=== PATIENT | female | born 1970 | race Caucasian/White ===

== ENCOUNTER 2020-06-02 11:41 | Outpatient (REF) | payer BC, SELFPAY ==
[2020-06-02 14:09] LABS: MANUAL DIFF FLAG NO
[2020-06-02 14:18] LABS: Basophils Percent Auto 0.4 % (0-2); Eosinophils Absolute Auto 0.1 X10*3/uL (0.0-0.4); Eosinophils Percent Auto 1.6 % (0-4); Hematocrit 40.8 % (37-47); Hemoglobin 13.7 g/dl (12.0-16.0); Imm Gran Abs Auto 0.02 X10*3/uL (0.00-0.03); Imm Gran Pct Auto 0.4 % (0.0-0.4); Lymphocytes Absolute Auto 1.6 X10*3/uL (1.2-4.9); Lymphocytes Percent Auto 33.3 % (20-40); Mean Corpuscular HGB Conc 33.6 g/dl (31.0-35.0); Mean Corpuscular Hemoglobin 32.9 pg (27.0-33.0); Mean Corpuscular Volume 97.8 fL (80-98); Mean Platelet Volume 12.2 fL (9.4-12.3); Monocytes Absolute Auto 0.5 X10*3/uL (0.1-1.2); Monocytes Percent Auto 9.7 % (2-11); Neutrophils Absolute Auto 2.7 X10*3/uL (2.0-8.3); Neutrophils Percent Auto 54.6 % (45-73); Platelet Count 149 X10*3/uL (160-400); Red Blood Count 4.17 X10*6/uL (4.20-5.50); Red Cell Distribution Width 12.8 % (11.0-16.0); White Blood Count 4.9 X10*3/uL (4.8-10.8)
[2020-06-02 14:42] LABS: Alanine Aminotransferase 29 U/L (0-31); Albumin Level 4.2 g/dL (3.5-5.0); Alkaline Phosphatase 51 U/L (39-117); Anion Gap 13 (12-20); Aspartate Amino Transferase 21 U/L (5-31); Bilirubin Total 0.4 mg/dL (0.0-1.0); Blood Urea Nitrogen 21 mg/dL (9-16); Calcium 8.2 mg/dL (8.4-10.2); Carbon Dioxide 24 mmol/L (22-29); Chloride 106 mmol/L (96-108); Cholesterol 275 mg/dL; Estimated Glomerular Filt Rate > 60; Glucose Fasting 83 mg/dL (60-99); HDL Cholesterol 60 mg/dL; LDL Cholesterol Calculated 194 mg/dl; Potassium 4.5 mmol/l (3.3-5.1); Sodium 138 mmol/L (135-145); Triglycerides 105 mg/dL
[2020-06-02 15:12] LABS: Erythrocyte Sedimentation Rate 6 MM/HR (0-20)
== END 2020-06-02 11:42 | disposition home or self-care (01) ==
LOC: HO.10HDL 11:41
PROVIDERS: Visit Provider Internal Medicine Medical Oncology
DX: E66.9 Obesity, unspecified (principal); Z00.00 Encounter for general adult medical examination without abnormal findings; E78.2 Mixed hyperlipidemia
CPT/HCPCS: 36415; 80053; 80061; 85025; 85652

== ENCOUNTER 2020-06-16 17:12 | Outpatient (REF) | payer BC, SELFPAY ==
--- NOTE | 2020-06-16 | MM_ITS ---
EXAMINATION: MM SCREENING DIGITAL BREAST TOMOSYNTHESIS, BILATERAL CLINICAL INFORMATION: Screening. Asymptomatic. Family history breast cancer, maternal grandmother. No personal history breast surgery. The lifetime risk of breast cancer based on the Tyrer-Cuzick Model is 8%. COMPARISON: Mammography: 08/07/2012, 09/16/2010 TECHNIQUE: Digital breast tomosynthesis is performed in both the craniocaudal and mediolateral oblique views along with computer-aided detection (CAD). Synthesized 2D images are generated from the tomosynthesis. FINDINGS: There are scattered areas of fibroglandular density (ACR BI-RADS breast composition Category b). There are no significant masses, abnormal calcifications, or other abnormalities. Parenchymal pattern is similar to prior studies. There is no developing density. The axilla and skin contours are unremarkable. No significant changes. MM/MM tomosynthesis screening BI IMPRESSION: No mammographic evidence of malignancy. ASSESSMENT: BI-RADS 1: Negative RECOMMENDATION: Routine annual mammography screening. This patient's information was entered into a reminder system with a target due date for their next mammogram.
== END 2020-06-16 17:13 | disposition home or self-care (01) ==
LOC: HO.MAMMO 17:12
PROVIDERS: Visit Provider Internal Medicine Medical Oncology
DX: Z12.31 Encounter for screening mammogram for malignant neoplasm of breast (principal)
CPT/HCPCS: 77063; 77067

== ENCOUNTER 2020-06-23 14:46 | Outpatient (REF) | payer BC, SELFPAY ==
--- NOTE | 2020-06-23 | US_ITS ---
EXAMINATION: US PELVIS COMPLETE US TRANSVAGINAL CLINICAL INFORMATION: Pelvic mass/lump/swelling. COMPARISON: None TECHNIQUE: Transabdominal and transvaginal imaging of pelvis is performed. FINDINGS: The uterus is anteverted, anteflexed and heterogenous. There are multiple hypoechoic to isoechoic lesions consistent with fibroids. 1. A 2.7 x 2.6 x 2.5 cm lesion right mid uterus. 2. A 1.1 x 0.9 x 1.0 cm lesion right mid uterus. 3. A 3.5 x 3.2 x 3.1 cm lesion in the right upper body of uterus. 4. A 1.4 x 1.2 x 1.3 cm lesion in the anterior upper body of uterus. 5. A 4.7 x 4.5 x 4.8 cm lesion in the left upper body of uterus. 6. A 0.9 x 0.7 x 1.07 lesion in the anterior fundus of the uterus. 7. A 1.3 x 0.9 x 1.1 cm lesion in the posterior central fundus of the uterus. 8. Largest pedunculated lesion of the right fundus measuring 7.3 x 7.7 x 7.8 cm. Endometrial thickness is 0.8 cm. There is a small cyst seen within the endometrial canal. There are small nabothian cysts in the cervix. Both ovaries are not seen. There is no free fluid in the cul-de-sac. Limited imaging through the right lower quadrant area of the lump reveals no evidence of hernia or mass. US/US pelvic complete IMPRESSION: Multiple uterine fibroids, the largest fibroid of the right fundus is pedunculated measuring 7.8 cm. Multiple nabothian cysts seen in the cervix. There is a small endometrial canal cyst, as well. The ovaries are not seen. Imaging of the right lower quadrant reveals no evidence of hernia or mass.
== END 2020-06-23 14:47 | disposition home or self-care (01) ==
LOC: HO.US 14:46
PROVIDERS: PCP Internal Medicine Medical Oncology; Visit Provider Internal Medicine Medical Oncology
DX: R19.00 Intra-abdominal and pelvic swelling, mass and lump, unspecified site (principal)
CPT/HCPCS: 76830; 76856

== ENCOUNTER 2020-09-29 07:27 | Day surgery (SDC) | payer OTHER, SELFPAY ==
[2020-08-12 10:33] VITALS: BMI 31.9
--- NOTE | 2020-08-17 09:33 | P.CONAN_ITS ---
HPI - Anesthesia Eval Consult details Narrative: 50yo F for Colonoscopy [facility] Past Medical History Medical History (Updated 08/12/20 @ 10:29 by Lacy Johnson) Vertigo Surgical History Surgical History (Updated 08/12/20 @ 10:29 by Lacy Johnson) History of bilateral carpal tunnel release Hx of section Social History Social History Smoking Status: Current every day smoker Packs Per Day: 0.25 Cigarettes Per Day: 5.0 Years Smoked: 39 Smoked in Last 30 Days: Yes Patient Given Instructions on How to Stop Smoking: Yes Date Education Initiated: 08/12/20 Advance Directives: No Advance Directives Information Provided: No Advance Directives on File: No Meds Allergies Allergy/AdvReac Type Severity Reaction Status Date / Time Sulfa (Sulfonamide Allergy Unknown RASH Unverified 04/02/20 16:06 Antibiotics) [SULFA (SULFONAMIDE ANTIBIOTICS)] sulfasalazine [Sulfazine] Allergy Unknown Verified 08/13/19 00:00 Home Medications Medication Instructions Recorded Confirmed Type meclizine 1 tab PO TID PRN 08/12/20 08/12/20 History Exam Exam Date and Time: August 17, 2020 0933 Height,Weight and Vital Signs: Height 4 ft 10 in Weight 69.4 kg Assessment and Plan Assessment Anesthesia Assessment: Chart Reviewed
--- NOTE | 2020-09-28 08:29 | P.CONAN_ITS ---
Documented by User: Anabell Merida 09/28/20 08:30 HPI - Anesthesia Eval Consult details Narrative: 50yo F for Colonoscopy [facility] Past Medical History Medical History Vertigo Surgical History Surgical History History of bilateral carpal tunnel release Hx of section Social History Social History Smoking Status: Current every day smoker Packs Per Day: 0.25 Cigarettes Per Day: 5.0 Years Smoked: 39 Smoked in Last 30 Days: Yes Patient Given Instructions on How to Stop Smoking: Yes Date Education Initiated: 08/12/20 Advance Directives: No Advance Directives Information Provided: No Advance Directives on File: No Meds Allergies Allergy/AdvReac Type Severity Reaction Status Date / Time Sulfa (Sulfonamide Allergy Mild RASH Verified 09/29/20 08:42 Antibiotics) [SULFA (SULFONAMIDE ANTIBIOTICS)] sulfasalazine [Sulfazine] Allergy Unknown Unknown Verified 09/22/20 13:30 Home Medications Medication Instructions Recorded Confirmed Last Taken Type meclizine 1 tab PO TID PRN 08/12/20 08/12/20 Unknown History Exam Exam Date and Time: September 28, 2020 0829 Height,Weight and Vital Signs: Height 4 ft 10 in Weight 69.4 kg Assessment and Plan Assessment Anesthesia Assessment: Chart Reviewed Documented by User: Lauren Wright 09/29/20 09:20 [facility] Past Medical History Medical History Vertigo Surgical History Surgical History History of bilateral carpal tunnel release Hx of section Social History Social History Smoking Status: Current every day smoker Packs Per Day: 0.25 Cigarettes Per Day: 5.0 Years Smoked: 39 Smoked in Last 30 Days: Yes Patient Given Instructions on How to Stop Smoking: Yes Date Education Initiated: 08/12/20 Advance Directives: No Advance Directives Information Provided: No Advance Directives on File: No Meds Allergies Allergy/AdvReac Type Severity Reaction Status Date / Time Sulfa (Sulfonamide Allergy Mild RASH Verified 09/29/20 08:42 Antibiotics) [SULFA (SULFONAMIDE ANTIBIOTICS)] sulfasalazine [Sulfazine] Allergy Unknown Unknown Verified 09/22/20 13:30 Home Medications Medication Instructions Recorded Confirmed Last Taken Type meclizine 1 tab PO TID PRN 08/12/20 08/12/20 Unknown History Exam Airway Mallampati Class: II TM Dist: >3cm Neck ROM: Full Loose/Missing/Broken Teeth: No Heart: RRR Lungs: CTA Assessment and Plan Assessment Anesthesia Assessment: Anesthesia Plan Discussed and Chart Reviewed Final Anesthetic Review NPO: Yes ASA Class: II Final Preanesthetic Review: Meds/Allgs Chart Reviewed, Consent Obtained/Reviewed and Anes Risks/Benef Reviewed Patient Risk: Low Procedure Risk: Low Anesthetic Plan Anesthetic Plan: MAC: Disposition: Standard PACU
[2020-09-29 08:23] VITALS: BP 121/76; PULSE 61; RESP 16; TEMP 36.7; O2SAT 99
[2020-09-29] MEDS: Lactated Ringers 1,000 ML 100 ML IVCONT (08:45)
--- NOTE | 2020-09-29 09:20 | MHC.SHP ---
Pre-Procedural Eval Section B Chief Complaint: screening Details of Present Illness: screening Relevant Family History (Specify if Yes): No Relevant Social History: None Present Medications: see Short Stay Collaborative assessment Medical History: No relevant PMH History of Previous Operations: No relevant previous surgery Allergies: Allergies Allergy/AdvReac Type Severity Reaction Status Date / Time Sulfa (Sulfonamide Allergy Mild RASH Verified 09/29/20 08:42 Antibiotics) [SULFA (SULFONAMIDE ANTIBIOTICS)] sulfasalazine [Sulfazine] Allergy Unknown Unknown Verified 09/22/20 13:30 Review of Systems Sugical H&P ROS: Negative: Constitution, Cardiovascular, Respiratory, Neurological, Psychiatric, Hem-Onc, Allergic/Immunologic, Gastrointestinal, Genitourinary, Musculoskeletal, Integumentary, Endocrine and Eyes/Ears/Nose/Throat Exam Surgical H&P Exam: Normal: HEENT, Normal: Heart, Normal: Lungs, Normal: Extremities, Normal: Abdomen, Normal: Skin and Normal: Neurological Plan Diagnosis/Plan: Unchanged I have reviewed the history and physical and performed a pertinent physical examination on my patient. No changes have occurred unless specified.
[2020-09-29 09:50] VITALS: BP 96/62; PULSE 74; RESP 18; TEMP 36.1; O2SAT 99
--- NOTE | 2020-09-29 09:50 | PM.OP ---
Brief Operative Note Date of Service: 09/29/20 Pre-op diagnosis: screening Post-op diagnosis: same (colon polyps) Procedure: colonoscopy Surgeon: Dano Ibrahim Anesthesia: MAC Estimated blood loss (mL): 2 Pathology: other (rectal polyps x2) Condition: stable Disposition: PACU
[2020-09-29 10:05] VITALS: BP 125/74; PULSE 71; RESP 18; TEMP 36.1; O2SAT 100
--- NOTE | 2020-09-29 10:10 | OP_ITS ---
SURGEON: Dano Ibrahim MD INDICATIONS: Colon cancer screening. PREOPERATIVE DIAGNOSIS: POSTOPERATIVE DIAGNOSIS: PROCEDURE PERFORMED: Colonoscopy to the terminal ileum with snare polypectomy. ESTIMATED BLOOD LOSS: COMPLICATIONS: ANESTHESIA: ASSISTANTS: SPECIMENS: MEDICATIONS: Monitored anesthesia care. DESCRIPTION OF PROCEDURE: History and physical performed. The risks and benefits of the procedure were explained to the patient. Informed consent was obtained. The patient was placed in the left lateral decubitus position. A digital rectal exam was performed and was found to be normal. The Olympus pediatric video colonoscope was introduced into the rectum and advanced to the cecum without difficulty. The cecum was identified by transillumination, palpation, and identification of ileocecal valve. Examination was performed. The scope was removed. She tolerated the procedure well and was taken to recovery area in stable condition. FINDINGS: The terminal ileum was normal. The visualized colonic mucosa was normal. The quality of prep was good. Two rectal polyps were identified and removed with a snare. The largest measured approximately 8 mm. No other polyps were seen. Retroflexed examination was normal. Small internal hemorrhoids and hypertrophic anal papillae were noted. IMPRESSION: Colon polyps. RECOMMENDATION: Follow up the biopsy results. MD SAGE Moyer/PERLITA / [phone]
== END 2020-09-29 10:32 | disposition home or self-care (01) ==
PROVIDERS: PCP Internal Medicine Medical Oncology; Visit Provider Internal Medicine Gastroenterology
PROC: 0DJD8ZZ Inspection of Lower Intestinal Tract, Via Natural or Artificial Opening Endoscopic (ICD-10-PCS; CPT 45378; principal; 2020-09-29 09:00)
DX: Z12.11 Encounter for screening for malignant neoplasm of colon (principal); D12.8 Benign neoplasm of rectum; K64.8 Other hemorrhoids; K62.89 Other specified diseases of anus and rectum; R42 Dizziness and giddiness; F17.210 Nicotine dependence, cigarettes, uncomplicated; Z79.899 Other long term (current) drug therapy
CPT/HCPCS: 45385; 88305

== ENCOUNTER → 2020-09-30 13:53 | Outpatient (BNVA) | payer OTHER, SELFPAY | PROVIDERS: PCP Internal Medicine Medical Oncology; Visit Provider Obstetrics & Gynecology ==

== ENCOUNTER 2021-09-23 10:05 | Outpatient (REF) | payer OTHER, SELFPAY ==
--- NOTE | ~2021-09-23 | MM_ITS ---
EXAMINATION: MM SCREENING DIGITAL BREAST TOMOSYNTHESIS, BILATERAL CLINICAL INFORMATION: Screening. Asymptomatic. The lifetime risk of breast cancer based on the Tyrer-Cuzick Model is 8%. COMPARISON: Mammography: 06/16/2020 TECHNIQUE: Digital breast tomosynthesis is performed in both the craniocaudal and mediolateral oblique views along with computer-aided detection (CAD). Synthesized 2D images are generated from the tomosynthesis. FINDINGS: There are scattered areas of fibroglandular density (ACR BI-RADS breast composition Category b). There are no significant masses, abnormal calcifications, or other abnormalities. Parenchymal pattern is similar to prior studies. There is no developing density or architectural abnormality. The axilla and skin contours are unremarkable. No significant changes. MM/MM tomosynthesis screening BI IMPRESSION: No mammographic evidence of malignancy. ASSESSMENT: BI-RADS 1: Negative RECOMMENDATION: Routine annual mammography screening. This patient's information was entered into a reminder system with a target due date for their next mammogram.
== END 2021-09-23 10:06 | disposition home or self-care (01) ==
LOC: HO.MAMMO 10:05
PROVIDERS: Visit Provider Internal Medicine Medical Oncology
DX: Z12.31 Encounter for screening mammogram for malignant neoplasm of breast (principal)
CPT/HCPCS: 77063; 77067

== ENCOUNTER 2021-09-30 10:43 | Outpatient (REF) | payer OTHER, SELFPAY ==
[2021-09-30 11:03] LABS: MANUAL DIFF FLAG NO
[2021-09-30 11:23] LABS: Basophils Percent Auto 0.4 % (0-2); Eosinophils Absolute Auto 0.1 X10*3/uL (0.0-0.4); Eosinophils Percent Auto 2.7 % (0-4); Hematocrit 42.1 % (37.0-47.0); Hemoglobin 13.9 g/dl (12.0-16.0); Imm Gran Abs Auto 0.01 X10*3/uL (0.00-0.03); Imm Gran Pct Auto 0.2 % (0.0-0.4); Lymphocytes Absolute Auto 1.8 X10*3/uL (1.2-4.9); Lymphocytes Percent Auto 38.4 % (20-40); Mean Corpuscular Hemoglobin 31.8 pg (27.0-33.0); Mean Corpuscular Volume 96.3 fL (80.0-98.0); Mean Platelet Volume 12.3 fL (9.4-12.3); Monocytes Absolute Auto 0.5 X10*3/uL (0.1-1.2); Monocytes Percent Auto 10.5 % (2-11); Neutrophils Absolute Auto 2.3 x10*3/uL (2.0-8.3); Neutrophils Percent Auto 47.8 % (45-73); Platelet Count 127 X10*3/uL (160-400); Red Blood Count 4.37 X10*6/uL (4.20-5.50); Red Cell Distribution Width 12.9 % (11.0-16.0); White Blood Count 4.8 X10*3/uL (4.8-10.8)
[2021-09-30 12:09] LABS: Alanine Aminotransferase 24 U/L (0-31); Albumin Level 4.2 g/dL (3.5-5.0); Alkaline Phosphatase 47 U/L (39-117); Anion Gap 13 (12-20); Aspartate Amino Transferase 19 U/L (5-31); Bilirubin Total 0.3 mg/dL (0.0-1.0); Blood Urea Nitrogen 18 mg/dL (9-16); Calcium 9.3 mg/dL (8.4-10.2); Carbon Dioxide 22 mmol/L (22-29); Chloride 107 mmol/L (96-108); Cholesterol 271 mg/dL; Estimated Glomerular Filt Rate > 60; Glucose Fasting 101 mg/dL (60-99); HDL Cholesterol 62 mg/dL; LDL Cholesterol Calculated 172 mg/dl; Potassium 4.3 mmol/L (3.3-5.1); Sodium 138 mmol/L (135-145); Total Protein 7.2 g/dL (6.5-8.0); Triglycerides 188 mg/dL
== END 2021-09-30 10:44 | disposition home or self-care (01) ==
LOC: HO.LAB 10:43
PROVIDERS: PCP Internal Medicine Medical Oncology; Visit Provider Internal Medicine Medical Oncology
DX: E66.9 Obesity, unspecified (principal); E78.2 Mixed hyperlipidemia
CPT/HCPCS: 36415; 80053; 80061; 85025

== ENCOUNTER 2021-10-20 09:03 | Emergency (ER) | payer OTHER, SELFPAY ==
[2021-10-20 09:06] VITALS: BP 144/90; PULSE 93; RESP 16; TEMP 36.8; O2SAT 99; BMI 32.3
[2021-10-20 09:46] LABS: Strep A Nucleic Acid Positive (Negative)
[2021-10-20 09:56] LABS: COVID-19 Test Negative (Negative); IDNOW Serial# 16C4AD1C
--- NOTE | 2021-10-20 10:17 | ED.GENADULT ---
HPI - General Adult General Chief complaint: General Medical Stated complaint: throat pain/cant swallow Time Seen by Provider: 10/20/21 09:18 History of Present Illness HPI narrative: Patient complains of sore throat and feeling feverish for last 3 days, no runny nose no cough no shortness of breath, it hurts to swallow but she is able to swallow Related Data Home Medications Medication Instructions Recorded Confirmed meclizine 25 mg tablet 1 tab PO TID PRN 08/12/20 08/12/20 Previous Rx's Medication Instructions Recorded acetaminophen 500 mg tablet 1,000 mg PO QID PRN #30 tab 10/20/21 ibuprofen 600 mg tablet 600 mg PO Q6H PRN #20 tab 10/20/21 penicillin V potassium 500 mg 500 mg PO TID 10 Days #30 tab 10/20/21 tablet Allergies Allergy/AdvReac Type Severity Reaction Status Date / Time Sulfa (Sulfonamide Allergy Mild RASH Verified 09/30/20 13:58 Antibiotics) [SULFA (SULFONAMIDE ANTIBIOTICS)] sulfasalazine [Sulfazine] Allergy Unknown Unknown Verified 09/30/20 13:58 Review of Systems Review of Systems: Positive for sore throat and fever and body aches Negatives are no dizziness no weakness no headache no stiff neck no chest pain no shortness of breath no abdominal pain no nausea or vomiting no skin rash no dysuria Yes all other systems are reviewed and are negative [facility], [facility] Past Medical History Source: nursing notes reviewed Medical History (Updated 10/20/21 @ 10:21 by DIANA Campbell) Vertigo Surgical History (Updated 09/30/20 @ 14:26 by Candida Ortega MD) History of bilateral carpal tunnel release History of bilateral ligation of fallopian tubes Hx of section Social History Social History (Updated 09/30/20 @ 13:59 by FOUZIA Fajardo) Alcohol intake: current Alcohol intake frequency: holidays/special occasions only Alcohol type: wine Cigarette Packs Per Day: 0.25 Cigarettes Per Day: 5.0 Years Smoked: 39 Advance Directives: No Advance Directives Information Provided: No Gender identity: Female Physical Exam ED Vital Signs: Vital Signs - 24 hr 10/20/21 09:06 Temperature 98.3 F Pulse Rate 93 Respiratory Rate 16 Blood Pressure 144/90 H Pulse Oximetry 99 BMI result Body Mass Index 32.3 General appearance is no acute distress The eyes no redness or discharge The sinuses nontender The pharynx has moist mucous membranes and a does have red swollen tonsils with exudate, uvula is midline, voice is normal no trismus no drooling The neck is supple, there is anterior tender lymphadenopathy The chest is clear to auscultation bilateral Heart no murmur Abdomen soft nontender Extremities full range of motion x4 Skin no rash Course Course Course Narrative: Strep test was positive and patient is treated with penicillin and steroids she does tolerate p.o. Flu test and COVID test are negative and well-appearing patient tolerating p.o. is discharged Medical Decision Making Lab Data Labs: Lab Results 10/20/21 10/20/21 10/20/21 Range/Units 09:31 09:31 09:31 COVID-19 (RYAN) Negative (Negative) COVID-19 Clin Com See Note Influenza Type A ([facility]ERRE) Negative (Negative) Influenza Type B ([facility]RE) Negative (Negative) Influenza A & B Note See Note S. pyogenes GrpA JE[facility]ERRE Positive A (Negative) Discharge Plan Discharge Clinical Impression: Acute streptococcal pharyngitis Patient Disposition: Home, Self-Care Additional Instructions: Flu test was negative, COVID test was negative Strep throat test was positive so we are treating with antibiotic penicillin Steroids often help the discomfort so we are doing 3 days of steroids you got the 1st dose today in the ER so you can take the prednisone tomorrow and You could use Tylenol and Motrin as needed for discomfort, breathing steam sometimes help, drink plenty of fluids Return any time any worse condition or concerns Prescriptions: New acetaminophen 500 mg tablet 1,000 mg PO QID PRN (Reason: pain) Qty: 30 0RF penicillin V potassium 500 mg tablet 500 mg PO TID 10 Days Qty: 30 0RF ibuprofen 600 mg tablet 600 mg PO Q6H PRN (Reason: pain) Qty: 20 0RF No Action meclizine 25 mg tablet 1 tab PO TID PRN (Reason: Vertigo) 0RF Stand Alone Forms: Work/School Release
[2021-10-20 10:22] LABS: IDNOW Serial# 08D9AD1C; Influenza A Negative (Negative); Influenza B2 Negative (Negative)
[2021-10-20] MEDS: Penicillin V Potassium 250 MG TABLET 500 MG PO (10:39)
[2021-10-20] MEDS: Ibuprofen 600 MG TABLET PO (10:39)
[2021-10-20] MEDS: dexAMETHasone 2 MG TABLET 10 MG PO (10:39)
== END 2021-10-20 10:49 | disposition home or self-care (01) ==
PROVIDERS: Physician Assistant Medical; Emergency Provider Emergency Medicine Emergency Medical Services; PCP Internal Medicine Medical Oncology
DX: J02.0 Streptococcal pharyngitis (principal); R07.0 Pain in throat; R50.9 Fever, unspecified; F17.210 Nicotine dependence, cigarettes, uncomplicated; Z71.6 Tobacco abuse counseling; Z79.899 Other long term (current) drug therapy; Z20.822 Contact with and (suspected) exposure to COVID-19
CPT/HCPCS: 87502; 87635; 87651; 99283; J8540

== ENCOUNTER 2022-09-29 09:24 | Outpatient (REF) | payer OTHER, SELFPAY ==
--- NOTE | ~2022-09-29 | MM_ITS ---
EXAMINATION: MM SCREENING DIGITAL BREAST TOMOSYNTHESIS, BILATERAL CLINICAL INFORMATION: Screening. Asymptomatic. The lifetime risk of breast cancer based on the Tyrer-Cuzick Model is 7.3%. COMPARISON: Mammography: 09/23/2021 and studies dating back to 09/16/2010. TECHNIQUE: Digital breast tomosynthesis is performed in both the craniocaudal and mediolateral oblique views along with computer-aided detection (CAD). Synthesized 2D images are generated from the tomosynthesis. FINDINGS: The breasts are heterogeneously dense, which may obscure small masses (ACR BI-RADS breast composition Category c). About the superior aspect of the left breast on mediolateral oblique projection only approximately 7 cm from nipple there is a stable grouping of small circumscribed densities. I do not see a corresponding region on craniocaudal view. No other abnormal dominant masses or suspicious grouping of microcalcifications identified. MM/MM tomosynthesis screening BI IMPRESSION: No significant changes from prior exam. ASSESSMENT: BI-RADS 2: Benign. RECOMMENDATION: Routine annual mammography screening. This patient's information was entered into a reminder system with a target due date for their next mammogram.
== END 2022-09-29 09:25 | disposition home or self-care (01) ==
LOC: HO.MAMMO 09:24
PROVIDERS: PCP Internal Medicine Medical Oncology; Visit Provider Internal Medicine Medical Oncology
DX: Z12.31 Encounter for screening mammogram for malignant neoplasm of breast (principal)
CPT/HCPCS: 77063; 77067

== ENCOUNTER 2022-09-29 10:18 | Outpatient (REF) | payer OTHER, SELFPAY ==
[2022-09-29 10:40] LABS: MANUAL DIFF FLAG NO
[2022-09-29 10:51] LABS: Basophils Percent Auto 0.2 % (0-2); Eosinophils Absolute Auto 0.1 X10*3/uL (0.0-0.4); Eosinophils Percent Auto 2.4 % (0-4); Hematocrit 42.4 % (37.0-47.0); Hemoglobin 14.1 g/dl (12.0-16.0); Imm Gran Abs Auto 0.02 X10*3/uL (0.00-0.03); Imm Gran Pct Auto 0.4 % (0.0-0.4); Lymphocytes Absolute Auto 1.6 X10*3/uL (1.2-4.9); Lymphocytes Percent Auto 32.4 % (20-40); Mean Corpuscular HGB Conc 33.3 g/dl (31.0-35.0); Mean Corpuscular Volume 96.4 fL (80.0-98.0); Mean Platelet Volume 12.4 fL (9.4-12.3); Monocytes Absolute Auto 0.5 X10*3/uL (0.1-1.2); Monocytes Percent Auto 9.8 % (2-11); Neutrophils Absolute Auto 2.7 x10*3/uL (2.0-8.3); Neutrophils Percent Auto 54.8 % (45-73); Platelet Count 130 X10*3/uL (160-400); White Blood Count 4.9 X10*3/uL (4.8-10.8)
[2022-09-29 11:19] LABS: Alanine Aminotransferase 22 U/L (0-31); Albumin Level 4.2 g/dL (3.5-5.0); Alkaline Phosphatase 44 U/L (39-117); Anion Gap 11 (12-20); Aspartate Amino Transferase 16 U/L (5-31); Bilirubin Total 0.4 mg/dL (0.0-1.0); Blood Urea Nitrogen 19 mg/dL (9-16); Calcium 8.8 mg/dL (8.4-10.2); Carbon Dioxide 25 mmol/L (22-29); Chloride 108 mmol/L (96-108); Cholesterol 278 mg/dL; Estimated Glomerular Filt Rate > 60; Glucose Fasting 99 mg/dL (60-99); HDL Cholesterol 69 mg/dL; LDL Cholesterol Calculated 186 mg/dl; Potassium 4.5 mmol/L (3.3-5.1); Sodium 139 mmol/L (135-145); Total Protein 6.8 g/dL (6.5-8.0); Triglycerides 116 mg/dL
== END 2022-09-29 10:19 | disposition home or self-care (01) ==
LOC: HO.LAB 10:18
PROVIDERS: PCP Internal Medicine Medical Oncology; Visit Provider Internal Medicine Medical Oncology
DX: Z00.00 Encounter for general adult medical examination without abnormal findings (principal); E66.9 Obesity, unspecified; E78.2 Mixed hyperlipidemia
CPT/HCPCS: 36415; 80053; 80061; 85025

== ENCOUNTER 2023-05-04 09:07 | Outpatient (AMB) | payer OTHER, SELFPAY ==
--- NOTE | 2023-05-04 09:08 | A.OFFVIS_ITS ---
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 Scribed for SILVIO Garrido by Sheila Mayer medical field representative, on 05/04/2023 at 9:23 am EST. Shipping Specialist: Shipping Specialist Present (Rosa Isela) Allergies Sulfa (Sulfonamide Antibiotics) [SULFA (SULFONAMIDE ANTIBIOTICS)] Allergy (Mild, Verified 05/04/23 09:10) RASH Is last menstrual period known: Yes Last menstrual period: 04/08/23 HPI HPI Comments History of Present Illness Details She is a premenopausal woman presenting for annual exam. Doing well, occasional right sided pain she feels due to her fibroids. Patient admits she doesn't always eat due to her busy work schedules. 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 Currently sexually active. LMP 04/08/23; regular and monthly lasting 7 days (her usual for years). Admits occasional hot flashes. Denies vaginal itching and irritation. STD screening offered; she accepts. Denies family hx of ovarian cancer. Last pap smear 08/13/19 Last mammogram UTD on colonoscopy. [facility] Medical History Uterine fibroid Vertigo Surgical History History of bilateral ligation of fallopian tubes History of bilateral carpal tunnel release Hx of section Family History Maternal Grandmother History of breast cancer Maternal Grandfather Colon cancer Social History Alcohol intake: current Alcohol intake frequency: holidays/special occasions only Alcohol type: wine Patient Tobacco Use Status: Current everyday Tobacco user Cigarette Packs Per Day: 0.25 Cigarettes Per Day: 3 Years Smoked: 39 Sexually active: Yes Sexual orientation: Straight/Heterosexual Gender identity: Female Female Reproductive History Menstrual Date of last menstrual period: 04/08/23 control method: permanent sterilization Permanent Sterilization: BTL Total pregnancies: 4 Full term: 3 Number of Living Children: 3 Ab spontaneous: 1 Date of last pap smear: 08/13/19 (neg pap and hpv) Date of Mammogram: 09/29/22 (Birad 2) Physical Exam Vital Signs: Last Vital Signs BP 116/80 05/04/23 09:10 BMI result Body Mass Index 31.3 Const General: cooperative, healthy appearing, no acute distress, well developed and alert Orientation/consciousness: patient oriented x3 HEENT Head: Yes normal to inspection Eyes General: appearance normal, both eyes and all related structures Neck Neck: Yes normal visual inspection Thyroid: Thyroid normal Chest Chest palpation & inspection: normal inspection of the chest Breast/axilla inspection: normal inspection of the breasts (no puckering, dimpling, peau de orange, retraction, discharge, masses) Breast/axilla palpation: normal palpation of the breasts Resp Effort & Inspection: normal respiratory effort GI Other: mass up to midline Inspection: Yes normal to inspection Palpation (GI): Soft to palpation (to palpation) Rectal Exam - Female: deferred General: Yes bladder normal to inspection External Female Exam: normal external appearance and normal appearance of the urethra Speculum Exam - Vagina: normal appearance of the vagina, normal palpation and normal vaginal discharge Speculum Exam - Cervix: normal appearance of the cervix and normal palpation Bimanual exam- vagina & uterus: normal palpation, normal palpation and enlarged (20 weeks size enlarged uterus) Bimanual Exam- Adnexa, other: normal adnexae and no masses Skin General skin exam: no rashes or lesions noted Neuro General: patient oriented x3 Cognition (Neuro): normal cognition Extrem General: Yes normal to inspection Psych Attitude: cooperative Thought process: Normal thought process present Results Reviewed Results Reviewed: Ordering Physician: Sachin Stokes MD Date of Service: 06/23/20 Procedure(s): US pelvic complete Accession Number(s): [id number] cc: Sachin Stokes MD~ EXAMINATION: US PELVIS COMPLETE US TRANSVAGINAL CLINICAL INFORMATION: Pelvic mass/lump/swelling. COMPARISON: None TECHNIQUE: Transabdominal and transvaginal imaging of pelvis is performed. FINDINGS: The uterus is anteverted, anteflexed and heterogenous. There are multiple hypoechoic to isoechoic lesions consistent with fibroids. 1. A 2.7 x 2.6 x 2.5 cm lesion right mid uterus. 2. A 1.1 x 0.9 x 1.0 cm lesion right mid uterus. 3. A 3.5 x 3.2 x 3.1 cm lesion in the right upper body of uterus. 4. A 1.4 x 1.2 x 1.3 cm lesion in the anterior upper body of uterus. 5. A 4.7 x 4.5 x 4.8 cm lesion in the left upper body of uterus. 6. A 0.9 x 0.7 x 1.07 lesion in the anterior fundus of the uterus. 7. A 1.3 x 0.9 x 1.1 cm lesion in the posterior central fundus of the uterus. 8. Largest pedunculated lesion of the right fundus measuring 7.3 x 7.7 x 7.8 cm. Endometrial thickness is 0.8 cm. There is a small cyst seen within the endometrial canal. There are small nabothian cysts in the cervix. Both ovaries are not seen. There is no free fluid in the cul-de-sac. Limited imaging through the right lower quadrant area of the lump reveals no evidence of hernia or mass. US/US pelvic complete IMPRESSION: Multiple uterine fibroids, the largest fibroid of the right fundus is pedunculated measuring 7.8 cm. Multiple nabothian cysts seen in the cervix. There is a small endometrial canal cyst, as well. The ovaries are not seen. Imaging of the right lower quadrant reveals no evidence of hernia or mass. Assessment & Plan Assessment & Plan (1) Encounter for well woman exam: Code(s): Z01.419 - Encounter for gynecological examination (general) (routine) without abnormal findings Plan: Discussed: Current recommendations for pap smears per ASCCP guidelines. Breast awareness and periodic self breast exams. Maintaining a healthy lifestyle including a well balanced diet and routine exercise. Encouraged to use condoms for STD and prevention. Encouraged patient to sign up for patient portal. Counseled re: perimenopause vs menopause. Monitor periods, report any unscheduled bleeding, bleeding episodes less than 21 days apart or heavy prolonged menstrual bleeding. All of her questions and concerns were addressed to the best of my ability. RTO in one year for AG. (2) Uterine fibroid: Comment: multiple Code(s): D25.9 - Leiomyoma of uterus, unspecified Plan: Report any AUB. Pelvic pressure, bloating, or pain. Pelvic US ordered. Patient prefers expectant management. Expectant management follow up yearly for stability. Report any abnormal bleeding patterns, pelvic pressure, bloating, or pain. Orders: Orders US pelvic and transvaginal Today D25.9 - Leiomyoma of uterus, unspecified Coding Level of Care Code Est Pt Prev Care 40-64y(89680) Diagnoses Encounter for well woman exam Z01.419 Uterine fibroid D25.9
[2023-05-04 09:10] VITALS: BP 116/80; BMI 31.3
== END 2023-05-04 09:39 | disposition home or self-care (01) ==
PROVIDERS: PCP Internal Medicine Medical Oncology; Visit Provider Advanced Practice Midwife
DX: Z01.419 Encounter for gynecological examination (general) (routine) without abnormal findings (principal); D25.9 Leiomyoma of uterus, unspecified
CPT/HCPCS: 99396

== ENCOUNTER → 2023-05-04 09:07 | Outpatient (BNVA) | payer OTHER, SELFPAY | PROVIDERS: PCP Internal Medicine Medical Oncology; Visit Provider Advanced Practice Midwife ==

== ENCOUNTER 2023-06-01 11:19 | Outpatient (REF) | payer OTHER, SELFPAY ==
--- NOTE | ~2023-06-01 | US_ITS ---
EXAMINATION: US PELVIS CLINICAL INFORMATION: Follow-up thyroid COMPARISON: 06/23/2020 TECHNIQUE: Ultrasound of the pelvis is performed using both transabdominal and transvaginal transducers along with Doppler. Transvaginal imaging was not performed due to uterine size and patient discomfort.. FINDINGS: Uterus: The uterus is anteverted and enlarged measuring 13 x 5.0 x 9.0 cm. Multiple fibroids are again identified, largest are measured below: 9.0 x 8.8 x 8.7 right fundal, previously 7.6 x 6.6 x 8.5 cm. 4.6 x 4.4 x 4.3 cm left upper, previously 4.7 x 4.5 x 4.8 cm. 3.6 x 3.7 x 3.2 cm right upper, previously 3.5 x 3.2 x 3.1 cm. 3.2 x 2.1 x 2.9 cm right mid, previously 2.7 x 2.6 x 2.5 cm. The double wall endometrial thickness is 0.4 mm. The uterus is smooth in contour and has normal myometrial echogenicity. No visible fibroid. Adnexa: Both ovaries are unremarkable. Right ovary measures 3.0 x 2.0 x 1.9 cm. Volume is 6.0 mL. Left ovary measures 1.1 x 2.1 x 2.0 cm. Volume is 2.4 mL. No free fluid. US/US pelvic and transvaginal IMPRESSION: Enlarged fibroid uterus.
== END 2023-06-01 11:20 | disposition home or self-care (01) ==
LOC: HO.US 11:19
PROVIDERS: PCP Internal Medicine Medical Oncology; Visit Provider Advanced Practice Midwife
DX: D25.9 Leiomyoma of uterus, unspecified (principal)
CPT/HCPCS: 76830; 76856

== ENCOUNTER 2023-06-15 09:08 | Outpatient (AMB) | payer OTHER, SELFPAY ==
--- NOTE | 2023-06-15 09:15 | MHC.OFFVIS ---
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 She does not report any pain unless she bumps the area of her abdomen. She reports regular monthly menstrual cycles not heavy or prolonged, and no bleeding in between. [facility] Medical History (Updated 06/15/23 @ 13:57 by Savita Álvarez CNM) Uterine fibroid Vertigo Surgical History History of bilateral ligation of fallopian tubes History of bilateral carpal tunnel release Hx of section Family History Maternal Grandmother History of breast cancer Maternal Grandfather Colon cancer Social History Alcohol intake: current Alcohol intake frequency: holidays/special occasions only Alcohol type: wine Patient Tobacco Use Status: Current everyday Tobacco user Cigarette Packs Per Day: 0.25 Cigarettes Per Day: 3 Years Smoked: 39 Sexual orientation: Straight/Heterosexual Gender identity: Female Review of Systems ENT Reports no additional complaints Neuro Reports no additional complaints Psych Reports no additional complaints Endo Reports no additional complaints Physical Exam Vital Signs: Last Vital Signs BP 124/86 06/15/23 09:16 BMI result Body Mass Index 31.3 Results Reviewed Results Reviewed: [address] [address] Ultrasound Report Signed Patient: Teetee Plata MR#: [id number] : 1970 Acct:[id number] Age/Sex: 53 / F ADM Date: 06/01/23 Loc: HO.US Attending Dr: Savita Álvarez CNM Ordering Physician: Savita Álvarez CNM Date of Service: 06/01/23 Procedure(s): US pelvic and transvaginal Accession Number(s): [id number] cc: Sachin Stokes MD; Savita Álvarez CNM~ EXAMINATION: US PELVIS CLINICAL INFORMATION: Follow-up thyroid COMPARISON: 06/23/2020 TECHNIQUE: Ultrasound of the pelvis is performed using both transabdominal and transvaginal transducers along with Doppler. Transvaginal imaging was not performed due to uterine size and patient discomfort.. FINDINGS: Uterus: The uterus is anteverted and enlarged measuring 13 x 5.0 x 9.0 cm. Multiple fibroids are again identified, largest are measured below: 9.0 x 8.8 x 8.7 right fundal, previously 7.6 x 6.6 x 8.5 cm. 4.6 x 4.4 x 4.3 cm left upper, previously 4.7 x 4.5 x 4.8 cm. 3.6 x 3.7 x 3.2 cm right upper, previously 3.5 x 3.2 x 3.1 cm. 3.2 x 2.1 x 2.9 cm right mid, previously 2.7 x 2.6 x 2.5 cm. The double wall endometrial thickness is 0.4 mm. The uterus is smooth in contour and has normal myometrial echogenicity. No visible fibroid. Adnexa: Both ovaries are unremarkable. Right ovary measures 3.0 x 2.0 x 1.9 cm. Volume is 6.0 mL. Left ovary measures 1.1 x 2.1 x 2.0 cm. Volume is 2.4 mL. No free fluid. US/US pelvic and transvaginal IMPRESSION: Enlarged fibroid uterus. Assessment & Plan Assessment & Plan (1) Encounter to discuss test results: Code(s): Z71.2 - Person consulting for explanation of examination or test findings Plan: see below (2) Fibroid: Code(s): D21.9 - Benign neoplasm of connective and other soft tissue, unspecified Plan Counseled re: Leiomyoma: common pelvic neoplasm. Differential diagnosis-may include leiomyosarcoma which is a rare uterine sarcoma 3-7/100,000, difficult to distinguish from fibroids on ultrasound from uterine sarcoma's. Unlikely any single test will have a highly positive predictive value. Hysterectomy is not recommended for sole purpose of excluding malignant neoplasm. Report any PMB/AUB. Pelvic pressure, bloating, or pain. Consult for surgical exploration verses expectant management offered. Patient prefers expectant management. Expectant management follow up in 12 months, then yearly for stability. Counseled re: perimenopause verses menopause changes. Monitor menstrual cycles, report any unscheduled bleeding, bleeding episodes <21 days apart or heavy/prolonged menstrual bleeding. Menopause occurs after a full 12 months of absent menses. If at risk for , use condoms, and if menses is late, take a home test. Call the office for further evaluation if a positive result or abnormal bleeding pattern occurs. Coding Level of Care Code Est Pt Level 3 (73196) Diagnoses Encounter to discuss test results Z71.2 Fibroid D21.9
[2023-06-15 09:16] VITALS: BP 124/86; BMI 31.3
== END 2023-06-15 09:33 | disposition home or self-care (01) ==
PROVIDERS: PCP Internal Medicine Medical Oncology; Visit Provider Advanced Practice Midwife
DX: Z71.2 Person consulting for explanation of examination or test findings (principal); D21.9 Benign neoplasm of connective and other soft tissue, unspecified
CPT/HCPCS: 99213

== ENCOUNTER → 2023-06-15 09:08 | Outpatient (BNVA) | payer OTHER, SELFPAY | PROVIDERS: PCP Internal Medicine Medical Oncology; Visit Provider Advanced Practice Midwife ==

== ENCOUNTER 2023-06-29 14:13 | Outpatient (REF) | payer OTHER, SELFPAY | END 2023-06-29 14:14 | disposition home or self-care (01) | LOC: HO.LNP 14:13 | PROVIDERS: Visit Provider Internal Medicine Medical Oncology | DX: L03.039 Cellulitis of unspecified toe (principal) | CPT/HCPCS: 87070; 87077; 87186; 87205 ==

== ENCOUNTER 2023-08-17 14:43 | Emergency (ER) | payer OTHER, SELFPAY ==
[2023-08-17 15:03] VITALS: BP 175/99; PULSE 88; RESP 16; TEMP 36.6; O2SAT 97; BMI 32.4
--- NOTE | 2023-08-17 15:04 | ED_ITS ---
HPI - General Adult General Chief complaint: Upper Respiratory Symptoms Stated complaint: Body aches, sore throat Time Seen by Provider: 08/17/23 15:04 Source: patient, RN notes reviewed and old records reviewed Mode of arrival: ambulatory Limitations: no limitations History of Present Illness HPI narrative: 53-year-old female presents for evaluation of a sore throat, body aches for the last 4 days She reports that she frequently gets strep pharyngitis around this time She is able to swallow but has painful swallowing No difficulty managing secretions Related Data Home Medications Medication Instructions Recorded Confirmed meclizine 25 mg tablet 1 tab PO TID PRN Vertigo 08/12/20 08/12/20 Previous Rx's Medication Instructions Recorded acetaminophen 500 mg tablet 1,000 mg (2 x 500 mg) PO QID PRN 10/20/21 pain #30 tabs ibuprofen 600 mg tablet 600 mg PO Q6H PRN pain #20 tabs 10/20/21 amoxicillin 875 mg-potassium 1 tab PO Q12H #14 tabs 08/17/23 clavulanate 125 mg tablet Allergies Allergy/AdvReac Type Severity Reaction Status Date / Time Sulfa (Sulfonamide Allergy Mild RASH Verified 06/15/23 09:16 Antibiotics) [SULFA (SULFONAMIDE ANTIBIOTICS)] Review of Systems Constitutional: Constitutional: Reports body ache(s), Reports chills, Reports fever(s) and Reports malaise ENT: Reports sore throat Cardiovascular: Cardiovascular: Denies dyspnea Respiratory: Respiratory: Denies cough and Denies dyspnea Gastrointestinal: Gastrointestinal: Denies abdominal pain [facility] Past Medical History Medical History (Updated 08/17/23 @ 15:05 by Stephen Stone) Uterine fibroid Vertigo Surgical History History of bilateral ligation of fallopian tubes History of bilateral carpal tunnel release Hx of section Family History Family History Maternal Grandmother History of breast cancer Maternal Grandfather Colon cancer Social History Social History Alcohol intake: current Alcohol intake frequency: holidays/special occasions only Alcohol type: wine Patient Tobacco Use Status: Current everyday Tobacco user Cigarette Packs Per Day: 0.25 Cigarettes Per Day: 3 Years Smoked: 39 Sexual orientation: Straight/Heterosexual Gender identity: Female Physical Exam ED Vital Signs: Vital Signs - 24 hr 08/17/23 15:03 Temperature 98 F Pulse Rate 88 Respiratory Rate 16 Blood Pressure 175/99 H Pulse Oximetry 97 Oxygen Delivery Method Room Air BMI result Body Mass Index 32.4 Const General: healthy appearing, comfortable, no acute distress, alert and awake Nutritional Appearance: well nourished Orientation/consciousness: patient oriented x3 HENMT Other: Erythematous oropharynx with whitish exudates. The patient has bilateral tonsillar hypertrophy. No evidence of peritonsillar abscess. Airway widely patent Head: Yes normocephalic and Yes atraumatic Neck Neck: Yes full ROM Resp Effort & Inspection: normal respiratory effort, able to speak in complete sentences and not labored Skin General skin exam: elasticity normal Neuro General: patient oriented x3 Cranial nerves: Yes Bilaterally intact EOM present Cognition (Neuro): normal cognition Extrem Other: Moving all extremities well without any obvious deformities Medical Decision Making Medical Decision Making MDM Narrative: 53-year-old female presents for evaluation of pharyngitis. She has whitish exudates. Offered testing for strep pharyngitis, however the patient has a history of frequent strep infections and this appears consistent with strep pharyngitis, we will treat with Augmentin b.i.d. x7 days. Patient declines testing at this time Differential Diagnosis Differential Diagnoses: The differential diagnosis associated with the presentation includes Strep pharyngitis Exudative pharyngitis Viral syndrome Upper respiratory infection Tests considered The following testing was considered but not selected: Rapid strep testing, but patient has declined Discharge Plan Discharge Clinical Impression: Exudative pharyngitis Patient Disposition: Home, Self-Care Instructions: Pharyngitis (ED) Additional Instructions: Take Augmentin twice daily for the next 7 days Use Motrin/Tylenol for fevers, body aches Use salt water gargles to help your pain Return for new or worsening symptoms Follow-up with your primary doctor Prescriptions: New amoxicillin-pot clavulanate 875-125 mg tablet 1 tab PO Q12H Qty: 14 0RF No Action meclizine 25 mg tablet 1 tab PO TID PRN (Reason: Vertigo) acetaminophen 500 mg tablet 1,000 mg PO QID PRN (Reason: pain) Qty: 30 0RF ibuprofen 600 mg tablet 600 mg PO Q6H PRN (Reason: pain) Qty: 20 0RF
== END 2023-08-17 16:09 | disposition home or self-care (01) ==
PROVIDERS: Emergency Provider Emergency Medicine
DX: J02.9 Acute pharyngitis, unspecified (principal)
CPT/HCPCS: 99282; 99283

== ENCOUNTER 2023-10-03 14:24 | Emergency (ER) | payer OTHER, SELFPAY ==
[2023-10-03 14:51] VITALS: BP 137/86; PULSE 90; RESP 20; TEMP 37.1; O2SAT 95; BMI 31.2
--- NOTE | 2023-10-03 14:54 | ED.GENADULT ---
HPI - General Adult General Chief complaint: Upper Respiratory Symptoms Stated complaint: Sore Throat Source: patient and RN notes reviewed Mode of arrival: ambulatory Limitations: no limitations History of Present Illness HPI narrative: This is a 53 y/o F presenting to the ER with complaints of sore throat x 2 days. She states that she gets strep throat very often and her symptom feel similar. Reporting subjective fevers. No difficulty swallowing or breathing. No shortness of breath, chest pain,cough, congestion, abdominal pain, nausea, vomiting or diarrhea. Denies taking any medications at home to treat her current symptoms. Denies any other complaints or concerns. MD complaint: Sore throat Onset (ago): day(s) Radiation: non-radiation Severity: moderate Quality: aching Pain Consistency: constant Relieving factors: none Exacerbating factors: none Associated symptoms: denies other symptoms Treatments prior to arrival: none Related Data Home Medications Medication Instructions Recorded Confirmed meclizine 25 mg tablet 1 tab PO TID PRN Vertigo 08/12/20 08/12/20 Previous Rx's Medication Instructions Recorded acetaminophen 500 mg tablet 1,000 mg (2 x 500 mg) PO QID PRN 10/20/21 pain #30 tabs ibuprofen 600 mg tablet 600 mg PO Q6H PRN pain #20 tabs 10/20/21 amoxicillin 875 mg-potassium 1 tab PO Q12H #14 tabs 08/17/23 clavulanate 125 mg tablet amoxicillin 500 mg tablet 500 mg PO BID 10 days #20 tabs 10/03/23 Allergies Allergy/AdvReac Type Severity Reaction Status Date / Time Sulfa (Sulfonamide Allergy Mild RASH Verified 10/03/23 14:54 Antibiotics) [SULFA (SULFONAMIDE ANTIBIOTICS)] Review of Systems Review of Systems: Yes all other systems are reviewed and are negative Constitutional: Constitutional: Reports as per [facility] Past Medical History Medical History (Updated 10/03/23 @ 15:01 by DIANA Ramirez) Uterine fibroid Vertigo Surgical History History of bilateral ligation of fallopian tubes History of bilateral carpal tunnel release Hx of section Family History Family History Maternal Grandmother History of breast cancer Maternal Grandfather Colon cancer Social History Social History Alcohol intake: current Alcohol intake frequency: holidays/special occasions only Alcohol type: wine Patient Tobacco Use Status: Current everyday Tobacco user Cigarette Packs Per Day: 0.25 Cigarettes Per Day: 3 Years Smoked: 39 Advance Directives: No Sexual orientation: Straight/Heterosexual Gender identity: Female Physical Exam ED Vital Signs: Vital Signs - 24 hr 10/03/23 14:51 Temperature 98.8 F Pulse Rate 90 Respiratory Rate 20 Blood Pressure 137/86 Pulse Oximetry 95 Oxygen Delivery Method Room Air BMI result Body Mass Index 31.2 Const General: cooperative, comfortable and no acute distress Orientation/consciousness: patient oriented x3 Limitations: no limitations HENMT Other: oral pharynx with tonsillar edema, erythema and exudates noted bilaterally. Uvula is midline. No trismus, drooling or dysphonia Head: Yes normal to inspection, Yes normocephalic and Yes atraumatic Ears: hearing grossly normal bilaterally and TM's normal bilaterally General nose exam: Normal external nose present Face and sinus: Yes normal facial exam Mouth: Normal oral and palatal mucosa present, oropharynx normal and moist mucous membranes Throat: Yes posterior oropharynx normal Eyes General: appearance normal, both eyes and all related structures Eyelids: Yes eyelids normal Conjunctivae: conjunctivae normal Sclerae: sclerae normal Pupils: Equal, round and reactive pupils present EOM: EOMs intact bilaterally Neck Neck: Yes normal visual inspection, Yes full ROM and Yes no lymphadenopathy Lymphatic: no lymphadenopathy noted Chest Chest palpation & inspection: normal inspection of the chest Resp Effort & Inspection: normal respiratory effort and able to speak in complete sentences Auscultation: clear to auscultation bilaterally, no crackles, no rales, no rhonchi and no wheezes Cardio Rate: regular rate Rhythm: regular rhythm Heart sounds: S1 normal heart sound present and S2 normal heart sound present GI Inspection: Yes normal to inspection Skin General skin exam: no rashes or lesions noted Trauma: no lacerations or abrasions Wounds: no wounds Neuro General: patient oriented x3 and moves all extremities Cranial nerves: Yes Equal, round and reactive pupils present Extrem General: Yes normal to inspection Right upper extremity: normal to inspection Left upper extremity: normal to inspection Right lower extremity: normal to inspection Left lower extremity: normal to inspection Medical Decision Making Medical Decision Making MDM Narrative: 53 y/o F presenting to the ER with complaints of sore throat x 2 days. On arrival, patient nontoxic appearing, vital signs stable. 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 Less likely mass/obstruction. Physical examination consistent with strep throat. No trismus, drooling or dysphonia. No difficulty opening jaw. Pt refusing strep testing at this time. Will treat with course of amoxicillin. Given strict return precautions. She understands and agrees with plan. Stable for d/c. Differential Diagnosis Differential Diagnoses: The differential diagnosis associated with the presentation includes see above Admission/Observation Consideration of admission/observation: Escalation of care including admission/observation considered Radiology Impression Discussion of test interpretation with radiology: I have reviewed the radiologist's reading. Tests considered The following testing was considered but not selected: strep testing, covid/flu/rsv > pt refusal Ct neck however given no obstruction, drooling, dysphonia or evidence of GIS ANALYST DEVELOPER, deferred at ths time. Prescription Management I considered prescription management with: Pain Medication and Antibiotic Discharge Plan Discharge Clinical Impression: Exudative tonsillitis Patient Disposition: Home, Self-Care Instructions: Tonsillitis (ED) Additional Instructions: You were seen in the emergency department due to a sore throat. Your physical exam is concerning for strep throat. This is a bacterial infection that requires antibiotics. Please take prescribed medication as directed. Alternate between ibuprofen and Tylenol as needed for pain and fevers. Saltwater gargles, warm soups, tea with honey can also help with your sore throat. If any new or worsening symptoms occur including but not limited to worsening sore throat, difficulty swallowing, difficulty breathing, chest pain, shortness breath, inability to open your jaw, please return for re-evaluation. Prescriptions: New amoxicillin 500 mg tablet 500 mg PO BID 10 Days Qty: 20 0RF No Action meclizine 25 mg tablet 1 tab PO TID PRN (Reason: Vertigo) acetaminophen 500 mg tablet 1,000 mg PO QID PRN (Reason: pain) Qty: 30 0RF ibuprofen 600 mg tablet 600 mg PO Q6H PRN (Reason: pain) Qty: 20 0RF amoxicillin-pot clavulanate 875-125 mg tablet 1 tab PO Q12H Qty: 14 0RF Interventions: ED Discharge Assessment Last Done: 10/03/23 15:09 Discharge Date/Time: 10/03/23 15:10
[2023-10-03 15:09] VITALS: BP 137/86; PULSE 90; RESP 20; TEMP 37.1; O2SAT 95
== END 2023-10-03 15:10 | disposition home or self-care (01) ==
PROVIDERS: Emergency Provider Emergency Medicine; PCP Internal Medicine Medical Oncology
DX: J03.90 Acute tonsillitis, unspecified (principal); R50.9 Fever, unspecified; F17.210 Nicotine dependence, cigarettes, uncomplicated
CPT/HCPCS: 99282; 99283

== ENCOUNTER 2023-10-17 07:47 | Emergency (ER) | payer OTHER, SELFPAY ==
--- NOTE | ~2023-10-17 | CT_ITS ---
EXAMINATION: CT SOFT TISSUE NECK WITH CONTRAST CLINICAL INFORMATION: Difficulty swallowing. COMPARISON: None available. TECHNIQUE: Following the intravenous administration of 100 mL of Omnipaque 350 intravenous contrast, helical imaging was performed in the axial plane with generation of coronal and sagittal reformatted images. This CT examination was performed using dose optimization techniques as appropriate, variously including the following: *Automated exposure control *Adjustment of mA and/or kV according to patient size (this includes techniques or standardized protocols for targeted exams where dose is matched to indication/reason for exam; i.e. extremities or head) *Use of iterative reconstruction technique FINDINGS: [place] tonsils are enlarged and exhibit heterogeneous enhancement bilaterally, findings concerning for palatine tonsillitis that can be clinically correlated. No discrete peritonsillar abscess identified with assessment partially limited by dental streak artifact. Prominent jugulodigastric lymph nodes bilaterally, likely reactive. There are no retropharyngeal fluid collections. Orbital soft tissues, parotid glands, submandibular glands, and thyroid gland are unremarkable. Imaged upper lungs are clear. Imaged mediastinum is unremarkable. Partially imaged intracranial compartment is unremarkable. CT/CT soft tissue neck w IV con IMPRESSION: [place] tonsils are enlarged and exhibit heterogeneous enhancement bilaterally, findings concerning for palatine tonsillitis that can be clinically correlated. No discrete peritonsillar abscess identified with assessment partially limited by dental streak artifact. Prominent jugulodigastric lymph nodes bilaterally, likely reactive.
[2023-10-17 07:51] VITALS: BP 141/92; PULSE 69; RESP 16; TEMP 36.7; O2SAT 97; BMI 32.9
--- NOTE | 2023-10-17 08:07 | ED.GENADULT ---
HPI - General Adult General Chief complaint: Upper Respiratory Symptoms Stated complaint: Sore throat Time Seen by Provider: 10/17/23 08:07 Source: patient Mode of arrival: ambulatory Limitations: no limitations History of Present Illness HPI narrative: Patient is a 53 year old assigned female at with a history of recent strep infection presenting to the emergency department today with a sore throat. Patient states that over the last few months she has been diagnosed with strep throat multiple times. Patient states that she just finished amoxicllin and is now having a returning sore throat over the last couple days. Patient denies any dizziness, lightheadedness, abdominal pain, nausea, vomiting, fever, chills, blurry vision, double vision, loss of vision, chest pain, difficulty breathing, shortness of breath, back pain, night sweats, pain with urination, increased urinary frequency, increased urinary urgency, blood in her urine or stool, syncope or a near syncopal episode, recent trauma or falls, bowel incontinence, bladder incontinence, bowel retention, bladder retention, or any other complaints at this time. Onset (ago): day(s) Severity: mild Severity scale (1-10): 3 Relieving factors: none Exacerbating factors: none Associated symptoms: denies other symptoms Treatments prior to arrival: none Related Data Home Medications Medication Instructions Recorded Confirmed meclizine 25 mg tablet 1 tab PO TID PRN Vertigo 08/12/20 08/12/20 Previous Rx's Medication Instructions Recorded acetaminophen 500 mg tablet 1,000 mg (2 x 500 mg) PO QID PRN 10/20/21 pain #30 tabs ibuprofen 600 mg tablet 600 mg PO Q6H PRN pain #20 tabs 10/20/21 amoxicillin 875 mg-potassium 1 tab PO Q12H #14 tabs 08/17/23 clavulanate 125 mg tablet amoxicillin 500 mg tablet 500 mg PO BID 10 days #20 tabs 10/03/23 penicillin V potassium 500 mg 500 mg PO BID 10 days #20 tabs 10/17/23 tablet Allergies Allergy/AdvReac Type Severity Reaction Status Date / Time Sulfa (Sulfonamide Allergy Mild RASH Verified 10/03/23 14:54 Antibiotics) [SULFA (SULFONAMIDE ANTIBIOTICS)] Review of Systems Constitutional: Constitutional: Reports no additional constitutional complaints, Denies chills, Denies fever(s) and Denies night sweats Eyes: Eyes: Reports no additional eye complaints, Denies blurry vision, Denies change in vision, Denies diplopia, Denies eye discharge, Denies loss of vision and Denies eye pain ENT: Denies dizziness and Reports sore throat Cardiovascular: Cardiovascular: Reports no additional cardiovascular complaints, Denies chest pain, Denies lightheadedness, Denies Loss of Consciousness and Denies dyspnea Respiratory: Respiratory: Reports no additional respiratory complaints and Denies dyspnea Gastrointestinal: Gastrointestinal: Reports no additional gastrointestinal complaints, Denies abdominal pain, Denies melena, Denies hematochezia, Denies change in bowel habits and Denies change in stool character Genitourinary: Genitourinary: Denies hematuria, Denies urinary frequency, Denies dysuria, Denies urinary incontinence, Denies urinary hesitancy and Denies urinary urgency Musculoskeletal: Musculoskeletal: Reports no additional musculoskeletal complaints, Denies numbness and Denies tingling Neurologic: Denies dizziness, Denies loss of vision, Denies numbness and Denies tingling Psychiatric: Psychiatric: Reports no additional psychiatric complaints Endocrine: Endocrine: Reports no additional endocrine complaints Hematologic/Lymphatic: Hematologic/Lymphatic: Reports no additional hematologic/lymphatic complaints Allergic/Immunologic: Allergic/Immunologic: Reports no additional allergic/immunologic complaints [facility] Past Medical History Attestation statement: The following information was validated with the patient. Source: old records reviewed and nursing notes reviewed Medical History Uterine fibroid Vertigo Surgical History History of bilateral ligation of fallopian tubes History of bilateral carpal tunnel release Hx of section Family History Family History Maternal Grandmother History of breast cancer Maternal Grandfather Colon cancer Social History Social History Alcohol intake: current Alcohol intake frequency: holidays/special occasions only Alcohol type: wine Patient Tobacco Use Status: Current everyday Tobacco user Cigarette Packs Per Day: 0.25 Cigarettes Per Day: 3 Years Smoked: 39 Advance Directives: No Advance Directives Information Provided: No Sexual orientation: Straight/Heterosexual Gender identity: Female Physical Exam ED Vital Signs: Vital Signs - 24 hr 10/17/23 11:12 Temperature 98.2 F Pulse Rate 65 Respiratory Rate 16 Blood Pressure 151/91 H Pulse Oximetry 97 Oxygen Delivery Method Room Air BMI result Body Mass Index 32.9 Const General: cooperative, no acute distress, alert and awake Nutritional Appearance: well nourished Orientation/consciousness: patient oriented x3 Limitations: no limitations HENMT Head: Yes normal to inspection and Yes atraumatic Ears: hearing grossly normal bilaterally and external ears normal General nose exam: Normal external nose present, no nasal discharge noted and no epistaxis Face and sinus: Yes normal facial exam, No abrasion and No laceration Mouth: Normal oral and palatal mucosa present, no drooling and no muffled voice Throat: Yes abnormal tonsil (bilateral erythema) Eyes General: appearance normal, both eyes and all related structures Periorbital: periorbital findings normal Eyelids: Yes eyelids normal Conjunctivae: conjunctivae normal Pupils: Equal, round and reactive pupils present EOM: EOMs intact bilaterally Neck Neck: Yes normal visual inspection, Yes full ROM and Yes no lymphadenopathy Chest Chest palpation & inspection: normal inspection of the chest Resp Effort & Inspection: normal respiratory effort and able to speak in complete sentences GI Inspection: Yes normal to inspection Neuro General: patient oriented x3 and moves all extremities Cranial nerves: Yes Equal, round and reactive pupils present Cognition (Neuro): normal cognition Motor exam (neuro): 5/5 motor strength present throughout Sensory Exam: Normal double simultaneous stimulation for sensation Coordination: [id number] test normal Extrem General: Yes normal to inspection, Yes full ROM and Yes capillary refill normal Psych Appearance: grossly normal Mental Status: mental status grossly normal Affect: normal affect Attitude: cooperative Thought process: Normal thought process present Thought content: Normal thought content present Insight: Good insight present (Psych) Medications Administered Discontinued Medications Generic Name Dose Route Start Last Admin Trade Name Freq PRN Reason Stop Dose Admin Iohexol 60 ml 10/17/23 09:29 10/17/23 09:29 Iohexol 350 Mg/Ml 100 Ml Infus..Btl IV 10/17/23 09:30 60 ml ONCE ONE Administration Medical Decision Making Medical Decision Making MDM Narrative: Patient is a 53 year old assigned female at with a history of recent strep infection presenting to the emergency department today with a sore throat. Patient's physical exam was as noted in the physical exam portion of this note. Patient's blood work was unremarkable. Patient's sfot tissue neck CT showed tonsilitis but no abscess. Patient's strep test was positive. Patient's COVID-19, RSV, and influenza tests were negative. I explained my physical exam findings as well as all test results to the patient. I answered all questions asked by the patient. I stressed the importance of the patient taking her medication as prescribed. I stressed the importance of the patient following up with her primary care provider and given her recent increase in strep pharyngitis frequency, an ENT specialist. I stressed the importance of the patient returning to the emergency department immediately if her symptoms were to worsen or if she were to develop any dizziness, shortness of breath, difficulty breathing, chest pain, blurry vision, loss of vision, nausea, vomiting, abdominal pain, fever, chills, back pain, or any other complaints. Patient verbalized agreement and understanding with this treatment plan and discharge. Differential Diagnosis Differential Diagnoses: The differential diagnosis associated with the presentation includes Strep pharyngitis Tonsilar abscess Tonsilitis Pharyngitis COVID-19 Influenza RSV Admission/Observation Consideration of admission/observation: Escalation of care including admission/observation considered Patient would have been admitted to the hospital had her work up had any findings where hospital admission was appropriate and her clinical presentation warranted hospital admission. Lab Data [facility] Lab Attestation statement: I reviewed the patient's lab results. My interpretation of these results are in the MDM Rationale portion of this note. 10/17/23 09:07 10/17/23 08:29 Labs: Lab Results 10/17/23 10/17/23 10/17/23 Range/Units 07:58 08:29 09:07 WBC 6.3 (4.8-10.8) X10*3/uL RBC 4.41 (4.20-5.50) X10*6/uL Hgb 14.2 (12.0-16.0) g/dl Hct 41.2 (37.0-47.0) % MCV 93.4 (80.0-98.0) fL MCH 32.2 (27.0-33.0) pg MCHC 34.5 (31.0-35.0) g/dl RDW 12.8 (11.0-16.0) % Plt Count 159 L (160-400) X10*3/uL MPV 11.6 (9.4-12.3) fL Immature Gran % (Auto) 0.2 (0.0-0.4) % Neut % (Auto) 70.4 (45-73) % Lymph % (Auto) 21.4 (20-40) % [place] % (Auto) 6.4 (2-11) % Eos % (Auto) 1.4 (0-4) % Baso % (Auto) 0.2 (0-2) % Lymph # (Auto) 1.3 (1.2-4.9) X10*3/uL [place] # (Auto) 0.4 (0.1-1.2) X10*3/uL Eos # (Auto) 0.1 (0.0-0.4) X10*3/uL Baso # (Auto) 0.0 (0.0-0.2) X10*3/uL Abs Immat Gran (auto) 0.01 (0.00-0.03) X10*3/uL Absolute Neuts (auto) 4.4 (2.0-8.3) x10*3/uL Absolute Nucleated RBC 0.000 (0.0-0.012) X10*3/uL Nucleated RBC % (auto) 0.0 (0.0-0.2) /100WBC ESR 14 (0-20) MM/HR Sodium 138 (135-145) mmol/L Potassium 4.1 (3.3-5.1) mmol/L Chloride 107 (96-108) mmol/L Carbon Dioxide 23 (22-29) mmol/L Anion Gap 12 (12-20) BUN 13 (9-16) mg/dL Creatinine 0.76 (0.5-1.4) mg/dL Estim Creat Clear Calc 70.9 Estimated GFR > 60 Random Glucose 100 (60-115) mg/dL Lactic Acid 0.7 (0.5-2.0) mmol/L Calcium 9.0 (8.4-10.2) mg/dL Magnesium 2.3 (1.6-2.6) mg/dL Total Bilirubin 0.4 (0.0-1.0) mg/dL AST 21 (5-31) U/L ALT 21 (0-31) U/L Alkaline Phosphatase 57 (39-117) U/L C-Reactive Protein 3.54 H (< or = 0.50) mg/dL Total Protein 7.5 (6.5-8.0) g/dL Albumin 4.1 (3.5-5.0) g/dL Monoscreen Negative (Negative) Influenza Type A (PCR) NEGATIVE (Negative) Influenza Type B (PCR) NEGATIVE (Negative) RSV RNA Qual (PCR) NEGATIVE (Negative) SARS-CoV-2 RNA (RT-PCR) NEGATIVE (Negative) S. pyogenes GrpA JEAN PIERRE Positive A (Negative) Independent Interpretation I performed an independent interpretation of an: CT Scan Interpretation: My interpretation is in agreement with the radiologist's impression of this imaging study. EXAMINATION: CT SOFT TISSUE NECK WITH CONTRAST CLINICAL INFORMATION: Difficulty swallowing. COMPARISON: None available. TECHNIQUE: Following the intravenous administration of 100 mL of Omnipaque 350 intravenous contrast, helical imaging was performed in the axial plane with generation of coronal and sagittal reformatted images. This CT examination was performed using dose optimization techniques as appropriate, variously including the following: *Automated exposure control *Adjustment of mA and/or kV according to patient size (this includes techniques or standardized protocols for targeted exams where dose is matched to indication/reason for exam; i.e. extremities or head) *Use of iterative reconstruction technique FINDINGS: [place] tonsils are enlarged and exhibit heterogeneous enhancement bilaterally, findings concerning for palatine tonsillitis that can be clinically correlated. No discrete peritonsillar abscess identified with assessment partially limited by dental streak artifact. Prominent jugulodigastric lymph nodes bilaterally, likely reactive. There are no retropharyngeal fluid collections. Orbital soft tissues, parotid glands, submandibular glands, and thyroid gland are unremarkable. Imaged upper lungs are clear. Imaged mediastinum is unremarkable. Partially imaged intracranial compartment is unremarkable. CT/CT soft tissue neck w IV con IMPRESSION: [place] tonsils are enlarged and exhibit heterogeneous enhancement bilaterally, findings concerning for palatine tonsillitis that can be clinically correlated. No discrete peritonsillar abscess identified with assessment partially limited by dental streak artifact. Prominent jugulodigastric lymph nodes bilaterally, likely reactive. Dictated By: Frank Loera MD Signed By: Electronically signed by Frank Loera MD 10/17/23 1024 Radiology Impression Discussion of test interpretation with radiology: I have reviewed the radiologist's reading. Prescription Management I considered prescription management with: Antibiotic (patient prescribed an antibiotic for strep infection) Critical Care Time Critical Care Time Critical Care Time: Yes Total Critical Care Time: 79 Attestation: I spent 79 minutes of Critical Care Time with this patient. This does not include time spent on separately reported billable procedures. Discharge Plan Discharge Clinical Impression: Strep pharyngitis Patient Disposition: Home, Self-Care Instructions: Strep Throat (DC) Additional Instructions: Follow up with your primary care provider and an ENT. Return to the emergency department immediately if your symptoms worsen or if you develop any dizziness, shortness of breath, difficulty breathing, chest pain, blurry vision, loss of vision, nausea, vomiting, abdominal pain, fever, chills, back pain, or any other complaints. Prescriptions: New penicillin V potassium 500 mg tablet 500 mg PO BID 10 Days Qty: 20 0RF No Action meclizine 25 mg tablet 1 tab PO TID PRN (Reason: Vertigo) acetaminophen 500 mg tablet 1,000 mg PO QID PRN (Reason: pain) Qty: 30 0RF ibuprofen 600 mg tablet 600 mg PO Q6H PRN (Reason: pain) Qty: 20 0RF amoxicillin 500 mg tablet 500 mg PO BID 10 Days Qty: 20 0RF amoxicillin-pot clavulanate 875-125 mg tablet 1 tab PO Q12H Qty: 14 0RF Referrals: Sachin Stokes MD [Primary Care Provider] - Bryn Bradshaw [Physician] - (Call to establish and follow up with an ENT specialist. ) Discharge Date/Time: 10/17/23 11:18 Print Language: Bruneian
[2023-10-17 08:20] LABS: IDNOW Serial# 08D9AD1C; Strep A Nucleic Acid Positive (Negative)
[2023-10-17 08:45] LABS: Influenza A PCR NEGATIVE (Negative); Influenza B PCR NEGATIVE (Negative); Resp Syncy Virus RNA Qual PCR NEGATIVE (Negative); SARS COV2 PCR INHOUSE NEGATIVE (Negative)
[2023-10-17 09:20] LABS: Alanine Aminotransferase 21 U/L (0-31); Albumin Level 4.1 g/dL (3.5-5.0); Alkaline Phosphatase 57 U/L (39-117); Anion Gap 12 (12-20); Aspartate Amino Transferase 21 U/L (5-31); Bilirubin Total 0.4 mg/dL (0.0-1.0); Blood Urea Nitrogen 13 mg/dL (9-16); C Reactive Protein 3.54 mg/dL (< or = 0.50); Carbon Dioxide 23 mmol/L (22-29); Chloride 107 mmol/L (96-108); Creatinine Clr Calc Pharmacy 70.9; Estimated Glomerular Filt Rate > 60; Glucose Random 100 mg/dL (60-115); Magnesium 2.3 mg/dL (1.6-2.6); Potassium 4.1 mmol/L (3.3-5.1); Sodium 138 mmol/L (135-145); Total Protein 7.5 g/dL (6.5-8.0)
[2023-10-17 09:22] LABS: MANUAL DIFF FLAG NO
[2023-10-17 09:23] LABS: Basophils Percent Auto 0.2 % (0-2); Eosinophils Absolute Auto 0.1 X10*3/uL (0.0-0.4); Eosinophils Percent Auto 1.4 % (0-4); Hematocrit 41.2 % (37.0-47.0); Hemoglobin 14.2 g/dl (12.0-16.0); Imm Gran Abs Auto 0.01 X10*3/uL (0.00-0.03); Imm Gran Pct Auto 0.2 % (0.0-0.4); Lymphocytes Absolute Auto 1.3 X10*3/uL (1.2-4.9); Lymphocytes Percent Auto 21.4 % (20-40); Mean Corpuscular HGB Conc 34.5 g/dl (31.0-35.0); Mean Corpuscular Hemoglobin 32.2 pg (27.0-33.0); Mean Corpuscular Volume 93.4 fL (80.0-98.0); Mean Platelet Volume 11.6 fL (9.4-12.3); Monocytes Absolute Auto 0.4 X10*3/uL (0.1-1.2); Monocytes Percent Auto 6.4 % (2-11); Neutrophils Absolute Auto 4.4 x10*3/uL (2.0-8.3); Neutrophils Percent Auto 70.4 % (45-73); Platelet Count 159 X10*3/uL (160-400); Red Blood Count 4.41 X10*6/uL (4.20-5.50); Red Cell Distribution Width 12.8 % (11.0-16.0); White Blood Count 6.3 X10*3/uL (4.8-10.8)
[2023-10-17] MEDS: iohexoL 350 MG/ML 100 ML INFUS..BTL 60 ML IV (09:29)
[2023-10-17 09:35] LABS: Lactic Acid 0.7 mmol/L (0.5-2.0)
[2023-10-17 10:03] LABS: Erythrocyte Sedimentation Rate 14 MM/HR (0-20)
[2023-10-17 11:12] VITALS: BP 151/91; PULSE 65; RESP 16; TEMP 36.8; O2SAT 97
[2023-10-17 11:58] LABS: Monotest Negative (Negative)
== END 2023-10-17 11:18 | disposition home or self-care (01) ==
PROVIDERS: Physician Assistant Medical; Emergency Provider Emergency Medicine; PCP Internal Medicine Medical Oncology
DX: J02.0 Streptococcal pharyngitis (principal); Z03.818 Encounter for observation for suspected exposure to other biological agents ruled out
CPT/HCPCS: 0241U; 36415; 70491; 80053; 83605; 83735; 85025; 85652; 86140; 86308; 87040; 87651; 99282; 99284; Q9967

== ENCOUNTER 2024-05-09 09:00 | Outpatient (AMB) | payer OTHER, SELFPAY ==
--- NOTE | 2024-05-09 09:09 | A.OFFVIS_ITS ---
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 She is doing well with no concerns. History of fibroids-multiple, denies any pelvic pain, bloating or vaginal bleeding. 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 Currently not sexually active with . Denies any vaginal dryness or irritation. Last pap smear; 2019. Last mammogram; 2022. Colonoscopy is UTD. Family history of breast or colon cancer. [facility] Medical History Uterine fibroid Vertigo Surgical History History of bilateral ligation of fallopian tubes History of bilateral carpal tunnel release Hx of section Family History Maternal Grandmother History of breast cancer Maternal Grandfather Colon cancer Social History Alcohol intake: current Alcohol intake frequency: holidays/special occasions only Alcohol type: wine Patient Tobacco Use Status: Current everyday Tobacco user Cigarette Packs Per Day: 0.25 Cigarettes Per Day: 3 Years Smoked: 39 Sexual orientation: Straight/Heterosexual Gender identity: Female Female Reproductive History Menstrual control method: permanent sterilization Permanent Sterilization: BTL Total pregnancies: 4 Full term: 3 Number of Living Children: 3 Ab spontaneous: 1 Date of last pap smear: 08/13/19 (neg pap and hpv) Date of Mammogram: 09/29/22 (Birad 2) Review of Systems Const All systems reviewed & are unremarkable except as noted in HPI and below Reports as per HPI Eyes Reports no additional complaints ENT Reports no additional complaints Card Reports no additional complaints Resp Reports no additional complaints GI Reports as per HPI and Reports no additional complaints Reports as per HPI Musc Reports no additional complaints Skin/Breast Reports as per HPI Neuro Reports no additional complaints Psych Reports no additional complaints Endo Reports no additional complaints Rio/Lymph Reports no additional complaints Aller/Immun Reports no additional complaints Physical Exam Vital Signs: Last Vital Signs BP 102/60 05/09/24 09:11 BMI result Body Mass Index 33.0 Const General: cooperative, healthy appearing, no acute distress, well developed and alert Orientation/consciousness: patient oriented x3 HEENT Head: Yes normal to inspection Eyes General: appearance normal, both eyes and all related structures Neck Neck: Yes normal visual inspection Thyroid: Thyroid normal Chest Chest palpation & inspection: normal inspection of the chest and other (no puckering, dimpling, peau de orange, retraction, discharge, masses) Breast/axilla inspection: normal inspection of the breasts Breast/axilla palpation: normal palpation of the breasts Resp Effort & Inspection: normal respiratory effort GI Inspection: Yes normal to inspection Palpation (GI): Soft to palpation Rectal Exam - Female: deferred General: Yes bladder normal to palpation External Female Exam: normal external appearance and normal appearance of the urethra Speculum Exam - Vagina: normal appearance of the vagina, normal palpation, normal vaginal discharge and vagina atrophic Speculum Exam - Cervix: normal appearance of the cervix and normal palpation Bimanual exam- vagina & uterus: normal bimanual exam, normal palpation, bladder normal to palpation, normal palpation, non-tender and enlarged Bimanual Exam- Adnexa, other: no masses Skin General skin exam: no rashes or lesions noted Rashes: no rashes Neuro General: patient oriented x3 Cognition (Neuro): normal cognition Extrem General: Yes normal to inspection Psych Attitude: cooperative Thought process: Normal thought process present Assessment & Plan Assessment & Plan (1) Encounter for well woman exam with routine gynecological exam: Code(s): Z01.419 - Encounter for gynecological examination (general) (routine) without abnormal findings Category: Medical (2) Uterine fibroid: Comment: 9+cm, multiples Code(s): D25.9 - Leiomyoma of uterus, unspecified Category: Medical Qualifiers: Uterine leiomyoma location: unspecified location Qualified Code(s): D25.9 - Leiomyoma of uterus, unspecified Plan Discussed: Current recommendations for pap smears per ASCCP guidelines. Breast awareness, periodic self breast exams and yearly mammogram. Order placed for mammogram. Maintain a healthy lifestyle, well balanced diet including Calcium 1,200 mg and Vitamin D 600 IU daily, and routine exercise. Calcium information handout provided. Counseled re: Leiomyoma: common pelvic neoplasm. Differential diagnosis-may include but not limited to- leiomyosarcoma which is a rare uterine sarcoma 3- 7/100,000, difficult to distinguish from fibroids on ultrasound from uterine sarcoma's. Unlikely any single test will have a highly positive predictive value. Hysterectomy is not recommended for sole purpose of excluding malignant neoplasm. Consult for surgical exploration, medical treatment, other treatments, verses expectant management, pros and cons, risks and benefits. Expectant management follow up yearly for stability. Follow up tele visit for results. Report any PMB, pelvic pressure, bloating, or pain. Referral to MD if indicated for level of care if indicated. Patient verbalizes understanding and agrees to the plan of care. She was given opportunity to ask questions and all questions were answered to the best of my ability. RTO in 1 year for annual system consultant exam. This note is constructed using voice recognition software. While every effort has been made to ensure accuracy, stock mixer errors may have been included. Orders: Orders US pelvic and transvaginal Today D25.9 - Leiomyoma of uterus, unspecified MM tomosynthesis screening BI Today Z12.31 - Encounter for screening mammogram for malignant neoplasm of breast Coding Level of Care Code Est Pt Prev Care 40-64y(52604) Diagnoses Encounter for well woman exam with routine gynecological exam Z01.419 Uterine leiomyoma, unspecified location D25.9 Uterine leiomyoma location: unspecified location
[2024-05-09 09:11] VITALS: BP 102/60; BMI 33.0
== END 2024-05-09 12:47 | disposition home or self-care (01) ==
PROVIDERS: PCP Internal Medicine Medical Oncology; Visit Provider Advanced Practice Midwife
DX: Z01.419 Encounter for gynecological examination (general) (routine) without abnormal findings (principal); D25.9 Leiomyoma of uterus, unspecified
CPT/HCPCS: 99396

== ENCOUNTER → 2024-05-09 09:00 | Outpatient (BNVA) | payer OTHER, SELFPAY | PROVIDERS: PCP Internal Medicine Medical Oncology; Visit Provider Advanced Practice Midwife ==

== ENCOUNTER 2024-06-06 11:02 | Outpatient (REF) | payer OTHER, SELFPAY | END 2024-06-06 11:03 | disposition home or self-care (01) | LOC: HO.US 11:02 | PROVIDERS: PCP Internal Medicine Medical Oncology; Visit Provider Advanced Practice Midwife | DX: D25.9 Leiomyoma of uterus, unspecified (principal) | CPT/HCPCS: 76830; 76856 ==

== ENCOUNTER 2024-06-19 10:07 | Outpatient (REF) | payer OTHER, SELFPAY ==
--- NOTE | ~2024-06-19 | XR_ITS ---
EXAMINATION: XR CHEST CLINICAL INFORMATION: Cough. COMPARISON: None available. TECHNIQUE: 2 views of the chest were obtained. FINDINGS: The lungs are clear. The cardiomediastinal silhouette is normal in size. There is no pleural effusion or pneumothorax. No acute osseous abnormality. XR/XR chest 2V IMPRESSION: No acute cardiopulmonary findings. Electronically signed by: Sadiq Serra MD 06/20/2024 11:04 AM [facility]
--- OUTSIDE RECORDS SUMMARY | 2024-06-25 17:27 | XMS_ITS ---
Author Organization Sachin Stokes III, MD Address [address] [facility] [place] [address] Care Team Providers Care Director Of Parks And Recreation Name Role Phone Sachin Stokes Primary Care Provider Allergies Allergen (clinical drug ingredient) Drug/Non Drug Allergy documented on EMR Reaction Allergy Type Onset Date Status sulfacetamide Sulfacetamide Unknown Drug Allergy Active orange allergenic extract [place] (Diagnostic) Unknown Drug Allergy Active REASON FOR [...] Problem Status W/U Status Risk Notes Problem [id number] Chronic GERD (K21.9) Active confirmed She will take omeprazole twice a day for 21 days and treat breakthrough heartburn with one or 2 tablespoons of Mylanta. She will call me if any new symptoms develop Encounters Encounter Location Date Provider Diagnosis Sachin Stokes III, MD [address] [place] [address] [address] [place], [place] [address] 06/18/2024 Sachin Stokes Obesity (BMI 30.0-34 .9) [...] done at , Monitor progress of cough Provider Name:Sachin Stokes, 02/20/2025 11:00:00 AM, [address] [place] [address] [address], [place], [address], Provider Name:Sachin Stokes, 03/27/2025 09:00:00 AM, [address] [place] [address] [address], [place], [address], Progress Notes * Teetee MONTOYADOB:1970 (54 yo F)Acc No.[id number]:06/18/2024 Patient:?Teetee MONTOYA Provider:?Sachin Stokes MD :1970???Age:54 Y???Sex:Female D ate:06/18/2024 Address:[address] [place], [place] [id number] Subjective: * Chief Complaints: * ???Severe heartburn for the last week * HPI: ???:?Telehealth?Location of provider rendering services:?{...} [address] [facility] [address] ?Location of patient:?address listed in demographics for today's visit ?Patient identification confirmed using:?Name, ?Telehealth method:?Telephone only. Patient not visible to care provider. ?Consent:?Patient verbally consented to treatment, Patient verbally consented to billing insurance company, Patient informed of any privacy concerns related to method of visit ?Total time spent with patient (mins)?15 ?This telehealth visit took place over 15 min. with the patient at home and me in my office.? She gave consent for billing. The patient, a 54-year-old female, reported a cough that started a day or two before Thanksgiving. The cough was initially mild and accompanied [...] smoker but reports not smoking heavily. * ROS:?General/Constitutional:?pain?Substernal burning epigastric pain.?Chills?denies.?Fatigue?admits.?Denies?Fever,?denies.?Allergy/Immunology:?Admits?Cough.?ENT:?Decreased hearing?denies.?Respiratory:?Cough?denies.?Cardiovascular:?Chest pain with exertion?denies.?Dyspnea on exertion?denies.?Shortness of breath?denies.?Gastrointestinal:?Constipation?occasional.?Decreased appetite?denies.?Diarrhea?denies.?Heartburn?not controlled with medications.?Nausea?denies.?Rectal bleeding?denies.?Vomiting?denies.?Hematology:?bruising?denies.?petechiae?denies.?Swollen glands?none have been noted.?Genitourinary:?Frequent urination?denies.?Musculoskeletal:?Muscle aches?denies.?Painful joints?denies.?Sciatica?denies.?Weakness?denies.?Skin:?Itching?denies.?Rash?denies.?Skin lesion(s)?denies.?Neurologic:?Difficulty speaking?denies.?Dizziness?denies.?Headache?denies.?Low back pain?denies.?Psychiatric:?Depressed mood?denies.? * Medical History:? * Surgical History:? s ection 11/1989right carpal tunnel release 2011left carpal tunnel relaese 2014No history * Hospitalization/Major Diagno stic Procedure:?No history * Family History:?Father: aniket do?Mother: alive 69 yrs, diagnosed with HTN, CVD.?Children: alive.?Paternal Grand Father: , diagnosed with Cancer.?Maternal Grand Mother: alive, diagnosed with Cancer.?Maternal aunt: alive, diagnosed with Cancer.?1 brother(s) - healthy. 2 son(s) , 1 daughter(s) - healthy. .? One of her children has tetralogy of Fallot. Her mother has hypertension. She has no information about her father. A maternal grandfather of colon cancer. A grandmother and a maternal aunt have had breast cancer. * Social History:?Tobacco Use:?Tobacco Use/Smoking?.?Drugs/Alcohol:?Drugs?Have you used drugs other than those for medical reasons in the past 12 months??No ?Alcohol Screen?Did you have a drink containing alcohol in the past year??Yes ?How often did you have a drink containing alcohol in the past year??2 to 3 times a week (3 points) ?How many drinks did you have on a typical day when you were drinking in the past year??1 or 2 drinks (0 point) ?How often did you have 6 or more drinks on one occasion in the past year??Never (0 point) ?Points?3 ?Interpretation?Positive ???She smokes 3 cigarettes a day. 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 She has 3 children. Rudy, Bo and Lynne.. Smoking: The patient is a smoker but not heavy. * Medications:?TakingOndansetr on 4 MG Tablet Disintegrating 1 tablet Orally [...] 1 capsule Orally Twice a day * Allergies:?Sulfacetamide: [place] (Diagnostic): Allergy Objective: * Vitals:? Assessment: * Assessment: 1.?Obesity (BMI 30.0-34.9) - E66.9 (Primary)???Notes :Her body mass index is 32 and her weight is stable. We reviewed her weight loss strategy. We made a plan to lose weight at a rate of one half of a pound per week through a diet restricted in fat calories and sodium.???2.?Tobacco dependence - F17.200???Notes :I reviewed her cardiovascular risk factors with her and we discussed strategies for smoking reduction in cessation.???3.?Mixed hyperlipidemia - E78.2???Notes :Comprehensive blood work with a fasting lipid profile was ordered today.???4.?Lumbar radiculopathy - M54.16???Notes :She was given dexamethasone and told to rest and use a hot pack. She will have physical therapy. Images will be obtained if necessary.???5.?Chronic GERD - K21.9???Notes :She will take omeprazole twice a day for 21 days and treat breakthrough heartburn with one or 2 tablespoons of Mylanta.? She will call me if any new symptoms develop??? Plan: * Treatment: 2.?Others? Start Zithromax Z-Dannie Tablet, 250 MG, 2 tablet on the first day, then 1 tablet daily for 4 days, Orally, 2 tablets on first day then one tablet daily, 5 days, 6, Refills 0.?? * Imaging:? * ?Imaging: XR CHEST 2 VIE W PA & LAT * Procedure Codes:?14845 PHONE E/M BY PHYS 11-20 MIN * Preventive Medicine:? ??Counseling:?Care goal follow-up plan:?Counseling for abnormal BMI given?Yes ?Above Normal BMI Follow-up?Dietary management education, guidance, and counseling, Dietary needs education, Exercise promotion: strength training, Exercise promotion: stretching, Feeding regime, Giving encouragement to exercise, Lifestyle education regarding diet, Nutrition / feeding management, Nutrition therapy, Prescribed activity/exercise education, Prescribed diet education, Prescribed dietary intake, Special diet education, Weight monitoring , Intervention, Order not done: Medical or Other reason not done ?Smoking/Tobacco Use?Patient counseled on the dangers of tobacco use and urged to quit.?06/18/2024 ?Patient Lifestyle Goals?Patient wants to quit ?Treatment Goals?Set a quit date, Cut down by 1 cigarette a week ?Barriers?Stress, Social smoker ?Self-Management Plan?Make a plan to cut down number of cigarettes over time and set a date to work towards quitting * Follow Up:?Monday TV, End of the week if no improvement (Reason: TV review cxr done at , Monitor progress of cough) * Images: * Sign off status: Completed true * Provider:?Sachin Stokes MD Date:?09/2023 Generated for Sondra rm/Chelsi/Brien on:?06/25/2024 05:27 PM EST History and Physical Notes * HPI (History of Present Illness) Category Sub-Category Detail Notes Telehealth Location of [facility] rendering services:: {...} [address] [facility] [address] Location of patient:: address listed in demographics [...]
--- OUTSIDE RECORDS SUMMARY | 2024-06-25 17:27 | XMS_ITS | Patient Health Record ---
Author Organization [facility] Address [address] [place] [address] Care Team Providers Care Restaurant Cook Name Role Phone Kike MENDEZ, Sachin Primary Care Provider Dano Vital Jr Unavailable [phone] ALLERGIES Allergen (clinical drug ingredient) Drug/Non Drug Allergy documented on EMR Reaction Allergy Type Onset Date Status Substance with sulfonamide structure and antibacterial mechanism of action (substance) Sufla Meds (uncoded) Unknown Allergy Active REASON FOR REFERRAL No Information MEDICATIONS Medication SIG (Take, Route, Frequency, Duration) Notes Start Date End Date Status MiraLax (colon prep) 8.3 ounce ((238) grams mixed with Gatorade or Crystal Light orally begin at 5:00 p.m. the day before the procedure for 1 day 07/27/2020 Active Meclizine HCl 25 MG Orally Active IMMUNIZATIONS Vaccine Route Administration Date Status Comme nts Influenza Unknown 07/27/2020 Refused SOCIAL HISTORY Tobacco Use: Social History Observation Description Date Details (start date - stop date) Current Smoker NA - NA Sex Assigned At : Social History Observation Description Sex Assigned At Unknown Tobacco Use/Smoking Question Answer Notes Patient is a current smoker When did you start smoking? 11 years old How often do you smoke cigarettes? some days, bu t not every day How many cigarettes a day do you smoke? 5 or les s How soon after you wake up d o you smoke your first cigarette? after 60 minutes Are you interested in quitting? Thinking about q uitting Alcohol Screen Question Answer Notes Did you have a drink contain ing alcohol in the past year? Yes How often did you have a dri nk containing alcohol in the past year? 4 or more times a week (4 points) How many drinks did you have on a typical day when you were drinking in the past year? 1 or 2 drinks (0 point) How often did you have 6 or more drinks on one occasion in the past year? Never (0 point) Points 4 Interpretation Positive PROBLEMS Problem Type ICD Code Onset Dates Problem Status W/U Status Risk SNOMED Code Notes Problem Colon cancer screening (Z12.11) Active confirmed 074068832 Problem Encounter for other preprocedural examination (Z01.818) Active confirmed 883862503 PLAN OF TREATMENT Future Test Test Name Order Date COLONOSCOPY 07/27/2020 Insurance Providers Payer Name Payer Address Payer Phone Subscriber Number Group Number Insured Name Patient Relationship to Insured Coverage Start Date Coverage End Date [facility] [address] [address] [place] [address] [id number] LAZ MONTOYA Self - patient is the insured MEDICAL (GENERAL) HISTORY Medical History History ICD Code vertigo Surgical History Surgery Date(Month/Year) section 2x carpal tunnel release - bilateral
--- OUTSIDE RECORDS SUMMARY | 2024-06-25 17:27 | XMS_ITS ---
Author Organization Sachin Stokes III, MD Address [address] [place] [address] Care Team Providers Care Package Crimper Name Role Phone Sachin Stokes Primary Care Provider Allergies Allergen (clinical drug ingredient) Drug/Non Drug Allergy documented on EMR Reaction Allergy Type Onset Date Status sulfacetamide Sulfacetamide Unknown Drug Allergy Active orange allergenic extract [place] (Diagnostic) Unknown Drug Allergy Active REASON FOR [...] Date Provider Diagnosis Sachin Stokes III, MD [address] [place] [address] [address] GIANNA, [place] [address] 06/21/2024 Sachin Stokes Acute cough R05.1 ; [...] Scheduled, Feb ust, Reason: OV, Regular check-up Provider Name:Sachin Stokes, 02/20/2025 11:00:00 AM, [address] [place] [address] [address], [place], [address], Provider Name:Sachin Stokes, 03/27/2025 09:00:00 AM, [address] [place] [address] [address], [place], [address], Progress Notes * Teetee MONTOYADOB:1970 (54 yo F)Acc No.[id number]:06/21/2024 Patient:?Teetee MONTOYA Provider:?Sachin Stokes MD :1970???Age:54 Y???Sex:Female D ate:06/21/2024 Address:[address] [place], [place] [id number] Subjective: * Chief Complaints: * ???Viral syndromeTobacco dep endenceObesityHyperlipidemiaGERD * HPI: ???:?Telehealth?Location of provider rendering services:?{...} [address] [facility] [address] ?Location of patient:?address listed in demographics for today's visit ?Patient identification confirmed using:?Name, ?Telehealth method:?Telephone only. Patient not visible to care provider. ?Consent:?Patient verbally consented to treatment, Patient verbally consented to billing insurance company, Patient informed of any privacy concerns related to method of visit ?Total time spent with patient (mins)?15 ?The patient, a 54-year-old female, reported a severe cough a few days ago. The cough has started to improve, with the patient estimating a 50% improvement. The patient has not experienced any fever. The patient is a smoker and has been advised to quit. The patient has not reported any other symptoms.A chest x-ray June 19, 2024 was unremarkable.? She is beginning to feel better. * ROS:?General/Constitutional:?pain?only normal aches and pains.?Chills?denies.?Fatigue?admits.?Fever?denies.?Allergy/Immunology:?Admits?Cough,?is non-productive.?ENT:?Decreased hearing?denies.?Respiratory:?Cough?non-productive.?Cardiovascular:?Chest pain with exertion?denies.?Dyspnea on exertion?denies.?Shortness of breath?denies.?Gastrointestinal:?Constipation?occasional.?Decreased appetite?denies.?Diarrhea?denies.?Heartburn?controlled with medications.?Nausea?denies.?Rectal bleeding?denies.?Vomiting?denies.?Hematology:?bruising?denies.?petechiae?denies.?Swollen glands?none have been noted.?Genitourinary:?Frequent [...] had breast cancer. * Social History:?Tobacco Use:?Tobacco Use/Smoking?Patient is a?current smoker ???Drugs/Alcohol:?Drugs?Have you used drugs other than those for [...] a day. 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 She has 3 children. Rudy, Bo and Lynne.. Smoking: The patient is a smoker and has been advised to quit. * Medications:?TakingOndansetr on 4 MG Tablet Disintegrating [...] reviewed and reconciled with the patient * Allergies:?Sulfacetamide: Ritchie Yanes (Diagnostic): Allergyno[Allergies Verified] Objective: * Vitals:?Ht: 58, Wt: 155, BMI :32.39, Ht-cm: 147.32, Wt-k.31. Assessment: * Assessment: 1.?Mixed hyperlipidemia - E7 8.2 (Primary)???Notes :Comprehensive blood work with a fasting lipid profile was ordered today.???2.?Acute cough - R05.1???Notes :This is consistent with bronchitis from a viral syndrome.? The cough is nonproductive and a chest x-ray June 19, 2024 was unremarkable.? She is now beginning to feel better.? No change in her therapy is necessary.???3.?Obesity (BMI 30.0-34.9) - E66.9???Notes :Her body mass index is 32 and her weight is stable. We reviewed her weight loss strategy. We made a plan to lose weight at a rate of one half of a pound per week through a diet restricted in fat calories and sodium.???4.?Tobacco dependence - F17.200???Notes :I reviewed her cardiovascular risk factors with her and we discussed strategies for smoking reduction in cessation.??? Plan: * Treatment: 2.?Others? Continue Ondansetron Tablet Disintegrating, 4 MG, 1 tablet, Orally, Once a day;?Continue dexAMETHasone Tablet, 2 MG, 1 tablet, Orally, every 12 hrs;?Continue Fluticasone Propionate Suspension, 50 MCG/ACT, USE 1 SPRAY INTRANASALLY 2 TIMES PER DAY FOR 30 DAYS, Nasal;?Continue Doxycycline Hyclate Capsule, 100 MG, 1 capsule, Orally, Twice a day.?? * Procedure Codes:?37604 PHONE E/M BY LOU 11-20 MIN * Preventive Medicine:? ??Counseling:?Care goal [...] dangers of tobacco use and urged to quit.?06/21/2024 ?Patient Lifestyle Goals?Patient wants to quit ?Treatment Goals?Set a quit date, Cut down by 1 cigarette a week ?Barriers?Social smoker, Stress ?Self-Management Plan?Make a plan to cut down number of cigarettes over time and set a date to work towards quitting * Follow Up:?As Scheduled, Feb ust (Reason: OV, Regular check-up) * Images: * Sign off status: Completed true * Provider:?Sachin Stokes MD Date:?12/2023 Generated for Sondra rm/Chelsi/Priscillaitting on:?06/25/2024 05:27 PM EST History and Physical Notes * HPI (History of Present Illness) Category Sub-Category Detail Notes Telehealth Location of [facility] rendering services:: {...} [address] [facility] [address] Location of patient:: address listed in demographics [...]
--- OUTSIDE RECORDS SUMMARY | 2024-06-25 17:27 | XMS_ITS | Patient Health Record ---
Author Organization Sachin Stokes III, MD Address [address] [place] [address] Care Team Providers Care Service Control Operator Name Role Phone Sachin Stokes Primary Care Provider Allergies Allergen (clinical drug ingredient) Drug/Non Drug Allergy documented on EMR Reaction Allergy Type Onset Date Status sulfacetamide Sulfacetamide Unknown Drug Allergy Active orange allergenic extract Edwards (Diagnostic) Unknown Drug Allergy Active Results Component Value Reference Range Notes Routine Culture Reviewed date:09/01/2023 08:47:18 AM Interpretation: Performing Lab:[facility], [address] [place] [address] Notes/Report: O:MRSA Methicillin Res Stap h Aureus Routine Culture Quant Org ID Routine Culture 4+ Clindamycin <=0.25 Erythromycin >=8 Oxacillin >=4 Penicillin-G >=0.5 Tetracycline <=1 Trimethoprim/Sulfamethoxa zole <=10 Vancomycin <=0.5 URINE DIP STICK Reviewed date:02/15/2024 09:23:07 AM Interpretation: Performing Lab: Notes/Report: SG 1.020 1.005 - 1.025 pH 5.0 5.0 - 9.0 RAI Negative Negative - NIT Negative Negative - PRO 15 Negative - Trace GLU Negative Negative - KET Negative Negative - UBG 0.2 0.1 - 1.8 KWAME Negative 0.2 - 1.3 BLD Negative Negative - Gram stain Reviewed date:09/01/2023 08:47:18 AM Interpretation: Performing Lab:[facility], [address] [place] [address] Notes/Report: Gram stain Gram stain results: Gram stain 1+ polys Gram stain 2+ Gram-positive cocci Complete Blood Count Auto Di ff Reviewed date:10/22/2023 04:35:50 AM Interpretation: Performing Lab:[facility], [address] [place] [address] Notes/Report: White Blood Count 6.3 4.8-10.8 X10*3/uL Red Blood Count 4.41 4.20-5.50 X10*6/uL Hemoglobin 14.2 12.0-16.0 g/dl Hematocrit 41.2 37.0-47.0 % Mean Corpuscular Volume 93.4 80.0-98.0 fL Mean Corpuscular Hemoglobin 32.2 27.0-33.0 pg Mean Corpuscular HGB Conc 34.5 31.0-35.0 g/dl Red Cell Distribution Width 12.8 11.0-16.0 % Platelet Count 159 160-400 X10*3/uL Mean Platelet Volume 11.6 9.4-12.3 fL Neutrophils Percent Auto 70.4 45-73 % Imm Gran Pct Auto 0.2 0.0-0.4 % Lymphocytes Percent Auto 21.4 20-40 % Monocytes Percent Auto 6.4 2-11 % Eosinophils Percent Auto 1.4 0-4 % Basophils Percent Auto 0.2 0-2 % NRBC Pct Auto 0.0 0.0-0.2 /100WBC Neutrophils Absolute Auto 4.4 2.0-8.3 x10*3/u L Imm Gran Abs Auto 0.01 0.00-0.03 X10*3/uL Lymphocytes Absolute Auto 1.3 1.2-4.9 X10*3/u L Monocytes Absolute Auto 0.4 0.1-1.2 X10*3/uL Eosinophils Absolute Auto 0.1 0.0-0.4 X10*3/u L Basophils Absolute Auto 0.0 0.0-0.2 X10*3/uL NRBC Abs Auto 0.000 0.0-0.012 X10*3/uL Erythrocyte Sedimentation Ra te Reviewed date:10/22/2023 04:35:50 AM Interpretation: Performing Lab:[facility], [address] [place] [phone] Notes/Report: Erythrocyte Sedimentation Rate 14 0-20 MM/HR Patients with polycythemia and many hemoglobin abnormalities may have depressed sed rates whereas patients with anemia may have elevated sed rates. Comprehensive Met. Panel Reviewed date:10/22/2023 04:35:50 AM Interpretation: Performing Lab:[facility], [address] [place] [phone] Notes/Report: Sodium 138 135-145 mmol/L Potassium 4.1 3.3-5.1 mmol/L Slight Hemoly sis Chloride 107 96-108 mmol/L Carbon Dioxide 23 22-29 mmol/L Anion Gap 12 12-20 Blood Urea Nitrogen 13 9-16 mg/dL Creatinine 0.76 0.5-1.4 mg/dL Creatinine Clr Calc Pharmacy 70.9 Provided height and weight: 147.32 cm, 71.4 kg. eGFR (calculated from the MDRD study equation) and eCrCl (calculated from the Cockcroft-Gault equation) are based on different parameters and may not yield comparable results. If eCrCl result is absurd, please check patient's height/weight. Estimated Glomerular Filt Rate > 60 NOTE: For -[place] individuals, multiply the result by 1.210. Chronic Kidney Disease: Estimated GFR < 60 mL/min/1.73m2 Severe Kidney Disease: Estimated GFR < 15 mL/min/1.73m2 Glucose Random 100 60-115 mg/dL Calcium 9.0 8.4-10.2 mg/dL Bilirubin Total 0.4 0.0-1.0 mg/dL Aspartate Amino Transferase 21 5-31 U/L Slight Hemolysis Alanine Aminotransferase 21 0-31 U/L Total Protein 7.5 6.5-8.0 g/dL Albumin Level 4.1 3.5-5.0 g/dL Alkaline Phosphatase 57 39-117 U/L Lactic Acid Reviewed date:10/22/2023 04:35:50 AM Interpretation: Performing Lab:[facility], [address] [place] [phone] Notes/Report: Lactic Acid 0.7 0.5-2.0 mmol/L Magnesium Reviewed date:10/22/2023 04:35:50 AM Interpretation: Performing Lab:[facility], [address] [place] [phone] Notes/Report: Magnesium 2.3 1.6-2.6 mg/dL C Reactive Protein Reviewed date:10/22/2023 04:35:50 AM Interpretation: Performing Lab:[address] [address] Notes/Report: C Reactive Protein 3.54 < or = 0.50 mg/dL Monotest Reviewed date:10/22/2023 04:35:50 AM Interpretation: Performing Lab:[address] [address] Notes/Report: Monotest Negative Negative SARS-CoV2/FLU/RSV Reviewed date:10/22/2023 04:35:50 AM Interpretation: Performing Lab:[address] [address] Notes/Report: Influenza A PCR NEGATIVE Negative Influenza B PCR NEGATIVE Negative Resp Syncy Virus RNA Qual PCR NEGATIVE Negative SARS COV2 PCR INHOUSE NEGATIVE Negative All test results must be correlated with clinical findings. Negative results do not preclude SARS-CoV2, influenza A virus, influenza B virus and/or RSV infection and should not be used as the sole basis for treatment or other patient management decisions. Negative results must be combined with clinical observations, patient history, and epidemiological information. This test has not been evaluated for monitoring treatment of infection. This test has been authorized by the FDA under an Emergency Use Authorization (EUA) for use by authorized laboratories. Testing performed on the [employer] GeneXpert utilizing real-time RT-PCR. All SARS CoV2 and positive influenza A/B results are reported to [facility]. Blood Culture (First) Reviewed date:11/19/2023 01:55:30 PM Interpretation: Performing Lab:[address] [address] Notes/Report: Blood Culture (First) No growth after 5 days. Blood Culture (Second) Reviewed date:11/19/2023 01:55:30 PM Interpretation: Performing Lab:[address] [address] Notes/Report: Blood Culture (Second) No growth after 5 days. Strep A Nucleic Acid Reviewed date:10/22/2023 04:35:50 AM Interpretation: Performing Lab:[address] [address] Notes/Report: [employer] Serial# [id number] Strep A Nucleic Acid Positive Negative All test results must be correlated with clinical findings. This test has not been evaluated for monitoring treatment of infection. Additional follow-up testing using the culture method is required if the result is negative and clinical symptoms persist, or in the event of an acute rheumatic fever outbreak. CT soft tissue neck w con Reviewed date:10/22/2023 04:35:50 AM Interpretation: Performing Lab: Notes/Report: [address] [address] [address] Scan Report Signed Patient: Teetee Plata MR#: [id number] 13 : 1970 Acct:[id number] Age/Sex: 53 / F ADM Date: 10/17/23 Loc: HO.ED Attending Dr: Ordering Physician: Xiomy Joseph Date of Service: 10/17/23 Procedure(s): CT soft tissue neck w IV con Accession Number(s): [id number] cc: Sachin Stokes MD; Xiomy Joseph EXAMINATION: CT SOFT TISSUE NECK WITH CONTRAST CLINICAL INFORMATION: Difficulty swallowing. COMPARISON: None available. TECHNIQUE: Following the intravenous administration of 100 mL of Omnipaque 350 intravenous contrast, helical imaging was performed in the axial plane with generation of coronal and sagittal reformatted images. This CT examination was performed using dose optimization techniques as appropriate, variously including the following: *Automated exposure control *Adjustment of mA and/or kV according to patient size (this includes techniques or standardized protocols for targeted exams where dose is matched to indication/reason for exam; i.e. extremities or head) *Use of iterative reconstruction technique FINDINGS: [place]den tonsils are enlarged and exhibit heterogeneous enhancement bilaterally, findings concerning for palatine tonsillitis that can be clinically correlated. No discrete peritonsillar abscess identified with assessment partially limited by dental streak artifact. Prominent jugulodigastric lymph nodes bilaterally, likely reactive. There are no retropharyngeal fluid collections. Orbital soft tissues, parotid glands, submandibular glands, and thyroid gland are unremarkable. Imaged upper lungs are clear. Imaged mediastinum is unremarkable. Partially imaged intracranial compartment is unremarkable. CT/CT soft tissue neck w IV con IMPRESSION: [place]den tonsils are enlarged and exhibit heterogeneous enhancement bilaterally, findings concerning for palatine tonsillitis that can be clinically correlated. No discrete peritonsillar abscess identified with assessment partially limited by dental streak artifact. Prominent jugulodigastric lymph nodes bilaterally, likely reactive. Dictated By: Frank Loera MD Signed By: <Electronically signed by Frank Loera MD in OV> 10/17/23 1024 DD/ 0942 TD/TT: Radio Announcer: [address] [address] [address] Scan Report Signed Patient: Kyle Plata MR#: [id number] 13 : 1970 Acct:[id number] Age/Sex: 53 / F ADM Date: 10/17/23 Loc: HO.ED Attending Dr: Ordering Physician: Xiomy Joseph Date of Service: 10/17/23 Procedure(s): CT sof t tissue neck w IV con Accession Number(s): [id number] cc: Sachin Stokes MD; Xiomy Joseph EXAMINATION: CT SOFT TISSUE NECK WITH CONTRAST CLINICAL INFORMATION: Difficulty swallowing. COMPARISON: None available. TECHNIQUE: Following the intravenous administration of 100 mL of Omnipaque 350 intravenous contrast , helical imaging was performed in the axial plane with generation of coronal and sagittal reformatted images. This CT examination was performed using dose optimization techniques as appropriate, various ly including the following: *Automated exposure control *Adjustment of mA an d/or kV according to patient size (this includes techniques or standardized protocols for targeted exams where dose is matched to indication/reason for exam; i.e. extremities or head) *Use of iterative reconstruction technique FINDINGS: [place]den tonsils are enlarged and exhibit heterogeneous enhancement bilaterally, finding s concerning for palatine tonsillitis that can be clinically correlate d. No discrete peritonsillar abscess identified with assessment partially limited by dental streak artifact. Prominent jugulodigastric lymp h nodes bilaterally, likely reactive. There are no retropharyngeal flui d collections. Orbital soft tissues, parotid glands, submandibula r glands, and thyroid gland are unremarkable. Imaged upper lungs a re clear. Imaged mediastinum is unremarkable. Partially imaged intracranial compartment is unremarkable. C T/CT soft tissue neck w IV con IMPRESSION: [place]den tonsils are enlarged and exhibit heterogeneous enhancement bilaterally, finding s concerning for palatine tonsillitis that can be clinically correlate d. No discrete peritonsillar abscess identified with assessment partially limited by dental streak artifact. Prominent jugulodigastric lymp h nodes bilaterally, likely reactive. 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 COMPARISON: None available. TECHNIQUE: 2 views of the chest were obtained. FINDINGS: The lungs are clear. The cardiomediastinal silhouette is normal in size. There is no pleural effusion or pneumothorax. No acute osseous abnormality. XR/XR chest 2V IMPRESSION: No acute cardiopulmonary findings. Electronically signed by: Sadiq Serra MD 06/20/2024 11:04 AM EST Dictated By: Sadiq Serra MD Signed By: <Electronically signed by Sadiq Serra MD in OV> 06/20/24 1104 DD/ 1011 TD/TT: 06/19/24 1035 Radio Announcer: [address] [address] XRay Report Signed Patient: Kyle Plata MR#: [id number] 13 : 1970 Acct:[id number] Age/Sex: 54 / F ADM Date: 06/19/24 Loc: HO.XRAY Attending Dr: Sachin Stokes MD Ordering Physician: Sachin Stokes MD Date of Service: 06/19/24 Procedure(s): XR [address] st 2V Accession Number(s): [id number] cc: Sachin Stokes MD EXAMINATION: XR CHEST CLINICAL INFORMATION: Cough. COMPARISON: None available. TECHNIQUE: 2 views of the chest were obtained. FINDINGS: The lungs are clear. The cardiomediastinal silhouette is normal in size. There is no pleural effusion or pneumothorax. No acute osseous abnormality. X R/XR chest 2V IMPRESSION: No acute cardiopulmo nary findings. Electronically ivan d by: Sadiq Serra MD 06/20/2024 11:04 AM EST Workstation: [id number] Dictated By: Sadiq Serra MD Signed By: <Electronically signed by Sadiq Serra MD in OV> 06/20/24 1104 DD/ 1011 TD/TT: 06/19/24 1035 Radio Announcer: SR Reason For Referral Reason Evaluate and Treat Paronychia of toe with MRSA Diagnosis 1 Paronychia of toe (L 03.039) Referral Organization Sachin Stokes III, MD Referring Provider First Name Sachin Referring Provider Last Name Kike Referring Provider Speciality Internal M edicine Referred Provider MARGRET COLLINS Referred Provider Specialty Podiatry General Notes Dalia Bartlett 08/30 11:54:54 AM > Faxed with Referral and progress note Referral Priority Routine Referral Appointment Date 09/07/2023 Medications Medication SIG (Take, Route, Frequency, Duration) [...] Problem Status W/U Status Risk Notes Problem 374976125794073 Obesity (BMI 30.0-34.9) (E66.9) Active confirmed Her body mass index is 32 and her weight is stable. We reviewed her weight loss strategy. We made a plan to lose weight at a rate of one half of a pound per week through a diet restricted in fat calories and sodium. Problem 190774282 Mixed hyperlipidemia (E78.2) Active confirmed Comprehensive blood work with a fasting lipid profile was ordered today. Problem 38287110 Tobacco dependence (F17.200) Active confirmed I reviewed her cardiovascular risk factors with her and we discussed strategies for smoking reduction in cessation. Problem 465903750 Vertigo (R42) Active confirmed We discussed the etiology of vertigo and labyrinthitis. She will continue on the meclizine and ondansetron. Problem 91422293 Tendinitis (M77.9) Active confirmed The pain in the thumb is mild and I have recommended ibuprofen. Problem 417496331 Chronic GERD (K21.9) Active confirmed She will take omeprazole twice a day for 21 days and treat breakthrough heartburn with one or 2 tablespoons of Mylanta. She will call me if any new symptoms develop Vital Signs Heart Rate 60 /min 02/15/2024 Temperature 97.3 degrees Fahrenheit 02/15/2024 Blood pressure diastolic 85 mm Hg 02/15/2024 Height 58 in 06/21/2024 Blood pressure systolic 129 mm Hg 02/15/2024 Weight 155 lbs 06/21/2024 BMI 32.39 kg/m2 06/21/2024 Encounters Encounter Location Date Provider Diagnosis Sachin Stokes III, MD [address] [place] [address] [place] [address] 06/29/2023 Sachin Stokes Paronychia of great toe L03.039 ; Tobacco dependence F17.200 ; Obesity (BMI 30.0-34.9) E66.9 and Mixed hyperlipidemia E78.2 Sachin Stokes III, MD [address] [place] [address] [place] [address] 07/12/2023 Sachin Stokes Paronychia of great toe L03.039 ; Obesity (BMI 30.0-34.9) E66.9 ; Lumbar radiculopathy M54.16 ; Mixed hyperlipidemia E78.2 and Tobacco dependence F17.200 Sachin Stokes III, MD [address] [place] [address] [place] [address] 08/24/2023 Sachin Stokes Paronychia of great toe L03.039 ; Tobacco dependence F17.200 ; Obesity (BMI 30.0-34.9) E66.9 ; Mixed hyperlipidemia E78.2 and Vertigo R42 Sachin Stokes III, MD [address] [place] [address] [place] [address] 01/26/2024 Sachin Stokes Otitis of right ear H66.91 ; Tobacco dependence F17.200 ; Obesity (BMI 30.0-34.9) E66.9 and Mixed hyperlipidemia E78.2 Sachin Stokes III, MD [address] [place] [address] [place] [address] 02/15/2024 Sachin Stokes Obesity (BMI 30.0-34 .9) E66.9 ; Mixed hyperlipidemia E78.2 ; Tobacco dependence F17.200 and Vertigo R42 Sachin Stokes III, MD [address] [place] [address] [place] [address] 06/18/2024 Sachin Stokes Obesity (BMI 30.0-34 .9) E66.9 ; Tobacco dependence F17.200 ; Mixed hyperlipidemia E78.2 ; Lumbar radiculopathy M54.16 and Chronic GERD K21.9 Sachin Stokes III, MD [address] [place] [address] [place] [address] 06/21/2024 Sachin Stokes Acute cough R05.1 ; Mixed hyperlipidemia E78.2 ; Obesity (BMI 30.0-34.9) E66.9 and Tobacco dependence F17.200 Sachin Stokes III, MD [address] [place] [address] [address] [place] [place], [place] [address] 02/06/2024 Sachin Stokes Assessments Encounter Date Diagnosis (ICD Code) Assessment Notes Treat ment Notes Treatment Clinical Notes 06/29/2023 Tobacco dependence (ICD-10 - F17.200) I reviewed her cardiovascular risk factors with her and we discussed strategies for smoking reduction in cessation. 06/29/2023 Paronychia of great toe (ICD-10 - L03.039) She will use warm soaks and rest and ibuprofen and Tylenol. A culture was done and the result is pending. 07/12/2023 Obesity (BMI 30.0-34.9) (ICD-10 - E66.9) We discussed diet and nutrition at length. We formulated a plan to lose weight at a rate of one half of a pound per week through a diet restricted in fat calories and sodium combined with regular exercise. 07/12/2023 Paronychia of great toe (ICD-10 - L03.039) She will use warm soaks and rest and ibuprofen and Tylenol. She will continue on the antibiotic. She reports that she is substantially improved. 08/24/2023 Tobacco dependence (ICD-10 - F17.200) I reviewed her cardiovascular risk factors with her and we discussed strategies for smoking reduction in cessation. 08/24/2023 Paronychia of great toe (ICD-10 - L03.039) She will use warm soaks and rest and ibuprofen and Tylenol. She will continue on the antibiotic. The improvement has recently reached a plateau. 01/26/2024 Tobacco dependence (ICD-10 - F17.200) I reviewed her cardiovascular risk factors with her and we discussed strategies for smoking reduction in cessation. 01/26/2024 Otitis of right ear (ICD-10 - H66.91) She was given Augmentin and a follow-up visit. 02/15/2024 Obesity (BMI 30.0-34.9) (ICD-10 - E66.9) [...] fasting lipid profile was ordered today. 06/18/2024 Obesity (BMI 30.0-34.9) (ICD-10 - E66.9) [...] discussed strategies for smoking reduction in cessation. 06/21/2024 Mixed hyperlipidemia (ICD-10 - E78.2) Comprehensive blood work with a fasting lipid profile was ordered today. 06/21/2024 Acute cough (ICD-10 - R05.1) This is consistent with bronchitis from a viral syndrome. The cough is nonproductive and a chest x-ray June 19, 2024 was unremarkable. She is now beginning to feel better. No change in her therapy is necessary. 06/29/2023 Obesity (BMI 30.0-34.9) (ICD-10 - E66.9) We discussed diet and nutrition at length. We formulated a plan to lose weight at a rate of one half of a pound per week through a diet restricted in fat calories and sodium combined with regular exercise. 07/12/2023 Lumbar radiculopathy (ICD-10 - M54.16) She was given dexamethasone and told to rest and use a hot pack. She will have physical therapy. Images will be obtained if necessary. 08/24/2023 Obesity (BMI 30.0-34.9) (ICD-10 - E66.9) We discussed diet and nutrition at length. We formulated a plan to lose weight at a rate of one half of a pound per week through a diet restricted in fat calories and sodium combined with regular exercise. 01/26/2024 Obesity (BMI 30.0-34.9) (ICD-10 - E66.9) We discussed diet and nutrition at length. We formulated a plan to lose weight at a rate of one half of a pound per week through a diet restricted in fat calories and sodium combined with regular exercise. 02/15/2024 Tobacco dependence (ICD-10 - F17.200) I [...] diet restricted in fat calories and sodium. 06/29/2023 Mixed hyperlipidemia (ICD-10 - E78.2) Comprehensive blood work with a fasting lipid profile was ordered today. 07/12/2023 Mixed hyperlipidemia (ICD-10 - E78.2) Comprehensive blood work with a fasting lipid profile was ordered today. 08/24/2023 Mixed hyperlipidemia (ICD-10 - E78.2) Comprehensive blood work with a fasting lipid profile was ordered today. 01/26/2024 Mixed hyperlipidemia (ICD-10 - E78.2) Comprehensive blood work with a fasting lipid profile was ordered today. 02/15/2024 Vertigo (ICD-10 - R42) We discussed the etiology of vertigo and labyrinthitis. She will continue on the meclizine and ondansetron. 06/18/2024 Lumbar radiculopathy (ICD-10 - M54.16) She was given dexamethasone and told to rest and use a hot pack. She will have physical therapy. Images will be obtained if necessary. 06/21/2024 Tobacco dependence (ICD-10 - F17.200) I reviewed her cardiovascular risk factors with her and we discussed strategies for smoking reduction in cessation. 07/12/2023 Tobacco dependence (ICD-10 - F17.200) I reviewed her cardiovascular risk factors with her and we discussed strategies for smoking reduction in cessation. 08/24/2023 Vertigo (ICD-10 - R42) We discussed the etiology of vertigo and labyrinthitis. She will continue on the meclizine and ondansetron. 06/18/2024 Chronic GERD (ICD-10 - K21.9) She will take omeprazole twice a day for 21 days and treat breakthrough heartburn with one or 2 tablespoons of Mylanta. She will call me if any new symptoms develop Plan Of Treatment Pending Test Test Name Order Date PROFILE, FASTING (COMPREHENSIVE METABOLI C) 09/20/2021 PROFILE, FASTING (COMPREHENSIVE METABOLI C) 02/15/2024 PROFILE, FASTING (COMPREHENSIVE METABOLI C) 05/29/2018 PROFILE, FASTING (COMPREHENSIVE METABOLI C) 07/30/2021 PROFILE, FASTING (COMPREHENSIVE METABOLI C) 08/01/2022 PROFILE, FASTING (COMPREHENSIVE METABOLI C) 06/02/2020 PROFILE, FASTING (COMPREHENSIVE METABOLI C) 04/15/2019 LIPID PANEL 04/15/2019 LIPID PANEL 05/29/2018 LIPID PANEL 08/01/2022 LIPID PANEL 06/02/2020 CBC w DIFF 06/02/2020 CBC w DIFF 09/20/2021 CBC w DIFF 02/15/2024 CBC w DIFF 04/15/2019 CBC w DIFF 05/28/2019 CBC w DIFF 07/30/2021 CBC w DIFF 05/29/2018 CBC w DIFF 08/01/2022 SED RATE (ESR) 06/02/2020 Lipid Panel 09/20/2021 Lipid Panel 02/15/2024 Lipid Panel 07/30/2021 XR chest 2V 06/19/2024 Next Appt Details Provider Name:Sachin Stokes, 02/20/2025 11:00:00 AM, [address] [place] [address] [address], [place], [address], Provider Name:Sachin Stokes, 03/27/2025 09:00:00 AM, [address] [place] [address] [address], [place], [address], Medical (General) History Medical History History ICD Code Vertigo R42 Tendinitis of thumb M77.8 tobacco dependence family history of colon canc er, mother and breast cancer, maternal grandmother overweight 2016 hordealum right upper eyelid Surgical History Surgery Date(Month/Year) section 11/1989 right carpal tunnel release 2010 left carpal tunnel relaese 2014 No history Hospitalization History Reason Date(Month/Year) No history
--- OUTSIDE RECORDS SUMMARY | 2024-06-25 17:27 | XMS_ITS ---
Author Organization Sachin Stokes III, MD Address [address] [place] [address] Care Team Providers Care Hosiery Mater Name Role Phone Sachin Stokes Primary Care Provider [phone] Allergies Allergen (clinical drug ingredient) Drug/Non Drug Allergy documented on EMR Reaction Allergy Type Onset Date Status sulfacetamide Sulfacetamide Unknown Drug Allergy Active orange allergenic extract [place] (Diagnostic) Unknown Drug Allergy Active Results Component [...] Date Provider Diagnosis Sachin Stokes III, MD [address] [place] [address] [place] [address] 02/15/2024 Sachin Stokes Obesity (BMI 30.0-34 .9) [...] Follow Up: 6 Months, Reason: Office visit Provider Name:Sachin Stokes, 02/20/2025 11:00:00 AM, [address] [place] [address] [address], [place], [address], Provider Name:Sachin Stokes, 03/27/2025 09:00:00 AM, [address] [place] [address] [address], [place], [address], Progress Notes * LINDSAY, TeeteeDOB:1970 (54 yo F)Acc No.[id number]:02/15/2024 Progress Notes Patient:?Teetee Palta Provider:?Sachin Stokes MD :1970???Age:54 Y???Sex:Female D ate:02/15/2024 Address:[address] [place] [address] Subjective: * Chief Complaints: * ???Annual Exam * HPI: ???Depression Screening:? She returns to the office at the age of 54 for her annual physical examination. She had a negative mammogram in September of 2022. Mammogram has been scheduled for the near future. She is Due for her periodic MOBILE DEVICE ENGINEER examination. She was referred for this purpose. [...] of weight loss low animal fat diet. ?PHQ-9?Little interest or pleasure in doing things?More than half the days ?Feeling down, depressed, or hopeless?Not at all ?Trouble falling or staying asleep, or sleeping too much?More than half the days ?Feeling tired or having little energy?More than half the days ?Poor appetite or overeating?Not at all ?Feeling bad about yourself or that you are a failure, or have let yourself or your family down?Not at all ?Trouble concentrating on things, such as reading the newspaper or watching television?Not at all ?Moving or speaking so slowly that other people could have noticed; or the opposite, being so fidgety or restless that you have been moving around a lot more than usual?Not at all ?Thoughts that you would be better off or of hurting yourself in some way?Not at all ?Total Score?6 ?Interpretation?Mild Depression ???COVID-19 Screening:?Questions?Have you experienced fever, chills, cough, sore throat, shortness of breath, difficulty breathing, muscle aches, loss of taste or smell??No ?Have you been exposed to the virus within the last 10 days??No ?Have you travelled internationally in the last 10 days??No ?Have you been exposed to COVID-19 in the past??No ???SDOH Questions:?SDOH Questions?In the past year have you been worried about losing your housing??Yes ?In the past year have you or any family members you live with been unable to get any of the following when it was really needed? Check all that apply:?None * ROS:?General/Constitutional:?pain?only normal aches and pains.?Chills?denies.?Fatigue?admits.?Fever?denies.?ENT:?Decreased hearing?denies.?Respiratory:?Cough?denies.?Cardiovascular:?Chest pain with exertion?denies.?Dyspnea on exertion?denies.?Shortness of breath?denies.?Gastrointestinal:?Constipation?occasional.?Decreased appetite?denies.?Diarrhea?denies.?Heartburn?denies.?Nausea?denies.?Rectal bleeding?denies.?Vomiting?denies.?Hematology:?bruising?denies.?petechiae?denies.?Swollen glands?none have been noted.?Genitourinary:?Frequent urination?denies.?Musculoskeletal:?Muscle aches?denies.?Painful joints?denies.?Sciatica?denies.?Weakness?denies.?Skin:?Itching?denies.?Rash?denies.?Skin lesion(s)?denies.?Neurologic:?Difficulty speaking?denies.?Dizziness?denies.?Headache?denies.?Low back pain?denies.?Psychiatric:?Depressed mood?denies.? * Medical History:? * Surgical History:? s ection 11/1989right carpal tunnel release 2010left carpal tunnel relaese 2014 * Hospitalization/Major Diagno stic Procedure:?Denies Past Hospitalization * Family History:?Father: aniket do?Mother: alive 69 yrs, diagnosed with CVD, HTN.?Paternal Grand Father: , diagnosed with Cancer.?Maternal Grand [...] Social History:?Tobacco Use:?Tobacco Use/Smoking?Patient is a?current smoker ?How often do you smoke cigarettes??every day ?How many cigarettes a day do you smoke??5 or less ?How soon after you wake up do you smoke your first cigarette??after 60 minutes ?Are you interested in quitting??Not ready to quit ?Additional Findings: Tobacco User?Light cigarette smoker ((1-9 cigs/day) ???Drugs/Alcohol:?Drugs?Have you used drugs other than those [...] a day. 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 She has 3 children. Bo Grant and Lynne.. * Medications:?TakingOndansetr on 4 MG Tablet Disintegrating [...] and reconciled with the patient * Allergies:?Sulfacetamide: Al lergyOrange (Diagnostic): Allergyno[Allergies Verified] Objective: * Vitals:?Ht: 58, Wt: 155, BMI :32.39, BP: 129/85, HR: 60, Temp: 97.3, Wt-k.31. * Examination: ???General Examination: ?GENERAL APPEARANCE:?pleasant, well nourished, well developed, in no acute distress, calm and relaxed , obese , woman.?HEAD:?atraumatic, normocephalic.?EYES:?eomi, perrla, anicteric, conjugate.?EARS:?normal.?NOSE:?septum intact.?ORAL CAVITY:?normal, unremarkable.?NECK/THYROID:?no jugular venous distention, no carotid bruit, thyroid normal.?LYMPH NODES:?no enlarged lymph nodes,spleen normal.?SKIN:?no suspicious lesions, anicteric.?HEART:?no clicks, gallops, murmurs, or rubs, regular rhythm, S1, S2 normal, no s3, or vascular bruits.?LUNGS:?clear to auscultation .?BREASTS:?To be done by MOBILE DEVICE ENGINEER.?ABDOMEN:?bowel sounds normal, no ascites, no organomegaly, no mass.?RECTAL EXAM:?To be done by MOBILE DEVICE ENGINEER.?MUSCULOSKELETAL:?extremities unremarkable, no clubbing, cyanosis or edema.?PERIPHERAL PULSES:?normal.?NEUROLOGIC:?alert and oriented, cranial nerves 2-12 grossly intact, deep tendon reflexes 2+ symmetrical, motor strength normal upper and lower extremities, sensory exam intact.?PSYCH:?alert, oriented , cognitive function intact , cooperative with exam , good eye contact.? Assessment: * Assessment: 1.?Obesity (BMI 30.0-34.9) - E66.9, Her body mass index is 32 and her weight is stable. We reviewed her weight loss strategy. We made a plan to lose weight at a rate of one half of a pound per week through a diet restricted in fat calories and sodium.?2.?Mixed hyperlipidemia - E78.2, Comprehensive blood work with a fasting lipid profile was ordered today.?3.?Tobacco dependence - F17.200, I reviewed her cardiovascular risk factors with her and we discussed strategies for smoking reduction in cessation.?4.?Vertigo - R42, We discussed the etiology of vertigo and labyrinthitis. She will continue on the meclizine and ondansetron.? Plan: * Treatment: 2.?Others? Continue Ondansetron Tablet Disintegrating, 4 MG, 1 tablet, Orally, Once a day;?Continue dexAMETHasone Tablet, 2 MG, 1 tablet, Orally, every 12 hrs;?Continue Fluticasone Propionate Suspension, 50 MCG/ACT, USE 1 SPRAY INTRANASALLY 2 TIMES PER DAY FOR 30 DAYS, Nasal;?Continue Doxycycline Hyclate Capsule, 100 MG, 1 capsule, Orally, Twice a day.?? * Labs:? * ?Lab: URINE DIP STICK ? Value Reference Range ?SG 1.020 1.005 - 1.025 * ?pH 5.0 5.0 - 9.0 * ?RAI Negative Negative - * ?NIT Negative Negative - * ?PRO 15 Negative - Trac e * ?GLU Negative Negative - * ?KET Negative Negative - * ?UBG 0.2 0.1 - 1.8 * ?KWAME Negative 0.2 - 1.3 * ?BLD Negative Negative - * Procedure Codes:?15179 URINE -NO MICRO * Preventive Medicine:? ??Counseling:?Care goal follow-up plan:?Counseling [...] dangers of tobacco use and urged to quit.?02/15/2024 ?Patient Lifestyle Goals?Patient wants to quit ?Treatment Goals?Cut down by 1 cigarette a week, Set a quit date ?Barriers?Social smoker, Stress ?Self-Management Plan?Make a plan to cut down number of cigarettes over time and set a date to work towards quitting * Follow Up:?6 Months (Reason: Office visit) * Images: * Sign off status: Completed true * Provider:?Sachin Stokes MD Date:?07/2023 Generated for Sondra rm/Chelsi/Brien on:?06/25/2024 05:27 PM [...] Mild Depression COVID-19 Screening Questions Have you expe rienced fever, chills, cough, sore throat, shortness of breath, difficulty breathing, muscle aches, loss of taste or smell?: No Have you been exposed to the virus withi n the last 10 days?: No Have you travelled internationally in last 10 days?: No Have you been [...] PULSES: normal BREASTS: To be done by MOBILE DEVICE ENGINEER MUSCULOSKELETAL: extremities unremark able, no clubbing, cyanosis or edema LYMPH NODES: no enlarged lymph no misti,spleen normal RECTAL EXAM: To be done by MOBILE DEVICE ENGINEER PSYCH: alert, oriented , co gnitive function intact , cooperative with exam , good eye contact ORAL CAVITY: normal, unremarkable
== END 2024-06-19 10:08 | disposition home or self-care (01) ==
LOC: HO.XRAY 10:07
PROVIDERS: PCP Internal Medicine Medical Oncology; Visit Provider Internal Medicine Medical Oncology
DX: R05.1 Acute cough (principal)
CPT/HCPCS: 71046

== ENCOUNTER 2024-08-29 12:05 | Outpatient (REF) | payer OTHER, SELFPAY ==
--- NOTE | ~2024-08-29 | US_ITS ---
EXAMINATION: US PELVIS CLINICAL INFORMATION: Uterine fibroids. COMPARISON: June 01, 2023 demonstrated multiple uterine fibroids, largest measures 8.5 cm. TECHNIQUE: Ultrasound of the pelvis is performed using both transabdominal and transvaginal transducers along with Doppler. Transvaginal imaging is performed due to inadequate visualization transabdominally. FINDINGS: Uterus: The uterus is anteverted and measures 12 x 4 x 7 cm. Volume is 183 cc. The double wall endometrial thickness is 5 mm. Heterogeneous nodular with multifocal heterogeneous nodular lesions throughout the myometrium, the largest in the fundus measures 8.4 cm. Likely subserosal in the right side of the fundus. Uterine fibroids as follow: 1., 3.3 x 3.3 x 3.1 cm. Previously 3.6 x 3.7 x 3.2 cm. 2.: 2.8 x 2.3 x 2.2 cm. Previously 3.2 x 2.1 x 3.9 cm. 3.: 1.1 x 0.9 x 1.1 cm. New since prior exam. 4.: 1.1 x 1.0 x 1.0 cm. New since prior exam. 5.: 8.4 x 7.1 x 6.2 cm. Previously: 9.0 x 8.0 x 8.7 cm. . Adnexa: The right ovary is identified. There is flow on color Doppler interrogation.. There is a 1.2 cm anechoic lesion in the right adnexa. Focal calcification in the right adnexa as well. The left ovary is not identified. No free fluid in the cul-de-sac. Right ovary measures 2 x 2 x 2 cm. Volume is 4 cc. US/US pelvic and transvaginal IMPRESSION: Leiomyomata uterine, the largest measures 8.4 cm. Left ovary is not identified. 1.2 cm dominant follicle versus cyst, right ovary. Endometrial stripe measures 5 mm. This is up to normal limits in the postmenopausal woman. Electronically signed by: John Teague MD 08/29/2024 02:23 PM [facility]
--- OUTSIDE RECORDS SUMMARY | 2024-08-29 12:23 | XMS_ITS ---
Author Organization Sachin Stokes III, MD Address [address] [place] [address] [place] [address] Care Team Providers Care School Age Program Associate Name Role Phone Sachin Stokes Primary Care Provider [phone] Allergies Allergen (clinical drug ingredient) Drug/Non Drug Allergy documented on EMR Reaction Allergy Type Onset Date Status sulfacetamide Sulfacetamide Unknown Drug Allergy Active orange allergenic extract [place] (Diagnostic) Unknown Drug Allergy Active REASON FOR [...] Problem Status W/U Status Risk Notes Problem 172284325 Chronic GERD (K21.9) Active confirmed She will take omeprazole twice a day for 21 days and treat breakthrough heartburn with one or 2 tablespoons of Mylanta. She will call me if any new symptoms develop Encounters Encounter Location Date Provider Diagnosis Sachin Stokes III, MD [address] [place] [address] [address] [place], [place] [address] 06/18/2024 Sachin Stokes Obesity (BMI 30.0-34 .9) [...] cough Provider Name:Sachin Stokes, 02/20/2025 11:00:00 AM, [address] [place] [address] [address], [place], [address], Provider Name:Sachin Stokes, 03/27/2025 09:00:00 AM, [address] [place] [address] [address], [place], [address], Progress Notes * Teetee MONTOYADOB:1970 (54 yo F)Acc No.[id number]:06/18/2024 Patient:?Teetee MONTOYA Provider:?Sachin Stokes MD :1970???Age:54 Y???Sex:Female D ate:06/18/2024 Address:[address] [place], [place] [id number] Subjective: * Chief Complaints: * ???Severe heartburn for the last week * HPI: ???:?Telehealth?Location of provider rendering services:?{...} [address] [facility] [address] ?Location of patient:?address listed in demographics for [...] a day. 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 rendering services:: {...} [address] [facility] [address] Location of patient:: address listed in demographics [...]
--- OUTSIDE RECORDS SUMMARY | 2024-08-29 12:23 | XMS_ITS ---
Author Organization Sachin Stokes III, MD Address [address] [place] [address] [place] [address] Care Team Providers Care Antique Dealer Name Role Phone Sachin Stokes Primary Care Provider [phone] Allergies Allergen (clinical drug ingredient) Drug/Non Drug Allergy documented on EMR Reaction Allergy Type Onset Date Status sulfacetamide Sulfacetamide Unknown Drug Allergy Active orange allergenic extract [place] (Diagnostic) Unknown Drug Allergy Active REASON FOR [...] Date Provider Diagnosis Sachin Stokes III, MD [address] [place] [address] [address] [place], [place] [address] 06/21/2024 Sachin Stokes Acute cough R05.1 ; [...] check-up Provider Name:Sachin Stokes, 02/20/2025 11:00:00 AM, [address] [place] [address] [address], [place], [address], Provider Name:Sachin Stokes, 03/27/2025 09:00:00 AM, [address] [place] [address] [address], [place], [address], Progress Notes * Teetee MONTOYADOB:1970 (54 yo F)Acc No.[id number]:06/21/2024 Patient:?Teetee MONTOYA Provider:?Sachin Stokes MD :1970???Age:54 Y???Sex:Female D ate:06/21/2024 Address:[address] [place], [place] [id number] Subjective: * Chief Complaints: * ???Viral syndromeTobacco dep endenceObesityHyperlipidemiaGERD * HPI: ???:?Telehealth?Location of provider rendering services:?{...} [address] [facility] [address] ?Location of patient:?address listed in demographics for [...] a day. 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 * Procedure Codes:?44654 PHONE E/M BY LOU 11-20 MIN * [...] Provider:?Sachin Stokes MD Date:?12/2023 Generated for Sondra rm/Chelsi/Brien on:?08/29/2024 12:23 PM EST History and Physical Notes * HPI (History of Present Illness) Category Sub-Category Detail Notes Telehealth Location of [facility] rendering services:: {...} [address] [facility] [address] Location of patient:: address listed in demographics [...]
--- OUTSIDE RECORDS SUMMARY | 2024-08-29 12:23 | XMS_ITS | Patient Health Record ---
Author Organization Sachin Stokes III, MD Address [address] [place] [address] Care Team Providers Care Power Station Operator Name Role Phone Sachin Stokes Primary Care Provider [phone] Allergies Allergen (clinical drug ingredient) Drug/Non Drug Allergy documented on EMR Reaction Allergy Type Onset Date Status sulfacetamide Sulfacetamide Unknown Drug Allergy Active orange allergenic extract [place] (Diagnostic) Unknown Drug Allergy Active Results Component [...] 0.2 - 1.3 BLD Negative Negative - Complete Blood Count Auto Di ff Reviewed date:10/22/2023 04:35:50 AM Interpretation: Performing Lab:[facility], [address] [place] [address] Notes/Report: White Blood Count 6.3 4.8-10.8 X10*3/uL [...] te Reviewed date:10/22/2023 04:35:50 AM Interpretation: Performing Lab:[address] [address] Notes/Report: Erythrocyte Sedimentation Rate 14 0-20 MM/HR Patients with polycythemia and many hemoglobin abnormalities may have depressed sed rates whereas patients with anemia may have elevated sed rates. Comprehensive Met. Panel Reviewed date:10/22/2023 04:35:50 AM Interpretation: Performing Lab:[address] [address] Notes/Report: Sodium 138 135-145 mmol/L Potassium 4.1 [...] Glomerular Filt Rate > 60 NOTE: For -Micronesian individuals, multiply the result by 1.210. Chronic [...] Acid Reviewed date:10/22/2023 04:35:50 AM Interpretation: Performing Lab:[address] [address] Notes/Report: Lactic Acid 0.7 0.5-2.0 mmol/L Magnesium Reviewed date:10/22/2023 04:35:50 AM Interpretation: Performing Lab:[address] [address] Notes/Report: Magnesium 2.3 1.6-2.6 mg/dL C Reactive Protein Reviewed date:10/22/2023 04:35:50 AM Interpretation: Performing Lab:[address] [address] Notes/Report: C Reactive Protein 3.54 < or = 0.50 mg/dL Monotest Reviewed date:10/22/2023 04:35:50 AM Interpretation: Performing Lab:[address] [address] Notes/Report: Monotest Negative Negative SARS-CoV2/FLU/RSV Reviewed date:10/22/2023 04:35:50 AM Interpretation: Performing Lab:[address] [address] Notes/Report: Influenza A PCR NEGATIVE Negative Influenza [...] by authorized laboratories. Testing performed on the [employer] GeneXpert utilizing real-time RT-PCR. All SARS CoV2 and positive influenza A/B results are reported to [facility]. Blood Culture (First) Reviewed date:11/19/2023 01:55:30 PM Interpretation: Performing Lab:[address] [address] Notes/Report: Blood Culture (First) No growth after 5 days. Blood Culture (Second) Reviewed date:11/19/2023 01:55:30 PM Interpretation: Performing Lab:[address] [address] Notes/Report: Blood Culture (Second) No growth after 5 days. Strep A Nucleic Acid Reviewed date:10/22/2023 04:35:50 AM Interpretation: Performing Lab:[address] [address] Notes/Report: [employer]NOW Serial# [id number] Strep A Nucleic Acid Positive Negative All [...] date:10/22/2023 04:35:50 AM Interpretation: Performing Lab: Notes/Report: [address] [address] [address] Scan Report Signed Patient: Teetee Plata MR#: [id number] 13 : 1970 Acct:[id number] Age/Sex: 53 / F ADM Date: 10/17/23 Loc: HO.ED Attending Dr: Ordering Physician: Xiomy Joseph Date of Service: 10/17/23 Procedure(s): CT soft tissue neck w IV con Accession Number(s): [id number] cc: Sachin Stokes MD; Xiomy Joseph EXAMINATION: [...] head) *Use of iterative reconstruction technique FINDINGS: Elizabeth tonsils are enlarged and exhibit heterogeneous enhancement [...] soft tissue neck w IV con IMPRESSION: Elizabeth tonsils are enlarged and exhibit heterogeneous enhancement bilaterally, findings concerning for palatine tonsillitis that can be clinically correlated. No discrete peritonsillar abscess identified with assessment partially limited by dental streak artifact. Prominent jugulodigastric lymph nodes bilaterally, likely reactive. Dictated By: Frank Loera MD Signed By: <Electronically signed by Frank Loera MD in OV> 10/17/23 1024 DD/ 0942 TD/TT: Templer Head: [address] [address] [address] Scan Report Signed Patient: Kyle Plata MR#: [id number] 13 : 1970 Acct:[id number] Age/Sex: 53 / F ADM Date: 10/17/23 Loc: HO.ED Attending Dr: Ordering Physician: Xiomy Joseph Date of Service: 10/17/23 Procedure(s): CT sof t tissue neck w IV con Accession Number(s): [id number] cc: Sachin Stokes MD; Xiomy Joseph EXAMINATION: [...] head) *Use of iterative reconstruction technique FINDINGS: Elizabeth tonsils are enlarged and exhibit heterogeneous enhancement [...] soft tissue neck w IV con IMPRESSION: Elizabeth tonsils are enlarged and exhibit heterogeneous enhancement bilaterally, finding s concerning for palatine tonsillitis that can be clinically correlate d. No discrete peritonsillar abscess identified with assessment partially limited by dental streak artifact. Prominent jugulodigastric lymp h nodes bilaterally, likely reactive. Dictated By: rFank Loera MD Signed By: <Electronically signed by Frank Loera MD in OV> 10/17/23 1024 DD/ 0942 TD/TT: Manager Of Maintenance ist: GW XR chest 2V Reviewed date:07/10/2024 08:52:03 AM Interpretation: Performing Lab: Notes/Report: [address] [address] XRay Report Signed Patient: Teetee Plata MR#: [id number] 13 : 1970 Acct:[id number] Age/Sex: 54 / F ADM Date: 06/19/24 Loc: [facility] Attending Dr: Sachin Stokes MD Ordering Physician: Sachin Stokes MD Date of Service: 06/19/24 Procedure(s): XR chest 2V Accession Number(s): [id number] cc: Sachin Stokes MD EXAMINATION: XR CHEST CLINICAL INFORMATION: Cough. COMPARISON: None available. TECHNIQUE: 2 views of the chest were obtained. FINDINGS: The lungs are clear. The cardiomediastinal silhouette is normal in size. There is no pleural effusion or pneumothorax. No acute osseous abnormality. XR/XR chest 2V IMPRESSION: No acute cardiopulmonary findings. Electronically signed by: Sadiq Serra MD 06/20/2024 11:04 AM [facility] Workstation: [id number] Dictated By: Sadiq Serra MD Signed By: <Electronically signed by Sadiq Serra MD in OV> 06/20/24 1104 DD/ 1011 TD/TT: 06/19/24 1035 Templer Head: [place] [address] XRay Report Signed Patient: Kyle Plata MR#: [id number] 13 : 1970 Acct:[id number] Age/Sex: 54 / F ADM Date: 06/19/24 Loc: [facility] Attending Dr: Sachin Stokes MD Ordering Physician: Sachin Stokes MD Date of Service: 06/19/24 Procedure(s): XR [address] 2V Accession Number(s): [id number] cc: Sachin Stokes MD EXAMINATION: XR CHEST [...] 06/20/24 1104 DD/ 1011 TD/TT: 06/19/24 1035 Templer Head: Reason For Referral No Information Medications Medication SIG (Take, Route, Frequency, Duration) [...] Problem Status W/U Status Risk Notes Problem 992841388363166 Obesity (BMI 30.0-34.9) (E66.9) Active confirmed Her body mass index is 32 and her weight is stable. We reviewed her weight loss strategy. We made a plan to lose weight at a rate of one half of a pound per week through a diet restricted in fat calories and sodium. Problem 261862608 Mixed hyperlipidemia (E78.2) Active confirmed Comprehensive blood work with a fasting lipid profile was ordered today. Problem 95071363 Tobacco dependence (F17.200) Active confirmed I reviewed her cardiovascular risk factors with her and we discussed strategies for smoking reduction in cessation. Problem 276606451 Vertigo (R42) Active confirmed We discussed the etiology of vertigo and labyrinthitis. She will continue on the meclizine and ondansetron. Problem 91997616 Tendinitis (M77.9) Active confirmed The pain in the thumb is mild and I have recommended ibuprofen. Problem 428082286 Chronic GERD (K21.9) Active confirmed She will [...] Date Provider Diagnosis Sachin Stokes III, MD [address] [place] [address] [place] [address] 01/26/2024 Sachin Stokes Otitis of right ear H66.91 ; Tobacco dependence F17.200 ; Obesity (BMI 30.0-34.9) E66.9 and Mixed hyperlipidemia E78.2 Sachin Stokes III, MD [address] [place] [address] [place] [address] 02/15/2024 Sachin Stokes Obesity (BMI 30.0-34 .9) E66.9 ; Mixed hyperlipidemia E78.2 ; Tobacco dependence F17.200 and Vertigo R42 Sachin Stokes III, MD [address] [place] [address] [place] [address] 06/18/2024 Sachin Stokes Obesity (BMI 30.0-34 .9) E66.9 ; Tobacco dependence F17.200 ; Mixed hyperlipidemia E78.2 ; Lumbar radiculopathy M54.16 and Chronic GERD K21.9 Sachin Stokes III, MD [address] [place] [address] [place] [address] 06/21/2024 Sachin Stokes Acute cough R05.1 ; Mixed hyperlipidemia E78.2 ; Obesity (BMI 30.0-34.9) E66.9 and Tobacco dependence F17.200 Sachin Stokes III, MD [address] [place] [address] [address] [place], [place] [address] 02/06/2024 Sachin Stokes Assessments Encounter Date Diagnosis (ICD Code) Assessment Notes Treat ment Notes Treatment Clinical Notes 01/26/2024 Tobacco dependence (ICD-10 - F17.200) I [...] No change in her therapy is necessary. 01/26/2024 Obesity (BMI 30.0-34.9) (ICD-10 - E66.9) [...] diet restricted in fat calories and sodium. 01/26/2024 Mixed hyperlipidemia (ICD-10 - E78.2) Comprehensive [...] strategies for smoking reduction in cessation. 06/18/2024 Chronic GERD (ICD-10 - K21.9) She [...] 09/20/2021 Lipid Panel 02/15/2024 Lipid Panel 07/30/2021 Next Appt Details Provider Name:Sachin Stokes, 02/20/2025 11:00:00 AM, [address] [place] [address] [address], [place], [address], Provider Name:Sachin Stokes, 03/27/2025 09:00:00 AM, [address] [place] [address] [address], [place], [address], Medical (General) History Medical History History ICD [...]
--- OUTSIDE RECORDS SUMMARY | 2024-08-29 12:23 | XMS_ITS ---
Author Organization Sachin Stokes III, MD Address [address] [place] [address] [place] [address] Care Team Providers Care Postal Worker Name Role Phone Sachin Stokes Primary Care Provider Allergies Allergen (clinical drug ingredient) Drug/Non Drug Allergy documented on EMR Reaction Allergy Type Onset Date Status sulfacetamide Sulfacetamide Unknown Drug Allergy Active orange allergenic extract [place] (Diagnostic) Unknown Drug Allergy Active Results Component [...] Date Provider Diagnosis Sachin Stokes III, MD [address] [place] [address] [place] [phone] 02/15/2024 Sachin Stokes Obesity (BMI 30.0-34 .9) [...] visit Provider Name:Sachin Stokes, 02/20/2025 11:00:00 AM, [address] [place] [address] [address], [place], [address], Provider Name:Sachin Stokes, 03/27/2025 09:00:00 AM, [address] [place] [address] [address], [place], [address], Progress Notes * LINDSAY, TeeteeDOB:1970 (54 yo F)Acc No.[id number]:02/15/2024 Progress Notes Patient:?Teetee Plata Provider:?Sachin Stokes MD :1970???Age:54 Y???Sex:Female D ate:02/15/2024 Address:[address] [place] [address] Subjective: * Chief Complaints: * ???Annual Exam * HPI: ???Depression Screening:? She returns to the office at the age of 54 for her annual physical examination. She had a negative mammogram in September of 2022. Mammogram has been scheduled for the near future. She is Due for her periodic CRUSHER TENDER examination. She was referred for this purpose. 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 She has 3 [...] bruits.?LUNGS:?clear to auscultation .?BREASTS:?To be done by CRUSHER TENDER.?ABDOMEN:?bowel sounds normal, no ascites, no organomegaly, no mass.?RECTAL EXAM:?To be done by CRUSHER TENDER.?MUSCULOSKELETAL:?extremities unremarkable, no clubbing, cyanosis or edema.?PERIPHERAL PULSES:?normal.?NEUROLOGIC:?alert [...] * ?BLD Negative Negative - * Procedure Codes:?73205 URINE -NO MICRO * Preventive Medicine:? ??Counseling:?Care [...] Stokes MD Date:?07/2023 Generated for Sondra rm/Chelsi/Brien on:?08/29/2024 12:23 PM [...] days?: No Have you travelled internationally in [facility] last 10 days?: No Have you been [...] PULSES: normal BREASTS: To be done by CRUSHER TENDER MUSCULOSKELETAL: extremities unremark able, no clubbing, cyanosis or edema LYMPH NODES: no enlarged lymph no misti,spleen normal RECTAL EXAM: To be done by CRUSHER TENDER PSYCH: alert, oriented , co gnitive function intact , cooperative with exam , good eye contact ORAL CAVITY: normal, unremarkable
--- OUTSIDE RECORDS SUMMARY | 2024-08-29 12:23 | XMS_ITS | Continuity of Care Document ---
Author Name [facility] Organization [facility] Care Team Providers Care Cone Machine Feeder Name Role Phone [facility] Unavailable Unavailable Immunizations Combined list of available immunizations from the Department of Defense and Veterans Affairs facilities. Immunization Series Date Given Administered By Site Reaction Lot Number CVX Code Drug Leather Production Machine Operator Status Comments Source COVID-19 (MODERNA), MRNA, LNP-S, PF, 100 MCG/0.5 ML DOSE 2 2020 207 complet ed MOD; [id number]; IELD COVID-19 (MODERNA), MRNA, LNP-S, PF, 100 MCG/0.5 ML DOSE 1 2020 207 complet ed MOD; [id number]; IELD Social History Combined list of available smoking, tobacco, and other social history from Department of Defense and Veterans Affairs facilities. Social History Type Response Date Comment Sourc e This section is an empty social history section. DoD
--- OUTSIDE RECORDS SUMMARY | 2024-08-29 12:24 | XMS_ITS | Patient Health Record ---
Author Organization [facility] Address [address] [place] [phone] Care Team Providers Care Ccna Name Role Phone Kike MENDEZ, Sachin Primary Care Provider Dano Vital Jr Unavailable ALLERGIES Allergen (clinical drug ingredient) Drug/Non Drug [...] Problem Colon cancer screening (Z12.11) Active confirmed 420798239 Problem Encounter for other preprocedural examination (Z01.818) Active confirmed [id number] PLAN OF TREATMENT Future Test Test Name Order Date COLONOSCOPY 07/27/2020 Insurance Providers Payer Name Payer Address Payer Phone Subscriber Number Group Number Insured Name Patient Relationship to Insured Coverage Start Date Coverage End Date [facility] [address] [address] [place] [address] [id number] LAZ MONTOYA Self - patient is the insured MEDICAL (GENERAL) HISTORY Medical History History ICD Code vertigo Surgical History Surgery Date(Month/Year) section 2x carpal tunnel release - bilateral
== END 2024-08-29 12:06 | disposition home or self-care (01) ==
LOC: HO.US 12:05
PROVIDERS: PCP Internal Medicine Medical Oncology; Visit Provider Advanced Practice Midwife
DX: D25.9 Leiomyoma of uterus, unspecified (principal)
CPT/HCPCS: 76830; 76856

== ENCOUNTER → 2024-08-29 12:08 | Outpatient (BNV) | payer OTHER, SELFPAY | PROVIDERS: PCP Internal Medicine Medical Oncology; Visit Provider Radiology Diagnostic Radiology | DX: D25.9 Leiomyoma of uterus, unspecified (principal) | CPT/HCPCS: 76830; 76856 ==

== ENCOUNTER 2024-10-02 15:42 | Outpatient (AMB) | payer OTHER, SELFPAY ==
--- NOTE | 2024-10-02 15:43 | A.OFFVIS_ITS ---
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 History of multiple fibroids. She reports pelvic cramping, she has never had this in the past. She also admits to having hot flashes that have increased over the last month or so. LMP over a year ago. [facility] Medical History Uterine fibroid Vertigo Surgical History History of bilateral ligation of fallopian tubes History of bilateral carpal tunnel release Hx of section Family History Maternal Grandmother History of breast cancer Maternal Grandfather Colon cancer Social History Alcohol intake: current Alcohol intake frequency: holidays/special occasions only Alcohol type: wine Patient Tobacco Use Status: Current everyday Tobacco user Cigarette Packs Per Day: 0.25 Cigarettes Per Day: 3 Years Smoked: 39 Sexual orientation: Straight/Heterosexual Gender identity: Female Review of Systems Const All systems reviewed & are unremarkable except as noted in HPI and below Endo Reports no additional complaints Physical Exam Const General: cooperative, healthy appearing and no acute distress Psych Appearance: well kempt Attitude: cooperative Thought process: Normal thought process present Results Reviewed Results Reviewed: [address] [address] Ultrasound Report Signed Patient: Teetee Plata MR#: [id number] : 1970 Acct:[id number] Age/Sex: 54 / F ADM Date: 08/29/24 Loc: HO.US Attending Dr: Savita Álvarez CNM Ordering Physician: Savita Álvarez CNM Date of Service: 08/29/24 Procedure(s): US pelvic and transvaginal Accession Number(s): [id number] cc: Sachin Stokes MD; Savita Álvarez CNM~ EXAMINATION: US PELVIS CLINICAL INFORMATION: Uterine fibroids. COMPARISON: June 01, 2023 demonstrated multiple uterine fibroids, largest measures 8.5 cm. TECHNIQUE: Ultrasound of the pelvis is performed using both transabdominal and transvaginal transducers along with Doppler. Transvaginal imaging is performed due to inadequate visualization transabdominally. FINDINGS: Uterus: The uterus is anteverted and measures 12 x 4 x 7 cm. Volume is 183 cc. The double wall endometrial thickness is 5 mm. Heterogeneous nodular with multifocal heterogeneous nodular lesions throughout the myometrium, the largest in the fundus measures 8.4 cm. Likely subserosal in the right side of the fundus. Uterine fibroids as follow: 1., 3.3 x 3.3 x 3.1 cm. Previously 3.6 x 3.7 x 3.2 cm. 2.: 2.8 x 2.3 x 2.2 cm. Previously 3.2 x 2.1 x 3.9 cm. 3.: 1.1 x 0.9 x 1.1 cm. New since prior exam. 4.: 1.1 x 1.0 x 1.0 cm. New since prior exam. 5.: 8.4 x 7.1 x 6.2 cm. Previously: 9.0 x 8.0 x 8.7 cm. . Adnexa: The right ovary is identified. There is flow on color Doppler interrogation.. There is a 1.2 cm anechoic lesion in the right adnexa. Focal calcification in the right adnexa as well. The left ovary is not identified. No free fluid in the cul-de-sac. Right ovary measures 2 x 2 x 2 cm. Volume is 4 cc. US/US pelvic and transvaginal IMPRESSION: Leiomyomata uterine, the largest measures 8.4 cm. Left ovary is not identified. 1.2 cm dominant follicle versus cyst, right ovary. Endometrial stripe measures 5 mm. This is up to normal limits in the postmenopausal woman. Electronically signed by: John Teague MD 08/29/2024 02:23 PM [facility] Dictated By: John Flores MD Signed By: <Electronically signed by John Stovall MD in OV> 08/29/24 1423 DD/ 1220 TD/TT: 08/29/24 1243 Gear Hobber Operator: Assessment & Plan Assessment & Plan (1) Hot flashes: Code(s): R23.2 - Flushing Category: Medical Plan: Discuss: treatment options for hot flashes. Plan TSH-no lab noted. Self-help measures for comfort and to avoid. Menopause dot org handout given. Advised to schedule consult for HRT if desires to have treatment. (2) Uterine fibroid: Code(s): D25.9 - Leiomyoma of uterus, unspecified Category: Medical Qualifiers: Uterine leiomyoma location: unspecified location Qualified Code(s): D25.9 - Leiomyoma of uterus, unspecified Plan Discussed: Ultrasound findings-pre previous fibroids stable, to new small fibroids noted since last scan. One large fibroid 8.4 cm. Endometrial lining 5 mm, recommended endometrial biopsy-patient declined. Counseled re: Leiomyoma: common pelvic neoplasm. Differential diagnosis-may include but not limited to- leiomyosarcoma which is a rare uterine sarcoma 3- 7/100,000, difficult to distinguish from fibroids on ultrasound from uterine sarcoma's. Unlikely any single test will have a highly positive predictive value. Hysterectomy is not recommended for sole purpose of excluding malignant neoplasm. Consult for surgical exploration, medical treatment, other treatments, verses expectant management, pros and cons, risks and benefits. Expectant management follow up in 6 months, then yearly for stability. Patient prefers to proceed with surgical consult. Report any PMB pelvic pressure, bloating, or pain. Referral to MD if indicated for level of care if indicated. Referral placed to [facility]. The patient expressed understanding and agreement with the plan of care. All of her questions and concerns were addressed to the best of my ability. This note is constructed using voice recognition software. While every effort has been made to ensure accuracy, coil winder strap errors may have been included. Orders: Orders Thyroid Stimulating Hormone Today R23.2 - Flushing Referrals MOLD HOLDER Referral D25.9 - Leiomyoma of uterus, unspecified Coding Level of Care Code Est Pt Level 3 (38496) Diagnoses Hot flashes R23.2 Uterine leiomyoma, unspecified location D25.9 Uterine leiomyoma location: unspecified location
--- OUTSIDE RECORDS SUMMARY | 2024-10-02 17:38 | XMS_ITS ---
Author Organization Sachin Stokes III, MD Address [address] [place] [address] [place] [address] Care Team Providers Care Mechanical Supervisor Name Role Phone Sachin Stokes Primary Care Provider Allergies Allergen (clinical drug ingredient) Drug/Non Drug Allergy documented on EMR Reaction Allergy Type Onset Date Status sulfacetamide Sulfacetamide Unknown Drug Allergy Active orange allergenic extract [place] (Diagnostic) Unknown Drug Allergy Active REASON FOR [...] Problem Status W/U Status Risk Notes Problem [id number] Chronic GERD (K21.9) Active confirmed She will take omeprazole twice a day for 21 days and treat breakthrough heartburn with one or 2 tablespoons of Mylanta. She will call me if any new symptoms develop Encounters Encounter Location Date Provider Diagnosis Sachin Stokes III, MD [address] [place] [address] [address], [place] [address] 06/18/2024 Sachin Stokes Obesity (BMI 30.0-34 .9) [...] cough Provider Name:Sachin Stokes, 02/20/2025 11:00:00 AM, [address] [place] [address] [address], [place], [address], Provider Name:Sachin Stokes, 03/27/2025 09:00:00 AM, [address] [place] [address] [address], [place], [address], Progress Notes * Teetee MONTOYADOB:1970 (54 yo F)Acc No.[id number]:06/18/2024 Patient:?Teetee MONTOYA Provider:?Sachin Stokes MD :1970???Age:54 Y???Sex:Female D ate:06/18/2024 Address:[address] [place], [place] [id number] Subjective: * Chief Complaints: * ???Severe heartburn for the last week * HPI: ???:?Telehealth?Location of provider rendering services:?{...} [address] [facility] [address] ?Location of patient:?address listed in demographics for [...] 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 She has 3 [...] VIE W PA & LAT * Procedure Codes:?44712 PHONE E/M BY PHYS 11-20 MIN * [...] Stokes MD Date:?09/2023 Generated for Sondra rm/Chelsi/Brien on:?10/02/2024 05:38 PM EDT History and Physical Notes * HPI (History of Present Illness) Category Sub-Category Detail Notes Telehealth Location of [facility] rendering services:: {...} [address] [facility] [address] Location of patient:: address listed in demographics [...]
--- OUTSIDE RECORDS SUMMARY | 2024-10-02 17:39 | XMS_ITS | Patient Health Record ---
Author Organization Sachin Stokes III, MD Address [address] [place] [address] [place] [address] Care Team Providers Care Webbing Seamer Pound Net Name Role Phone Sachin Stokes Primary Care Provider Allergies Allergen (clinical drug ingredient) Drug/Non Drug Allergy documented on EMR Reaction Allergy Type Onset Date Status sulfacetamide Sulfacetamide Unknown Drug Allergy Active orange allergenic extract [place] (Diagnostic) Unknown Drug Allergy Active Results Component [...] ff Reviewed date:10/22/2023 04:35:50 AM Interpretation: Performing Lab:[facility], [address] [place] [address] Notes/Report: White Blood Count 6.3 4.8-10.8 X10*3/uL [...] te Reviewed date:10/22/2023 04:35:50 AM Interpretation: Performing Lab:[address] [address] Notes/Report: Erythrocyte Sedimentation Rate 14 0-20 MM/HR Patients with polycythemia and many hemoglobin abnormalities may have depressed sed rates whereas patients with anemia may have elevated sed rates. Comprehensive Met. Panel Reviewed date:10/22/2023 04:35:50 AM Interpretation: Performing Lab:[address] [address] Notes/Report: Sodium 138 135-145 mmol/L Potassium 4.1 [...] Glomerular Filt Rate > 60 NOTE: For -[place]ib[place] individuals, multiply the result by 1.210. Chronic [...] Acid Reviewed date:10/22/2023 04:35:50 AM Interpretation: Performing Lab:[address] [address] Notes/Report: Lactic Acid 0.7 0.5-2.0 mmol/L Magnesium Reviewed date:10/22/2023 04:35:50 AM Interpretation: Performing Lab:[address] [address] Notes/Report: Magnesium 2.3 1.6-2.6 mg/dL C Reactive Protein Reviewed date:10/22/2023 04:35:50 AM Interpretation: Performing Lab:[address] [address] Notes/Report: C Reactive Protein 3.54 < or = 0.50 mg/dL Monotest Reviewed date:10/22/2023 04:35:50 AM Interpretation: Performing Lab:[address] [address] Notes/Report: Monotest Negative Negative SARS-CoV2/FLU/RSV Reviewed date:10/22/2023 04:35:50 AM Interpretation: Performing Lab:[address] [address] Notes/Report: Influenza A PCR NEGATIVE Negative Influenza [...] by authorized laboratories. Testing performed on the [employer] GeneXpert utilizing real-time RT-PCR. All SARS CoV2 and positive influenza A/B results are reported to [facility]. Blood Culture (First) Reviewed date:11/19/2023 01:55:30 PM Interpretation: Performing Lab:[address] [address] Notes/Report: Blood Culture (First) No growth after 5 days. Blood Culture (Second) Reviewed date:11/19/2023 01:55:30 PM Interpretation: Performing Lab:[address] [address] Notes/Report: Blood Culture (Second) No growth after 5 days. Strep A Nucleic Acid Reviewed date:10/22/2023 04:35:50 AM Interpretation: Performing Lab:[address] [address] Notes/Report: [employer] Serial# [id number] Strep A Nucleic Acid Positive Negative All [...] date:10/22/2023 04:35:50 AM Interpretation: Performing Lab: Notes/Report: [address] [address] [address] Scan Report Signed Patient: Teetee Plata MR#: [id number] 13 : 1970 Acct:[id number] Age/Sex: 53 / F ADM Date: 10/17/23 Loc: HO.ED Attending Dr: Ordering Physician: Xiomy Joseph Date of Service: 10/17/23 Procedure(s): CT soft tissue neck w IV con Accession Number(s): [id number] cc: Sachin Stokes MD; Xiomy Joseph EXAMINATION: [...] head) *Use of iterative reconstruction technique FINDINGS: [place] tonsils are enlarged and exhibit heterogeneous enhancement [...] soft tissue neck w IV con IMPRESSION: [place] tonsils are enlarged and exhibit heterogeneous enhancement bilaterally, findings concerning for palatine tonsillitis that can be clinically correlated. No discrete peritonsillar abscess identified with assessment partially limited by dental streak artifact. Prominent jugulodigastric lymph nodes bilaterally, likely reactive. Dictated By: Frank Loera MD Signed By: <Electronically signed by Frank Loera MD in OV> 10/17/23 1024 DD/ 0942 TD/TT: Pumper Gauger: [address] [address] [address] Scan Report Signed Patient: Kyle Plata MR#: [id number] 13 : 1970 Acct:[id number] Age/Sex: 53 / F ADM Date: 10/17/23 Loc: HO.ED Attending Dr: Ordering Physician: Xiomy Joseph Date of Service: 10/17/23 Procedure(s): CT sof t tissue neck w IV con Accession Number(s): [id number] cc: Sachin Stokes MD; Xiomy Joseph EXAMINATION: [...] head) *Use of iterative reconstruction technique FINDINGS: [place] tonsils are enlarged and exhibit heterogeneous enhancement [...] soft tissue neck w IV con IMPRESSION: [place] tonsils are enlarged and exhibit heterogeneous enhancement bilaterally, finding s concerning for palatine tonsillitis that can be clinically correlate d. No discrete peritonsillar abscess identified with assessment partially limited by dental streak artifact. Prominent jugulodigastric lymp h nodes bilaterally, likely reactive. Dictated By: Frank Loera MD Signed By: <Electronically signed by Frank Loera MD in OV> 10/17/23 1024 DD/ 0942 TD/TT: Electrolysist ist: GW XR chest 2V Reviewed date:07/10/2024 08:52:03 AM Interpretation: Performing Lab: Notes/Report: [address] [address] XRay Report Signed Patient: Teetee Plata MR#: [id number] 13 : 1970 Acct:[id number] Age/Sex: 54 / F ADM Date: 06/19/24 Loc: MCK[facility] Attending Dr: Sachin Stokes MD Ordering Physician: Sachin Stokes MD Date of Service: 06/19/24 Procedure(s): XR chest 2V Accession Number(s): [id number] cc: Sachin Stokes MD EXAMINATION: XR CHEST CLINICAL INFORMATION: Cough. COMPARISON: None available. TECHNIQUE: 2 views of the chest were obtained. FINDINGS: The lungs are clear. The cardiomediastinal silhouette is normal in size. There is no pleural effusion or pneumothorax. No acute osseous abnormality. XR/XR chest 2V IMPRESSION: No acute cardiopulmonary findings. Electronically signed by: Sadiq Serra MD 06/20/2024 11:04 AM [facility] Workstation: [id number] Dictated By: Sadiq Serra MD Signed By: <Electronically signed by Sadiq Serra MD in OV> 06/20/24 1104 DD/ 1011 TD/TT: 06/19/24 1035 Pumper Gauger: [place] [address] XRay Report Signed Patient: Kyle Plata MR#: [id number] 13 : 1970 Acct:[id number] Age/Sex: 54 / F ADM Date: 06/19/24 Loc: MCKEN[facility] Attending Dr: Sachin Stokes MD Ordering Physician: Sachin Stokes MD Date of Service: 06/19/24 Procedure(s): XR [place] [facility] 2V Accession Number(s): [id number] cc: Sachin Stokes MD EXAMINATION: XR CHEST [...] 06/20/24 1104 DD/ 1011 TD/TT: 06/19/24 1035 Pumper Gauger: US pelvic and transvaginal Reviewed date:09/08/2024 09:14:43 AM Interpretation: Performing Lab: Notes/Report: [address] [address] Ultrasound Report Signed Patient: Teetee Plata MR#: [id number] 13 : 1970 Acct:[id number] Age/Sex: 54 / F ADM Date: 08/29/24 Loc: HO.US Attending Dr: Savita Álvarez CNM Ordering Physician: Savita Álvarez CNM Date of Service: 08/29/24 Procedure(s): US pelvic and transvaginal Accession Number(s): [id number] cc: Sachin Stokes MD; Savita Álvarez CNM EXAMINATION: US PELVIS CLINICAL INFORMATION: Uterine fibroids. COMPARISON: June 01, 2023 demonstrated multiple uterine fibroids, largest measures 8.5 cm. TECHNIQUE: Ultrasound of the pelvis is performed using both transabdominal and transvaginal transducers along with Doppler. Transvaginal imaging is performed due to inadequate visualization transabdominally. FINDINGS: Uterus: The uterus is anteverted and measures 12 x 4 x 7 cm. Volume is 183 cc. The double wall endometrial thickness is 5 mm. Heterogeneous nodular with multifocal heterogeneous nodular lesions throughout the myometrium, the largest in the fundus measures 8.4 cm. Likely subserosal in the right side of the fundus. Uterine fibroids as follow: 1., 3.3 x 3.3 x 3.1 cm. Previously 3.6 x 3.7 x 3.2 cm. 2.: 2.8 x 2.3 x 2.2 cm. Previously 3.2 x 2.1 x 3.9 cm. 3.: 1.1 x 0.9 x 1.1 cm. New since prior exam. 4.: 1.1 x 1.0 x 1.0 cm. New since prior exam. 5.: 8.4 x 7.1 x 6.2 cm. Previously: 9.0 x 8.0 x 8.7 cm. . Adnexa: The right ovary is identified. There is flow on color Doppler interrogation.. There is a 1.2 cm anechoic lesion in the right adnexa. Focal calcification in the right adnexa as well. The left ovary is not identified. No free fluid in the cul-de-sac. Right ovary measures 2 x 2 x 2 cm. Volume is 4 cc. US/US pelvic and transvaginal IMPRESSION: Leiomyomata uterine, the largest measures 8.4 cm. Left ovary is not identified. 1.2 cm dominant follicle versus cyst, right ovary. Endometrial stripe measures 5 mm. This is up to normal limits in the postmenopausal woman. Electronically signed by: John Teague MD 08/29/2024 02:23 PM [facility] Dictated By: John Flores MD Signed By: <Electronically signed by John Stovall MD in OV> 08/29/24 1423 DD/ 1220 TD/TT: 08/29/24 1243 Pumper Gauger: [place] [address] Ultrasound Report Signed Patient: Kyle Plata MR#: [id number] 13 : 1970 Acct:[id number] Age/Sex: 54 / F ADM Date: 08/29/24 Loc: HO.US Attending Dr: Savita Álvarez CNM Ordering Physician: Savita Álvarez CNM Date of Service: 08/29/24 Procedure(s): US pel edmar and transvaginal Accession Number(s): [id number] cc: Sachin Stokes MD; Savita Álvarez CNM EXAMINATION: US PELVIS CLINICAL INFORMATION: Uterine fibroids. COMPARISON: June 01, 2023 demonstrated multiple uterine fibroids, largest measures 8.5 cm. TECHNIQUE: Ultrasound of the pe lvis is performed using both transabdominal and transvaginal transdu cers along with Doppler. Transvaginal imaging is performed due to inadequate visualization transabdominally. FINDINGS: Uterus: The uterus is anteve rted and measures 12 x 4 x 7 cm. Volume is 183 cc. The double wall endometrial thickness is 5 mm. Heterogeneous nodula r with multifocal heterogeneous nodular lesions throughout the myometrium, the largest in the fundus measures 8.4 cm. Likely subserosal in the right side of the fundus. Uterine fibroids as follow: 1., 3.3 x 3.3 x 3.1 cm. Previously 3.6 x 3.7 x 3.2 cm. 2.: 2.8 x 2.3 x 2.2 cm. Previously 3.2 x 2.1 x 3.9 cm. 3.: 1.1 x 0.9 x 1.1 cm. New since prior exam. 4.: 1.1 x 1.0 x 1.0 cm. New since prior exam. 5.: 8.4 x 7.1 x 6.2 cm. Previously: 9.0 x 8.0 x 8.7 cm. . Adnexa: The right ovary is identified. There is flow on color Doppler interrogation.. Ther e is a 1.2 cm anechoic lesion in the right adnexa. Focal calcification in the right adnexa as well. The left ovary is not identified. No free fluid in the cul-de-sac. Right ovary measures 2 x 2 x 2 cm. Volume is 4 cc. U S/US pelvic and transvaginal IMPRESSION: Leiomyomata uterine, the largest measures 8.4 cm. Left ovary is not identified. 1.2 cm dominant foll icle versus cyst, right ovary. Endometrial stripe measures 5 mm. This is up to normal limits in the postmenopausal woman. Electronically ivan d by: John Teague MD 08/29/2024 02:23 PM [facility] Dictated By: John Dailey MD Signed By: <Electronically signed by John Stovall MD in OV> 08/29/24 1423 DD/ 1220 TD/TT: 08/29/24 1243 Pumper Gauger: Reason For Referral No Information Medications Medication [...] Problem Status W/U Status Risk Notes Problem 841294377034765 Obesity (BMI 30.0-34.9) (E66.9) Active confirmed Her body mass index is 32 and her weight is stable. We reviewed her weight loss strategy. We made a plan to lose weight at a rate of one half of a pound per week through a diet restricted in fat calories and sodium. Problem 052761472 Mixed hyperlipidemia (E78.2) Active confirmed Comprehensive blood work with a fasting lipid profile was ordered today. Problem 89011938 Tobacco dependence (F17.200) Active confirmed I reviewed her cardiovascular risk factors with her and we discussed strategies for smoking reduction in cessation. Problem 203561923 Vertigo (R42) Active confirmed We discussed the etiology of vertigo and labyrinthitis. She will continue on the meclizine and ondansetron. Problem 08310549 Tendinitis (M77.9) Active confirmed The pain in the thumb is mild and I have recommended ibuprofen. Problem 692297060 Chronic GERD (K21.9) Active confirmed She will [...] Provider Diagnosis Sachin Stokes III, MD [address] [place] [address] [place] [address] 01/26/2024 Sachin Stokes Otitis of right ear H66.91 ; Tobacco dependence F17.200 ; Obesity (BMI 30.0-34.9) E66.9 and Mixed hyperlipidemia E78.2 Sachin Stokes III, MD [address] [place] [address] [place] [address] 02/15/2024 Sachin Stokes Obesity (BMI 30.0-34 .9) E66.9 ; Mixed hyperlipidemia E78.2 ; Tobacco dependence F17.200 and Vertigo R42 Sachin Stokes III, MD [address] [place] [address] [place] [address] 06/18/2024 Sachin Stokes Obesity (BMI 30.0-34 .9) E66.9 ; Tobacco dependence F17.200 ; Mixed hyperlipidemia E78.2 ; Lumbar radiculopathy M54.16 and Chronic GERD K21.9 Sachin Stokes III, MD [address] [place] [address] [place] [address] 06/21/2024 Sachin Stokes Acute cough R05.1 ; Mixed hyperlipidemia E78.2 ; Obesity (BMI 30.0-34.9) E66.9 and Tobacco dependence F17.200 Sachin Stokes III, MD [address] [place] [address] [place] [address] 02/06/2024 Sachin Stokes Assessments Encounter Date Diagnosis [...] Order Date PROFILE, FASTING (COMPREHENSIVE METABOLI C) 05/29/2018 PROFILE, FASTING (COMPREHENSIVE METABOLI C) 07/30/2021 PROFILE, FASTING (COMPREHENSIVE METABOLI C) 08/01/2022 PROFILE, FASTING (COMPREHENSIVE METABOLI C) 06/02/2020 PROFILE, FASTING (COMPREHENSIVE METABOLI C) 04/15/2019 PROFILE, FASTING (COMPREHENSIVE METABOLI C) 09/20/2021 PROFILE, FASTING (COMPREHENSIVE METABOLI C) 02/15/2024 LIPID PANEL 05/29/2018 LIPID PANEL 08/01/2022 LIPID PANEL 06/02/2020 LIPID PANEL 04/15/2019 CBC w DIFF 09/20/2021 CBC w DIFF 04/15/2019 CBC w DIFF 02/15/2024 CBC w DIFF 05/28/2019 CBC w DIFF 07/30/2021 CBC w DIFF 05/29/2018 CBC w DIFF 08/01/2022 CBC w DIFF 06/02/2020 SED RATE (ESR) 06/02/2020 Lipid Panel 09/20/2021 Lipid Panel 02/15/2024 Lipid Panel 07/30/2021 Next Appt Details Provider Name:Sachin Stokes, 02/20/2025 11:00:00 AM, [address] [place] [address] [address], [place], [address], Provider Name:Sachin Stokes, 03/27/2025 09:00:00 AM, [address] [place] [address] [address], [place], [address], Medical (General) History Medical History History ICD [...]
--- OUTSIDE RECORDS SUMMARY | 2024-10-02 17:39 | XMS_ITS ---
Author Organization Sachin Stokes III, MD Address [address] [place] [address] [place] [address] Care Team Providers Care Porter Baggage Name Role Phone Sachin Stokes Primary Care Provider Allergies Allergen (clinical drug ingredient) Drug/Non Drug Allergy documented on EMR Reaction Allergy Type Onset Date Status sulfacetamide Sulfacetamide Unknown Drug Allergy Active orange allergenic extract [place] (Diagnostic) Unknown Drug Allergy Active REASON FOR [...] Date Provider Diagnosis Sachin Stokes III, MD [address] [place] [address] [address] [place], [place] [address] 06/21/2024 Sachin Stokes Acute cough R05.1 ; [...] check-up Provider Name:Sachin Stokes, 02/20/2025 11:00:00 AM, [address] [place] [address] [address], [place], [address], Provider Name:Sachin Stokes, 03/27/2025 09:00:00 AM, [address] [place] [address] [address], [place], [address], Progress Notes * Teetee MONTOYADOB:1970 (54 yo F)Acc No.[id number]:06/21/2024 Patient:?Teetee MONTOYA Provider:?Sachin Stokes MD :1970???Age:54 Y???Sex:Female D ate:06/21/2024 Address:[address] [place], [place] [id number] Subjective: * Chief Complaints: * ???Viral syndromeTobacco dep endenceObesityHyperlipidemiaGERD * HPI: ???:?Telehealth?Location of provider rendering services:?{...} [address] [facility] [address] ?Location of patient:?address listed in demographics for [...] cigarettes a day. 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 * Procedure Codes:?13417 PHONE E/M BY LOU 11-20 MIN * [...] Stokes MD Date:?12/2023 Generated for Sondra rm/Chelsi/Brien on:?10/02/2024 05:39 PM EDT History and Physical Notes * HPI (History of Present Illness) Category Sub-Category Detail Notes Telehealth Location of [facility] rendering services:: {...} [address] [place] [id number] Location of patient:: address listed in demographics [...]
--- OUTSIDE RECORDS SUMMARY | 2024-10-02 17:39 | XMS_ITS ---
Author Organization Sachin Stokes III, MD Address [address] [place] [address] [place] [address] Care Team Providers Care Signal Supervisor Name Role Phone Sachin Stokes Primary Care Provider Allergies Allergen (clinical drug ingredient) Drug/Non Drug Allergy documented on EMR Reaction Allergy Type Onset Date Status sulfacetamide Sulfacetamide Unknown Drug Allergy Active orange allergenic extract [place] (Diagnostic) Unknown Drug Allergy Active Results Component [...] Date Provider Diagnosis Sachin Stokes III, MD [address] [place] [address] [place] [address] 02/15/2024 Sachin Stokes Obesity (BMI 30.0-34 .9) [...] visit Provider Name:Sachin Stokes, 02/20/2025 11:00:00 AM, [address] [place] [address] [address], [place], [address], Provider Name:Sachin Stokes, 03/27/2025 09:00:00 AM, [address] [place] [address] [address], [place], [address], Progress Notes * LINDSAY, TeeteeDOB:1970 (54 yo F)Acc No.[id number]:02/15/2024 Progress Notes Patient:?Teetee Plata Provider:?Sachin Stokes MD :1970???Age:54 Y???Sex:Female D ate:02/15/2024 Address:[address] [place] [address] Subjective: * Chief Complaints: * ???Annual Exam * HPI: ???Depression Screening:? She returns to the office at the age of 54 for her annual physical examination. She had a negative mammogram in September of 2022. Mammogram has been scheduled for the near future. 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 She was referred for [...] cigarettes a day. 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 She has 3 [...] bruits.?LUNGS:?clear to auscultation .?BREASTS:?To be done by FACING MACHINE OPERATOR.?ABDOMEN:?bowel sounds normal, no ascites, no organomegaly, no mass.?RECTAL EXAM:?To be done by FACING MACHINE OPERATOR.?MUSCULOSKELETAL:?extremities unremarkable, no clubbing, cyanosis or edema.?PERIPHERAL PULSES:?normal.?NEUROLOGIC:?alert [...] * ?BLD Negative Negative - * Procedure Codes:?70008 URINE -NO MICRO * Preventive Medicine:? ??Counseling:?Care [...] Stokes MD Date:?07/2023 Generated for Sondra rm/Chelsi/Brien on:?10/02/2024 05:38 PM [...] days?: No Have you travelled internationally in [facility] last 10 days?: No Have you [...] atraumatic, normocep halic EYES: eomi, perrla, anicte luias, conjugate EARS: normal NOSE: septum intact NECK/THYROID: [...] PULSES: normal BREASTS: To be done by FACING MACHINE OPERATOR MUSCULOSKELETAL: extremities unremark able, no clubbing, cyanosis or edema LYMPH NODES: no enlarged lymph no misti,spleen normal RECTAL EXAM: To be done by FACING MACHINE OPERATOR PSYCH: alert, oriented , co gnitive function intact , cooperative with exam , good eye contact ORAL CAVITY: normal, unremarkable
--- OUTSIDE RECORDS SUMMARY | 2024-10-02 17:39 | XMS_ITS | Continuity of Care Document ---
Author Name [facility] Organization [facility] Care Team Providers Care Water And Gas Helper Name Role Phone [facility] Unavailable Unavailable Immunizations Combined list of available immunizations from the Department of Defense and Veterans Affairs facilities. Immunization Series Date Given Administered By Site Reaction Lot Number CVX Code Drug Lunch Wagon Operator Status Comments Source COVID-19 (MODERNA), MRNA, LNP-S, PF, 100 MCG/0.5 ML DOSE 2 2020 207 complet ed MOD; [id number]; IELD COVID-19 (MODERNA), MRNA, LNP-S, PF, 100 MCG/0.5 ML DOSE 1 2020 207 complet ed MOD; [id number]; IELD
--- OUTSIDE RECORDS SUMMARY | 2024-10-02 17:39 | XMS_ITS | Patient Health Record ---
Author Organization [facility] Address [address] [place] [address] Care Team Providers Care Workers Compensation Paralegal Name Role Phone Kike MENDEZ, Sachin Primary Care Provider Dano Vital Jr Unavailable Allergies Allergen (clinical drug ingredient) Drug/Non Drug Allergy documented on EMR Reaction Allergy Type Onset Date Status Substance with sulfonamide structure and antibacterial mechanism of action (substance) Sufla Meds (uncoded) Unknown Allergy Active Reason For Referral No Information Medications Medication SIG (Take, Route, Frequency, Duration) Notes Start Date End Date Status MiraLax (colon prep) 8.3 ounce ((238) grams mixed with Gatorade or Crystal Light orally begin at 5:00 p.m. the day before the procedure for 1 day 07/27/2020 Active Meclizine HCl 25 MG Orally Active Immunizations Vaccine Route Administration Date Status Comme nts Influenza Unknown 07/27/2020 Refused Social History Tobacco Use: Social History Observation [...] Never (0 point) Points 4 Interpretation Positive Problems Problem Type SNOMED Code ICD Code Onset Dates Problem Status W/U Status Risk Notes Problem 822143251 Colon cancer screening (Z12.11) Active confirmed Problem 252920086 Encounter for other preprocedural examination (Z01.818) Active confirmed Plan Of Treatment Future Test Test Name Order Date COLONOSCOPY 07/27/2020 Insurance Providers Payer Name Payer Address Payer Phone Subscriber Number Group Number Insured Name Patient Relationship to Insured Coverage Start Date Coverage End Date [employer] [address] [address] [place] [address] [id number] LAZ MONTOYA Self - patient is the insured Medical (General) History Medical History History ICD Code vertigo Surgical History Surgery Date(Month/Year) section 2x carpal tunnel release - bilateral
== END 2024-10-02 16:22 | disposition home or self-care (01) ==
LOC: HO.HWS 15:42
PROVIDERS: PCP Internal Medicine Medical Oncology; Visit Provider Advanced Practice Midwife
DX: R23.2 Flushing (principal); D25.9 Leiomyoma of uterus, unspecified
CPT/HCPCS: 99213

== ENCOUNTER 2024-12-13 09:31 | Emergency (ER) | payer OTHER, SELFPAY ==
[2024-12-13 09:32] VITALS: BP 144/84; PULSE 110; RESP 20; TEMP 36.8; O2SAT 97; BMI 31.9
--- NOTE | 2024-12-13 09:57 | ED_ITS ---
HPI - General Adult General Chief complaint: Upper Respiratory Symptoms Stated complaint: Throat and L Ear Pain Time Seen by Provider: 12/13/24 09:52 Source: patient Mode of arrival: ambulatory Limitations: no limitations History of Present Illness ED Provider: Xiomy Joseph PA-C HPI narrative: Patient is a 54 year old assigned female at with a history of uterine fibroids presenting to the emergency department today with a sore throat that radiates into her left ear. Patient states that over the last 2 days she has had a sore throat that radiates into her left ear. Patient denies any dizziness, lightheadedness, abdominal pain, nausea, vomiting, fever, chills, blurry vision, double vision, loss of vision, chest pain, difficulty breathing, shortness of breath, back pain, night sweats, pain with urination, increased urinary frequency, increased urinary urgency, blood in her urine or stool, syncope or a near syncopal episode, recent trauma or falls, bowel incontinence, bladder incontinence, or any other complaints at this time. Onset (ago): day(s) (2) Relieving factors: none Treatments prior to arrival: none Related Data Previous Rx's ?Medication ?Instructions ?Recorded acetaminophen 500 mg tablet 1,000 mg (2 x 500 mg) PO QID PRN 10/20/21 pain #30 tabs ibuprofen 600 mg tablet 600 mg PO Q6H PRN pain #20 tabs 10/20/21 penicillin V potassium 500 mg 500 mg PO BID 10 days #20 tabs 12/13/24 tablet Allergies Allergy/AdvReac Type Severity Reaction Status Date / Time Sulfa (Sulfonamide Allergy Mild RASH Verified 12/13/24 09:35 Antibiotics) [SULFA (SULFONAMIDE ANTIBIOTICS)] Review of Systems Constitutional: Constitutional: Reports no additional constitutional complaints, Denies chills, Denies fever(s) and Denies night sweats Eyes: Eyes: Reports no additional eye complaints, Denies blurry vision, Denies change in vision, Denies diplopia, Denies eye discharge, Denies loss of vision and Denies eye pain ENT: Denies dizziness and Reports sore throat Cardiovascular: Cardiovascular: Reports no additional cardiovascular complaints, Denies chest pain, Denies lightheadedness, Denies Loss of Consciousness and Denies dyspnea Respiratory: Respiratory: Reports no additional respiratory complaints and Denies dyspnea Gastrointestinal: Gastrointestinal: Reports no additional gastrointestinal complaints, Denies abdominal pain, Denies melena, Denies hematochezia, Denies change in bowel habits and Denies change in stool character Genitourinary: Genitourinary: Denies hematuria, Denies urinary frequency, Denies dysuria, Denies urinary incontinence, Denies urinary hesitancy and Denies urinary urgency Musculoskeletal: Musculoskeletal: Reports no additional musculoskeletal complaints, Denies numbness and Denies tingling Neurologic: Denies dizziness, Denies loss of vision, Denies numbness and Denies tingling Psychiatric: Psychiatric: Reports no additional psychiatric complaints Endocrine: Endocrine: Reports no additional endocrine complaints Hematologic/Lymphatic: Hematologic/Lymphatic: Reports no additional hematologic/lymphatic complaints Allergic/Immunologic: Allergic/Immunologic: Reports no additional allergic/immunologic complaints PMFSH Past Medical History Attestation statement: The following information was validated with the patient. Source: old records reviewed and nursing notes reviewed Medical History Hot flashes Uterine fibroid Vertigo Surgical History History of bilateral ligation of fallopian tubes History of bilateral carpal tunnel release Hx of section Family History Family History Maternal Grandmother History of breast cancer Maternal Grandfather Colon cancer Social History Social History Alcohol intake: current Alcohol intake frequency: holidays/special occasions only Alcohol type: wine Patient Tobacco Use Status: Current everyday Tobacco user Cigarette Packs Per Day: 0.25 Cigarettes Per Day: 3 Years Smoked: 39 Advance Directives: No Advance Directives Information Provided: Yes Do you have a plan to hurt others: No Plan Sexual orientation: Straight/Heterosexual Gender identity: Female Physical Exam ED Vital Signs: Vital Signs - 24 hr 12/13/24 09:32 Temperature 98.3 F Pulse Rate 110 H Respiratory Rate 20 Blood Pressure 144/84 H Pulse Oximetry 97 Oxygen Delivery Method Room Air BMI result Body Mass Index 31.9 Const General: cooperative, no acute distress, alert and awake Nutritional Appearance: well nourished Orientation/consciousness: patient oriented x3 HENMT Head: Yes normal to inspection and Yes atraumatic Ears: hearing grossly normal bilaterally and external ears normal General nose exam: Normal external nose present, no nasal discharge noted and no epistaxis Face and sinus: Yes normal facial exam, No abrasion and No laceration Mouth: Normal oral and palatal mucosa present, no drooling and no muffled voice Throat: Yes abnormal tonsil (bilateral erythema and swelling) Eyes General: appearance normal, both eyes and all related structures Periorbital: periorbital findings normal Eyelids: Yes eyelids normal Conjunctivae: conjunctivae normal Pupils: Equal, round and reactive pupils present EOM: EOMs intact bilaterally Neck Neck: Yes normal visual inspection, Yes full ROM and Yes no lymphadenopathy Resp Effort & Inspection: normal respiratory effort and able to speak in complete sentences Neuro General: patient oriented x3, moves all extremities and CN's II-XI intact bilaterally Cranial nerves: Yes Equal, round and reactive pupils present Cognition (Neuro): normal cognition Extrem General: Yes normal to inspection, Yes full ROM and Yes capillary refill normal Psych Appearance: grossly normal Mental Status: mental status grossly normal Affect: normal affect Attitude: cooperative Thought process: Normal thought process present Thought content: Normal thought content present Insight: Good insight present (Psych) Medical Decision Making Medical Decision Making MDM Narrative: Patient is a 54 year old assigned female at with a history of uterine fibroids presenting to the emergency department today with a sore throat that radiates into her left ear. Patient's physical exam was as noted in the physical exam portion of this note. Patient's COVID-19, influenza, RSV, and strep testing was negative. Given the patient's clinical presentation, will treat the pharyngitis with ABX. I explained my physical exam findings as well as all test results to the patient. I answered all questions asked by the patient. I stressed the importance of the patient taking her medication as directed (either prescribed or as the over the counter packaging recommends). I stressed the importance of the patient following up with her primary care provider. I stressed the importance of the patient returning to the emergency department immediately if her symptoms were to worsen or if she were to develop any dizziness, shortness of breath, difficulty breathing, chest pain, blurry vision, loss of vision, nausea, vomiting, abdominal pain, fever, chills, back pain, or any other complaints. Patient verbalized agreement and understanding with this treatment plan and discharge. Differential Diagnosis Differential Diagnoses: The differential diagnosis associated with the presentation includes Pharyngitis Strep pharyngitis COVID-19 Influenza RSV Admission/Observation Consideration of admission/observation: Escalation of care including admission/observation considered Patient would have been admitted to the hospital had her work up had any findings where hospital admission was appropriate and her clinical presentation warranted hospital admission. Lab Data MDM Lab Attestation statement: I reviewed the patient's lab results. My interpretation of these studies and their corresponding values is that they are grossly normal. Labs: Lab Results 12/13/24 Range/Units 09:53 Influenza Type A (PCR) NEGATIVE (Negative) Influenza Type B (PCR) NEGATIVE (Negative) RSV RNA Qual (PCR) NEGATIVE (Negative) SARS-CoV-2 RNA (RT-PCR) NEGATIVE (Negative) S. pyogenes GrpA JEAN PIERRE Negative (Negative) Prescription Management I considered prescription management with: Antibiotic (patient prescribed an antibiotic for pharyngitis) Discharge Plan Discharge Clinical Impression: Pharyngitis Patient Disposition: Home, Self-Care Instructions: Pharyngitis (ED) Additional Instructions: Follow up with your primary care provider. Return to the emergency department immediately if your symptoms worsen or if you develop any numbness, tingling, dizziness, shortness of breath, difficulty breathing, chest pain, blurry vision, loss of vision, nausea, vomiting, abdominal pain, fever, chills, back pain, or any other complaints. Please see the information below about our Patient Portal. If you are not yet enrolled in the [facility] Patient Portal, you will receive an enrollment email invitation following your visit to any [facility] setting. You may also self-enroll in the Patient Portal by visiting our website: [email or web address] The following information is required to access the Patient Portal: - Your [facility] Medical Record Number - Your personal home email address (must match what is in your electronic medical record, Registration staff can assist with this) - Name - Date of Capabilities of the Patient Portal: - Message some providers - View upcoming appointments - Access your health summary, medical history, and visit history - View current conditions and allergies - View procedure and lab results - View your medications, including guidelines, side effects, and precautions - Complete pre-appointment questionnaires requested by your provider - Ready summary reports of your office visits and procedures To access the Patient Portal Mobile Brice, follow these directions: - Search [employer] in the Brice Store or [employer] Store - Download the Brice - Search for [facility] - Enter your login/password Prescriptions: New penicillin V potassium 500 mg tablet 500 mg PO BID 10 Days Qty: 20 0RF No Action acetaminophen 500 mg tablet 1,000 mg PO QID PRN (Reason: pain) Qty: 30 0RF ibuprofen 600 mg tablet 600 mg PO Q6H PRN (Reason: pain) Qty: 20 0RF Referrals: Sachin Stokes MD [Primary Care Provider] - Stand Alone Forms: Work/School Release Print Language: Tajik
[2024-12-13 10:21] LABS: IDNOW Serial# 55D5AD1C; Strep A Nucleic Acid Negative (Negative)
--- OUTSIDE RECORDS SUMMARY | 2024-12-13 10:30 | XMS_ITS | Continuity of Care Document ---
Author Name [facility] Organization [facility] Care Team Providers Care Chute Boss Name Role Phone [facility] Unavailable Unavailable Immunizations Combined list of available immunizations from the Department of Defense and Veterans Affairs facilities. Immunization Series Date Given Administered By Site Reaction Lot Number [id number] Code Drug Accounting Manager Assistant Controller Status Comments Source COVID-19 (MODERNA), MRNA, LNP-S, PF, 100 MCG/0.5 ML DOSE 2 2020 207 complet ed MOD; [id number]; IELD COVID-19 (MODERNA), MRNA, LNP-S, PF, 100 MCG/0.5 ML DOSE 1 2020 207 complet ed MOD; [id number]; IELD Social History Combined list of available smoking, tobacco, and other social history from Department of Defense and Veterans Affairs facilities. Social History Type Response Date Comment Sourc e This section is an empty social history section. DoD
[2024-12-13 10:47] LABS: Influenza A PCR NEGATIVE (Negative); Influenza B PCR NEGATIVE (Negative); Resp Syncy Virus RNA Qual PCR NEGATIVE (Negative); SARS COV2 PCR INHOUSE NEGATIVE (Negative)
[2024-12-13 12:00] VITALS: BP 144/80; PULSE 105; RESP 16; TEMP 36.8; O2SAT 96
== END 2024-12-13 12:00 | disposition home or self-care (01) ==
PROVIDERS: Emergency Provider Emergency Medicine Emergency Medical Services; PCP Internal Medicine Medical Oncology
DX: J02.9 Acute pharyngitis, unspecified (principal); H92.02 Otalgia, left ear; Z03.818 Encounter for observation for suspected exposure to other biological agents ruled out
CPT/HCPCS: 0241U; 87651; 99282; 99283

== ENCOUNTER 2025-01-10 09:24 | Outpatient (AMB) | payer OTHER, SELFPAY ==
--- OUTSIDE RECORDS SUMMARY | 2024-06-18 11:15 | XMS_ITS ---
Author Organization Sachin Stokes III, MD Address [address] [place] [address] [place] [address] Care Team Providers Care Auto Mechanic Name Role Phone Sachin Stokes Primary Care Provider Allergies Allergen (clinical drug ingredient) Drug/Non Drug Allergy documented on EMR Reaction Allergy Type Onset Date Status sulfacetamide Sulfacetamide Unknown Drug Allergy Active orange allergenic extract [place] (Diagnostic) Unknown Drug Allergy Active REASON FOR [...] Problem Status W/U Status Risk Notes Problem [id number] Chronic GERD (K21.9) Active confirmed She will take omeprazole twice a day for 21 days and treat breakthrough heartburn with one or 2 tablespoons of Mylanta. She will call me if any new symptoms develop Encounters Encounter Location Date Provider Diagnosis Sachin Stokes III, MD [address] [place] [address] [place] [address] 06/18/2024 Sachin Stokes Obesity (BMI 30.0-34 .9) [...] Z-Dannie 250 MG 2 tablet on the irst day, then 1 tablet daily for [...] Notes * Teetee MONTOYADOB:1970 (54 yo F)Acc No.[id number]:06/18/2024 Patient: Teetee KIRAN Provider: Caterina Stokes MD :1970 A ge:54 Y S ex:Female Date:06/18/2024 Address:[address] [place], [place] [id number] Subjective: * Chief Complaints: * S evere heartburn for the last week * HPI: * : Telehealth L ocation of provider rendering services: { ...} [address] [facility] [address] L ocation of patient: michelle kingess listed in demographics for today's visit P [...] carpal tunnel release 2010left carpal tunnel relaese 2014No history * Hospitalization/Major [...] a day. 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
--- NOTE | 2025-01-10 09:30 | MHC.PC.OV ---
Vital Signs 01/10/25 09:35 Height 4 ft 9 in Weight 68.039 kg BMI 32.5 BP 160/92 H Pulse 86 Pulse Source Pulse Oximeter Temp 98.0 F Temp Source Temporal Artery Scan Pulse Oximetry (%) 98 Oxygen Delivery Method Room Air Intake Visit Reasons: chronic sore throat or step At Risk Paraprofessional Required: No Accompanied by: Self / Same As Patient Allergies Sulfa (Sulfonamide Antibiotics) (SULFA (SULFONAMIDE ANTIBIOTICS)) Allergy (Mild, Verified 01/10/25 09:31) RASH Medication List - Last Reconciled 01/10/25 by DIANA Thakkar acetaminophen 1,000 mg (2 x 500 mg) PO QID PRN fluticasone propionate 50 mcg/actuation (Allergy Relief (fluticasone)) 1 spray intranasal Q12H ibuprofen 600 mg PO Q6H PRN losartan 25 mg PO DAILY [Meclizine PO PRN] HPI HPI Comments History of Present Illness Details 54-year-old female with history of chronic pharyngitis, hyperlipidemia, obesity presents to the office today for management of chronic conditions and to establish care. Hyperlipidemia-LDL 186. Previous LDL is have been ranging 170-190. Not on a statin Hypertension-not currently on medications. Blood pressure on recheck 170/86. Obesity-BMI 32 Tobacco dependence-reports has not smoked any cigarettes in about 1 month Concerns: Body wide tremors ongoing for about 5 months. Reports most prominent in her hands and her legs. Waxes and wanes in severity but always present. There is no associated pains or paresthesias. 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 No ataxic gait. Chronic pharyngitis-has had recurrent episodes of strep throat. Does also note phlegm in the morning. Also reports globus sensation but no dysphagia shaking a lot- tremors hands, body. hands and legs. annoying. sometimes cnat write. no abn gait. waxes and wanes- deals with it. feels it does limit her in some aspects, but cannot think of it . worse when holding things such as soup Nocturnal palpitations- feels palpitations in neck. Not chest palpitations or chest pain. No lightneadness or sob. Occurs when laying down Health maintenance: Last mammogram 09/2022 and has been reordered Last Pap smear-, negative-overdue but has upcoming appointment with towel cabinet repairer Last colonoscopy-09/29/2020 with 5 year follow-up due to tubular adenoma. Dr. Ibrahim ROS: General: No fevers, malaise, unintentional weight loss HEENT: see hpi Cardiovascular: No chest pain or leg edema. see hpi Respiratory: No shortness of breath, wheezing, cough MSK: No myalgia, back pain Neuro: No headaches, weakness, paresthesias. see hpi Skin: No rashes or lesions EXAM: Constitutional - Awake and Alert, No apparent distress Eyes - PERRL Mouth/throat-tonsillar edema and erythema without exudate Neck-supple, trachea midline. No masses palpated Cardiovascular - S1S2, RRR, No edema Respiratory - Normal lung expansion, Normal respiratory effort, No respiratory distress, CTA bilaterally Extremities - no calf tenderness bilaterally, no swelling Skin - Warm/Dry Neurological - Alert & oriented x3 Psychological - Appropriate affect [facility] Medical History (Updated 01/10/25 @ 10:39 by DIANA Thakkar) HLD (hyperlipidemia) HTN (hypertension) Hot flashes Uterine fibroid Vertigo Surgical History History of bilateral ligation of fallopian tubes History of bilateral carpal tunnel release Hx of section Family History Maternal Grandmother History of breast cancer Maternal Grandfather Colon cancer Social History Alcohol intake: current Alcohol intake frequency: holidays/special occasions only Alcohol type: wine Patient Tobacco Use Status: Current everyday Tobacco user Cigarette Packs Per Day: 0.25 Cigarettes Per Day: 3 Years Smoked: 39 Sexual orientation: Straight/Heterosexual Gender identity: Female Questionnaire PHQ-9 Over the last 2 weeks, how often have you been bothered by any of the following problems? 1. Little interest or pleasure in doing things: not at all 2. Feeling down, depressed, or hopeless: not at all 3. Trouble falling or staying asleep, or sleeping too much: not at all 4. Feeling tired or having little energy: not at all 5. Poor appetite or overeating: not at all 6. Feeling bad about yourself - or that you are a failure or have let yourself or your family down: not at all 7. Trouble concentrating on things, such as reading the newspaper or watching television: not at all 8. Moving or speaking so slowly that other people could have noticed. Or the opposite - being so fidgety or restless that you have been moving around a lot more than usual: not at all 9. Thoughts that you would be better off or of hurting yourself in some way: not at all Total score: 0 Source: Developed by Drs. Sachin Marcial, Natali Pederson, Damien Hilario and colleagues, with an educational sandra from [employer]. Thrive Questionnaire Date Thrive assessed: 01/10/25 I am a: Patient What is your living situation today?: I have a steady place to live Within the past 12 months, did the food you bought not last and you didn't have the money to get more?: Never true Within the past 12 months, did you worry whether your food would run out before you got money to buy more?: Never true Do you have trouble paying for medicines?: No Do you have trouble getting transportation to medical appointments?: No Do you have trouble paying your heating and electricity bill?: No Do you have trouble taking care of your child, family member or friend?: No Do you have trouble with day-to-day activities such as bathing, preparing meals, shopping, managing finances, etc.?: No Are you currently unemployed and looking for a job?: No Are you interested in more education?: No Please select the resources that you would like help with: None THRIVE Score: 0 MELISSA-7 AMB Questionnaire MELISSA-7 Date MELISSA - 7 assessed: 01/10/25 Feeling nervous, anxious, or on edge: 0 = Not at all Not being able to stop or control worryin = Not at all Worrying too much about different things: 0 = Not at all Trouble relaxin = Not at all Being so restless that it is hard to sit still: 0 = Not at all Becoming easily annoyed or irritable: 0 = Not at all Feeling afraid as if something awful might happen: 0 = Not at all Total MELISSA-7 score (0-4 normal; 5-9 mild; 10-14 moderate; 15-21 severe): 0 Source: Developed by Drs. Sachin Marcial, Natali Pederson, Damien Hilario and colleagues, with an educational sandra from [employer]. Physical exam (Primary Care) Vital Signs: Last Vital Signs Temp 98.0 F 01/10/25 09:35 Pulse 86 01/10/25 09:35 BP 160/92 H 01/10/25 09:35 Pulse Ox 98 01/10/25 09:35 Oxygen Delivery Method Room Air 01/10/25 09:35 BMI result Body Mass Index 32.5 Tobacco/Smoking Status: Tobacco use Status Patient Tobacco Use Status Current everyday Tobacco 01/10/25 09:37 PHQ-9: PHQ-9 Score PHQ-9: Total score 0 01/10/25 09:43 Thrive Assessment: Date of Thrive Assessment Date Thrive assessed 01/10/25 01/10/25 09:39 Coding Level of Care Code New Pt Level 4 (97274) Complex EM visit Add On G2211 Diagnoses HTN (hypertension) I10 HLD (hyperlipidemia) E78.5 Former smoker Z87.891 Chronic tremor R25.1 Chronic pharyngitis J31.2 Palpitations R00.2 Assessment & Plan Assessment & Plan (1) HTN (hypertension): Code(s): I10 - Essential (primary) hypertension Category: Medical Plan: Uncontrolled on recheck with blood pressure 170/86. Initiate losartan. Counseled on dosing and side effects. Low-sodium diet. Follow-up in 2-3 weeks for blood pressure recheck (2) HLD (hyperlipidemia): Code(s): E78.5 - Hyperlipidemia, unspecified Category: Medical Plan: Lipid panel ordered. While calculate ASCVD risk score which will likely be significantly elevated due to hypertension and smoking history. Will likely initiate statin pending results. Diet low in saturated fat and highly processed foods as well as weight loss efforts (3) Former smoker: Code(s): Z87.891 - Personal history of nicotine dependence Category: Medical Plan: Commended on smoking cessation. Referred for lung cancer screenings. (4) Chronic tremor: Code(s): R25.1 - Tremor, unspecified Category: Medical Plan: Neurology referral (5) Chronic pharyngitis: Code(s): J31.2 - Chronic pharyngitis Category: Medical Plan: History of multiple episodes of strep pharyngitis. No evidence on physical exam. However, associated with globus sensation and history of cigarette smoking, referral to ENT placed (6) Palpitations: Code(s): R00.2 - Palpitations Category: Medical Plan: Counseled on alarm symptoms. Will check TSH Plan Follow-up in 2-3 weeks. Labs to be completed following visit. Plan as above Orders: Orders Basic Metabolic Panel Today J31.2 - Chronic pharyngitis, R23.2 - Flushing, R25.1 - Tremor, unspecified, Z87.891 - Personal history of nicotine dependence Liver Panel Today J31.2 - Chronic pharyngitis, R23.2 - Flushing, R25.1 - Tremor, unspecified, Z87.891 - Personal history of nicotine dependence Vitamin B12 Today J31.2 - Chronic pharyngitis, R23.2 - Flushing, R25.1 - Tremor, unspecified, Z87.891 - Personal history of nicotine dependence Complete Blood Count Auto Diff Today J31.2 - Chronic pharyngitis, R23.2 - Flushing, R25.1 - Tremor, unspecified, Z87.891 - Personal history of nicotine dependence Lipid Panel Today J31.2 - Chronic pharyngitis, R23.2 - Flushing, R25.1 - Tremor, unspecified, Z87.891 - Personal history of nicotine dependence Vitamin D 25-OH Total Today J31.2 - Chronic pharyngitis, R23.2 - Flushing, R25.1 - Tremor, unspecified, Z87.891 - Personal history of nicotine dependence TSH reflex Free T4 Today J31.2 - Chronic pharyngitis, R23.2 - Flushing, R25.1 - Tremor, unspecified, Z87.891 - Personal history of nicotine dependence Strep A Nucleic Acid Today J02.9 - Acute pharyngitis, unspecified Referrals Neurology Referral J31.2 - Chronic pharyngitis, R23.2 - Flushing, R25.1 - Tremor, unspecified, Z87.891 - Personal history of nicotine dependence Lung Cancer Screening Referral Z87.891 - Personal history of nicotine dependence Ear/Nose/Throat Referral J31.2 - Chronic pharyngitis, R09.A2 - Foreign body sensation, throat, Z87.891 - Personal history of nicotine dependence Medications: New fluticasone propionate 50 mcg/actuation (Allergy Relief (fluticasone)) administer into each nostril 1 spray intranasal Q12H 16 grams 1RF losartan 25 mg PO DAILY 90 tabs 1RF
[2025-01-10 09:35] VITALS: BP 160/92; PULSE 86; TEMP 36.7; O2SAT 98; BMI 32.5
== END 2025-01-10 10:04 | disposition home or self-care (01) ==
LOC: HO.HMCHD 09:24
PROVIDERS: PCP Internal Medicine Medical Oncology; Visit Provider Physician Assistant
DX: I10 Essential (primary) hypertension (principal); E78.5 Hyperlipidemia, unspecified; Z87.891 Personal history of nicotine dependence; R25.1 Tremor, unspecified; J31.2 Chronic pharyngitis; R00.2 Palpitations

== ENCOUNTER 2025-01-10 10:07 | Outpatient (REF) | payer OTHER, SELFPAY ==
[2025-01-10 13:06] LABS: MANUAL DIFF FLAG NO
[2025-01-10 13:13] LABS: Basophils Percent Auto 0.3 % (0-2); Eosinophils Absolute Auto 0.1 X10*3/uL (0.0-0.4); Eosinophils Percent Auto 1.6 % (0-4); Hematocrit 36.8 % (37.0-47.0); Hemoglobin 12.4 g/dl (12.0-16.0); Imm Gran Abs Auto 0.01 X10*3/uL (0.00-0.03); Imm Gran Pct Auto 0.3 % (0.0-0.4); Lymphocytes Absolute Auto 1.7 X10*3/uL (1.2-4.9); Lymphocytes Percent Auto 46.9 % (20-40); Mean Corpuscular HGB Conc 33.7 g/dl (31.0-35.0); Mean Corpuscular Hemoglobin 28.6 pg (27.0-33.0); Mean Platelet Volume 12.4 fL (9.4-12.3); Monocytes Absolute Auto 0.5 X10*3/uL (0.1-1.2); Monocytes Percent Auto 12.7 % (2-11); Neutrophils Absolute Auto 1.4 x10*3/uL (2.0-8.3); Neutrophils Percent Auto 38.2 % (45-73); Platelet Count 160 X10*3/uL (160-400); Red Blood Count 4.33 X10*6/uL (4.20-5.50); Red Cell Distribution Width 12.7 % (11.0-16.0); White Blood Count 3.7 X10*3/uL (4.8-10.8)
[2025-01-10 13:41] LABS: Alanine Aminotransferase 69 U/L (0-31); Albumin Level 4.1 g/dL (3.5-5.0); Alkaline Phosphatase 85 U/L (39-117); Anion Gap 11 (12-20); Aspartate Amino Transferase 38 U/L (5-31); Bilirubin Direct 0.2 mg/dL (0.0-0.5); Bilirubin Total 0.4 mg/dL (0.0-1.0); Blood Urea Nitrogen 13 mg/dL (9-16); Calcium 9.7 mg/dL (8.4-10.2); Carbon Dioxide 24 mmol/L (22-29); Chloride 107 mmol/L (96-108); Cholesterol 168 mg/dL (<200); Estimated Glomerular Filt Rate > 60; Glucose Random 108 mg/dL (60-115); HDL Cholesterol 58 mg/dL (>40); LDL Cholesterol Calculated 89 mg/dL (<100); Potassium 4.1 mmol/L (3.3-5.1); Sodium 138 mmol/L (135-145); Total Protein 7.1 g/dL (6.5-8.0); Triglycerides 105 mg/dL (<150)
[2025-01-10 13:47] LABS: TSH reflex Free T4 < 0.01 uIU/mL (0.32-4.0); Vitamin D 25-OH Total 27.6 ng/mL (>30)
[2025-01-10 14:11] LABS: Vitamin B12 433 pg/mL (200-900)
== END 2025-01-10 10:08 | disposition home or self-care (01) ==
LOC: HO.10HDL 10:07
PROVIDERS: Visit Provider Physician Assistant
DX: R25.1 Tremor, unspecified (principal); R23.2 Flushing; J31.2 Chronic pharyngitis; Z87.891 Personal history of nicotine dependence
CPT/HCPCS: 36415; 80048; 80061; 80076; 82306; 82607; 84439; 84443; 85025

== ENCOUNTER 2025-01-16 09:44 | Outpatient (REF) | payer OTHER, SELFPAY ==
--- OUTSIDE RECORDS SUMMARY | 2024-06-18 11:15 | XMS_ITS ---
Author Organization Sachin Stokes III, MD Address [address] [place] [address] [place] [address] Care Team Providers Care Dip Stand Loader Name Role Phone Sachin Stokes Primary Care Provider [phone] Allergies Allergen (clinical drug ingredient) Drug/Non Drug Allergy documented on EMR Reaction Allergy Type Onset Date Status sulfacetamide Sulfacetamide Unknown Drug Allergy Active orange allergenic extract [place] (Diagnostic) Unknown Drug Allergy Active REASON FOR [...] Problem Status W/U Status Risk Notes Problem [id number] Chronic GERD (K21.9) Active confirmed She will take omeprazole twice a day for 21 days and treat breakthrough heartburn with one or 2 tablespoons of Mylanta. She will call me if any new symptoms develop Encounters Encounter Location Date Provider Diagnosis Sachin Stokes III, MD [address] [place] [address] [place], [place] [address] 06/18/2024 Sachin Stokes Obesity (BMI 30.0-34 .9) [...] Notes * Teetee MONTOYADOB:1970 (54 yo F)Acc No.[id number]:06/18/2024 Patient: Teetee KIRAN Provider: Caterina Stokes MD :1970 A ge:54 Y S ex:Female Date:06/18/2024 Address:[address] [place], [place] [id number] Subjective: * Chief Complaints: * S evere heartburn for the last week * HPI: * : Telehealth L ocation of provider rendering services: { ...} [address] [facility] [address] L ocation of patient: michelle kingess listed [...] cigarettes a day. 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
--- OUTSIDE RECORDS SUMMARY | 2025-01-16 10:12 | XMS_ITS | Continuity of Care Document ---
Author Name [facility] Organization [facility] Care Team Providers Care Outbound Sales Representative Name Role Phone [facility] Unavailable Unavailable Immunizations Combined list of available immunizations from the Department of Defense and Veterans Affairs facilities. Immunization Series Date Given Administered By Site Reaction Lot Number [id number] Code Drug Advanced Seal Delivery System Status Comments Source COVID-19 (MODERNA), MRNA, LNP-S, PF, 100 MCG/0.5 ML DOSE 2 2020 207 complet ed MOD; [id number]; IELD COVID-19 (MODERNA), MRNA, LNP-S, PF, 100 MCG/0.5 ML DOSE 1 2020 207 complet ed MOD; [id number]; IELD Social History Combined list of available smoking, tobacco, and other social history from Department of Defense and Veterans Affairs facilities. Social History Type Response Date Comment Sourc e This section is an empty social history section. DoD
--- OUTSIDE RECORDS SUMMARY | 2025-01-16 10:14 | XMS_ITS | Patient Health Record ---
Author Organization [facility] Address [address] [place] [id number] Care Team Providers Care Director Video Name Role Phone Kike MENDEZ, Sachin Primary [...] Problem Status W/U Status Risk Notes Problem [id number] Colon cancer screening (Z12.11) Active confirmed Problem [id number] Encounter for other preprocedural examination (Z01.818) Active confirmed Plan Of Treatment Future Test Test Name Order Date COLONOSCOPY 07/27/2020 Insurance Providers Payer Name Payer Address Payer Phone Subscriber Number Group Number Insured Name Patient Relationship to Insured Coverage Start Date Coverage End Date UMR [address] [address] [place] [address] [phone] [id number] LAZ MONTOYA Self - patient is the insured Medical (General) History Medical History History ICD Code vertigo Surgical History Surgery Date(Month/Year) section 2x carpal tunnel release - bilateral
--- OUTSIDE RECORDS SUMMARY | 2025-01-16 10:14 | XMS_ITS | Clinical Summary ---
Author Organization [facility] Address [address] [place] [address] Phone Care Team Providers Care Mining Speculator Name Role Phone Sachin Stokes MD Primary Care Provider [phone] Allergies No known active allergies Medications silver sulfADIAZINE (Silvadene) 1 % cream Apply topically 1 (one) time each day. 50 g 5 11/14/19 26 Active triamcinolone (KENALOG) 0.025 % ointment Apply topically 2 (two) times a day. 30 g 5 12/06/19 26 Active Encounters Date Type Department Care Team Description 12/05/2024 10:15 AM EDT Office Visit [facility] [address] [place] [phone] Jeremy Ferris DPM Cellulitis of great toe, right (Primary Dx); Dermatitis 11/13/2024 3:15 PM EDT Office Visit [facility] [address] [address] Jeremy Ferris DPM Cellulitis of great toe, right (Primary Dx); Ingrowing nail from Last 3 Months Social History Tobacco Use Types Packs/Day Years Used Date Smoking Tobacco: Never Assessed Comments Unknown Sex and Gender Information Value Date Recorded Sex Assigned at Not on file Legal Sex Female 11:03 AM EDT Gender Identity Not on file Sexual Orientation Not on file Last Filed Vital Signs Vital Sign Reading Time Taken Comments Blood Pressure - - Pulse - - Temperature - - Respiratory Rate - - Oxygen Saturation - - Inhaled Oxygen Concentration - - Weight 70.3 kg (155 lb) 12/05/2024 10:12 AM EDT Height 147.3 cm (4' 9.99 ) 12/05/2024 10:12 AM E DT Body Mass Index 32.4 12/05/2024 10:12 AM EDT Plan of Treatment Health Maintenance Due Date Last Done Comments Breast Cancer Screening 1969 DTaP,Tdap,and Td Vaccines (1 - Tdap) 02/12/1988 Hepatitis B Vaccines (1 of 3 - 19+ 3-dose series) 02/12/1988 Cervical Cancer Screening: P ap Smear 1990 Pneumococcal Vaccine: 50+ Years (1 of 1 - PCV) 2019 Zoster Vaccines (1 of 2) 2019 Cholesterol Screening (Lipid Panel) 02/09/2024 Colorectal Cancer Screening: Colonoscopy 02/09/2024 Depression Screening 02/09/2024 HIV Screening 02/09/2024 Hepatitis C Screening 02/09/2024 Social Influencers of Health Screening 02/09/2024 COVID-19 Vaccine (3 - 2023-2 5 season) 2024 12/31/2020, 12/03/2020 Influenza Vaccine (Season Ended) 2025 HIB Vaccines Aged Out No longer eligi ble based on patient's age to complete this topic HPV Vaccines Aged Out No longer eligi ble based on patient's age to complete this topic Hepatitis A Vaccines Aged Out No long er eligible based on patient's age to complete this topic IPV Vaccines Aged Out No longer eligi ble based on patient's age to complete this topic MMR Vaccines Aged Out No longer eligi ble based on patient's age to complete this topic Meningococcal ACWY Vaccine Aged Out N o longer eligible based on patient's age to complete this topic Meningococcal B Vaccine Aged Out No l onger eligible based on patient's age to complete this topic Pneumococcal Vaccine: Pediatrics (0 to 5 Years) and At-Risk Patients (6 to 64 Years) Aged Out No longer eligible b ased on patient's age to complete this topic RSV Immunization Patients Under 20 months Aged Out No longer eligible b ased on patient's age to complete this topic Varicella Vaccines Aged Out No longer eligible based on patient's age to complete this topic Insurance [facility] [place] [id number] Care Teams Mining Speculator Relationship Specialty Start Date End Date Sachin Stokes MD [facility] [address] [address] PCP - General 08/31/23
== END 2025-01-16 09:45 | disposition home or self-care (01) ==
LOC: HO.LAB 09:44
PROVIDERS: PCP Internal Medicine; Visit Provider Physician Assistant
DX: E05.90 Thyrotoxicosis, unspecified without thyrotoxic crisis or storm (principal)
CPT/HCPCS: 36415; 83520; 84481; 86021

== ENCOUNTER 2025-01-30 08:57 | Outpatient (REF) | payer OTHER, SELFPAY ==
[2025-01-30 09:39] LABS: MANUAL DIFF FLAG NO
[2025-01-30 09:49] LABS: Hematocrit 36.9 % (37.0-47.0); Hemoglobin 12.8 g/dl (12.0-16.0); Imm Gran Pct Auto 0.0 % (0.0-0.4); Mean Corpuscular HGB Conc 34.7 g/dl (31.0-35.0); Mean Corpuscular Hemoglobin 28.9 pg (27.0-33.0); Mean Corpuscular Volume 83.3 fL (80.0-98.0); Platelet Count 127 X10*3/uL (160-400); Red Blood Count 4.43 X10*6/uL (4.20-5.50); White Blood Count 3.2 X10*3/uL (4.8-10.8)
[2025-01-30 09:50] LABS: Imm Gran Abs Auto 0.00 X10*3/uL (0.00-0.03); Lymphocytes Absolute Auto 1.4 X10*3/uL (1.2-4.9); NRBC Abs Auto 0.000 X10*3/uL (0.0-0.012); NRBC Pct Auto 0.0 /100WBC (0.0-0.2)
== END 2025-01-30 08:58 | disposition home or self-care (01) ==
LOC: HO.LAB 08:57
PROVIDERS: PCP Internal Medicine; Visit Provider Internal Medicine
DX: E05.90 Thyrotoxicosis, unspecified without thyrotoxic crisis or storm (principal); R09.A2 Foreign body sensation, throat; I10 Essential (primary) hypertension; D72.820 Lymphocytosis (symptomatic)
CPT/HCPCS: 36415; 85025

== ENCOUNTER 2025-01-30 08:57 | Outpatient (AMB) | payer OTHER, SELFPAY ==
--- OUTSIDE RECORDS SUMMARY | 2024-06-18 11:15 | XMS_ITS ---
Author Organization Sachin Stokes III, MD Address [address] [place] [address] [place] [address] Care Team Providers Care Shipping And Receiving Material Handler Name Role Phone Sachin Stokes Primary Care Provider [phone] Allergies Allergen (clinical drug ingredient) Drug/Non Drug Allergy documented on EMR Reaction Allergy Type Onset Date Status sulfacetamide Sulfacetamide Unknown Drug Allergy Active orange allergenic extract [place] (Diagnostic) Unknown Drug Allergy Active REASON FOR [...] Problem Status W/U Status Risk Notes Problem [id number] Chronic GERD (K21.9) Active confirmed She will take omeprazole twice a day for 21 days and treat breakthrough heartburn with one or 2 tablespoons of Mylanta. She will call me if any new symptoms develop Encounters Encounter Location Date Provider Diagnosis Sachin Stokes III, MD [address] [place] [address] [address] [place], [place] [address] 06/18/2024 Sachin Stokes Obesity (BMI 30.0-34 .9) [...] Notes * Teetee MONTOYADOB:1970 (54 yo F)Acc No.[id number]:06/18/2024 Patient: Teetee KIRAN Provider: Caterina Stokes MD :1970 A ge:54 Y S ex:Female Date:06/18/2024 Address:[address] [place], [place] [phone] Subjective: * Chief Complaints: * S evere heartburn for the last week * HPI: * : Telehealth L ocation of provider rendering services: { ...} [address] [facility] [address] L ocation of patient: michelle kingess listed [...] a day. 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
--- NOTE | 2025-01-30 08:59 | MHC.PC.OV ---
Vital Signs 01/30/25 09:04 Height 4 ft 9.5 in Weight 140 lb BMI 29.8 BP 118/76 Blood Pressure Location Lt brachial Position Sitting Respiration 16 Pulse 86 Pulse Source Pulse Oximeter Temp 97.6 F Temp Source Temporal Artery Scan Pulse Oximetry (%) 95 Oxygen Delivery Method Room Air Intake Visit Reasons: 3 wk f/u - see comments Inside Sales Manager Required: No Accompanied by: Self / Same As Patient Allergies Sulfa (Sulfonamide Antibiotics) (SULFA (SULFONAMIDE ANTIBIOTICS)) Allergy (Mild, Verified 01/30/25 08:59) RASH Tobacco use date assessed: 01/30/25 HPI HPI Comments History of Present Illness Details 54-year-old female with history of chronic pharyngitis, hyperlipidemia, recent diagnosis of hyperthyroid presenting for follow up Recently seen by josefina Maier with c/o tremulousness x 5 months and palpitations. Labs revealed TSH <0.01 and free T4 of 2.10. She was started on atenol given concomitant htn. Blood pressure is normal today. Palpitations have lessened however tremulousness persists. She has consult with endocrinology scheduled for early march Chronic pharyngitis-has had recurrent episodes of strep throat. Does also note phlegm in the morning. Also reports globus sensation but no dysphagia-thyroid u/s ordered today Health maintenance: Last mammogram 09/2022 and has been reordered Last Pap smear-, negative-overdue but has upcoming appointment with urogynaecologist Last colonoscopy-09/29/2020 with 5 year follow-up due to tubular adenoma. Dr. Ibrahim ROS see HPI PHYSICAL EXAM: GENERAL: Alert and oriented x 3. NAD EYES: EOMI. Anicteric. HENT: Moist mucous membranes. Moderate thyroid enlargement bilaterally LUNGS: Clear to auscultation bilaterally. CARDIOVASCULAR: Regular rate and rhythm. No murmur. No JVD. ABDOMEN: Soft, non-tender +bs EXTREMITIES: No edema. Non-tender. SKIN: No rashes or lesions. Warm. NEUROLOGIC: No focal neurological deficits. CN II-XII grossly intact PSYCHIATRIC: Cooperative. Appropriate mood and affect [facility] Medical History (Updated 01/30/25 @ 10:29 by Graciela Ernst MD) Hyperthyroidism HLD (hyperlipidemia) HTN (hypertension) Hot flashes Uterine fibroid Vertigo Surgical History (Updated 01/28/25 @ 16:07 by Kayli Danielle) History of colonoscopy (~09/29/20) History of bilateral ligation of fallopian tubes History of bilateral carpal tunnel release Hx of section Family History Maternal Grandmother History of breast cancer Maternal Grandfather Colon cancer Social History Alcohol intake: current Alcohol intake frequency: holidays/special occasions only Alcohol type: wine Patient Tobacco Use Status: Former Tobacco user Cigarette Packs Per Day: 0.25 Cigarettes Per Day: 3 Years Smoked: 39 e-Cigarette/Vaping Use: Never Used Sexual orientation: Straight/Heterosexual Gender identity: Female Questionnaire Thrive Questionnaire Date Thrive assessed: 01/10/25 AUDIT C Alcohol Use Questionnaire (AUDIT-C) 1. How often do you have a drink containing alcohol?: 4 or more times a week 2. How many drinks containing alcohol do you have on a typical day when you are drinking?: 1 or 2 Total Score: 4 MELISSA-7 AMB Questionnaire MELISSA-7 Date MELISSA - 7 assessed: 01/10/25 Source: Developed by Drs. Sachin Marcial, Natali Pederson, Damien Hilario and colleagues, with an educational sandra from [employer]. Physical exam (Primary Care) Tobacco/Smoking Status: Tobacco use Status Patient Tobacco Use Status Current everyday Tobacco 01/10/25 09:37 Thrive Assessment: Date of Thrive Assessment Date Thrive assessed 01/10/25 01/10/25 09:39 Coding Level of Care Code Est Pt Level 4 (83441) Complex EM visit Add On G2211 Diagnoses Hyperthyroidism E05.90 Globus sensation R09.A2 Primary hypertension I10 Hypertension type: primary hypertension Assessment & Plan Assessment & Plan (1) Hyperthyroidism: Code(s): E05.90 - Thyrotoxicosis, unspecified without thyrotoxic crisis or storm Category: Medical (2) Globus sensation: Code(s): R09.A2 - Foreign body sensation, throat Category: Medical (3) HTN (hypertension): Code(s): I10 - Essential (primary) hypertension Category: Medical Qualifiers: Hypertension type: primary hypertension Qualified Code(s): I10 - Essential (primary) hypertension Plan 54 year old for follow up Hyperthyroid-endocrine consult pending. us thyroid ordered. consider methimazole in interim HTN-well controlled on current medication Orders: Orders US thyroid Today E05.90 - Thyrotoxicosis, unspecified without thyrotoxic crisis or storm Complete Blood Count Auto Diff Today D72.820 - Lymphocytosis (symptomatic) Pathologist Review - CBC Today D72.820 - Lymphocytosis (symptomatic)
[2025-01-30 09:04] VITALS: BP 118/76; PULSE 86; RESP 16; TEMP 36.4; O2SAT 95; BMI 29.8
--- OUTSIDE RECORDS SUMMARY | 2025-01-30 09:17 | XMS_ITS | Continuity of Care Document ---
Author Name [facility] Organization [facility] Care Team Providers Care Respiratory Care Technician Name Role Phone [facility] Unavailable Unavailable Immunizations Combined list of available immunizations from the Department of Defense and Veterans Affairs facilities. Immunization Series Date Given Administered By Site Reaction Lot Number [id number] Code Drug Umbrella Mender Status Comments Source COVID-19 (MODERNA), MRNA, LNP-S, PF, 100 MCG/0.5 ML DOSE 2 2020 207 complet ed MOD; [id number]; IELD COVID-19 (MODERNA), MRNA, LNP-S, PF, 100 MCG/0.5 ML DOSE 1 2020 207 complet ed MOD; [id number]; IELD Social History Combined list of available smoking, tobacco, and other social history from Department of Defense and Veterans Affairs facilities. Social History Type Response Date Comment Sourc e This section is an empty social history section. DoD
--- OUTSIDE RECORDS SUMMARY | 2025-01-30 09:19 | XMS_ITS | Patient Health Record ---
Author Organization [facility] Address [address] [place] [address] Care Team Providers Care Process Development Associate Name Role Phone Kike MENDEZ, Sachin Primary Care Provider Dano Vital Jr Unavailable [phone] Allergies Allergen (clinical drug ingredient) Drug/Non Drug [...] Problem Status W/U Status Risk Notes Problem [id number] Colon cancer screening (Z12.11) Active confirmed Problem [id number] Encounter for other preprocedural examination (Z01.818) Active confirmed Plan Of Treatment Future Test Test Name Order Date COLONOSCOPY 07/27/2020 Insurance Providers Payer Name Payer Address Payer Phone Subscriber Number Group Number Insured Name Patient Relationship to Insured Coverage Start Date Coverage End Date UMR [address] [address] [place] [address] [phone] [id number] LAZ MONTOYA Self - patient is the insured Medical (General) History Medical History History ICD Code vertigo Surgical History Surgery Date(Month/Year) section 2x carpal tunnel release - bilateral
--- OUTSIDE RECORDS SUMMARY | 2025-01-30 09:19 | XMS_ITS | Clinical Summary ---
Author Organization 175 [facility] Address [address] [place] [address] Phone Care Team Providers Care Exterminator Termite Name Role Phone Sachin Stokes MD Primary Care Provider [phone] Allergies No known active allergies Medications silver sulfADIAZINE (Silvadene) 1 % cream Apply topically 1 (one) time each day. 50 g 5 11/14/19 26 Active triamcinolone (KENALOG) 0.025 % ointment Apply topically 2 (two) times a day. 30 g 5 12/06/19 26 Active Encounters Date Type Department Care Team Description 12/05/2024 10:15 AM EDT Office Visit Orthopedic [facility] [address] [place] [phone] Jeremy Ferris DPM Cellulitis of great toe, right (Primary Dx); Dermatitis 11/13/2024 3:15 PM EDT Office Visit Orthopedic [facility] [address] [place] [phone] Jeremy Ferris DPM Cellulitis of great toe, [...] 5 season) 2024 12/31/2020, 12/03/2020 Influenza Vaccine (#1) 2025 HIB Vaccines Aged Out No longer [...] patient's age to complete this topic Insurance [facility] [place] [id number] Care Teams Exterminator Termite Relationship Specialty Start Date End Date Sachin Stokes MD [address] [address] PCP - General 08/31/23
== END 2025-01-30 09:22 | disposition home or self-care (01) ==
LOC: HO.HMCHD 08:58
PROVIDERS: PCP Internal Medicine Medical Oncology; Visit Provider Internal Medicine
DX: E05.90 Thyrotoxicosis, unspecified without thyrotoxic crisis or storm (principal); R09.A2 Foreign body sensation, throat; I10 Essential (primary) hypertension

== ENCOUNTER 2025-02-26 14:07 | Outpatient (REF) | payer OTHER, SELFPAY ==
--- OUTSIDE RECORDS SUMMARY | 2025-02-20 08:00 | XMS_ITS ---
Author Organization Sachin Stokes III, MD Address [address] [place] [address] Care Team Providers Care Missile Control Pilot Name Role Phone Sachin Stokes Primary Care Provider REASON FOR VISIT Annual Exam Encounters Encounter Location Date Provider Diagnosis Sachin Stokes III, MD [address] [place] [address] [place] [address] 02/20/2025 Sachin Stokes Plan Of Treatment No Information Progress Notes * Teetee MONTOYADOB:1970 (55 yo F)Acc No.[id number]:02/20/2025 Progress Notes Patient: Teetee KIRAN Provider: Caterina Stokes MD :1970 A ge:55 Y S ex:Female Date:02/20/2025 Address:[address] [place], [place] [phone] Subjective: * Chief Complaints: * 1 . Annual Exam. * Medical History: Objective: * Vitals: Assessment: Plan: * Treatment: * Images: * The named appointment provid er may or may not be the originator of this progress note, and it is not deemed complete until electronically signed by the appointment provider. Sign off status: Pending * Provider: Caterina Stokes MD Date: 02/20/2025 Generated for Sondra rm/Chelsi/eTransmitting on: 02/26/2025 02:26 PM EDT
--- NOTE | ~2025-02-26 | US_ITS ---
EXAMINATION: US THYROID HISTORY: E05.90 - Thyrotoxicosis, unspecified without thyrotoxic crisis or storm TECHNIQUE: Real-time grayscale ultrasound imaging was performed and images were reviewed. COMPARISON: There are no prior studies available for comparison. FINDINGS: SIZE: The right thyroid lobe measures 6.1 x 2.2 x 1.9 cm. The left thyroid lobe measures 4.8 x 2.0 x 1.9 cm. The isthmus measures 4 mm. FLOW: Flow to the gland is normal. ECHOGENICITY: The echotexture of the gland is heterogeneous. NODULES: A single nodule is identified in the left as described below: Nodule #: 1 Location: Left lower pole measuring 4 x 3 x 4 mm. Shape: Wider than tall (0 points) Margins: Smooth (0 points) Echotexture: Hyperechoic (1 point) Composition: Solid (2 points) Calcifications: None (0 points) Total points: 3 TIRADS: TR3: Mildly suspicious. US/US thyroid IMPRESSION: Heterogeneous thyroid echotexture. Single subcentimeter left lower pole nodule. ACR TI-RADS Guidelines TR1 (0 points): Benign. No follow-up or biopsy required TR2 (2 points): Not Suspicious. No biopsy or follow up indicated TR3 (3 points): Mildly Suspicious. FNA if >= 2.5 cm, Follow if >= 1.5 cm TR4 (4-6 points): Moderately Suspicious. FNA if >= 1.5 cm, Follow if >= 1.0 cm TR5 (>=7 points): Highly Suspicious. FNA if >= 1.0 cm, Follow if >= 0.5 cm Electronically signed by: Sachin Goncalves MD 02/26/2025 02:50 PM EDT
--- OUTSIDE RECORDS SUMMARY | 2025-02-26 14:26 | XMS_ITS | Continuity of Care Document ---
Author Name [facility] Organization [facility] Care Team Providers Care Nitrocellulose Maker Name Role Phone [facility] Unavailable Unavailable Immunizations Combined list of available immunizations from the Department of Defense and Veterans Affairs facilities. Immunization Series Date Given Administered By Site Reaction Lot Number CVX Code Drug Millwright Apprentice Status Comments Source COVID-19 (MODERNA), MRNA, LNP-S, PF, 100 MCG/0.5 ML DOSE 2 2020 207 complet ed MOD; [id number]; IELD COVID-19 (MODERNA), MRNA, LNP-S, PF, 100 MCG/0.5 ML DOSE 1 2020 207 complet ed MOD; [id number]; IELD Social History Combined list of available smoking, tobacco, and other social history from Department of Defense and Veterans Affairs facilities. Social History Type Response Date Comment Sourc e This section is an empty social history section. DoD
--- OUTSIDE RECORDS SUMMARY | 2025-02-26 14:27 | XMS_ITS | Clinical Summary ---
Author Organization 175 [facility] [place] [facility] Address [address] [place] [address] Phone Care Team Providers Care Sports Book Board Attendant Name Role Phone Sachin Stokes MD Primary Care Provider [phone] Allergies No known active allergies Medications silver sulfADIAZINE (Silvadene) 1 % cream Apply topically 1 (one) time each day. 50 g 5 11/14/19 26 Active triamcinolone (KENALOG) 0.025 % ointment Apply topically 2 (two) times a day. 30 g 5 12/06/19 26 Active Encounters Date Type Department Care Team Description 12/05/2024 10:15 AM EDT Office Visit Orthopedic Surgery [facility] 250 [address] [facility] 250 [place] [address] Jeremy Ferris, DPM Cellulitis of great toe, right (Primary Dx); Dermatitis from Last 3 Months Social History Tobacco [...] Panel) 02/09/2024 Colorectal Cancer Screening: Colonoscopy 02/09/2024 HIV Screening 02/09/2024 Hepatitis C Screening 02/09/2024 Social Influencers of Health Screening 02/09/2024 COVID-19 Vaccine (3 - 2023-2 5 season) 2024 12/31/2020, 12/03/2020 Depression Screening 07/17/2024 Influenza Vaccine (#1) 2025 HIB Vaccines Aged [...] patient's age to complete this topic Insurance [facility] [place] [id number] Care Teams Sports Book Board Attendant Relationship Specialty Start Date End Date Sachin Stokes MD [address] [place] [address] PCP - General 08/31/23
--- OUTSIDE RECORDS SUMMARY | 2025-02-26 14:27 | XMS_ITS | Patient Health Record ---
Author Organization [facility] Address [address] [place] [address] Care Team Providers Care Front Edger Name Role Phone Kike MENDEZ, aSchin Primary Care Provider Dano Vital Jr Unavailable [...] Problem Status W/U Status Risk Notes Problem [id number] Colon cancer screening (Z12.11) Active confirmed Problem [id number] Encounter for other preprocedural examination (Z01.818) Active confirmed Plan Of Treatment Future Test Test Name Order Date COLONOSCOPY 07/27/2020 Insurance Providers Payer Name Payer Address Payer Phone Subscriber Number Group Number Insured Name Patient Relationship to Insured Coverage Start Date Coverage End Date [employer] [address] [address] [place] [id number] LAZ MONTOYA Self - patient is the insured Medical (General) History Medical History History ICD Code vertigo Surgical History Surgery Date(Month/Year) section 2x carpal tunnel release - bilateral
== END 2025-02-26 14:08 | disposition home or self-care (01) ==
LOC: HO.US 14:07
PROVIDERS: PCP Internal Medicine Medical Oncology; Visit Provider Internal Medicine
DX: E05.90 Thyrotoxicosis, unspecified without thyrotoxic crisis or storm (principal)
CPT/HCPCS: 76536

== ENCOUNTER → 2025-02-26 14:09 | Outpatient (BNV) | payer OTHER, SELFPAY | PROVIDERS: PCP Internal Medicine Medical Oncology; Visit Provider Radiology Diagnostic Radiology | DX: E04.1 Nontoxic single thyroid nodule (principal) | CPT/HCPCS: 76536 ==

== ENCOUNTER 2025-03-25 08:43 | Outpatient (AMB) | payer OTHER, SELFPAY ==
--- OUTSIDE RECORDS SUMMARY | 2024-02-15 05:00 | XMS_ITS ---
Author Organization Sachin Stokes III, MD Address [address] [place] [address] Care Team Providers Care Director Oracle Name Role Phone Sachin Stokes Primary Care Provider [phone] Allergies Allergen (clinical drug ingredient) Drug/Non Drug Allergy documented on EMR Reaction Allergy Type Onset Date Status sulfacetamide Sulfacetamide Unknown Drug Allergy Active orange allergenic extract [place] (Diagnostic) Unknown Drug Allergy Active Results Component Value Reference Range Notes URINE DIP STICK Reviewed date:02/15/2024 09:23:07 AM Interpretation: Performing Lab: Notes/Report: SG 1.020 1.005 - 1.025 pH 5.0 5.0 - 9.0 RAI Negative Negative - NIT Negative Negative - PRO 15 Negative - Trace GLU Negative Negative - KET Negative Negative - UBG 0.2 0.1 - 1.8 KWAME Negative 0.2 - 1.3 BLD Negative Negative - REASON FOR VISIT Annual Exam Medications Medication SIG (Take, Route, Frequency, Duration) Notes Start Date End Date Status Doxycycline Hyclate 100 MG 1 capsule Ora [...] User Light cigarett e smoker ((1-9 cigs/day) Alcohol Screen Question Answer Notes Did you have a drink contain ing alcohol in the past year? Yes How often did you have a dri nk containing alcohol in the past year? 2 to 3 times a week (3 points) How many drinks did you have on a typical day when you were drinking in the past year? 1 or 2 drinks (0 point) How often did you have 6 or more drinks on one occasion in the past year? Never (0 point) Points 3 Interpretation Positive Vital Signs Temperature 97.3 degrees Fahrenheit 02/15/20 24 Blood pressure systolic 129 mm Hg 02/15/20 24 Blood pressure diastolic 85 mm Hg 024 Heart Rate 60 /min 02/15/2024 Height 58 in 02/15/2024 Weight 155 lbs 02/15/2024 BMI 32.39 kg/m2 02/15/2024 Encounters Encounter Location Date Provider Diagnosis Sachin Stokes III, MD [address] [place] [address] [place] [address] 02/15/2024 Sachin Stokes Obesity (BMI 30.0-34 .9) E66.9 ; Mixed hyperlipidemia E78.2 ; Tobacco dependence F17.200 and Vertigo R42 Assessments Encounter Date Diagnosis (ICD Code) Assessment Notes Treat ment Notes Treatment Clinical Notes 02/15/2024 Obesity (BMI 30.0-34.9) (ICD-10 - E66.9) Her body mass index is 32 and her weight is stable. We reviewed her weight loss strategy. We made a plan to lose weight at a rate of one half of a pound per week through a diet restricted in fat calories and sodium. 02/15/2024 Mixed hyperlipidemia (ICD-10 - E78.2) Comprehensive blood work with a fasting lipid profile was ordered today. 02/15/2024 Tobacco dependence (ICD-10 - F17.200) I reviewed her cardiovascular risk factors with her and we discussed strategies for smoking reduction in cessation. 02/15/2024 Vertigo (ICD-10 - R42) We discussed the etiology of vertigo and labyrinthitis. She will continue on the meclizine and ondansetron. Plan Of Treatment Medication Medication Name Sig Start Date Stop Date Notes Doxycycline Hyclate 100 MG 1 capsule Orally Twice a day Fluticasone Propionate 50 MCG/ACT USE 1 SPRAY INTRANASALLY 2 TIMES PER DAY FOR 30 DAYS Nasal dexAMETHasone 2 MG 1 tablet Orally every 12 hrs 01/25/2021 Ondansetron 4 MG 1 tablet Orally Once a day Pending Test Test Name Order Date PROFILE, FASTING (COMPREHENSIVE METABOLI C) 02/15/2024 CBC w DIFF 02/15/2024 Lipid Panel 02/15/2024 Next Appt Details Follow Up: 6 Months, Reason: Office visit Progress Notes * Teetee MONTOYADOB:1970 (54 yo F)Acc No.[id number]:02/15/2024 Progress Notes Patient: Teetee Cadet Provider: Caterina Stokes MD :1970 A ge:54 Y S ex:Female Date:02/15/2024 Address:[address] [place] [address] Subjective: * Chief Complaints: * A nnual Exam * HPI: D epression Screening: She returns to the office at the age of 54 for her annual physical examination. She had a negative mammogram in September of 2022. Mammogram has been scheduled for the near future. She is Due for her periodic COURTROOM CLERK examination. She was referred for this purpose. Comprehensive blood work has been ordered for the near future. She seems healthy and well today and had no new complaints. She has continued to smoke a few cigarettes daily. Her vertigo and tendinitis have resolved. She continues her efforts at weight loss. We have discussed her diet and nutrition. We have reviewed the elements of weight loss low animal fat diet. PHQ-9 L ittle interest or pleasure in doing things?More than half the days F eeling down, depressed, or hopeless N ot at all T rouble falling or staying asleep, or sleeping too much M ore than half the days F eeling tired or having little energy M ore than half the days P oor appetite or overeating N ot at all F eeling bad about yourself or that you are a failure, or have let yourself or your family down N ot at all T rouble concentrating on things, such as reading the newspaper or watching television N ot at all M oving or speaking so slowly that other people could have noticed; or the opposite, being so fidgety or restless that you have been moving around a lot more than usual N ot at all T houghts that you would be better off or of hurting yourself in some way N ot at all T otal Score 6 I nterpretation M ild Depression C OVID-19 Screening: Questions H ave you experienced fever, chills, cough, sore throat, shortness of breath, difficulty breathing, muscle aches, loss of taste or smell? N o H ave you been exposed to the virus within the last 10 days? N o H ave you travelled internationally in the last 10 days? N o H ave you been exposed to COVID-19 in the past? N o S RASHAD Questions: SDOH Questions I n the past year have you been worried about losing your housing? Y es I n the past year have you or any family members you live with been unable to get any of the following when it was really needed? Check all that apply: N one * ROS: G eneral/Constitutional: pain o nly normal aches and pains. C hills d enies.?Fatigue a dmits. F ever d enies. E NT: Decreased hearing d enies. R espiratory: Cough d enies. C ardiovascular: Chest pain with exertion d [...] have been noted. G enitourinary: Frequent urination d enies. M usculoskeletal: Muscle aches d enies. P [...] User L ight cigarette smoker ((1-9 cigs/day) D rugs/Alcohol: D rugs H ave you used drugs other than those for medical reasons in the past 12 months? N o Alcohol Screen D id you have a drink containing alcohol in the past year? Y es H ow often did you have a drink containing alcohol in the past year? 2 to 3 times a week (3 points) H ow many drinks did you have on a typical day when you were drinking in the past year? 1 or 2 drinks (0 point) H ow often did you have 6 or more drinks on one occasion in the past year? N ever (0 point) P oints 3 I nterpretation P ositive S he smokes 3 cigarettes a day. 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 She has 3 [...] S ulfacetamide: AllergyOrange (Diagnostic): Allergyno[Allergies Verified] Objective: * Vitals: H t: 58, Wt: 155, BMI:32.39, BP: 129/85, HR: 60, Temp: 97.3, Wt-k.31. * Examination: G eneral Examination: GENERAL APPEARANCE: p leasant, well nourished, well developed, in no acute distress, calm and relaxed , obese , woman. HEAD: a traumatic, normocephalic. EYES: e fabio, perrla, anicteric, conjugate. EARS: n ormal. NOSE: s eptum intact. ORAL CAVITY: n ormal, unremarkable. NECK/THYROID: n o jugular venous distention, no carotid bruit, thyroid normal. LYMPH NODES: n o enlarged lymph nodes,spleen normal. SKIN: n o suspicious lesions, anicteric. HEART: n o clicks, gallops, murmurs, or rubs, regular rhythm, S1, S2 normal, no s3, or vascular bruits. LUNGS: c lear to auscultation . BREASTS: T o be done by COURTROOM CLERK. ABDOMEN: b owel sounds normal, no ascites, no organomegaly, no mass. RECTAL EXAM: T o be done by COURTROOM CLERK. MUSCULOSKELETAL: e xtremities unremarkable, no clubbing, cyanosis or edema. PERIPHERAL PULSES: n ormal. NEUROLOGIC: a lert and oriented, cranial nerves 2-12 grossly intact, deep tendon reflexes 2+ symmetrical, motor strength normal upper and lower extremities, sensory exam intact. PSYCH: a lert, oriented , cognitive function intact , cooperative with exam , good eye contact. Assessment: * Assessment: 1. O melissa (BMI 30.0-34.9) - E66.9, Her body mass index is 32 and her weight is stable. We reviewed her weight loss strategy. We made a plan to lose weight at a rate of one half of a pound per week through a diet restricted in fat calories and sodium. 2 . M ixed hyperlipidemia - E78.2, Comprehensive blood work with a fasting lipid profile was ordered today. 3 . T obacco dependence - F17.200, I reviewed her cardiovascular risk factors with her and we discussed strategies for smoking reduction in cessation. 4 . V ertigo - R42, We discussed the etiology of vertigo and labyrinthitis. She will continue on the meclizine and ondansetron. Plan: * Treatment: 2. O thers Continue Ondansetron Tablet Disintegrating, 4 MG, 1 tablet, Orally, Once a day; C ontinue dexAMETHasone Tablet, 2 MG, 1 tablet, Orally, every 12 hrs; C ontinue Fluticasone Propionate Suspension, 50 MCG/ACT, USE 1 SPRAY INTRANASALLY 2 TIMES PER DAY FOR 30 DAYS, Nasal; C ontinue Doxycycline Hyclate Capsule, 100 MG, 1 capsule, Orally, Twice a day. * Labs: * L ab: URINE DIP STICK Value Reference Range S G 1.020 1.005 - 1.025 * p H 5.0 5.0 - 9.0 * L EU Negative Negative - * N IT Negative Negative - * P RO 15 Negative - Trace * G MARIO Negative Negative - * K ET Negative Negative - * U BG 0.2 0.1 - 1.8 * B IL Negative 0.2 - 1.3 * B LD Negative Negative - * Procedure Codes: 8 1002 URINE-NO MICRO * Preventive Medicine: Counseling: C are goal follow-up plan: Counseling for abnormal BMI given Y es Above Normal BMI Follow-up D ietary management education, guidance, and counseling, Dietary needs education, Exercise promotion: strength training, Exercise promotion: stretching, Feeding regime, Giving encouragement to exercise, Lifestyle education regarding diet, Nutrition / feeding management, Nutrition therapy, Prescribed activity/exercise education, Prescribed diet education, Prescribed dietary intake, Special diet education, Weight monitoring , Intervention, Order not done: Medical or Other reason not done S moking/Tobacco Use Patient counseled on the dangers of tobacco use and urged to quit. 0 02/15/2024 Patient Lifestyle Goals P atient wants to quit Treatment Goals C ut down by 1 cigarette a week, Set a quit date Barriers S ocial smoker, Stress Self-Management Plan M tom a plan to cut down number of cigarettes over time and set a date to work towards quitting * Follow Up: 6 Months (Reason: Office visit) * Images: * Sign off status: Completed true * Provider: Caterina Stokes MD Date: 0 02/15/2024 Generated for Sondra rm/Chelsi/Brien on: 0 03/25/2025 09:52 AM EDT History and Physical Notes * HPI (History of Present Illness) Category Sub-Category Detail Notes Depression Screening PHQ-9 Little inte rest or pleasure in doing things: More than half the days Feeling down, depressed, or hopeless: No t at all Trouble falling or staying a sleep, or sleeping too much: More than half the days Feeling tired or having little energy: M ore than half the days Poor appetite or overeating: Not at all Feeling bad about yourself o r that you are a failure, or have let yourself or your family down: Not at all Trouble concentrating on thi ngs, such as reading the newspaper or watching television: Not at all Moving or speaking so slowly that other people could have noticed; or the opposite, being so fidgety or restless that you have been moving around a lot more than usual: Not at all Thoughts that you would be b flavia off or of hurting yourself in some way: Not at all Total Score: 6 Interpretation: Mild Depression COVID-19 Screening Questions Have you had any new onset fever, chills, cough, congestion, sore throat, shortness of breath, muscle aches?: No Have you been exposed to the virus withi n the last 10 days?: No Have you travelled internationally in [facility] last 10 days?: No Have you been exposed to COVID-19 in the past?: No SDOH Questions SDOH Questions In the past year have you been worried about losing your housing?: Yes In the past year have you or any family members you live with been unable to get any of the following when it was really needed? Check all that apply:: None Examination Category Sub-Category Detail Notes General Examination GENERAL APPEARANCE: pleasant , well nourished, well developed, in no acute distress, calm and relaxed , obese , woman HEAD: atraumatic, normocep halic EYES: eomi, perrla, anicte luisa, conjugate EARS: normal NOSE: septum intact NECK/THYROID: no jugular venous di stention, no carotid bruit, thyroid normal HEART: no clicks, gallops, murmurs, or rubs, regular rhythm, S1, S2 normal, no s3, or vascular bruits LUNGS: clear to auscultatio n ABDOMEN: bowel sounds normal, no ascites, no organomegaly, no mass NEUROLOGIC: alert and oriented, cranial nerves 2-12 grossly intact, deep tendon reflexes 2+ symmetrical, motor strength normal upper and lower extremities, sensory exam intact SKIN: no suspicious lesion s, anicteric PERIPHERAL PULSES: normal BREASTS: To be done by COURTROOM CLERK MUSCULOSKELETAL: extremities unremark able, no clubbing, cyanosis or edema LYMPH NODES: no enlarged lymph no misti,spleen normal RECTAL EXAM: To be done by COURTROOM CLERK PSYCH: alert, oriented , co gnitive function intact , cooperative with exam , good eye contact ORAL CAVITY: normal, unremarkable
--- OUTSIDE RECORDS SUMMARY | 2024-06-18 11:15 | XMS_ITS ---
Author Organization Sachin Stokes III, MD Address [address] [place] [address] Care Team Providers Care [employer] Clerk Name Role Phone Sachin Stokes Primary Care Provider [phone] Allergies Allergen (clinical drug ingredient) Drug/Non Drug Allergy documented on EMR Reaction Allergy Type Onset Date Status sulfacetamide Sulfacetamide Unknown Drug Allergy Active orange allergenic extract [place] (Diagnostic) Unknown Drug Allergy Active REASON FOR [...] Problem Status W/U Status Risk Notes Problem [id number] Chronic GERD (K21.9) Active confirmed She will take omeprazole twice a day for 21 days and treat breakthrough heartburn with one or 2 tablespoons of Mylanta. She will call me if any new symptoms develop Encounters Encounter Location Date Provider Diagnosis Sachin Stokes III, MD [address] [place] [address] [place], [place] [address] 06/18/2024 Sachin Stokes Obesity (BMI 30.0-34 .9) [...] Notes * Teetee MONTOYADOB:1970 (54 yo F)Acc No.[id number]:06/18/2024 Patient: Teetee KIRAN Provider: Caterina Stokes MD :1970 A ge:54 Y S ex:Female Date:06/18/2024 Address:[address] [place], [place] [phone] Subjective: * Chief Complaints: * S evere heartburn for the last week * HPI: * : Telehealth L ocation of provider rendering services: { ...} [address] [facility] [address] L ocation of patient: michelle kingess listed [...] a day. 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
--- OUTSIDE RECORDS SUMMARY | 2024-06-21 07:00 | XMS_ITS ---
Author Organization Sachin Stokes III, MD Address [address] [place] [address] Care Team Providers Care Trauma Counsellor Name Role Phone Sachin Stokes Primary Care Provider [phone] Allergies Allergen (clinical drug ingredient) Drug/Non Drug Allergy documented on EMR Reaction Allergy Type Onset Date Status sulfacetamide Sulfacetamide Unknown Drug Allergy Active orange allergenic extract [place] (Diagnostic) Unknown Drug Allergy Active REASON FOR [...] Date Provider Diagnosis Sachin Stokes III, MD [address] [place] [address] [address] [place], [place] [address] 06/21/2024 Sachin Stokes Acute cough R05.1 ; [...] Notes * Marilu MONTOYA:1970 (54 yo F)Acc No.[id number]:06/21/2024 Patient: Teetee KIRAN Provider: Caterina Stokes MD :1970 A ge:54 Y S ex:Female Date:06/21/2024 Address:[address] [place] [address] Subjective: * Chief Complaints: * V iral syndromeTobacco dependenceObesityHyperlipidemiaGERD * HPI: * : Telehealth L ocation of provider rendering services: { ...} [address] [place] [address] [address] [facility] [address] L ocation of patient: michelle meyers listed [...] cigarettes a day. 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 She has 3 children. Rudy, Bo and yLnne.. Smoking: The patient is a smoker and [...] 08/22/2023 Generated for Sondra rm/Chelsi/Priscillaitting on: 0 03/25/2025 09:52 AM EDT History and Physical Notes * HPI (History of Present Illness) Category Sub-Category Detail Notes Telehealth Location of [facility] ider rendering services:: {...} [address] [facility] [address] Location of patient:: address listed in demographics [...]
--- OUTSIDE RECORDS SUMMARY | 2024-11-07 07:45 | XMS_ITS ---
Author Organization Sachin Stokes III, MD Address [address] [place] [address] Care Team Providers Care Airbrush Artist Technical Name Role Phone Sachin Stokes Primary Care Provider [phone] REASON FOR VISIT Severe sore throat, URI [...] Date Provider Diagnosis Sachin Stokes III, MD [address] [place] [address] [place] [address] 11/07/2024 Sachin Stokes Acute upper respirat ory [...] Notes * Teetee MONTOYADOB:1970 (54 yo F)Acc No.[id number]:11/07/2024 Patient: Teetee KIRAN Provider: Caterina Stokes MD :1970 A ge:54 Y S ex:Female Date:11/07/2024 Address:[address] [place], [place] [id number] Subjective: * Chief Complaints: * S evere [...] of provider rendering services: { ...} [address] [facility] [address] [facility] [address] L ocation of patient: michelle meyers listed [...] 0 11/07/2024 Generated for Yelenai jag/Chelsi/eTransmitting on: 0 03/25/2025 09:52 AM EDT History and Physical Notes * HPI (History of Present Illness) Category Sub-Category Detail Notes Telehealth Location of [facility] rendering services:: {...} [address] [place] [address] Location of patient:: address listed in demographics [...]
--- OUTSIDE RECORDS SUMMARY | 2025-02-20 08:00 | XMS_ITS ---
Author Organization Sachin Stokes III, MD Address [address] [place] [address] Care Team Providers Care Resource Efficiency Manager Name Role Phone Sachin Stokes Primary Care Provider REASON FOR VISIT Annual Exam Encounters Encounter Location Date Provider Diagnosis Sachin Stokes III, MD [address] [place] [address] [place] [address] 02/20/2025 Sachin Stokes Plan Of Treatment No Information Progress Notes * Teetee MONTOYADOB:1970 (55 yo F)Acc No.[id number]:02/20/2025 Progress Notes Patient: Teetee KIRAN Provider: Caterina Stokes MD :1970 A ge:55 Y S ex:Female Date:02/20/2025 Address:[address] [place], [place] [phone] Subjective: * Chief Complaints: * 1 . [...] 02/20/2025 Generated for Sondra rm/Chelsi/eTransmitting on: 0 03/25/2025 09:51 AM EDT
--- OUTSIDE RECORDS SUMMARY | 2025-03-19 23:59 | XMS_ITS | Continuity of Care Document ---
Author Organization [facility] Eloina P[facility] Address [address] [place] [address], [address] [place] [address]- Care Team Providers Care Nurse Receptionist Name Role Phone Sachin Stokes MD Primary Care Physician Encounter [facility] [id number] Date(s): 12/13/24 - 03/19/25 [facility] [address], [address] [place], [place] [address] Attending Physician: Monae Maguire MD Admitting Physician: Monae Maguire MD Referring Physician: Sachin Stokes MD Encounter Type: Pre-OutPatient One Time Allergies, Adverse Reactions, Alerts Substance Criticality Severity Reaction Reaction Severity Status sulfa drugs rash Active Medications Colace sodium 100 mg oral capsule 100 mg, 1, capsule, By Mouth, 2 times a day, PRN, # 30 capsule, Refills 0, Tot. Refills 0, Maintenance, for constipation, 03/04/25 5:00:00 PM EDT, Route to Pharmacy Electronically, [facility]/pharmacy #[id number],Partial fill upon patient request if the prescription is for a schedule II opioid drug., 02/18/25, 147.6, cm, 02/17/25 8:18:00 EDT, Height, 66, kg, 02/17/25 8:18:00 EDT, Dry Weight Start Date: 03/04/25 Status: Ordered Medication Dispense Status: Completed Quantity: 30.0 Unit: capsule Total Allowed Fills: 1 Fills Dispensed: 0 ibuprofen 800 mg oral tablet 800 mg, 1, tablet, By Mouth, Every 8 hours, # 30 tablet, Refills 0, Tot. Refills 0, Maintenance, 03/04/25 5:00:00 PM EDT, Route to Pharmacy Electronically, [facility]/pharmacy #[id number], Partial fill upon patient request if the prescription is for a schedule II opioid drug., 02/18/25, 147.6, cm, 02/17/25 8:18:00 EDT, Height, 66, kg, 02/17/25 8:18:00 EDT, Dry Weight Start Date: 03/04/25 Status: Ordered Medication Dispense Status: Completed Quantity: 30.0 Unit: tablet Total Allowed Fills: 1 Fills Dispensed: 0 methimazole 10 mg oral tablet TAKE 3 TABLETS BY MOUTH DAILY Start Date: 02/17/25 Status: Ordered Medication Dispense Status: Completed Total Allowed Fills: 1 Fills Dispensed: 0 Metoprolol Succinate ER 50 mg oral tablet, extended release TAKE 1 TABLET BY MOUTH EVERY DAY Start Date: 02/17/25 Status: Ordered Medication Dispense Status: Completed Total Allowed Fills: 1 Fills Dispensed: 0 simethicone 125 mg oral tablet, chewable 1 tablet = 125 mg, Chew, 4 times a day, # 36 tablet, 0 Refills, Maintenance, 03/04/25 5:00:00 PM EDT, Chew Tablet, [facility]/pharmacy #[id number], Partial fill upon patient request if the prescription is for a schedule II opioid drug., 02/18/25, 147.6, cm, 02/17/25 8:18:00 EDT, Height, 66, kg, 02/17/25 8:18:00 EDT, Dry Weight Start Date: 03/04/25 Status: Ordered Medication Dispense Status: Completed Quantity: 36.0 Unit: tablet Total Allowed Fills: 1 Fills Dispensed: 0 Tylenol Extra Strength 500 mg oral tablet 2 tablet = 1,000 mg, By Mouth, Every 6 hours, PRN as needed for pain, # 50 tablet, 0 Refills, Maintenance, 03/04/25 5:00:00 PM EDT, Tablet, [facility]/pharmacy #[id number], Partial fill upon patient request if theprescription is for a schedule II opioid drug., 02/18/25, 147.6, cm, 02/17/25 8:18:00 EDT, Height, 66, kg, 02/17/25 8:18:00 EDT, Dry Weight Start Date: 03/04/25 Status: Ordered Medication Dispense Status: Completed Quantity: 50.0 Unit: tablet Total Allowed Fills: 1 Fills Dispensed: 0 Problem List Condition Confirmation Course Effective Dates Status H ealth Status Informant Cellulitis and Abscess of Face Confirmed Active HTN (hypertension) Confirmed Active Hyperthyroidism Confirmed Active Obese class I Confirmed Active Social History Social History Type Response Smoking Status Smoker, current stat us unknown entered on: 11/04/24 Gender Identity Gender identity: Sex Sex Representation Female (finding) Patient Care team information Care Team Personnel Name: Sachin Stokes MD Position: [facility] Physician - Oncology Member Role: PCP Address: [address] [place] [address] [address] Sachin Stokes III, MD [place], [place] [address] Telecom: Care Team Related Persons Name: BENJAMIN DE LA PAZ Name: NAVEED MONTOYA Insurance Providers Guarantor name: [employer] Health Plan Information #: 1 Payer: [facility] H61 Payer Identifier: [employer] Member Number: [id number] Group Number: [id number] Subscriber Identifier: [id number] Relationship to Subscriber: self Coverage Type: PRIVATE HEALTH INSURANCE Coverage Verification Date: NA Telecom: Address:
--- NOTE | 2025-03-25 08:49 | MHC.OFFVIS ---
Vital Signs 03/25/25 08:50 Height 4 ft 9.5 in Weight 155 lb 3.287 oz BMI 33.0 BP 132/78 Blood Pressure Location Rt brachial Position Sitting Pulse 76 Pulse Source Pulse Oximeter Pulse Oximetry (%) 97 Oxygen Delivery Method Room Air Intake Visit Reasons: Thyrotoxicosis, unspecified without thyrotoxic cri Intake Note: New patient internally referred by PCP for Thyrotoxicosis, last Thyroid ultrasound was on 02/26/25 at [facility] [place]. Network Operations Analyst Required: No Accompanied by: Self / Same As Patient Allergies Sulfa (Sulfonamide Antibiotics) (SULFA (SULFONAMIDE ANTIBIOTICS)) Allergy (Mild, Verified 03/25/25 08:51) RASH Medication List - Last Reconciled 03/25/25 by Sachin Cade MD acetaminophen 1,000 mg (2 x 500 mg) PO QID PRN fluticasone propionate 50 mcg/actuation 2 sprays intranasal DAILY ibuprofen 600 mg PO Q6H PRN [Meclizine PO PRN] methimazole 30 mg (3 x 10 mg) PO DAILY metoprolol succinate ER 50 mg PO DAILY HPI Comments Details: The patient is a 55-year-old female presenting with hyperthyroidism management. She was diagnosed with hyperthyroidism in December of this year and has been on methimazole 30 mg and metoprolol 50 mg daily since diagnosis. The patient initially experienced palpitations and tremors, which have since improved with medication. The patient reports a sensation of heat intolerance, experiencing warmth when others feel cold. She denies any significant weight loss, frequent bowel movements, or difficulty swallowing. There is a slight sensation of neck swelling and difficulty breathing when lying flat, but no tenderness or hoarseness is reported. Family history reveals that her son has an underactive thyroid. The patient has a history of smoking, which she ceased in November, and she denies any history of radiation to the neck or thyroid nodules. She has experienced recurrent strep throat infections over the past two years. Was initially diagnosed with Graves disease in December 2024 . Not seen previous priming machine operator . Currently on methimazole 30 mg q.d. and metoprolol 50 mg QD for 3 mos Currently denies any dysphagia or hoarseness of voice. Denies sensation of swelling in the neck but some difficulty breathing while lying flat. Denies any tenderness in the neck. Denies any palpitations, less tremors, -weight loss,- frequent bowel movements. Denies any ocular complaints, blurred or double vision. Denies hair loss, -dry skin, has heat Denies any history of head or neck irradiation. son has hypothyrodism Had biopsy of nodules in the past. ex tobacco use quit 11/2024 . Denies biotin use Thyroid US: Labs: - Labs: TSH undetectable, T4 elevated at 2.10, T3 elevated at 18.6 - Labs: Positive TRAB antibodies for Graves' disease at 29.26 - Labs: Slightly elevated liver enzymes [facility] Medical History (Updated 03/21/25 @ 15:37 by Geovanna Bagley PA-C) Personal history of nicotine dependence Hyperthyroidism HLD (hyperlipidemia) HTN (hypertension) Hot flashes Uterine fibroid Vertigo Surgical History History of colonoscopy (~09/29/20) History of bilateral ligation of fallopian tubes History of bilateral carpal tunnel release Hx of section Family History Maternal Grandmother History of breast cancer Maternal Grandfather Colon cancer Social History Alcohol intake: current Alcohol intake frequency: holidays/special occasions only Alcohol type: wine Patient Tobacco Use Status: Former Tobacco user Cigarette Packs Per Day: 0.25 Cigarettes Per Day: 3 Years Smoked: 39 e-Cigarette/Vaping Use: Never Used Sexual orientation: Straight/Heterosexual Gender identity: Female Physical Exam Vital Signs: Last Vital Signs Pulse 76 03/25/25 08:50 BP 132/78 03/25/25 08:50 Pulse Ox 97 03/25/25 08:50 Oxygen Delivery Method Room Air 03/25/25 08:50 BMI result Body Mass Index 33.0 HEENT reveals absence of lid lag , stare or proptosis but mild exopthalmus in L eye or eyebrow loss. Thyroid gland measure 15 gms . No nodules or tenderness palpated. There is no cervical adenopathy palpated. Lungs CTA. Heart S1, S2 Reg R/R -M/R/G. Abdominal exam benign. Skin exam reveals absence of dryness or thyroid dermopathy or vitiligo. Nail exam reveals absence of thyroid acropachy or oncholysis. Neurologic exam reveals 2+ reflexes . Muscle Strength is 5/5 proximally. There is mild tremors in upper extremities. Assessment & Plan Assessment & Plan (1) Hyperthyroidism: Code(s): E05.90 - Thyrotoxicosis, unspecified without thyrotoxic crisis or storm Category: Medical Plan: 1. Hyperthyroidism The patient is managed with methimazole 30 mg daily, with symptom improvement noted. Thyroid function tests will be monitored, and the methimazole dose adjusted as needed. The patient is advised to report any signs of infection immediately due to agranulocytosis risk. We will also recheck a liver panel as baseline transaminases were elevated 2. Graves' disease High antibody titers indicate active disease. Continued methimazole management is planned, with potential consideration of thyroidectomy or radioactive iodine if remission is not achieved. The patient is informed about thyroid eye disease risks and advised to monitor for symptoms. 3. Thyroid eye disease Despite no current symptoms, a referral to an jelly filter tender specializing in Graves' eye disease Dr. Rose recommended due to high antibody levels and smoking history. During the consultation, I discussed the diagnosis of hyperthyroidism and its management with methimazole. I explained the potential risks of untreated hyperthyroidism, including osteoporosis, atrial fibrillation, and thyroid storm. We reviewed the patient's lab results, which showed undetectable TSH and elevated T4 and T3 levels, confirming the diagnosis. I informed the patient about the high antibody titers indicating active Graves' disease and the potential for thyroid eye disease. We discussed the possibility of surgical or radioactive iodine treatment if remission is not achieved with medication. I emphasized the importance of regular follow-up and monitoring of thyroid function tests. Additionally, I recommended a referral to an jelly filter tender for further evaluation of potential thyroid eye disease. - Continue taking methimazole 30 mg and metoprolol 50 mg daily as prescribed. - Report any signs of infection, such as sore throat or fever, immediately. - Monitor for symptoms of thyroid eye disease and seek evaluation if symptoms develop. - Attend regular follow-up appointments for thyroid function monitoring. - I also discussed briefly a clinical trial with the experimental drug IMVT being used for Graves disease being conducted at [facility] The patient had an opportunity to ask questions regarding treatment plan. The patient expressed understanding and agreement with the above treatment plan. Patient was informed and verbally consented to the use of an ambient scribe for clinic note documentation during this visit. Orders: Orders Free T4 (Free Thyroxine) Today E0 - Thyrotoxicosis, unspecified without thyrotoxic crisis or storm Triiodothyronine T3 Free Today - Thyrotoxicosis, unspecified without thyrotoxic crisis or storm Liver Panel Today E0 - Thyrotoxicosis, unspecified without thyrotoxic crisis or storm Thyroid Stimulating Hormone Today - Thyrotoxicosis, unspecified without thyrotoxic crisis or storm Referrals Ophthalmology Referral - Thyrotoxicosis, unspecified without thyrotoxic crisis or storm Coding Level of Care Code New Pt Level 4 (01406) Diagnoses Hyperthyroidism
[2025-03-25 08:50] VITALS: BP 132/78; PULSE 76; O2SAT 97; BMI 33.0
--- OUTSIDE RECORDS SUMMARY | 2025-03-25 09:52 | XMS_ITS | Patient Health Record ---
Author Organization Sachin Stokes III, MD Address [address] [address] Care Team Providers Care Spinneret Cleaner Name Role Phone Sachin Stokes Primary Care Provider [phone] Allergies Allergen (clinical drug ingredient) Drug/Non Drug Allergy documented on EMR Reaction Allergy Type Onset Date Status sulfacetamide Sulfacetamide Unknown Drug Allergy Active orange allergenic extract [place]ill (Diagnostic) Unknown Drug Allergy Active Results Component Value Reference Range Notes XR chest 2V Reviewed date:07/10/2024 08:52:03 AM Interpretation: Performing Lab: Notes/Report: [address] [address] XRay Report Signed Patient: Teetee Plata MR#: [id number] 13 : 1970 Acct:[id number] Age/Sex: 54 / F ADM Date: 06/19/24 Loc: HO.XRAY Attending Dr: Sachin Stokes MD Ordering Physician: Sachin Stokes MD Date of Service: 06/19/24 Procedure(s): XR chest 2V Accession Number(s): [id number] cc: Sachin Stokes MD EXAMINATION: XR CHEST CLINICAL INFORMATION: Cough. COMPARISON: None available. TECHNIQUE: 2 views of the chest were obtained. FINDINGS: The lungs are clear. The cardiomediastinal silhouette is normal in size. There is no pleural effusion or pneumothorax. No acute osseous abnormality. XR/XR chest 2V IMPRESSION: No acute cardiopulmonary findings. Electronically signed by: Sadiq Serra MD 06/20/2024 11:04 AM [facility] [place] Dictated By: Sadiq Serra MD Signed By: <Electronically signed by Sadiq Serra MD in OV> 06/20/24 1104 DD/ 1011 TD/TT: 06/19/24 1035 Electrical Control Assembler: [address] [address] XRay Report Signed Patient: Kyle Plata MR#: [id number] 13 : 1970 Acct:[id number] Age/Sex: 54 / F ADM Date: 06/19/24 Loc: HO.XRAY Attending Dr: Sachin Stokes MD Ordering Physician: Sachin Stokes MD Date of Service: 06/19/24 Procedure(s): XR [address]qu[address] st 2V Accession Number(s): [id number] cc: Sachin Stokes MD EXAMINATION: XR CHEST [...] 06/20/24 1104 DD/ 1011 TD/TT: 06/19/24 1035 Electrical Control Assembler: US pelvic and transvaginal Reviewed date:09/08/2024 09:14:43 AM Interpretation: Performing Lab: Notes/Report: [address] [address] Ultrasound Report Signed Patient: Teetee Plata MR#: [id number] 13 : 1970 Acct:[id number] Age/Sex: 54 / F ADM Date: 08/29/24 Loc: HO.US Attending Dr: Savita Álvarez CNM Ordering Physician: Savita Álvarez CNM Date of Service: 08/29/24 Procedure(s): US pelvic and transvaginal Accession Number(s): [id number] cc: Sachin Stokes MD; Savita Álvarez CNM [...] by: John Teague MD 08/29/2024 02:23 PM [facility] [place] Dictated By: John Flores MD Signed By: <Electronically signed by John Stovall MD in OV> 08/29/24 1423 DD/ 1220 TD/TT: 08/29/24 1243 Electrical Control Assembler: [place] [address] Ultrasound Report Signed Patient: Kyle Plata MR#: [id number] 13 : 1970 Acct:[id number] Age/Sex: 54 / F ADM Date: 08/29/24 Loc: HO.US Attending Dr: Savita Álvarez CNM Ordering Physician: Savita Álvarez CNM Date of Service: 08/29/24 Procedure(s): US pel edmar and transvaginal Accession Number(s): [id number] cc: Sachin Stokes MD; Savita Álvarez CNM [...] by: John Teague MD 08/29/2024 02:23 PM [facility] [place] Dictated By: John Polk MD Signed By: <Electronically signed by John Stovall MD in OV> 08/29/24 1423 DD/ 1220 TD/TT: 08/29/24 1243 Electrical Control Assembler: SARS-CoV2/FLU/RSV (Not yet r eviewed by provider) Interpretation: Performing Lab:[address] [address] Notes/Report: Influenza A PCR NEGATIVE Negative Influenza [...] by authorized laboratories. Testing performed on the [employer] GeneXpert utilizing real-time RT-PCR. All SARS CoV2 and positive influenza A/B results are reported to [facility]. Strep A Nucleic Acid (Not ye t reviewed by provider) Interpretation: Performing Lab:[address] [address] Notes/Report: [employer] Serial# [id number] Strep A Nucleic Acid Negative Negative All test results must be correlated with clinical findings. This test has not been evaluated for monitoring treatment of infection. Additional follow-up testing using the culture method is required if the result is negative and clinical symptoms persist, or in the event of an acute rheumatic fever outbreak. US thyroid (Not yet reviewed by provider) Interpretation: Performing Lab: Notes/Report: [address] [address] Ultrasound Report Signed Patient: Teetee Plata MR#: [id number] 13 : 1970 Acct:[id number] Age/Sex: 55 / F ADM Date: 02/26/25 Loc: .US Attending Dr: Graciela Ernst MD Ordering Physician: Graciela Ernst MD Date of Service: 02/26/25 Procedure(s): US thyroid Accession Number(s): [id number] cc: Sachin Stokes MD; Graciela Ernst MD EXAMINATION: US THYROID HISTORY: E05.90 - Thyrotoxicosis, unspecified without thyrotoxic crisis or storm TECHNIQUE: Real-time grayscale ultrasound imaging was performed and images were reviewed. COMPARISON: There are no prior studies available for comparison. FINDINGS: SIZE: The right thyroid lobe measures 6.1 x 2.2 x 1.9 cm. The left thyroid lobe measures 4.8 x 2.0 x 1.9 cm. The isthmus measures 4 mm. FLOW: Flow to the gland is normal. ECHOGENICITY: The echotexture of the gland is heterogeneous. NODULES: A single nodule is identified in the left as described below: Nodule #: 1 Location: Left lower pole measuring 4 x 3 x 4 mm. Shape: Wider than tall (0 points) Margins: Smooth (0 points) Echotexture: Hyperechoic (1 point) Composition: Solid (2 points) Calcifications: None (0 points) Total points: 3 TIRADS: TR3: Mildly suspicious. US/US thyroid IMPRESSION: Heterogeneous thyroid echotexture. Single subcentimeter left lower pole nodule. ACR TI-RADS Guidelines TR1 (0 points): Benign. No follow-up or biopsy required TR2 (2 points): Not Suspicious. No biopsy or follow up indicated TR3 (3 points): Mildly Suspicious. FNA if >= 2.5 cm, Follow if >= 1.5 cm TR4 (4-6 points): Moderately Suspicious. FNA if >= 1.5 cm, Follow if >= 1.0 cm TR5 (>=7 points): Highly Suspicious. FNA if >= 1.0 cm, Follow if >= 0.5 cm Electronically signed by: Sachin Goncalves MD 02/26/2025 02:50 PM EDT RP Dictated By: Sachin Goncalves MD Signed By: <Electronically signed by Sachin Goncalves MD in OV> 02/26/25 1450 DD/ 1430 TD/TT: 02/26/25 1436 Electrical Control Assembler: [place] [address] Ultrasound Report Signed Patient: Kyle Plata MR#: [id number] 13 : 1970 Acct:[id number] Age/Sex: 55 / F ADM Date: 02/26/25 Loc: HO.US Attending Dr: Graciela Ernst MD Ordering Physician: Graciela Ernst MD Date of Service: 02/26/25 Procedure(s): US thyroid Accession Number(s): [id number] cc: Sachin Stokes MD; Graciela Ernst MD EXAMINATION: US THYROID HISTORY: E05.90 - Thyrotoxicosis, unspecified without thyrotoxic crisis or storm TECHNIQUE: Real-time grayscale ultrasound imaging was performed and images were reviewed. COMPARISON: There ar e no prior studies available for comparison. FINDINGS: SIZE: The right thyr oid lobe measures 6.1 x 2.2 x 1.9 cm. The left thyroid lobe measure s 4.8 x 2.0 x 1.9 cm. The isthmus measures 4 mm. FLOW: Flow to the gl and is normal. ECHOGENICITY: The echotexture of the gland is heterogeneous. NODULES: A single nodule is identified in the left as described below: Nodule #: 1 Location: Left lower pole measuring 4 x 3 x 4 mm. Shape: Wider than ta ll (0 points) Margins: Smooth (0 points) Echotexture: Hyperec hoic (1 point) Composition: Solid ( 2 points) Calcifications: None (0 points) Total points: 3 TIRADS: TR3: Mildly suspicious. ____ U S/US thyroid IMPRESSION: Heterogeneous thyroi d echotexture. Single subcentimeter left lower pole nodule. ACR TI-RADS Guidelines TR1 (0 points): Everardo gn. No follow-up or biopsy required TR2 (2 points): Not Suspicious. No biopsy or follow up indicated TR3 (3 points): Mild ly Suspicious. FNA if >= 2.5 cm, Follow if >= 1.5 cm TR4 (4-6 points): Moderately Suspicious. FNA if >= 1.5 cm, Follow if >= 1.0 cm TR5 (>=7 points): Hi ghly Suspicious. FNA if >= 1.0 cm, Follow if >= 0.5 cm Electronically ivan d by: Sachin Goncalves MD 02/26/2025 02:50 PM EDT Dictated By: Sachin Goncalves MD Signed By: <Electronically signed by Sachin Goncalves MD in OV> 02/26/25 1450 DD/ 1430 TD/TT: 02/26/25 1436 Electrical Control Assembler: Reason For Referral No Information Medications Medication SIG (Take, Route, Frequency, Duration) Notes Start Date End Date Status Fluticasone Propionate 50 MCG/ACT USE 1 SPRAY [...] Orally ever y 12 hrs 01/25/2021 Active Social History Tobacco Use: Social History [...] Problem Status W/U Status Risk Notes Problem 848291808347608 Obesity (BMI 30.0-34.9) (E66.9) Active confirmed Her body mass index is 32 and her weight is stable. We reviewed her weight loss strategy. We made a plan to lose weight at a rate of one half of a pound per week through a diet restricted in fat calories and sodium. Problem 961394852 Mixed hyperlipidemia (E78.2) Active confirmed Comprehensive blood work with a fasting lipid profile was ordered today. Problem 53131954 Tobacco dependence (F17.200) Active confirmed I reviewed her cardiovascular risk factors with her and we discussed strategies for smoking reduction in cessation. Problem 944654394 Vertigo (R42) Active confirmed Her vertigo has resolved. Problem 68369587 Tendinitis (M77.9) Active confirmed The pain in the thumb is mild and I have recommended ibuprofen. Problem 819605742 Chronic GERD (K21.9) Active confirmed She will take omeprazole twice a day for 21 days and treat breakthrough heartburn with one or 2 tablespoons of Mylanta. She will call me if any new symptoms develop Vital Signs Height 58 in 11/07/2024 Weight 155 lbs 06/21/2024 BMI 32.39 kg/m2 06/21/2024 Encounters Encounter Location Date Provider Diagnosis Sachin Stokes III, MD [address] [place] [address] [address] [place], [place] [address] 06/18/2024 Sachin Stokes Obesity (BMI 30.0-34 .9) E66.9 ; Tobacco dependence F17.200 ; Mixed hyperlipidemia E78.2 ; Lumbar radiculopathy M54.16 and Chronic GERD K21.9 Sachin Stokes III, MD [address] [place] [address] [address] [place] [address] 06/21/2024 Sachin Stokes Acute cough R05.1 ; Mixed hyperlipidemia E78.2 ; Obesity (BMI 30.0-34.9) E66.9 and Tobacco dependence F17.200 Sachin Stokes III, MD [address] [place] [address] [address] [place] [address] 11/07/2024 Sachin Stokes Acute upper respirat ory [...] No change in her therapy is necessary. 11/07/2024 Obesity (BMI 30.0-34.9) (ICD-10 - E66.9) Her body mass index is 32 and her weight is stable. We reviewed her weight loss strategy. We made a plan to lose weight at a rate of one half of a pound per week through a diet restricted in fat calories and sodium. 11/07/2024 Acute upper respiratory infection (ICD-10 - J06.9) She will consuming fluids and use acetaminophen and rest. She will stay home until she recovers. He was given amoxicillin to cover strep. 06/18/2024 Mixed hyperlipidemia (ICD-10 - E78.2) Comprehensive [...] strategies for smoking reduction in cessation. 11/07/2024 Tobacco dependence (ICD-10 - F17.200) I reviewed her cardiovascular risk factors with her and we discussed strategies for smoking reduction in cessation. 06/18/2024 Chronic GERD (ICD-10 - K21.9) She will take omeprazole twice a day for 21 days and treat breakthrough heartburn with one or 2 tablespoons of Mylanta. She will call me if any new symptoms develop 11/07/2024 Vertigo (ICD-10 - R42) Her vertigo has resolved. Plan Of Treatment Pending Test Test Name Order Date PROFILE, FASTING (COMPREHENSIVE METABOLI C) 02/15/2024 PROFILE, FASTING (COMPREHENSIVE METABOLI C) 05/29/2018 PROFILE, FASTING (COMPREHENSIVE METABOLI C) 07/30/2021 PROFILE, FASTING (COMPREHENSIVE METABOLI C) 08/01/2022 PROFILE, FASTING (COMPREHENSIVE METABOLI C) 06/02/2020 PROFILE, FASTING (COMPREHENSIVE METABOLI C) 04/15/2019 PROFILE, FASTING (COMPREHENSIVE METABOLI C) 09/20/2021 LIPID PANEL 04/15/2019 LIPID PANEL 05/29/2018 LIPID PANEL 08/01/2022 LIPID PANEL 06/02/2020 CBC w DIFF 06/02/2020 CBC w DIFF 09/20/2021 CBC w DIFF 04/15/2019 CBC w DIFF 02/15/2024 CBC w DIFF 05/28/2019 CBC w DIFF 07/30/2021 CBC w DIFF 05/29/2018 CBC w DIFF 08/01/2022 SED RATE (ESR) 06/02/2020 Lipid Panel 09/20/2021 Lipid Panel 02/15/2024 Lipid Panel 07/30/2021 US thyroid 02/26/2025 SARS-CoV2/FLU/RSV 12/13/2024 Strep A Nucleic Acid 12/13/2024 Medical (General) History Medical History History ICD [...]
--- OUTSIDE RECORDS SUMMARY | 2025-03-25 09:52 | XMS_ITS | Clinical Summary ---
Author Organization [address] [facility] Address [address] [place] [address] Phone Care Team Providers Care Driver Education Instructor Name Role Phone Sachin Stokes MD Primary Care Provider [phone] Allergies No known active allergies Medications silver sulfADIAZINE (Silvadene) 1 % cream Apply topically 1 (one) time each day. 50 g 5 11/14/19 26 Active triamcinolone (KENALOG) 0.025 % ointment Apply topically 2 (two) times a day. 30 g 5 12/06/19 26 Active Social History Tobacco Use Types Packs/Day Years [...] 02/09/2024 Social Influencers of Health Screening 02/09/2024 Depression Screening 07/17/2024 COVID-19 Vaccine (3 - 2024-2 6 season) 2025 12/31/2020, 12/03/2020 Influenza Vaccine (#1) 2025 HIB [...] age to complete this topic Insurance [facility] [place]RE[place] [id number] Care Teams Driver Education Instructor Relationship Specialty Start Date End Date Sachin Stokes MD [facility] [address] [address] PCP - General 08/31/23
--- OUTSIDE RECORDS SUMMARY | 2025-03-25 09:52 | XMS_ITS | Patient Health Record ---
Author Organization [facility] Address [address] [place] [address] Care Team Providers Care An Employee Sponsor Or Advocate And Name Role Phone Kike MENDEZ, Sachin Primary [...] Problem Status W/U Status Risk Notes Problem [id number] Colon cancer screening (Z12.11) Active confirmed Problem 968057706 Encounter for other preprocedural examination (Z01.818) Active confirmed Plan Of Treatment Future Test Test Name Order Date COLONOSCOPY 07/27/2020 Insurance Providers Payer Name Payer Address Payer Phone Subscriber Number Group Number Insured Name Patient Relationship to Insured Coverage Start Date Coverage End Date [employer] [address] [address] [place] [address] [phone] [id number] LAZ MONTOYA Self - patient is the insured Medical (General) History Medical History History ICD Code vertigo Surgical History Surgery Date(Month/Year) section 2x carpal tunnel release - bilateral
== END 2025-03-25 09:59 | disposition home or self-care (01) ==
LOC: HO.ENCR 08:44
PROVIDERS: PCP Internal Medicine; Visit Provider Internal Medicine Endocrinology, Diabetes & Metabolism
DX: E05.90 Thyrotoxicosis, unspecified without thyrotoxic crisis or storm (principal)
CPT/HCPCS: 99204

== ENCOUNTER 2025-03-25 10:02 | Outpatient (REF) | payer OTHER, SELFPAY ==
[2025-03-25 13:50] LABS: Alanine Aminotransferase 243 U/L (0-31); Albumin Level 4.5 g/dL (3.5-5.0); Alkaline Phosphatase 174 U/L (39-117); Aspartate Amino Transferase 125 U/L (5-31); Total Protein 7.6 g/dL (6.5-8.0)
[2025-03-25 14:14] LABS: Free T4 (Free Thyroxine) 0.71 ng/dL (0.71-1.85); Thyroid Stimulating Hormone 0.01 uIU/mL (0.32-4.0)
== END 2025-03-25 10:03 | disposition home or self-care (01) ==
LOC: HO.10HDL 10:02
PROVIDERS: Visit Provider Internal Medicine Endocrinology, Diabetes & Metabolism
DX: E05.90 Thyrotoxicosis, unspecified without thyrotoxic crisis or storm (principal)
CPT/HCPCS: 36415; 80076; 84439; 84443; 84481

== ENCOUNTER 2025-03-31 09:29 | Outpatient (REF) | payer OTHER, SELFPAY ==
--- OUTSIDE RECORDS SUMMARY | 2024-06-18 11:15 | XMS_ITS ---
Author Organization Sachin Stokes III, MD Address [address] [place] [address] [place] [address] Care Team Providers Care Buttermilk Drier Operator Name Role Phone Sachin Stokes Primary Care Provider [phone] Allergies Allergen (clinical drug ingredient) Drug/Non Drug Allergy documented on EMR Reaction Allergy Type Onset Date Status sulfacetamide Sulfacetamide Unknown Drug Allergy Active orange allergenic extract [place] (Diagnostic) Unknown Drug Allergy Active REASON FOR [...] Problem Status W/U Status Risk Notes Problem [id number] Chronic GERD (K21.9) Active confirmed She will take omeprazole twice a day for 21 days and treat breakthrough heartburn with one or 2 tablespoons of Mylanta. She will call me if any new symptoms develop Encounters Encounter Location Date Provider Diagnosis Sachin Stokes III, MD [address] [place] [address] [address] [place], [place] [address] 06/18/2024 Sachin Stokes Obesity (BMI 30.0-34 .9) [...] Notes * Teetee MONTOYADOB:1970 (54 yo F)Acc No.[id number]:06/18/2024 Patient: Teetee KIRAN Provider: Caterina Stokes MD :1970 A ge:54 Y S ex:Female Date:06/18/2024 Address:[address] [place], [place] [id number] Subjective: * Chief Complaints: * S evere heartburn for the last week * HPI: * : Telehealth L ocation of provider rendering services: { ...} [address] [facility] [address] L ocation of patient: michelle kingess listed [...] cigarettes a day. 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
--- OUTSIDE RECORDS SUMMARY | 2024-06-21 07:00 | XMS_ITS ---
Author Organization Sachin Stokes III, MD Address [address] [place] [address] [place] [address] Care Team Providers Care Final Expense Agent Name Role Phone Sachin Stokes Primary Care Provider [phone] Allergies Allergen (clinical drug ingredient) Drug/Non Drug Allergy documented on EMR Reaction Allergy Type Onset Date Status sulfacetamide Sulfacetamide Unknown Drug Allergy Active orange allergenic extract [place] (Diagnostic) Unknown Drug Allergy Active REASON FOR [...] Date Provider Diagnosis Sachin Stokes III, MD [address] [place] [address] [address] [place] G[place]NA, [place] [address] 06/21/2024 Sachin Stokes Acute cough R05.1 ; [...] Notes * Marilu MONTOYA:1970 (54 yo F)Acc No.[id number]:06/21/2024 Patient: Teetee KIRAN Provider: Caterina Stokes MD :1970 A ge:54 Y S ex:Female Date:06/21/2024 Address:[address] [place] [address] Subjective: * Chief Complaints: * V iral syndromeTobacco dependenceObesityHyperlipidemiaGERD * HPI: * : Telehealth L ocation of provider rendering services: { ...} [address] [place] [address] [address] [facility] [address] L ocation of patient: michelle meyers listed [...] a day. 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 ider rendering services:: {...} [address] [facility] [address] Location of patient:: address listed in demographics [...]
--- OUTSIDE RECORDS SUMMARY | 2024-11-07 07:45 | XMS_ITS ---
Author Organization Sachin Stokes III, MD Address [address] [place] [address] Care Team Providers Care Buzzsaw Operator Name Role Phone Sachin Stokes Primary Care Provider [phone] REASON FOR VISIT Severe sore throat, URI [...] Date Provider Diagnosis Sachin Stokes III, MD [address] [place] [address] [place] [address] 11/07/2024 Sachin Stokes Acute upper respirat ory [...] Notes * Teetee MONTOYADOB:1970 (54 yo F)Acc No.[id number]:11/07/2024 Patient: Teetee KIRAN Provider: Caterina Stokes MD :1970 A ge:54 Y S ex:Female Date:11/07/2024 Address:[address] [place], [place] [id number] Subjective: * Chief Complaints: * S evere [...] of provider rendering services: { ...} [address] [facility] [address] [facility] [address] L ocation of patient: michelle meyers listed in demographics for today's visit P atient identification confirmed using: N junito, ROBERT T elehealth method: T elephone only. Patient [...] 11/07/2024 Generated for Yelenai ng/Chelsi/eTransmitting on: 0 03/31/2025 11:24 AM EDT History and Physical Notes * HPI (History of Present Illness) Category Sub-Category Detail Notes Telehealth Location of [facility] rendering services:: {...} [address] [place] [address] Location of patient:: address listed in demographics [...]
--- OUTSIDE RECORDS SUMMARY | 2025-02-20 08:00 | XMS_ITS ---
Author Organization Sachin Stokes III, MD Address [address] [place] [address] Care Team Providers Care Machine Adjuster Leader Case Trim Name Role Phone Sachin Stokes Primary Care Provider [phone] REASON FOR VISIT Annual Exam Encounters Encounter Location Date Provider Diagnosis Sachin Stokes III, MD [address] [place] [address] [place] [address] 02/20/2025 Scahin Stokes Plan Of Treatment No Information Progress Notes * Teetee MONTOYADOB:1970 (55 yo F)Acc No.[id number]:02/20/2025 Progress Notes Patient: Teetee KIRAN Provider: Caterina Stokes MD :1970 A ge:55 Y S ex:Female Date:02/20/2025 Address:[address] [place], [place] [phone] Subjective: * Chief Complaints: * 1 . [...] 0 02/20/2025 Generated for Sondra rm/Chelsi/eTransmitting on: 0 03/31/2025 11:24 AM EDT
--- OUTSIDE RECORDS SUMMARY | 2025-03-27 09:00 | XMS_ITS ---
Author Organization Sachin Stokes III, MD Address [address] [facility] [place] [address] Care Team Providers Care Looseleaf Binder Coverer Name Role Phone Sachin Stokes Primary Care Provider REASON FOR VISIT Annual Exam Encounters Encounter Location Date Provider Diagnosis Sachin Stokes III, MD [address] [place] [address] [place] [address] 03/27/2025 Sachin Stokes Plan Of Treatment No Information Progress Notes * Teetee MONTOYADOB:1970 (55 yo F)Acc No.[id number]:03/27/2025 Progress Notes Patient: Teetee KIRAN Provider: Caterina Stokes MD :1970 A ge:55 Y S ex:Female Date:03/27/2025 Address:[address] [place], [place] [id number] Subjective: * Chief Complaints: * 1 . Annual Exam. * Medical History: Objective: * Vitals: Assessment: Plan: * Treatment: * Images: * The named appointment provid er may or may not be the originator of this progress note, and it is not deemed complete until electronically signed by the appointment provider. Sign off status: Pending * Provider: Caterina Stokes MD Date: 03/27/2025 Generated for Sondra rm/Chelsi/eTransmitting on: 03/31/2025 11:23 AM EDT
[2025-03-31 11:20] LABS: Alanine Aminotransferase 174 U/L (0-31); Albumin Level 4.3 g/dL (3.5-5.0); Alkaline Phosphatase 170 U/L (39-117); Aspartate Amino Transferase 72 U/L (5-31); Total Protein 7.4 g/dL (6.5-8.0)
[2025-03-31 11:22] LABS: Thyroid Stimulating Hormone 0.02 uIU/mL (0.32-4.0)
--- OUTSIDE RECORDS SUMMARY | 2025-03-31 11:24 | XMS_ITS | Patient Health Record ---
Author Organization [facility] Address [address] [place] [address] Care Team Providers Care Jack Tamp Operator Name Role Phone Kike MENDEZ, Sachin Primary [...] Problem Status W/U Status Risk Notes Problem [id number] Colon cancer screening (Z12.11) Active confirmed Problem 881219192 Encounter for other preprocedural examination (Z01.818) Active confirmed Plan Of Treatment Future Test Test Name Order Date COLONOSCOPY 07/27/2020 Insurance Providers Payer Name Payer Address Payer Phone Subscriber Number Group Number Insured Name Patient Relationship to Insured Coverage Start Date Coverage End Date UMR [address] [address] [place] [address] [phone] [id number] LAZ MONTOYA Self - patient is the insured Medical (General) History Medical History History ICD Code vertigo Surgical History Surgery Date(Month/Year) section 2x carpal tunnel release - bilateral
--- OUTSIDE RECORDS SUMMARY | 2025-03-31 11:24 | XMS_ITS | Clinical Summary ---
Author Organization [address] [facility] Address [address] [place] [address] Phone Care Team Providers Care Gage Maker Name Role Phone Sachin Stokes MD Primary Care Provider [phone] Allergies No known active allergies Medications silver [...] patient's age to complete this topic Insurance [facility] [place] [id number] Care Teams Gage Maker Relationship Specialty Start Date End Date Sachin Stokes MD [facility] [address] [address] PCP - General 08/31/23
--- OUTSIDE RECORDS SUMMARY | 2025-03-31 11:24 | XMS_ITS | Patient Health Record ---
Author Organization Sachin Stokes III, MD Address [address] [address] Care Team Providers Care Savings Counselor Name Role Phone Sachin Stokes Primary Care Provider Allergies Allergen (clinical drug ingredient) Drug/Non Drug Allergy documented on EMR Reaction Allergy Type Onset Date Status sulfacetamide Sulfacetamide Unknown Drug Allergy Active orange allergenic extract [place] (Diagnostic) Unknown Drug Allergy Active Results Component Value Reference Range Notes XR chest 2V Reviewed date:07/10/2024 08:52:03 AM Interpretation: Performing Lab: Notes/Report: [address] [address] XRay Report Signed Patient: Teetee Plata MR#: [id number] 13 : 1970 Acct:[id number] Age/Sex: 54 / F ADM Date: 06/19/24 Loc: HO.XRAY Attending Dr: Sachin Stokes MD Ordering Physician: Sachin Stokes MD Date of Service: 06/19/24 Procedure(s): XR chest 2V Accession Number(s): [id number] cc: Sachin Stokes MD EXAMINATION: XR CHEST CLINICAL INFORMATION: Cough. COMPARISON: None available. TECHNIQUE: 2 views of the chest were obtained. FINDINGS: The lungs are clear. The cardiomediastinal silhouette is normal in size. There is no pleural effusion or pneumothorax. No acute osseous abnormality. XR/XR chest 2V IMPRESSION: No acute cardiopulmonary findings. Electronically signed by: Sadiq Serra MD 06/20/2024 11:04 AM [facility] [place] [place] Dictated By: Sadiq Serra MD Signed By: <Electronically signed by Sadiq Serra MD in OV> 06/20/24 1104 DD/ 1011 TD/TT: 06/19/24 1035 Side Stitching Machine Operator: [address] [address] XRay Report Signed Patient: Kyle Plata MR#: [id number] 13 : 1970 Acct:[id number] Age/Sex: 54 / F ADM Date: 06/19/24 Loc: HO.XRAY Attending Dr: Sachin Stokes MD Ordering Physician: Sachin Stokes MD Date of Service: 06/19/24 Procedure(s): XR blanqu[address] st 2V Accession Number(s): [id number] cc: Sachin Stokes MD EXAMINATION: XR CHEST [...] 06/20/24 1104 DD/ 1011 TD/TT: 06/19/24 1035 Side Stitching Machine Operator: US pelvic and transvaginal Reviewed date:09/08/2024 09:14:43 AM Interpretation: Performing Lab: Notes/Report: [address] [address] Ultrasound Report Signed Patient: Teetee Plata MR#: [id number] 13 : 1970 Acct:[id number] Age/Sex: 54 / F ADM Date: 08/29/24 Loc: HO.US Attending Dr: Savita Álvarez CNM Ordering Physician: Savita Álvarez CNM Date of Service: 08/29/24 Procedure(s): US pelvic and transvaginal Accession Number(s): [id number] cc: Sachin Stokes MD; Savita Álvarez CNM [...] by: John Teague MD 08/29/2024 02:23 PM [facility] [place] [place] Dictated By: John Flores MD Signed By: <Electronically signed by John Stovall MD in OV> 08/29/24 1423 DD/ 1220 TD/TT: 08/29/24 1243 Side Stitching Machine Operator: [place] [address] Ultrasound Report Signed Patient: Kyle Plata MR#: [id number] 13 : 1970 Acct:[id number] Age/Sex: 54 / F ADM Date: 08/29/24 Loc: HO.US Attending Dr: Savita Álvarez CNM Ordering Physician: Savita Álvarez CNM Date of Service: 08/29/24 Procedure(s): US pel edmar and transvaginal Accession Number(s): [id number] cc: Sachin Stokes MD; Savita Álvarez CNM [...] by: John Teague MD 08/29/2024 02:23 PM [facility] [place] [place] Dictated By: John Polk MD Signed By: <Electronically signed by John Stovall MD in OV> 08/29/24 1423 DD/ 1220 TD/TT: 08/29/24 1243 Side Stitching Machine Operator: SARS-CoV2/FLU/RSV (Not yet r eviewed by provider) Interpretation: Performing Lab:[address] [address] Notes/Report: Influenza A PCR NEGATIVE Negative Influenza [...] by authorized laboratories. Testing performed on the [employer] GeneXpert utilizing real-time RT-PCR. All SARS CoV2 and positive influenza A/B results are reported to [facility]. Strep A Nucleic Acid (Not ye t reviewed by provider) Interpretation: Performing Lab:[address] [address] Notes/Report: [employer] Serial# [id number] Strep A Nucleic Acid Negative Negative All [...] reviewed by provider) Interpretation: Performing Lab: Notes/Report: [address] [address] Ultrasound Report Signed Patient: Teetee Plata MR#: [id number] 13 : 1970 Acct:[id number] Age/Sex: 55 / F ADM Date: 02/26/25 Loc: .US Attending Dr: Graciela Ernst MD Ordering Physician: Graciela Ernst MD Date of Service: 02/26/25 Procedure(s): US thyroid Accession Number(s): [id number] cc: Sachin Stokes MD; Graciela Ernst MD [...] 02/26/25 1450 DD/ 1430 TD/TT: 02/26/25 1436 Side Stitching Machine Operator: [place] [address] Ultrasound Report Signed Patient: Kyle Plata MR#: [id number] 13 : 1970 Acct:[id number] Age/Sex: 55 / F ADM Date: 02/26/25 Loc: HO.US Attending Dr: Graciela Ernst MD Ordering Physician: Graciela Ernst MD Date of Service: 02/26/25 Procedure(s): US thyroid Accession Number(s): [id number] cc: Sachin Stokes MD; Graciela Ernst MD [...] 02/26/25 1450 DD/ 1430 TD/TT: 02/26/25 1436 Side Stitching Machine Operator: Reason For Referral No Information Medications Medication [...] Problem Status W/U Status Risk Notes Problem [id number] Obesity (BMI 30.0-34.9) (E66.9) Active confirmed Her body mass index is 32 and her weight is stable. We reviewed her weight loss strategy. We made a plan to lose weight at a rate of one half of a pound per week through a diet restricted in fat calories and sodium. Problem 943222241 Mixed hyperlipidemia (E78.2) Active confirmed Comprehensive blood work with a fasting lipid profile was ordered today. Problem 67013612 Tobacco dependence (F17.200) Active confirmed I reviewed her cardiovascular risk factors with her and we discussed strategies for smoking reduction in cessation. Problem 876153147 Vertigo (R42) Active confirmed Her vertigo has resolved. Problem 86028672 Tendinitis (M77.9) Active confirmed The pain in the thumb is mild and I have recommended ibuprofen. Problem 191996921 Chronic GERD (K21.9) Active confirmed She will take omeprazole twice a day for 21 days and treat breakthrough heartburn with one or 2 tablespoons of Mylanta. She will call me if any new symptoms develop Vital Signs Height 58 in 11/07/2024 Weight 155 lbs 06/21/2024 BMI 32.39 kg/m2 06/21/2024 Encounters Encounter Location Date Provider Diagnosis Sachin tSokes III, MD [address] [place] [address] [address], [place] [address] 06/18/2024 Sachin Stokes Obesity (BMI 30.0-34 .9) E66.9 ; Tobacco dependence F17.200 ; Mixed hyperlipidemia E78.2 ; Lumbar radiculopathy M54.16 and Chronic GERD K21.9 Sachin Stokes III, MD [address] [place] [address] [address] [place] [address] 06/21/2024 Sachin Stokes Acute cough R05.1 ; Mixed hyperlipidemia E78.2 ; Obesity (BMI 30.0-34.9) E66.9 and Tobacco dependence F17.200 Sachin Stokes III, MD [address] [place] [address] [address] [place] [address] 11/07/2024 Sachin Stokes Acute upper respirat ory [...]
[2025-03-31 11:25] LABS: Free T4 (Free Thyroxine) 0.64 ng/dL (0.71-1.85)
== END 2025-03-31 09:30 | disposition home or self-care (01) ==
LOC: HO.10HDL 09:29
PROVIDERS: Visit Provider Internal Medicine Endocrinology, Diabetes & Metabolism
DX: E05.90 Thyrotoxicosis, unspecified without thyrotoxic crisis or storm (principal)
CPT/HCPCS: 36415; 80076; 84439; 84443; 84481

== ENCOUNTER 2025-04-15 13:46 | Outpatient (AMB) | payer OTHER, SELFPAY ==
--- OUTSIDE RECORDS SUMMARY | 2024-06-18 11:15 | XMS_ITS ---
Author Organization Sachin Stokes III, MD Address [address] [place] [address] [place] [address] Care Team Providers Care Tennis Desk Team Member Name Role Phone Dr. Sachin Stokes III Primary Care Provider Allergies Allergen (clinical drug ingredient) Drug/Non Drug Allergy documented on EMR Reaction Allergy Type Onset Date Status sulfacetamide Sulfacetamide Unknown Drug Allergy Active orange allergenic extract [place] (Diagnostic) Unknown Drug Allergy Active REASON FOR [...] Problem Status W/U Status Risk Notes Problem [id number] Chronic GERD (K21.9) Active confirmed She will take omeprazole twice a day for 21 days and treat breakthrough heartburn with one or 2 tablespoons of Mylanta. She will call me if any new symptoms develop Encounters Encounter Location Date Provider Diagnosis Sachin Stokes III, MD [address] [place] [address] [place] [address] 06/18/2024 Sachin Stokes Obesity (BMI 30.0-34 .9) [...] Notes * Teetee MONTOYADOB:1970 (54 yo F)Acc No.[id number]:06/18/2024 Patient: Teetee KIRAN Provider: Caterina Stokes MD :1970 A ge:54 Y S ex:Female Date:06/18/2024 Address:[address] [place], [place] [address] Subjective: * Chief Complaints: * S evere heartburn for the last week * HPI: * : Telehealth L ocation of provider rendering services: { ...} [address] [place] [address] [address] [place] [address] L ocation of patient: michelle malikess listed [...] cigarettes a day. 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
--- OUTSIDE RECORDS SUMMARY | 2024-06-21 07:00 | XMS_ITS ---
Author Organization Sachin Stokes III, MD Address [address] [place] [address] [place] [address] Care Team Providers Care Mold Dumper Name Role Phone Dr. Sachin Stokes III Primary Care Provider Allergies Allergen (clinical drug ingredient) Drug/Non Drug Allergy documented on EMR Reaction Allergy Type Onset Date Status sulfacetamide Sulfacetamide Unknown Drug Allergy Active orange allergenic extract [place] (Diagnostic) Unknown Drug Allergy Active REASON FOR [...] Provider Diagnosis Sachin Stokes III, MD [address] [place] [address] [address] [place], [place] [address] 06/21/2024 Sachin Stokes Acute cough R05.1 ; [...] Notes * Marilu MONTOYA:1970 (54 yo F)Acc No.[id number]:06/21/2024 Patient: Teetee KIRAN Provider: Caterina Stokes MD :1970 A ge:54 Y S ex:Female Date:06/21/2024 Address:[address] [place] [address] Subjective: * Chief Complaints: * V iral syndromeTobacco dependenceObesityHyperlipidemiaGERD * HPI: * : Telehealth L ocation of provider rendering services: { ...} [address] [facility] [address] L ocation of patient: michelle meyers listed [...] a day. 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
--- OUTSIDE RECORDS SUMMARY | 2024-11-07 07:45 | XMS_ITS ---
Author Organization Sachin Stokes III, MD Address [address] [place] [address] [place] [address] Care Team Providers Care Color Separation Photographer Name Role Phone Dr. Sachin Stokes III Primary Care Provider [phone] REASON FOR VISIT Severe sore throat, URI symptoms, Tobacco dependence, Obesity, Hyperlipidemia Medications Medication SIG (Take, Route, Frequency, Duration) Notes Start Date End Date Status Amoxicillin 500 MG 1 capsule Orally ramin ry 8 hrs for 7 days 11/07/2024 11/14/2024 Active Doxycycline Hyclate 100 MG 1 capsule Ora lly Twice a day 08/24/2023 Active Zithromax Z-Dannie 250 MG 2 tablet on [...] PER DAY FOR 30 DAYS Nasal Active Vital Signs Height 58 in 11/07/2024 Encounters Encounter Location Date Provider Diagnosis Sachin Stokes III, MD [address] [place] [address] [place] [address] 11/07/2024 Sachin Stokes Acute upper respirat ory infection J06.9 ; Obesity (BMI 30.0-34.9) E66.9 ; Mixed hyperlipidemia E78.2 ; Tobacco dependence F17.200 and Vertigo R42 Assessments Encounter Date Diagnosis (ICD Code) Assessment Notes Treat ment Notes Treatment Clinical Notes 11/07/2024 Acute upper respiratory infection (ICD-10 - J06.9) She will consuming fluids and use acetaminophen and rest. She will stay home until she recovers. He was given amoxicillin to cover strep. 11/07/2024 Obesity (BMI 30.0-34.9) (ICD-10 - E66.9) Her body mass index is 32 and her weight is stable. We reviewed her weight loss strategy. We made a plan to lose weight at a rate of one half of a pound per week through a diet restricted in fat calories and sodium. 11/07/2024 Mixed hyperlipidemia (ICD-10 - E78.2) Comprehensive blood work with a fasting lipid profile was ordered today. 11/07/2024 Tobacco dependence (ICD-10 - F17.200) I reviewed her cardiovascular risk factors with her and we discussed strategies for smoking reduction in cessation. 11/07/2024 Vertigo (ICD-10 - R42) Her vertigo has resolved. Plan Of Treatment Medication Medication Name Sig Start Date Stop Date Notes Amoxicillin 500 MG 1 capsule Orally ramin ry 8 hrs for 7 days 11/07/2024 11/14/2024 Doxycycline Hyclate 100 MG 1 capsule Orally Twice a day Zithromax Z-Dannie 250 MG 2 tablet on [...] TIMES PER DAY FOR 30 DAYS Nasal Next Appt Details Follow Up: as scheduled, Faby son: ov Progress Notes * Teetee MONTOYADOB:1970 (54 yo F)Acc No.[id number]:11/07/2024 Patient: Teetee KIRAN Provider: Caterina Stokes MD :1970 A ge:54 Y S ex:Female Date:11/07/2024 Address:[address] [place] [address] Subjective: * Chief Complaints: * S evere sore throatURI symptomsTobacco dependenceObesityHyperlipidemia * HPI: * : She woke up at 3:30 in the morning yesterday with shaking chills and a severe sore throat. Since then she is developed a cough congestion but no fever. She has had streptococcal pharyngitis several times in the past. She is going to test for coronavirus. She was given a prescription for amoxicillin. Every other day. Followup will reinforce. She has had no sick contacts. Telehealth L ocation of provider rendering services: { ...} [address] [place] [address] [address] [facility] [address] L ocation of patient: michelle meyers listed [...] 1 5 * ROS: G eneral/Constitutional: pain S evere sore throat. C hills Y . F atigue a dmits. F ever d enies. E NT: Decreased hearing d enies. R espiratory: Cough w orse at night. C ardiovascular: Chest pain with exertion d [...] enies. * Medical History: * Surgical History: * Hospitalization/Major Diagno stic Procedure: * Medications: T akingZithromax Z-Dannie 250 MG Tablet 2 tablet on the first day, then 1 tablet daily for 4 days Orally 2 tablets on first day then one tablet daily Ondansetron 4 MG Tablet Disintegrating 1 tablet Orally Once a day dexAMETHasone 2 MG Tablet 1 tablet Orally every 12 hrs Fluticasone Propionate 50 MCG/ACT Suspension USE 1 SPRAY INTRANASALLY 2 TIMES PER DAY FOR 30 DAYS Nasal Doxycycline Hyclate 100 MG Capsule 1 capsule Orally Twice a day Taking Zithromax Z-Dannie 250 MG Tablet 2 tablet on the first day, then 1 tablet daily for 4 days Orally 2 tablets on first day then one tablet daily Taking Ondansetron 4 MG Tablet Disintegrating 1 tablet Orally Once a day Taking dexAMETHasone 2 MG Tablet 1 tablet Orally every 12 hrs Taking Fluticasone Propionate 50 MCG/ACT Suspension USE 1 SPRAY INTRANASALLY 2 TIMES PER DAY FOR 30 DAYS Nasal Taking Doxycycline Hyclate 100 MG Capsule 1 capsule Orally Twice a day Objective: * Vitals: H t: 58, Ht-cm: 147.32. Assessment: * Assessment: 1. A cute upper respiratory infection - J06.9 (Primary) N otes :She will consuming fluids and use acetaminophen and rest. She will stay home until she recovers. He was given amoxicillin to cover strep. 2 . O besity (BMI 30.0-34.9) - E66.9 N otes :Her body mass index is 32 and her weight is stable. We reviewed her weight loss strategy. We made a plan to lose weight at a rate of one half of a pound per week through a diet restricted in fat calories and sodium. 3 . M ixed hyperlipidemia - E78.2 N otes :Comprehensive blood work with a fasting lipid profile was ordered today. 4 . T obacco dependence - F17.200 N otes :I reviewed her cardiovascular risk factors with her and we discussed strategies for smoking reduction in cessation. 5 . V ertigo - R42 N otes :Her vertigo has resolved. Plan: * Treatment: 2. O thers Start Amoxicillin Capsule, 500 MG, 1 capsule, Orally, every 8 hrs, 7 days, 21 Capsule, Refills 0.? * Procedure Codes: 9 8012 SYNCH AUDIO-ONLY EST SF 10 * Preventive Medicine: Counseling: C are goal follow-up plan: Counseling for abnormal BMI given Y es Above Normal BMI Follow-up D ietary management education, guidance, and counseling, Dietary needs education S moking/Tobacco Use Patient counseled on the dangers of tobacco use and urged to quit. 0 11/05/2024 Patient Lifestyle Goals P atient wants to quit Treatment Goals C ut down by 1 cigarette a week, Set a quit date Barriers S tress, Social smoker Self-Management Plan M tom a plan to cut down number of cigarettes over time and set a date to work towards quitting * Follow Up: a s scheduled (Reason: ov) * Images: * Sign off status: Completed true * Provider: Caterina Stokes MD Date: 0 11/07/2024 Generated for Yelenai ng/Chelsi/eTransmitting on: 0 04/15/2025 03:05 PM EDT History and Physical Notes * HPI (History of Present Illness) Category Sub-Category Detail Notes Telehealth Location of [facility] rendering services:: {...} [address] [place] [address] Location of patient:: address listed in demographics [...]
--- OUTSIDE RECORDS SUMMARY | 2025-02-20 08:00 | XMS_ITS ---
Author Organization Sachin Stokes III, MD Address [address] [place] [address] Care Team Providers Care Survey Instrument Operator Name Role Phone Dr. Sachin Stokes III Primary Care Provider REASON FOR VISIT Annual Exam Encounters Encounter Location Date Provider Diagnosis Sacihn Stokes III, MD [address] [place] [address] [place] [address] 02/20/2025 Sachin Stokes Plan Of Treatment No Information Progress Notes * Teetee MONTOYADOB:1970 (55 yo F)Acc No.[id number]:02/20/2025 Progress Notes Patient: Teetee KIRAN Provider: Caterina Stokes MD :1970 A ge:55 Y S ex:Female Date:02/20/2025 Address:[address] [place], [place] [phone] Subjective: * Chief Complaints: * 1 . [...] MD Date: 0 02/20/2025 Generated for Sondra rm/Fagustabog/eTransmitting on: 0 04/15/2025 03:04 PM EDT
--- OUTSIDE RECORDS SUMMARY | 2025-03-27 09:00 | XMS_ITS ---
Author Organization Sachin Stokes III, MD Address [address] [place] [address] Care Team Providers Care Windows Laptop Technician Name Role Phone Dr. Sachin Stokes III Primary Care Provider [phone] REASON FOR VISIT Annual Exam Encounters Encounter Location Date Provider Diagnosis Sachin Stokes III, MD [address] [place] [address] [place] [address] 03/27/2025 Sachin Stokes Plan Of Treatment No Information Progress Notes * Teetee MONTOYADOB:1970 (55 yo F)Acc No.[id number]:03/27/2025 Progress Notes Patient: Teetee KIRAN Provider: Caterina Stokes MD :1970 A ge:55 Y S ex:Female Date:03/27/2025 Address:[address] [place], [place] [address] Subjective: * Chief Complaints: * 1 . [...] MD Date: 0 03/27/2025 Generated for Sondra rm/Fachiara/eTransmitting on: 04/15/2025 03:04 PM EDT
--- NOTE | 2025-04-15 13:49 | A.OFFPC_ITS ---
Vital Signs 04/15/25 13:54 04/15/25 14:13 Height 4 ft 9.5 in Weight 73.028 kg BMI 34.2 BP 182/88 H 162/92 H Respiration 14 Pulse 69 Pulse Source Pulse Oximeter Temp 97.3 F Temp Source Temporal Artery Scan Pulse Oximetry (%) 98 Oxygen Delivery Method Room Air Intake Visit Reasons: Left ankle swelling Shipping Services Sales Representative Required: No Accompanied by: Self / Same As Patient Allergies Sulfa (Sulfonamide Antibiotics) (SULFA (SULFONAMIDE ANTIBIOTICS)) Allergy (Mild, Verified 04/15/25 13:50) RASH Medication List - Last Reconciled 04/15/25 by DIANA Thakkar acetaminophen 1,000 mg (2 x 500 mg) PO QID PRN blood pressure test kit-medium As directed. Check blood pressure daily ibuprofen 600 mg PO Q6H PRN [Meclizine PO PRN] methimazole 20 mg (2 x 10 mg) PO DAILY metoprolol succinate ER 50 mg PO DAILY Tobacco use date assessed: 01/30/25 HPI HPI Comments History of Present Illness Details 55-year-old female with history of chron ic pharyngitis, hyperlipidemia, hyperthyroidism/Graves disease, obesity presents to the office today for management of chronic conditions and to establish care. Hyperlipidemia-LDL 86. Diet controlled Hypertension- started on metoprolol by endocrinology due to palpitations from hyperthyroidism. BP controlled at last visit, today 182/88, recheck 162/92. Three weeks ago, blood pressure was 132/78 and was normal at last visit as well. Hyperthyroidism/Graves disease-now following with endocrinology. Most recent TSH 0.02, free T4 0.64, free T3 2.8. On methimazole 20 mg daily and is also taking metoprolol. Still occasional tremors on left side but improved. Still with vertigo. Still with hot flashes. No thyroid eye disease- Dr. Rojas. Vertigo- seems to be getting worse over the last week such as when standing or in the shower, sitting up in bed. Meclizine did initially help. Lasts seconds Obesity-BMI 34.2. Has gained weight since initiating methimazole. Does follow a healthy diet Tobacco dependence-reports has not smoked any cigarettes in about 4 month. Following with lung cancer screening Concerns: L ankle- painful at times. Had rolled inversion just walking. No fall. Describes a soreness for several days, then did it again with immediate sharp pain and then uncomfortable 2/10. Now 6/10 pain. Pain medial malleolis occasionally radiating to toes. More constant now. Able to ambulate, occasional limp. Not taking anything for this. Does have ankle sleeve Health maintenance: Last mammogram 09/2022 and has been reordered but not scheduled Last Pap smear-, negative-overdue but has upcoming appointment with purse maker Last colonoscopy-09/29/2020 with 5 year follow-up due to tubular adenoma. Dr. Aldo shelby ROS: See HPI EXAM: Constitutional - Awake and Alert, No apparent distress Eyes - PERRL Mouth/throat-tonsillar edema and erythema without exudate Neck-supple, trachea midline. No masses palpated Cardiovascular - S1S2, RRR, No edema Respiratory - Normal lung expansion, Normal respiratory effort, No respiratory distress, CTA bilaterally Extremities - no calf tenderness bilaterally, no swelling MSK-left ankle-no swelling, effusion, warmth, erythema. Tenderness to palpation at the medial malleolus into the medial aspect of the lower leg. Full range of motion Skin - Warm/Dry Neurological - Alert & oriented x3 Psychological - Appropriate affect [facility] Medical History (Updated 04/15/25 @ 14:24 by DIANA Thakkar) Graves disease Personal history of nicotine dependence Hyperthyroidism HLD (hyperlipidemia) HTN (hypertension) Hot flashes Uterine fibroid Vertigo Surgical History History of colonoscopy (~09/29/20) History of bilateral ligation of fallopian tubes History of bilateral carpal tunnel release Hx of section Family History Maternal Grandmother History of breast cancer Maternal Grandfather Colon cancer Social History Alcohol intake: current Alcohol intake frequency: holidays/special occasions only Alcohol type: wine Patient Tobacco Use Status: Former Tobacco user Cigarette Packs Per Day: 0.25 Cigarettes Per Day: 3 Years Smoked: 39 e-Cigarette/Vaping Use: Never Used Sexual orientation: Straight/Heterosexual Gender identity: Female Questionnaire Thrive Questionnaire Date Thrive assessed: 01/10/25 MELISSA-7 AMB Questionnaire MELISSA-7 Date MELISSA - 7 assessed: 01/10/25 Source: Developed by Drs. Sachin Marcial, Natali Pederson, Damien Hilario and colleagues, with an educational sandra from [employer]. Physical exam (Primary Care) Vital Signs: Last Vital Signs Temp 97.3 F 04/15/25 13:54 Pulse 69 04/15/25 13:54 Resp 14 04/15/25 13:54 BP 182/88 H 04/15/25 13:54 Pulse Ox 98 04/15/25 13:54 Oxygen Delivery Method Room Air 04/15/25 13:54 BMI result Body Mass Index 34.2 Tobacco/Smoking Status: Tobacco use Status Tobacco use date assessed 01/30/25 04/15/25 13:51 Patient Tobacco Use Status Former Tobacco user 04/15/25 13:51 e-Cigarette/Vaping Use Never Used 04/15/25 13:51 Thrive Assessment: Date of Thrive Assessment Date Thrive assessed 01/10/25 04/15/25 13:51 Coding Level of Care Code Est Pt Level 4 (42557) Complex EM visit Add On G2211 Diagnoses Left ankle strain S96.912A HLD (hyperlipidemia) E78.5 Hyperthyroidism E05.90 Graves disease E05.00 Labile hypertension R09.89 Assessment & Plan Assessment & Plan (1) Left ankle strain: Code(s): S96.912A - Strain of unspecified muscle and tendon at ankle and foot level, left foot, initial encounter Category: Medical Plan: X-ray of the left ankle and tibia/fibula ordered. Recommend RICE therapy as well as ibuprofen/Tylenol as needed. Recommend supportive shoes with arch support. Referred to physical therapy (2) HLD (hyperlipidemia): Code(s): E78.5 - Hyperlipidemia, unspecified Category: Medical Plan: Controlled. Continue monitoring (3) Hyperthyroidism: Code(s): E05.90 - Thyrotoxicosis, unspecified without thyrotoxic crisis or storm Category: Medical Plan: Reviewed last note from endocrinology. It is possible that labile blood pressures are related to her hyperthyroidism. Continue metoprolol and methimazole as prescribed. Will prescribe blood pressure cuff and she is advised to contact the office with blood pressure readings. (4) Graves disease: Code(s): E05.00 - Thyrotoxicosis with diffuse goiter without thyrotoxic crisis or storm Category: Medical Plan: As above (5) Labile hypertension: Code(s): R09.89 - Other specified symptoms and signs involving the circulatory and respiratory systems Category: Medical Plan: Blood pressure cuff ordered. Continue metoprolol for now. Plan Follow-up in 4 months with labs to be completed prior to visit. Contact the o ffice next week wiwt blood pressure readings. IF bp remains elevated, will adjust therapies Orders: Orders XR ankle LT min 3V 4 Months E0 - Thyrotoxicosis, unspecified without thyrotoxic crisis or storm, E78.5 - Hyperlipidemia, unspecified, I10 - Essential (primary) hypertension, S99.912A - Unspecified injury of left ankle, initial encounter Basic Metabolic Panel 4 Months E0 - Thyrotoxicosis, unspecified without thyrotoxic crisis or storm, E78.5 - Hyperlipidemia, unspecified, I10 - Essential (primary) hypertension Lipid Panel 4 Months E0. - Thyrotoxicosis, unspecified without thyrotoxic crisis or storm, E78.5 - Hyperlipidemia, unspecified, I10 - Essential (primary) hypertension PT Evaluation and Treatment Today S96.912A - Strain of unspecified muscle and tendon at ankle and foot level, left foot, initial encounter XR tibia fibula LT 2V 4 Months E0. - Thyrotoxicosis, unspecified without thyrotoxic crisis or storm, E78.5 - Hyperlipidemia, unspecified, I10 - Essential (primary) hypertension, S99.912A - Unspecified injury of left ankle, initial encounter Liver Panel 4 Months E0. - Thyrotoxicosis, unspecified without thyrotoxic crisis or storm, E78.5 - Hyperlipidemia, unspecified, I10 - Essential (primary) hypertension Complete Blood Count Auto Diff 4 Months E0. - Thyrotoxicosis, unspecified without thyrotoxic crisis or storm, E78.5 - Hyperlipidemia, unspecified, I10 - Essential (primary) hypertension Medications: New 2 blood pressure test kit-medium As directed. Check blood pressure daily 1 ea 0RF E0. - Thyrotoxicosis, unspecified without thyrotoxic crisis or storm, R09.89 - Other specified symptoms and signs involving the circulatory and respiratory systems
[2025-04-15 13:54] VITALS: BP 182/88; PULSE 69; RESP 14; TEMP 36.3; O2SAT 98; BMI 34.2
[2025-04-15 14:13] VITALS: BP 162/92
--- OUTSIDE RECORDS SUMMARY | 2025-04-15 15:04 | XMS_ITS | Clinical Summary ---
Author Organization 175 [facility] Address [address] [place] [address] Phone Care Team Providers Care Doctor Of Radiology Name Role Phone Sachin Stokes MD Primary Care Provider [phone] Allergies No known active allergies Medications silver [...] patient's age to complete this topic Insurance [facility] [place] [id number] Care Teams Doctor Of Radiology Relationship Specialty Start Date End Date Sachin Stokes MD [facility] [address] [address] PCP - General 08/31/23
--- OUTSIDE RECORDS SUMMARY | 2025-04-15 15:04 | XMS_ITS | Patient Health Record ---
Author Organization [facility] Address [address] [place] [address] Care Team Providers Care Inner Tube Tuber Machine Operator Name Role Phone Kike MENDEZ, Sachin Primary Care Provider Dano Vital Jr Unavailable [phone] Allergies Allergen (clinical drug ingredient) Drug/Non Drug [...] Problem Status W/U Status Risk Notes Problem [id number] Colon cancer screening (Z12.11) Active confirmed Problem 762249862 Encounter for other preprocedural examination (Z01.818) Active confirmed Plan Of Treatment Future Test Test Name Order Date COLONOSCOPY 07/27/2020 Insurance Providers Payer Name Payer Address Payer Phone Subscriber Number Group Number Insured Name Patient Relationship to Insured Coverage Start Date Coverage End Date U[employer] [address] [address] [place] [id number] LAZ MONTOYA Self - patient is the insured Medical (General) History Medical History History ICD Code vertigo Surgical History Surgery Date(Month/Year) section 2x carpal tunnel release - bilateral
--- OUTSIDE RECORDS SUMMARY | 2025-04-15 15:05 | XMS_ITS | Patient Health Record ---
Author Organization Sachin Stokes III, MD Address [address] [place] [address] Care Team Providers Care Concrete Bucket Loader Name Role Phone Dr. Sachin Stokes III Primary Care Provider Allergies Allergen (clinical drug ingredient) Drug/Non Drug Allergy documented on EMR Reaction Allergy Type Onset Date Status sulfacetamide Sulfacetamide Unknown Drug Allergy Active orange allergenic extract [place] (Diagnostic) Unknown Drug Allergy Active Results Component Value Reference Range Notes XR chest 2V Reviewed date:07/10/2024 08:52:03 AM Interpretation: Performing Lab: Notes/Report: [address] [address] XRay Report Signed Patient: Teetee Plata MR#: [id number] 13 : 1970 Acct:[id number] Age/Sex: 54 / F ADM Date: 06/19/24 Loc: HO.XRAY Attending Dr: Sachin Stokes MD Ordering Physician: Sachin Stokes MD Date of Service: 06/19/24 Procedure(s): XR chest 2V Accession Number(s): [id number] cc: Sachin Stokes MD EXAMINATION: XR CHEST [...] MD 06/20/2024 11:04 AM [facility] Dictated By: Sadiq Serra MD Signed By: <Electronically signed by Sadiq Serra MD in OV> 06/20/24 1104 DD/ 1011 TD/TT: 06/19/24 1035 Time Piece Repairer: [address] [address] XRay Report Signed Patient: Kyle Plata MR#: [id number] 13 : 1970 Acct:[id number] Age/Sex: 54 / F ADM Date: 06/19/24 Loc: HO.XRAY Attending Dr: Sachin Stokes MD Ordering Physician: Sachin Stokes MD Date of Service: 06/19/24 Procedure(s): XR blanquita st 2V Accession Number(s): [id number] cc: Sachin Stokes MD EXAMINATION: XR CHEST [...] Sadiq Serra MD 06/20/2024 11:04 AM EST RP Dictated By: Sadiq Serra MD Signed By: <Electronically signed by Sadiq Serra MD in OV> 06/20/24 1104 DD/ 1011 TD/TT: 06/19/24 1035 Time Piece Repairer: US pelvic and transvaginal Reviewed date:09/08/2024 09:14:43 AM Interpretation: Performing Lab: Notes/Report: [address] [address] Ultrasound Report Signed Patient: Teetee Plata MR#: [id number] 13 : 1970 Acct:[id number] Age/Sex: 54 / F ADM Date: 08/29/24 Loc: HO.US Attending Dr: Savita LOPEZ Ordering Physician: Savita Álvarez CNM Date of Service: 08/29/24 Procedure(s): US pelvic and transvaginal Accession Number(s): [id number] cc: Sachin Stokes MD; Savita Álvarez CNM [...] by: John Teague MD 08/29/2024 02:23 PM [facility] Dictated By: John Flores MD Signed By: <Electronically signed by John Stovall MD in OV> 08/29/24 1423 DD/ 1220 TD/TT: 08/29/24 1243 Time Piece Repairer: [place] [address] Ultrasound Report Signed Patient: Kyle Plata MR#: [id number] 13 : 1970 Acct:[id number] Age/Sex: 54 / F ADM Date: 08/29/24 Loc: HO.US Attending Dr: Savita Álvarez CNM Ordering Physician: Savita Álvarez CNM Date of Service: 08/29/24 Procedure(s): US pel edmar and transvaginal Accession Number(s): [id number] cc: Sachin Stokes MD; Savita Álvarez CNM [...] by: John Teague MD 08/29/2024 02:23 PM [facility] Dictated By: John Dailey MD Signed By: <Electronically signed by John Stovall MD in OV> 08/29/24 1423 DD/ 1220 TD/TT: 08/29/24 1243 Time Piece Repairer: SARS-CoV2/FLU/RSV (Not yet r eviewed by provider) Interpretation: Performing Lab:[address] [address] Notes/Report: Influenza A PCR NEGATIVE Negative Influenza [...] by authorized laboratories. Testing performed on the [employer] GeneXpert utilizing real-time RT-PCR. All SARS CoV2 and positive influenza A/B results are reported to [facility]. Strep A Nucleic Acid (Not ye t reviewed by provider) Interpretation: Performing Lab:[address] [address] Notes/Report: IDNOW Serial# [id number] Strep A Nucleic Acid Negative Negative All [...] reviewed by provider) Interpretation: Performing Lab: Notes/Report: [address] [address] Ultrasound Report Signed Patient: Teetee Plata MR#: [id number] 13 : 1970 Acct:[id number] Age/Sex: 55 / F ADM Date: 02/26/25 Loc: .US Attending Dr: Graciela Ernst MD Ordering Physician: Graciela Ernst MD Date of Service: 02/26/25 Procedure(s): US thyroid Accession Number(s): [id number] cc: Sachin Stokes MD; Graciela Ernst MD [...] 02/26/25 1450 DD/ 1430 TD/TT: 02/26/25 1436 Time Piece Repairer: [place] [address] Ultrasound Report Signed Patient: Kyle Plata MR#: [id number] 13 : 1970 Acct:[id number] Age/Sex: 55 / F ADM Date: 02/26/25 Loc: .US Attending Dr: Graciela Ernst MD Ordering Physician: Graciela Ernst MD Date of Service: 02/26/25 Procedure(s): US thyroid Accession Number(s): [id number] cc: Sachin Stokes MD; Graciela Ernst MD [...] 02/26/25 1450 DD/ 1430 TD/TT: 02/26/25 1436 Time Piece Repairer: Reason For Referral No Information Medications Medication [...] Problem Status W/U Status Risk Notes Problem 614867509118641 Obesity (BMI 30.0-34.9) (E66.9) Active confirmed Her body mass index is 32 and her weight is stable. We reviewed her weight loss strategy. We made a plan to lose weight at a rate of one half of a pound per week through a diet restricted in fat calories and sodium. Problem 333975870 Mixed hyperlipidemia (E78.2) Active confirmed Comprehensive blood work with a fasting lipid profile was ordered today. Problem 92058900 Tobacco dependence (F17.200) Active confirmed I reviewed her cardiovascular risk factors with her and we discussed strategies for smoking reduction in cessation. Problem 927441533 Vertigo (R42) Active confirmed Her vertigo has resolved. Problem 50115626 Tendinitis (M77.9) Active confirmed The pain in the thumb is mild and I have recommended ibuprofen. Problem 735579468 Chronic GERD (K21.9) Active confirmed She will take omeprazole twice a day for 21 days and treat breakthrough heartburn with one or 2 tablespoons of Mylanta. She will call me if any new symptoms develop Vital Signs Height 58 in 11/07/2024 Weight 155 lbs 06/21/2024 BMI 32.39 kg/m2 06/21/2024 Encounters Encounter Location Date Provider Diagnosis Sachin Stokes III, MD [address] [place] [address] DR [address], [place] [address] 06/18/2024 Sachin Stokes Obesity (BMI 30.0-34 .9) E66.9 ; Tobacco dependence F17.200 ; Mixed hyperlipidemia E78.2 ; Lumbar radiculopathy M54.16 and Chronic GERD K21.9 Sachin Stokes III, MD [address] [place] [address] [address] [place] [address] 06/21/2024 Sachin Stokes Acute cough R05.1 ; Mixed hyperlipidemia E78.2 ; Obesity (BMI 30.0-34.9) E66.9 and Tobacco dependence F17.200 Sachin Stokes III, MD [address] [place] [address] [address] [place] [address] 11/07/2024 Sachin Stokes Acute upper respirat ory [...] 08/01/2022 LIPID PANEL 06/02/2020 CBC w DIFF 09/20/2021 CBC w [...]
== END 2025-04-15 14:21 | disposition home or self-care (01) ==
LOC: HO.HMCHD 13:47
PROVIDERS: PCP Internal Medicine; Visit Provider Physician Assistant
DX: S96.912A Strain of unspecified muscle and tendon at ankle and foot level, left foot, initial encounter (principal); E78.5 Hyperlipidemia, unspecified; E05.90 Thyrotoxicosis, unspecified without thyrotoxic crisis or storm; E05.00 Thyrotoxicosis with diffuse goiter without thyrotoxic crisis or storm; R09.89 Other specified symptoms and signs involving the circulatory and respiratory systems

== ENCOUNTER 2025-04-16 10:38 | Outpatient (REF) | payer OTHER, SELFPAY ==
--- OUTSIDE RECORDS SUMMARY | 2024-06-18 11:15 | XMS_ITS ---
Author Organization Sachin Stokes III, MD Address [address] [place] [address] [place] [address] Care Team Providers Care Veneer Jointer Name Role Phone Dr. Sachin Stokes III Primary Care Provider Allergies Allergen (clinical drug ingredient) Drug/Non Drug Allergy documented on EMR Reaction Allergy Type Onset Date Status sulfacetamide Sulfacetamide Unknown Drug Allergy Active orange allergenic extract [place] (Diagnostic) Unknown Drug Allergy Active REASON FOR [...] Problem Status W/U Status Risk Notes Problem [id number] Chronic GERD (K21.9) Active confirmed She will take omeprazole twice a day for 21 days and treat breakthrough heartburn with one or 2 tablespoons of Mylanta. She will call me if any new symptoms develop Encounters Encounter Location Date Provider Diagnosis Sachin Stokes III, MD [address] [place] [address] [place] [address] 06/18/2024 Sachin Stokes Obesity (BMI 30.0-34 .9) [...] Notes * Teetee MONTOYADOB:1970 (54 yo F)Acc No.[id number]:06/18/2024 Patient: Teetee KIRAN Provider: Caterina Stokes MD :1970 A ge:54 Y S ex:Female Date:06/18/2024 Address:[address] [place], [place] [id number] Subjective: * Chief Complaints: * S evere heartburn for the last week * HPI: * : Telehealth L ocation of provider rendering services: { ...} [address] [place] [address] [address] [place] [address] L ocation of patient: michelle malikess listed [...] cigarettes a day. 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 ider rendering services:: {...} [address] [facility] [address] Location of patient:: address listed in demographics [...]
--- OUTSIDE RECORDS SUMMARY | 2024-06-21 07:00 | XMS_ITS ---
Author Organization Sachin Stokes III, MD Address [address] [place] [address] [place] [phone] Care Team Providers Care Mixer Foam Rubber Name Role Phone Dr. Sachin Stokes III Primary Care Provider [phone] Allergies Allergen (clinical drug ingredient) Drug/Non Drug Allergy documented on EMR Reaction Allergy Type Onset Date Status sulfacetamide Sulfacetamide Unknown Drug Allergy Active orange allergenic extract [place] (Diagnostic) Unknown Drug Allergy Active REASON FOR [...] Date Provider Diagnosis Sachin Stokes III, MD [address] [place] [address] [address] [place], [place] [address] 06/21/2024 Sachin Stokes Acute cough R05.1 ; [...] Notes * Marilu MONTOYA:1970 (54 yo F)Acc No.[id number]:06/21/2024 Patient: Teetee KIRAN Provider: Caterina Stokes MD :1970 A ge:54 Y S ex:Female Date:06/21/2024 Address:[address] [place] [address] Subjective: * Chief Complaints: * V iral syndromeTobacco dependenceObesityHyperlipidemiaGERD * HPI: * : Telehealth L ocation of provider rendering services: { ...} [address] [facility] [address] L ocation of patient: michelle meyers listed [...] cigarettes a day. 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 She has 3 [...] MD Date: 1 08/22/2023 Generated for Sondra rm/Chelsi/eTransmestefanía on: 12:14 PM EDT History and Physical Notes * HPI (History of Present Illness) Category Sub-Category Detail Notes Telehealth Location of [facility] ider rendering services:: {...} [address] [facility] [address] Location of patient:: address listed in demographics [...]
--- OUTSIDE RECORDS SUMMARY | 2024-11-07 07:45 | XMS_ITS ---
Author Organization Sachin Stokes III, MD Address [address] [place] [address] [place] [address] Care Team Providers Care Leaf Sucker Operator Name Role Phone Dr. Sachin Stokes III Primary Care Provider REASON FOR VISIT Severe sore throat, URI [...] Provider Diagnosis Sachin Stokes III, MD [address] [place] [address] [place] [address] 11/07/2024 Sachin Stokes Acute upper respirat ory [...] Notes * Teetee MONTOYADOB:1970 (54 yo F)Acc No.[id number]:11/07/2024 Patient: Teetee KIRAN Provider: Caterina Stokes MD :1970 A ge:54 Y S ex:Female Date:11/07/2024 Address:[address] [place] [address] Subjective: * Chief Complaints: * S evere [...] ocation of provider rendering services: { ...} [address] [place] [address] [address] [facility] [address] L ocation of patient: michelle meyers listed [...] 11/07/2024 Generated for Yelenai jag/Chelsi/eTransmitting on: 1 12:14 PM EDT History and Physical Notes * HPI (History of Present Illness) Category Sub-Category Detail Notes Telehealth Location of [facility] rendering services:: {...} [address] [place] [address] Location of patient:: address listed in demographics [...]
--- OUTSIDE RECORDS SUMMARY | 2025-02-20 08:00 | XMS_ITS ---
Author Organization Sachin Stokes III, MD Address [address] [place] [address] Care Team Providers Care Shift Nurse Manager Name Role Phone Dr. Sachin Stokes III Primary Care Provider [phone] REASON FOR VISIT Annual Exam Encounters Encounter Location Date Provider Diagnosis Sachin Stokes III, MD [address] [place] [address] [place] [address] 02/20/2025 Sachin Stokes Plan Of Treatment No Information Progress Notes * Teetee MONTOYADOB:1970 (55 yo F)Acc No.[id number]:02/20/2025 Progress Notes Patient: Teetee KIRAN Provider: Caterina Stokes MD :1970 A ge:55 Y S ex:Female Date:02/20/2025 Address:[address] [place], [place] [phone] Subjective: * Chief Complaints: * 1 . [...] 02/20/2025 Generated for Sondra rm/Chelsi/eTransmitting on: 1 12:13 PM EDT
--- OUTSIDE RECORDS SUMMARY | 2025-03-27 09:00 | XMS_ITS ---
Author Organization Sachin Stokes III, MD Address [address] [place] [address] Care Team Providers Care Metal Baler Name Role Phone Dr. Sachin Stokes III Primary Care Provider [phone] REASON FOR VISIT Annual Exam Encounters Encounter Location Date Provider Diagnosis Sachin Stokes III, MD [address] [place] [address] [place] [address] 03/27/2025 Sachin Stokes Plan Of Treatment No Information Progress Notes * Teetee MONTOYADOB:1970 (55 yo F)Acc No.[id number]:03/27/2025 Progress Notes Patient: Teteee KIRAN Provider: Caterina Stokes MD :1970 A ge:55 Y S ex:Female Date:03/27/2025 Address:[address] [place], [place] [id number] Subjective: * Chief Complaints: * 1 . Annual Exam. * Medical History: Objective: * Vitals: Assessment: Plan: * Treatment: * Images: * The named appointment provid er may or may not be the originator of this progress note, and it is not deemed complete until electronically signed by the appointment provider. Sign off status: Pending * Provider: Caterina Stokes MD Date: 0 03/27/2025 Generated for Sondra rm/Chelsi/eTransmitting on: 1 12:13 PM EDT
--- NOTE | ~2025-04-16 | XR_ITS ---
EXAMINATION: XR ANKLE 3 OR MORE VIEWS LEFT, XR TIBIA FIBULA 2 VIEWS LEFT HISTORY: S99.912A - Unspecified injury of left ankle, initial encounter COMPARISON: There are no prior studies available for comparison. FINDINGS: Three views of the left ankle and AP and lateral views of the left tibia and fibula are submitted. Osseous mineralization is normal. There is no fracture or dislocation. The joint spaces are preserved. There is mild soft tissue swelling over the medial malleolus. XR/XR ankle LT min 3V IMPRESSION: Mild soft tissue swelling over the medial malleolus. No evidence of fracture of the left ankle or tibia and fibula. Electronically signed by: Sachin Goncalves MD 04/16/2025 11:06 AM EDT
--- NOTE | ~2025-04-16 | XR_ITS ---
EXAMINATION: XR ANKLE 3 OR MORE VIEWS LEFT, XR TIBIA FIBULA 2 VIEWS LEFT HISTORY: S99.912A - Unspecified injury of left ankle, initial encounter COMPARISON: There are no prior studies available for comparison. FINDINGS: Three views of the left ankle and AP and lateral views of the left tibia and fibula are submitted. Osseous mineralization is normal. There is no fracture or dislocation. The joint spaces are preserved. There is mild soft tissue swelling over the medial malleolus. XR/XR tibia fibula LT 2V IMPRESSION: Mild soft tissue swelling over the medial malleolus. No evidence of fracture of the left ankle or tibia and fibula. Electronically signed by: Sachin Goncalves MD 04/16/2025 11:06 AM EDT
--- OUTSIDE RECORDS SUMMARY | 2025-04-16 12:14 | XMS_ITS | Clinical Summary ---
Author Organization [address] [facility] Address [address] [place] [address] Phone Care Team Providers Care Mill And Coal Transport Operator Name Role Phone Sachin Stokes MD Primary Care Provider [phone] Allergies No known active allergies Medications silver [...] to complete this topic Insurance [facility] [place] [id number] Care Teams Mill And Coal Transport Operator Relationship Specialty Start Date End Date Sachin Stokes MD [facility] [address] [address] PCP - General 08/31/23
--- OUTSIDE RECORDS SUMMARY | 2025-04-16 12:14 | XMS_ITS | Patient Health Record ---
Author Organization Sachin Stokes III, MD Address [address] [place] [address] Care Team Providers Care Paraprofessional Education Assistant Name Role Phone Dr. Sachin Stokes III Primary Care Provider [phone] Allergies Allergen (clinical drug ingredient) Drug/Non Drug Allergy documented on EMR Reaction Allergy Type Onset Date Status sulfacetamide Sulfacetamide Unknown Drug Allergy Active orange allergenic extract [place] (Diagnostic) Unknown Drug Allergy Active Results Component Value Reference Range Notes XR chest 2V Reviewed date:07/10/2024 08:52:03 AM Interpretation: Performing Lab: Notes/Report: [address] [address] XRay Report Signed Patient: Teetee Plata MR#: [id number] 13 : 1970 Acct:[id number] Age/Sex: 54 / F ADM Date: 06/19/24 Loc: HO.XRAY Attending Dr: Sachin Stokes MD Ordering Physician: Sahcin Stokes MD Date of Service: 06/19/24 Procedure(s): XR chest 2V Accession Number(s): [id number] cc: Sachin Stokes MD EXAMINATION: XR CHEST CLINICAL INFORMATION: Cough. COMPARISON: None available. TECHNIQUE: 2 views of the chest were obtained. FINDINGS: The lungs are clear. The cardiomediastinal silhouette is normal in size. There is no pleural effusion or pneumothorax. No acute osseous abnormality. XR/XR chest 2V IMPRESSION: No acute cardiopulmonary findings. Electronically signed by: Sadiq Serra MD 06/20/2024 11:04 AM [facility] Dictated By: Sadiq Serra MD Signed By: <Electronically signed by Sadiq Serra MD in OV> 06/20/24 1104 DD/ 1011 TD/TT: 06/19/24 1035 Bias Cutter: [address] [address] XRay Report Signed Patient: Kyle Plata MR#: [id number] 13 : 1970 Acct:[id number] Age/Sex: 54 / F ADM Date: 06/19/24 Loc: HO.XRAY Attending Dr: Sachin Stokes MD Ordering Physician: Sachin Stokes MD Date of Service: 06/19/24 Procedure(s): XR blanquita st 2V Accession Number(s): [id number] cc: Sachin Stokes MD EXAMINATION: XR CHEST [...] 06/20/24 1104 DD/ 1011 TD/TT: 06/19/24 1035 Bias Cutter: US pelvic and transvaginal Reviewed date:09/08/2024 09:14:43 AM Interpretation: Performing Lab: Notes/Report: [address] [address] Ultrasound Report Signed Patient: Teetee Plata MR#: [id number] 13 : 1970 Acct:[id number] Age/Sex: 54 / F ADM Date: 08/29/24 Loc: HO.US Attending Dr: Savita LOPEZ Ordering Physician: Savita Álvarez CNM Date of Service: 08/29/24 Procedure(s): US pelvic and transvaginal Accession Number(s): [id number] cc: Sachin Stokes MD; Savita Álvarez CNM [...] by: John Teague MD 08/29/2024 02:23 PM [facility] Dictated By: John Flores MD Signed By: <Electronically signed by John Stovall MD in OV> 08/29/24 1423 DD/ 1220 TD/TT: 08/29/24 1243 Bias Cutter: [place] [address] Ultrasound Report Signed Patient: Kyle Plata MR#: [id number] 13 : 1970 Acct:[id number] Age/Sex: 54 / F ADM Date: 08/29/24 Loc: HO.US Attending Dr: Savita Álvarez CNM Ordering Physician: Savita Álvarez CNM Date of Service: 08/29/24 Procedure(s): US pel edmar and transvaginal Accession Number(s): [id number] cc: Sachin Stokes MD; Savita Álvarez CNM [...] by: John Teague MD 08/29/2024 02:23 PM [facility] Dictated By: John Dailey MD Signed By: <Electronically signed by John Stovall MD in OV> 08/29/24 1423 DD/ 1220 TD/TT: 08/29/24 1243 Bias Cutter: SARS-CoV2/FLU/RSV (Not yet r eviewed by provider) Interpretation: Performing Lab:[address] [address] Notes/Report: Influenza A PCR NEGATIVE Negative Influenza [...] by authorized laboratories. Testing performed on the [employer] GeneXpert utilizing real-time RT-PCR. All SARS CoV2 and positive influenza A/B results are reported to [facility]. Strep A Nucleic Acid (Not ye t reviewed by provider) Interpretation: Performing Lab:[address] [address] Notes/Report: IDNOW Serial# [id number] Strep A Nucleic Acid Negative Negative All [...] reviewed by provider) Interpretation: Performing Lab: Notes/Report: [address] [address] Ultrasound Report Signed Patient: Teetee Plata MR#: [id number] 13 : 1970 Acct:[id number] Age/Sex: 55 / F ADM Date: 02/26/25 Loc: .US Attending Dr: Graciela Ernst MD Ordering Physician: Graciela Ernst MD Date of Service: 02/26/25 Procedure(s): US thyroid Accession Number(s): [id number] cc: Sachin Stokes MD; Graciela Ernst MD [...] 02/26/25 1450 DD/ 1430 TD/TT: 02/26/25 1436 Bias Cutter: [place] [address] Ultrasound Report Signed Patient: Kyle Plata MR#: [id number] 13 : 1970 Acct:[id number] Age/Sex: 55 / F ADM Date: 02/26/25 Loc: .US Attending Dr: Graciela Ernst MD Ordering Physician: Graciela Ernst MD Date of Service: 02/26/25 Procedure(s): US thyroid Accession Number(s): [id number] cc: Sachin Stokes MD; Graciela Ernst MD [...] 02/26/25 1450 DD/ 1430 TD/TT: 02/26/25 1436 Bias Cutter: Reason For Referral No Information Medications Medication [...] Problem Status W/U Status Risk Notes Problem [id number] Obesity (BMI 30.0-34.9) (E66.9) Active confirmed Her body mass index is 32 and her weight is stable. We reviewed her weight loss strategy. We made a plan to lose weight at a rate of one half of a pound per week through a diet restricted in fat calories and sodium. Problem 589116965 Mixed hyperlipidemia (E78.2) Active confirmed Comprehensive blood work with a fasting lipid profile was ordered today. Problem 49493592 Tobacco dependence (F17.200) Active confirmed I reviewed her cardiovascular risk factors with her and we discussed strategies for smoking reduction in cessation. Problem 213869870 Vertigo (R42) Active confirmed Her vertigo has resolved. Problem 24176690 Tendinitis (M77.9) Active confirmed The pain in the thumb is mild and I have recommended ibuprofen. Problem 835544586 Chronic GERD (K21.9) Active confirmed She will take omeprazole twice a day for 21 days and treat breakthrough heartburn with one or 2 tablespoons of Mylanta. She will call me if any new symptoms develop Vital Signs Height 58 in 11/07/2024 Weight 155 lbs 06/21/2024 BMI 32.39 kg/m2 06/21/2024 Encounters Encounter Location Date Provider Diagnosis Sachin Stokes III, MD [address] [place] [address] [address], [place] [address] 06/18/2024 Sachin Stokes Obesity (BMI 30.0-34 .9) E66.9 ; Tobacco dependence F17.200 ; Mixed hyperlipidemia E78.2 ; Lumbar radiculopathy M54.16 and Chronic GERD K21.9 Sachin Stokes III, MD [address] [place] [address] [address] [place] [address] 06/21/2024 Sachin Stokes Acute cough R05.1 ; Mixed hyperlipidemia E78.2 ; Obesity (BMI 30.0-34.9) E66.9 and Tobacco dependence F17.200 Sachin Stokes III, MD [address] [place] [address] [address] [place] [address] 11/07/2024 Sachin Stokes Acute upper respirat ory [...]
--- OUTSIDE RECORDS SUMMARY | 2025-04-16 12:14 | XMS_ITS | Patient Health Record ---
Author Organization [facility] Address [address] [place] [address] Care Team Providers Care Sorting Livestock Worker Name Role Phone Kike MENDEZ, Sachin Primary [...] Problem Status W/U Status Risk Notes Problem 210632614 Colon cancer screening (Z12.11) Active confirmed Problem 696768088 Encounter for other preprocedural examination (Z01.818) Active confirmed Plan Of Treatment Future Test Test Name Order Date COLONOSCOPY 07/27/2020 Insurance Providers Payer Name Payer Address Payer Phone Subscriber Number Group Number Insured Name Patient Relationship to Insured Coverage Start Date Coverage End Date [employer] [address] [address] [place] [address] [phone] [id number] LAZ MONTOYA Self - patient is the insured Medical (General) History Medical History History ICD Code vertigo Surgical History Surgery Date(Month/Year) section 2x carpal tunnel release - bilateral
== END 2025-04-16 10:39 | disposition home or self-care (01) ==
LOC: HO.XRAY 10:38
PROVIDERS: Visit Provider Physician Assistant
DX: S99.912A Unspecified injury of left ankle, initial encounter (principal)
CPT/HCPCS: 73590; 73610

== ENCOUNTER → 2025-04-16 10:45 | Outpatient (BNV) | payer OTHER, SELFPAY | PROVIDERS: Visit Provider Radiology Diagnostic Radiology | DX: R22.42 Localized swelling, mass and lump, left lower limb (principal) | CPT/HCPCS: 73590; 73610 ==

== ENCOUNTER 2025-04-30 08:58 | Outpatient (AMB) | payer OTHER, SELFPAY ==
--- OUTSIDE RECORDS SUMMARY | 2024-06-18 11:15 | XMS_ITS ---
Author Organization Sachin Stokes III, MD Address [address] [place] [address] [place] [address] Care Team Providers Care Clamshell Operator Name Role Phone Dr. Sachin Stokes III Primary Care Provider [phone] Allergies Allergen (clinical drug ingredient) Drug/Non Drug Allergy documented on EMR Reaction Allergy Type Onset Date Status sulfacetamide Sulfacetamide Unknown Drug Allergy Active orange allergenic extract [place] (Diagnostic) Unknown Drug Allergy Active REASON FOR VISIT Severe heartburn for the last week Medications Medication SIG (Take, Route, Frequency, Duration) Notes Start Date End Date Status Zithromax Z-Dannie 250 MG 2 tablet on the f irst day, then 1 tablet daily for 4 days Orally 2 tablets on first day then one tablet daily for 5 days 06/18/2024 06/23/2024 Active Ondansetron 4 MG 1 tablet Orally Once a day Active dexAMETHasone 2 MG 1 tablet Orally ever y 12 hrs 01/25/2021 Active Fluticasone Propionate 50 MCG/ACT USE 1 SPRAY INTRANASALLY 2 TIMES PER DAY FOR 30 DAYS Nasal Active Doxycycline Hyclate 100 MG 1 capsule Ora lly Twice a day 08/24/2023 Active Social History Alcohol Screen Question Answer Notes Did you [...] Never (0 point) Points 3 Interpretation Positive Problems Problem Type SNOMED Code ICD Code Onset Dates Problem Status W/U Status Risk Notes Problem [id number] Chronic GERD (K21.9) Active confirmed She will take omeprazole twice a day for 21 days and treat breakthrough heartburn with one or 2 tablespoons of Mylanta. She will call me if any new symptoms develop Encounters Encounter Location Date Provider Diagnosis Sachin Stokes III, MD [address] [place] [address] [place] [address] 06/18/2024 Sachin Stokes Obesity (BMI 30.0-34 .9) E66.9 ; Tobacco dependence F17.200 ; Mixed hyperlipidemia E78.2 ; Lumbar radiculopathy M54.16 and Chronic GERD K21.9 Assessments Encounter Date Diagnosis (ICD Code) Assessment Notes Treat ment Notes Treatment Clinical Notes 06/18/2024 Obesity (BMI 30.0-34.9) (ICD-10 - E66.9) Her body mass index is 32 and her weight is stable. We reviewed her weight loss strategy. We made a plan to lose weight at a rate of one half of a pound per week through a diet restricted in fat calories and sodium. 06/18/2024 Tobacco dependence (ICD-10 - F17.200) I reviewed her cardiovascular risk factors with her and we discussed strategies for smoking reduction in cessation. 06/18/2024 Mixed hyperlipidemia (ICD-10 - E78.2) Comprehensive blood work with a fasting lipid profile was ordered today. 06/18/2024 Lumbar radiculopathy (ICD-10 - M54.16) She was given dexamethasone and told to rest and use a hot pack. She will have physical therapy. Images will be obtained if necessary. 06/18/2024 Chronic GERD (ICD-10 - K21.9) She will take omeprazole twice a day for 21 days and treat breakthrough heartburn with one or 2 tablespoons of Mylanta. She will call me if any new symptoms develop Plan Of Treatment Medication Medication Name Sig Start Date Stop Date Notes Zithromax Z-Dannie 250 MG 2 tablet on the f irst day, then 1 tablet daily for 4 days Orally 2 tablets on first day then one tablet daily for 5 days 06/18/2024 06/23/2024 Ondansetron 4 MG 1 tablet Orally Once a day dexAMETHasone 2 MG 1 tablet Orally every 12 hrs 01/25/2021 Fluticasone Propionate 50 MCG/ACT USE 1 SPRAY INTRANASALLY 2 TIMES PER DAY FOR 30 DAYS Nasal Doxycycline Hyclate 100 MG 1 capsule Orally Twice a day Next Appt Details Follow Up: Monday TV, End of the week if no improvement, Reason: TV review cxr done at , Monitor progress of cough Progress Notes * Teetee MONTOYADOB:1970 (54 yo F)Acc No.[id number]:06/18/2024 Patient: Teetee KIRAN Provider: Caterina Stokes MD :1970 A ge:54 Y S ex:Female Date:06/18/2024 Address:[address] [place], [place] [id number] Subjective: * Chief Complaints: * S evere heartburn for the last week * HPI: * : Telehealth L ocation of provider rendering services: { ...} [address] [place] [address] [address] [place] [address] L ocation of patient: michelle malikess listed in demographics for today's visit P atient identification confirmed using: ROBERT Odell ame T elehealth method: T elephone only. Patient not visible to care provider. C onsent: P atient verbally consented to treatment, Patient verbally consented to billing insurance company, Patient informed of any privacy concerns related to method of visit T otal time spent with patient (mins) 1 5 This telehealth visit took place over 15 min. with the patient at home and me in my office. She gave consent for billing. The patient, a 54-year-old female, reported a cough that started a day or two before . The cough was initially mild and accompanied by a severe case of acid reflux, which lasted for a week. The patient stopped drinking coffee, suspecting it to be the cause of the reflux, which subsequently subsided. However, the cough has progressively worsened, causing pain in the throat and ribs. The cough is non-productive and the patient denies any fever. The patient also mentioned a soreness on the right side of her neck last week, which has since resolved. She is a smoker but reports not smoking heavily. * ROS: G eneral/Constitutional: pain S ubsternal burning epigastric pain. C hills d enies. F atigue a dmits. D enies F ever, d enies. A llergy/Immunology: Admits Shelby lucero. E NT: Decreased hearing d enies. R espiratory: Cough d enies. C ardiovascular: Chest pain with exertion d enies. D yspnea on exertion?denies. S hortness of breath d enies. G astrointestinal: Constipation o ccasional. D ecreased appetite d enies. D iarrhea d enies. H eartburn n ot controlled with medications. N ausea d enies. R ectal bleeding [...] c esarean section 11/1989right carpal tunnel release 2010le carpal tunnel relaese 2014No history * Hospitalization/Major Diagno stic Procedure: N o history * Family History: F ather: alive. M other: alive 69 yrs, diagnosed with HTN, CVD. C hildren: alive. P aternal Grand Father: , diagnosed with [...] History: T obacco Use: T obacco Use/Smoking . D rugs/Alcohol: D rugs H ave you [...] cigarettes a day. 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 She has 3 children. Bo Grant and Lynne.. Smoking: The patient is a smoker but not heavy. * Medications: T akingOndansetron 4 MG Tablet Disintegrating 1 tablet Orally Once a day dexAMETHasone 2 MG Tablet 1 tablet Orally every 12 hrs Fluticasone Propionate 50 MCG/ACT Suspension USE 1 SPRAY INTRANASALLY 2 TIMES PER DAY FOR 30 DAYS Nasal Doxycycline Hyclate 100 MG Capsule 1 capsule Orally Twice a day Taking Ondansetron 4 MG Tablet Disintegrating 1 tablet Orally Once a day Taking dexAMETHasone 2 MG Tablet 1 tablet Orally every 12 hrs Taking Fluticasone Propionate 50 MCG/ACT Suspension USE 1 SPRAY INTRANASALLY 2 TIMES PER DAY FOR 30 DAYS Nasal Taking Doxycycline Hyclate 100 MG Capsule 1 capsule Orally Twice a day * Allergies: S ulfacetamide: AllergyOrange (Diagnostic): Allergy Objective: * Vitals: Assessment: * Assessment: 1. O besity (BMI 30.0-34.9) - E66.9 (Primary) N otes :Her body mass index is 32 and her weight is stable. We reviewed her weight loss strategy. We made a plan to lose weight at a rate of one half of a pound per week through a diet restricted in fat calories and sodium. 2 . T obacco dependence - F17.200 N otes :I reviewed her cardiovascular risk factors with her and we discussed strategies for smoking reduction in cessation. 3 . M ixed hyperlipidemia - E78.2 N otes :Comprehensive blood work with a fasting lipid profile was ordered today. 4 . L umbar radiculopathy - M54.16 N otes :She was given dexamethasone and told to rest and use a hot pack. She will have physical therapy. Images will be obtained if necessary. 5 . C hronic GERD - K21.9 N otes :She will take omeprazole twice a day for 21 days and treat breakthrough heartburn with one or 2 tablespoons of Mylanta. She will call me if any new symptoms develop Plan: * Treatment: 2. O thers Start Zithromax Z-Dannie Tablet, 250 MG, 2 tablet on the first day, then 1 tablet daily for 4 days, Orally, 2 tablets on first day then one tablet daily, 5 days, 6, Refills 0. * Imaging: * I maging: XR CHEST 2 VIEW PA & LAT * Procedure Codes: 9 9442 PHONE E/M [...] of tobacco use and urged to quit. 1 08/19/2023 Patient Lifestyle Goals P atient wants to quit Treatment Goals S et a quit date, Cut down by 1 cigarette a week Barriers S tress, Social smoker Self-Management Plan M tom a plan to cut down number of cigarettes over time and set a date to work towards quitting * Follow Up: F riday TV, End of the week if no improvement (Reason: TV review cxr done at , Monitor progress of cough) * Images: * Sign off status: Completed true * Provider: Caterina Stokes MD Date: 1 08/19/2023 Generated for Sondra rm/Chelsi/eTransmitting on: 09:43 AM EDT History and Physical Notes * HPI (History of Present Illness) Category Sub-Category Detail Notes Telehealth Location of [facility] ider rendering services:: {...} [address] [facility] [address] Location of patient:: address listed in demographics [...]
--- OUTSIDE RECORDS SUMMARY | 2024-06-21 07:00 | XMS_ITS ---
Author Organization Sachin Stokes III, MD Address [address] [place] [address] [place] [address] Care Team Providers Care Beveler Name Role Phone Dr. Sachin Stokes III Primary Care Provider [phone] Allergies Allergen (clinical drug ingredient) Drug/Non Drug Allergy documented on EMR Reaction Allergy Type Onset Date Status sulfacetamide Sulfacetamide Unknown Drug Allergy Active orange allergenic extract [place] (Diagnostic) Unknown Drug Allergy Active REASON FOR VISIT Viral syndrome, Tobacco dependence, Obesity, Hyperlipidemia, GERD Medications Medication SIG (Take, Route, Frequency, Duration) Notes Start Date End Date Status Zithromax Z-Danine 250 MG 2 tablet on the f [...] Date Provider Diagnosis Sachin Stokes III, MD [address] [place] [address] [address] [place]ST[place]AND[place], [place] [address] 06/21/2024 Sachin Stokes Acute cough R05.1 ; [...] Notes * Marilu MONTOYA:1970 (54 yo F)Acc No.[id number]:06/21/2024 Patient: Teetee KIRAN Provider: Caterina Stokes MD :1970 A ge:54 Y S ex:Female Date:06/21/2024 Address:[address] [place] [address] Subjective: * Chief Complaints: * V iral syndromeTobacco dependenceObesityHyperlipidemiaGERD * HPI: * : Telehealth L ocation of provider rendering services: { ...} [address] [facility] [address] L ocation of patient: michelle meyers listed [...] a day. 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 She has 3 [...] 1 08/22/2023 Generated for Sondra rm/Chelsi/eTransmestefanía on: 09:44 AM EDT History and Physical Notes * HPI (History of Present Illness) Category Sub-Category Detail Notes Telehealth Location of [facility] ider rendering services:: {...} [address] [facility] [address] Location of patient:: address listed in demographics [...]
--- OUTSIDE RECORDS SUMMARY | 2024-11-07 07:45 | XMS_ITS ---
Author Organization Sachin Stokes III, MD Address [address] [place] [address] [place] [address] Care Team Providers Care Neuropsychologist Name Role Phone Dr. Sachin Stokes III [...] Date Provider Diagnosis Sachin Stokes III, MD [address] [place] [address] [place] [address] 11/07/2024 Sachin Stokes Acute upper respirat ory [...] Notes * Teetee MONTOYADOB:1970 (54 yo F)Acc No.[id number]:11/07/2024 Patient: Teetee KIRAN Provider: Caterina Stokes MD :1970 A ge:54 Y S ex:Female Date:11/07/2024 Address:[address] [place] [address] Subjective: * Chief Complaints: * S evere [...] ocation of provider rendering services: { ...} [address] [place] [address] [address] [facility] [address] L ocation of patient: michelle meyers listed [...] 11/07/2024 Generated for Yelenai jag/Chelsi/eTransmitting on: 1 09:44 AM EDT History and Physical Notes * HPI (History of Present Illness) Category Sub-Category Detail Notes Telehealth Location of [facility] rendering services:: {...} [address] [place] [address] Location of patient:: address listed in demographics [...]
--- OUTSIDE RECORDS SUMMARY | 2025-02-20 08:00 | XMS_ITS ---
Author Organization Sachin Stokes III, MD Address [address] [place] [address] Care Team Providers Care School Librarian Name Role Phone Dr. Sachin Stokes III Primary Care Provider REASON FOR VISIT Annual Exam Encounters Encounter Location Date Provider Diagnosis Sachin Stokes III, MD [address] [place] [address] [place] [address] 02/20/2025 Sachin Stokes Plan Of Treatment No Information Progress Notes * Teetee MONTOYADOB:1970 (55 yo F)Acc No.[id number]:02/20/2025 Progress Notes Patient: Teetee KIRAN Provider: Caterina Stokes MD :1970 A ge:55 Y S ex:Female Date:02/20/2025 Address:[address] [place], [place] [phone] Subjective: * Chief Complaints: * 1 . [...] 02/20/2025 Generated for Sondra rm/Chelsi/eTransmitting on: 1 09:44 AM EDT
--- OUTSIDE RECORDS SUMMARY | 2025-03-27 09:00 | XMS_ITS ---
Author Organization Sachin Stokes III, MD Address [address] [address] Care Team Providers Care Oil Well Service Operator Name Role Phone Dr. Sachin Stokes III Primary Care Provider [phone] REASON FOR VISIT Annual Exam Encounters Encounter Location Date Provider Diagnosis Sachin Stokes III, MD [address] [place] [address] [place] [address] 03/27/2025 Sachin Stokes Plan Of Treatment No Information Progress Notes * Teetee MONTOYADOB:1970 (55 yo F)Acc No.[id number]:03/27/2025 Progress Notes Patient: Teetee KIRAN Provider: Caterina Stokes MD :1970 A ge:55 Y S ex:Female Date:03/27/2025 Address:[address] [place], [place] [phone] Subjective: * Chief Complaints: * 1 . [...] 03/27/2025 Generated for Sondra rm/Chelsi/eTransmitting on: 1 09:44 AM EDT
--- NOTE | 2025-04-30 09:01 | A.OFFVIS_ITS ---
Vital Signs 04/30/25 09:02 Height 4 ft 9.5 in Weight 164 lb 10.965 oz BMI 35.0 BP 120/62 Pulse 58 Pulse Source Pulse Oximeter Pulse Oximetry (%) 98 Oxygen Delivery Method Room Air Intake Visit Reasons: f/u hyperthyroidism due to Graves DX Intake Note: Patient present today for Hyperthyroidism due to Graves Dx. Commercial Portfolio Manager Required: No Accompanied by: Self / Same As Patient Allergies Sulfa (Sulfonamide Antibiotics) (SULFA (SULFONAMIDE ANTIBIOTICS)) Allergy (Mild, Verified 04/30/25 09:04) RASH Medication List - Last Reconciled 04/30/25 by Sachin Cade MD acetaminophen 1,000 mg (2 x 500 mg) PO QID PRN blood pressure test kit-medium As directed. Check blood pressure daily ibuprofen 600 mg PO Q6H PRN [Meclizine PO PRN] methimazole 20 mg (2 x 10 mg) PO DAILY metoprolol succinate ER 50 mg PO DAILY HPI Comments Details: The patient is a 55-year-old female presenting with hyperthyroidism management. She was diagnosed with hyperthyroidism in December of this year and has been on methimazole 20 mg and metoprolol 50 mg daily since diagnosis. The patient initially experienced palpitations and tremors, which have since improved with medication. The patient reports a sensation of heat intolerance, experiencing warmth when others feel cold. She denies any significant weight loss, frequent bowel movements, or difficulty swallowing. There is a slight sensation of neck swelling and difficulty breathing when lying flat, but no tenderness or hoarseness is reported. Family history reveals that her son has an underactive thyroid. The patient has a history of smoking, which she ceased in November, and she denies any history of radiation to the neck or thyroid nodules. She has experienced recurrent strep throat infections over the past two years. Was initially diagnosed with Graves disease in December 2024 . Not seen previous art gallery director . Currently on methimazole 20 mg q.d. and metoprolol 50 mg QD for 3 mos Currently denies any dysphagia or hoarseness of voice. Denies sensation of swelling in the neck but some difficulty breathing while lying flat. Denies any tenderness in the neck. Denies any palpitations, less tremors, -weight loss,- frequent bowel movements. Denies any ocular complaints, blurred or double vision. Denies hair loss, -dry skin, has heat Denies any history of head or neck irradiation. son has hypothyrodism Had biopsy of nodules in the past. ex tobacco use quit 11/2024 . Denies biotin use Thyroid US: Labs: - Labs: TSH undetectable, T4 elevated at 2.10, T3 elevated at 18.6 - Labs: Positive TRAB antibodies for Graves' disease at 29.26 - Labs: Slightly elevated liver enzymes with repeat level showing significant elevation of liver enzymes. Was referred to surgeon for possible thyroidectomy. Saw Dr. Rose who felt she did not have R[place] The patient is a 55-year-old female presenting with Graves' disease management and monitoring of liver enzyme levels. Graves' disease was diagnosed with strongly positive antibodies, indicating a persistent condition. The patient is currently on methimazole, with the dose recently adjusted to 20 mg due to changes in free T4 levels. The patient reports no palpitations or muscle aches but experiences significant heat intolerance and sleep disturbances, which may be related to thyroid activity. The patient has elevated liver enzymes, which have shown some improvement but remain a concern. The liver enzyme levels were initially very high, prompting a reduction in methimazole dosage. [facility] Medical History Graves disease Personal history of nicotine dependence Hyperthyroidism HLD (hyperlipidemia) HTN (hypertension) Hot flashes Uterine fibroid Vertigo Surgical History History of colonoscopy (~09/29/20) History of bilateral ligation of fallopian tubes History of bilateral carpal tunnel release Hx of section Family History Maternal Grandmother History of breast cancer Maternal Grandfather Colon cancer Social History Alcohol intake: current Alcohol intake frequency: holidays/special occasions only Alcohol type: wine Patient Tobacco Use Status: Former Tobacco user Cigarette Packs Per Day: 0.25 Cigarettes Per Day: 3 Years Smoked: 39 e-Cigarette/Vaping Use: Never Used Sexual orientation: Straight/Heterosexual Gender identity: Female Physical Exam Vital Signs: BMI result Body Mass Index 35.0 HEENT reveals absence of lid lag , stare or proptosis but ??mild exopthalmus in L eye or eyebrow loss. Thyroid gland measure 15 gms . No nodules or tenderness palpated. There is no cervical adenopathy palpated. Lungs CTA. Heart S1, S2 Reg R/R -M/R/G. Abdominal exam benign. Skin exam reveals absence of dryness or thyroid dermopathy or vitiligo. Nail exam reveals absence of thyroid acropachy or oncholysis. Neurologic exam reveals 2+ reflexes . Muscle Strength is 5/5 proximally. . Assessment & Plan Assessment & Plan (1) Graves disease: Code(s): E05.00 - Thyrotoxicosis with diffuse goiter without thyrotoxic crisis or storm Category: Medical Plan: See below (2) Hyperthyroidism: Code(s): E05.90 - Thyrotoxicosis, unspecified without thyrotoxic crisis or storm Category: Medical Plan: 1. Hyperthyroidism The patient is managed with methimazole 20 mg daily, with symptom improvement noted. Thyroid function tests will be monitored today, and the methimazole dose adjusted as needed. The patient is advised to report any signs of infection immediately due to agranulocytosis risk. We will also recheck a liver panel today. Suggested consultation with Dr. Dumont for surgical option if transaminitis persist or worsens on methimazole 2. Graves' disease High antibody titers indicate active disease. Continued methimazole management is planned, with potential consideration of thyroidectomy or radioactive iodine if remission is not achieved. The patient is informed about thyroid eye disease risks and advised to monitor for symptoms. 3. Thyroid eye disease- saw Dr. Rose felt she did not have [place] The patient had an opportunity to ask questions regarding treatment plan. The patient expressed understanding and agreement with the above treatment plan. Patient was informed and verbally consented to the use of an ambient scribe for clinic note documentation during this visit. Orders: Orders Triiodothyronine T3 Free Today E05.00 - Thyrotoxicosis with diffuse goiter without thyrotoxic crisis or storm Thyroid Stimulating Hormone Today E05.00 - Thyrotoxicosis with diffuse goiter without thyrotoxic crisis or storm Free T4 (Free Thyroxine) Today E05.00 - Thyrotoxicosis with diffuse goiter without thyrotoxic crisis or storm Liver Panel Today E05.00 - Thyrotoxicosis with diffuse goiter without thyrotoxic crisis or storm Coding Level of Care Code Est Pt Level 3 (53445) Diagnoses Graves disease E05.00 Hyperthyroidism E05.90
[2025-04-30 09:02] VITALS: BP 120/62; PULSE 58; O2SAT 98; BMI 35.0
--- OUTSIDE RECORDS SUMMARY | 2025-04-30 09:44 | XMS_ITS | Patient Health Record ---
Author Organization [facility] Address [address] [place] [address] Care Team Providers Care Pantry Goods Maker Name Role Phone Kike MENDEZ, Sachin Primary [...] at 5:00 p.m. the day before the procedure; Duration: 1 day 07/27/2020 Active Meclizine HCl 25 [...] Problem Status W/U Status Risk Notes Problem Colon cancer screening (565055944) Colon cancer screening (Z12.11) Active confirmed Problem Pre-procedure evaluation check (750127433) Encounter for other preprocedural examination (Z01.818) Active confirmed Plan Of Treatment Future Test Test Name Order Date COLONOSCOPY 07/27/2020 Insurance Providers Payer Name Payer Address Payer Phone Subscriber Number Group Number Insured Name Patient Relationship to Insured Coverage Start Date Coverage End Date R [address] [address] [place] [address] [id number] LAZ MONTOYA Self - patient is the insured Medical (General) History Medical History History ICD Code vertigo Surgical History Surgery Date(Month/Year) section 2x carpal tunnel release - bilateral
--- OUTSIDE RECORDS SUMMARY | 2025-04-30 09:44 | XMS_ITS | Clinical Summary ---
Author Organization 175 [facility] Address [address] [place] [address] Phone Care Team Providers Care Diesel Inspector Name Role Phone Sachin Stokes MD Primary Care Provider [phone] Allergies No known active allergies Medications silver [...] Last Done Comments Breast Cancer Screening 1970 Colorectal Cancer Screening: Colonoscopy 1969 DTaP,Tdap,and Td Vaccines (1 - Tdap) 02/12/1988 Hepatitis B Vaccines (1 of 3 - 19+ 3-dose series) 02/12/1988 Cervical Cancer Screening: P ap Smear 1990 Pneumococcal Vaccine: 50+ Years (1 of 1 - PCV) 2019 Zoster Vaccines (1 of 2) 2019 Cholesterol Screening (Lipid Panel) 02/09/2024 HIV Screening 02/09/2024 Hepatitis C Screening 02/09/2024 Social Influencers of Health Screening 02/09/2024 Depression Screening 07/17/2024 COVID-19 Vaccine (3 - 2024-2 6 season) 2025 12/31/2020, 12/03/2020 Influenza Vaccine (#1) 2025 RSV Immunization Adult Patients (1 - 1-dose 75+ series) 02/12/2044 HIB Vaccines Aged Out No longer eligi [...] patient's age to complete this topic Insurance [facility] [place] [id number] Care Teams Diesel Inspector Relationship Specialty Start Date End Date Sachin Stokes MD [address] [place] [address] [phone] [facility] - General 08/31/23
--- OUTSIDE RECORDS SUMMARY | 2025-04-30 09:45 | XMS_ITS | Patient Health Record ---
Author Organization Sachin Stokes III, MD Address [address] [place] [address] Care Team Providers Care Sprinkler Driver Name Role Phone Dr. Sachin Stokes III Primary Care Provider Allergies Allergen (clinical drug ingredient) Drug/Non Drug Allergy documented on EMR Reaction Allergy Type Onset Date Status sulfacetamide Sulfacetamide Unknown Drug Allergy Active orange allergenic extract [place] (Diagnostic) Unknown Drug Allergy Active Results Component Value Reference Range Notes XR chest 2V Reviewed date:07/10/2024 08:52:03 AM Interpretation: Performing Lab: Notes/Report: [address] [address] XRay Report Signed Patient: Teetee Plata MR#: [id number] 13 : 1970 Acct:[id number] Age/Sex: 54 / F ADM Date: 06/19/24 Loc: HO.XRAY Attending Dr: Sachin Stokes MD Ordering Physician: Sachin Stokes MD Date of Service: 06/19/24 Procedure(s): XR chest 2V Accession Number(s): [id number] cc: Sachin Stokes MD EXAMINATION: XR CHEST CLINICAL INFORMATION: Cough. COMPARISON: None available. TECHNIQUE: 2 views of the chest were obtained. FINDINGS: The lungs are clear. The cardiomediastinal silhouette is normal in size. There is no pleural effusion or pneumothorax. No acute osseous abnormality. XR/XR chest 2V IMPRESSION: No acute cardiopulmonary findings. Electronically signed by: Sadiq Serra MD 06/20/2024 11:04 AM [facility] Dictated By: Sadiq Serar MD Signed By: <Electronically signed by Sadiq Serra MD in OV> 06/20/24 1104 DD/ 1011 TD/TT: 06/19/24 1035 [employer]: [address] [address] XRay Report Signed Patient: Kyle Plata MR#: [id number] 13 : 1970 Acct:[id number] Age/Sex: 54 / F ADM Date: 06/19/24 Loc: HO.XRAY Attending Dr: Sachin Stokes MD Ordering Physician: Sachin Stokes MD Date of Service: 06/19/24 Procedure(s): XR [address] st 2V Accession Number(s): [id number] cc: Sachin Stokes MD EXAMINATION: XR CHEST [...] 06/20/24 1104 DD/ 1011 TD/TT: 06/19/24 1035 [employer]: US pelvic and transvaginal Reviewed date:09/08/2024 09:14:43 AM Interpretation: Performing Lab: Notes/Report: [address] [address] Ultrasound Report Signed Patient: Teetee Plata MR#: [id number] 13 : 1970 Acct:[id number] Age/Sex: 54 / F ADM Date: 08/29/24 Loc: HO.US Attending Dr: Savita LOPEZ Ordering Physician: Savita Álvarez CNM Date of Service: 08/29/24 Procedure(s): US pelvic and transvaginal Accession Number(s): [id number] cc: Sachin Stokes MD; Savita Álvarez CNM [...] by: John Teague MD 08/29/2024 02:23 PM [facility] Dictated By: John Flores MD Signed By: <Electronically signed by John Stovall MD in OV> 08/29/24 1423 DD/ 1220 TD/TT: 08/29/24 1243 [employer]: [place] [address] Ultrasound Report Signed Patient: Kyle Plata MR#: [id number] 13 : 1970 Acct:[id number] Age/Sex: 54 / F ADM Date: 08/29/24 Loc: HO.US Attending Dr: Savita Álvarez CNM Ordering Physician: Savita Álvarez CNM Date of Service: 08/29/24 Procedure(s): US pel edmar and transvaginal Accession Number(s): [id number] cc: Sachin Stokes MD; Savita Álvarez CNM [...] by: John Teague MD 08/29/2024 02:23 PM [facility] Dictated By: John Dailey MD Signed By: <Electronically signed by John Stovall MD in OV> 08/29/24 1423 DD/ 1220 TD/TT: 08/29/24 1243 [employer]: SARS-CoV2/FLU/RSV (Not yet r eviewed by provider) Interpretation: Performing Lab:[address] [address] Notes/Report: Influenza A PCR NEGATIVE Negative Influenza [...] by authorized laboratories. Testing performed on the [email or web address] GeneXpert utilizing real-time RT-PCR. All SARS CoV2 and positive influenza A/B results are reported to [facility]. Strep A Nucleic Acid (Not ye t reviewed by provider) Interpretation: Performing Lab:[address] [address] Notes/Report: [employer] Serial# [id number] Strep A Nucleic Acid Negative Negative All [...] reviewed by provider) Interpretation: Performing Lab: Notes/Report: [address] [address] Ultrasound Report Signed Patient: Teetee Plata MR#: [id number] 13 : 1970 Acct:[id number] Age/Sex: 55 / F ADM Date: 02/26/25 Loc: .US Attending Dr: Graciela Ernst MD Ordering Physician: Graciela Ernst MD Date of Service: 02/26/25 Procedure(s): US thyroid Accession Number(s): [id number] cc: Sachin Stokes MD; Graciela Ernst MD [...] 02/26/25 1450 DD/ 1430 TD/TT: 02/26/25 1436 [employer]: [place] [address] Ultrasound Report Signed Patient: Kyle Plata MR#: [id number] 13 : 1970 Acct:[id number] Age/Sex: 55 / F ADM Date: 02/26/25 Loc: .US Attending Dr: Graciela Ernst MD Ordering Physician: Graciela Ernst MD Date of Service: 02/26/25 Procedure(s): US thyroid Accession Number(s): [id number] cc: Sachin Stokes MD; Graciela Ernst MD [...] 02/26/25 1450 DD/ 1430 TD/TT: 02/26/25 1436 [employer]: Reason For Referral No Information Medications Medication [...] Problem Status W/U Status Risk Notes Problem 211780206590262 Obesity (BMI 30.0-34.9) (E66.9) Active confirmed Her body mass index is 32 and her weight is stable. We reviewed her weight loss strategy. We made a plan to lose weight at a rate of one half of a pound per week through a diet restricted in fat calories and sodium. Problem 807423054 Mixed hyperlipidemia (E78.2) Active confirmed Comprehensive blood work with a fasting lipid profile was ordered today. Problem 21114714 Tobacco dependence (F17.200) Active confirmed I reviewed her cardiovascular risk factors with her and we discussed strategies for smoking reduction in cessation. Problem 280266844 Vertigo (R42) Active confirmed Her vertigo has resolved. Problem 98008758 Tendinitis (M77.9) Active confirmed The pain in the thumb is mild and I have recommended ibuprofen. Problem 779947236 Chronic GERD (K21.9) Active confirmed She will take omeprazole twice a day for 21 days and treat breakthrough heartburn with one or 2 tablespoons of Mylanta. She will call me if any new symptoms develop Vital Signs Height 58 in 11/07/2024 Weight 155 lbs 06/21/2024 BMI 32.39 kg/m2 06/21/2024 Encounters Encounter Location Date Provider Diagnosis Sachin Stokes III, MD [address] [place] [address] [address], [place] [address] 06/18/2024 Sachin Stokes Obesity (BMI 30.0-34 .9) E66.9 ; Tobacco dependence F17.200 ; Mixed hyperlipidemia E78.2 ; Lumbar radiculopathy M54.16 and Chronic GERD K21.9 Sachin Stokes III, MD [address] [place] [address] [address] [place] [address] 06/21/2024 Sachin Stokes Acute cough R05.1 ; Mixed hyperlipidemia E78.2 ; Obesity (BMI 30.0-34.9) E66.9 and Tobacco dependence F17.200 Sachin Stokes III, MD [address] [place] [address] [address] [place] [address] 11/07/2024 Sachin Stokes Acute upper respirat ory [...]
== END 2025-04-30 09:35 | disposition home or self-care (01) ==
LOC: HO.ENCR 08:59
PROVIDERS: PCP Internal Medicine; Visit Provider Internal Medicine Endocrinology, Diabetes & Metabolism
DX: E05.00 Thyrotoxicosis with diffuse goiter without thyrotoxic crisis or storm (principal); E05.90 Thyrotoxicosis, unspecified without thyrotoxic crisis or storm
CPT/HCPCS: 99213

== ENCOUNTER 2025-04-30 09:38 | Outpatient (REF) | payer OTHER, SELFPAY ==
[2025-04-30 14:21] LABS: Alanine Aminotransferase 66 U/L (0-31); Albumin Level 4.5 g/dL (3.5-5.0); Alkaline Phosphatase 152 U/L (39-117); Aspartate Amino Transferase 36 U/L (5-31); Free T4 (Free Thyroxine) < 0.42 ng/dL (0.71-1.85); Thyroid Stimulating Hormone 1.42 uIU/mL (0.32-4.0); Total Protein 7.4 g/dL (6.5-8.0)
== END 2025-04-30 09:39 | disposition home or self-care (01) ==
LOC: HO.10HDL 09:38
PROVIDERS: Visit Provider Internal Medicine Endocrinology, Diabetes & Metabolism
DX: E05.00 Thyrotoxicosis with diffuse goiter without thyrotoxic crisis or storm (principal)
CPT/HCPCS: 36415; 80076; 84439; 84443; 84481

== ENCOUNTER 2025-05-08 09:18 | Outpatient (AMB) | payer OTHER, SELFPAY ==
[2025-05-08 09:19] VITALS: BP 134/80; PULSE 62; O2SAT 97; BMI 35.3
--- NOTE | 2025-05-08 09:19 | A.OFFVIS_ITS ---
Vital Signs 05/08/25 09:19 Height 4 ft 9.5 in Weight 166 lb 2 oz BMI 35.3 BP 134/80 Blood Pressure Location Rt brachial Position Sitting Pulse 62 Pulse Source Pulse Oximeter Pulse Oximetry (%) 97 Oxygen Delivery Method Room Air Intake Visit Reasons: INP-Tremors Intake Note: Tremor, unspecified Senior Firmware Engineer Required: No Accompanied by: Self / Same As Patient Allergies Sulfa (Sulfonamide Antibiotics) (SULFA (SULFONAMIDE ANTIBIOTICS)) Allergy (Mild, Verified 05/08/25 09:19) RASH Medication List - Last Reconciled 05/08/25 by Aleta Marks MD acetaminophen 1,000 mg (2 x 500 mg) PO QID PRN blood pressure test kit-medium As directed. Check blood pressure daily ibuprofen 600 mg PO Q6H PRN [Meclizine PO PRN] methimazole 10 mg PO DAILY metoprolol succinate ER 25 mg (1/2 x 50 mg) PO DAILY HPI Comments Details: 55y/o Right handed female comes for evaluation of tremors.she noticed tremors in hands ( mostly left )about 1 year ago and progressed to involve the whole body . It can be with posture action or rest.It was intermittent. 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 she denies head tremors .she had hysterectomy in February 2025 for fibroids. she was diagnosed with Graves disease in Mar 2025 and started on methimazole , metoprolol. Her tremors improved significantly since then She also has chronic sleep issues- snoring and excessive daytime fatigue, wake sup with dry throat PFSH Medical History (Updated 05/08/25 @ 09:51 by Aleta Marks MD) Hypersomnia Excessive daytime sleepiness Snoring Graves disease Personal history of nicotine dependence Hyperthyroidism HLD (hyperlipidemia) HTN (hypertension) Hot flashes Uterine fibroid Vertigo Surgical History H/O: hysterectomy History of colonoscopy (~09/29/20) History of bilateral ligation of fallopian tubes History of bilateral carpal tunnel release Hx of section Family History Maternal Grandmother History of breast cancer Maternal Grandfather Colon cancer Social History Alcohol intake: current Alcohol intake frequency: holidays/special occasions only Alcohol type: wine Patient Tobacco Use Status: Former Tobacco user Cigarette Packs Per Day: 0.25 Cigarettes Per Day: 3 Years Smoked: 39 e-Cigarette/Vaping Use: Never Used Sexual orientation: Straight/Heterosexual Gender identity: Female Physical Exam Vital Signs: Last Vital Signs Pulse 62 05/08/25 09:19 BP 134/80 05/08/25 09:19 Pulse Ox 97 05/08/25 09:19 Oxygen Delivery Method Room Air 05/08/25 09:19 BMI result Body Mass Index 35.3 Const General: cooperative, healthy appearing, comfortable and no acute distress Nutritional Appearance: obese Orientation/consciousness: patient oriented x3 Eyes Pupils: Equal, round and reactive pupils present Neuro Other: Mallampatti grade 4 General: patient oriented x3, gait normal, tone normal, moves all extremities and no focal motor deficits Cranial nerves: Yes Facial sensation intact/muscles of mastication intact, Yes Equal, round and reactive pupils present, Yes Bilaterally intact EOM present, Yes Nystagmus not present, Yes Normal facial strength present, Yes Midline tongue present, Yes Symmetric palate elevation present, Yes Ability to bilaterally rotate head present and Yes Ability to bilaterally elevate shoulders present Cognition (Neuro): normal cognition Gait exam (Neuro): Normal gait present Motor exam (neuro): 5/5 motor strength present throughout and Normal motor muscle tone present throughout Deep tendon reflexes (DTR's): Right triceps reflex intensity grade: 2+, Left triceps reflex intensity grade: 2+, Rt Biceps (C5, C6): 2+, Left biceps reflex intensity grade: 2+, Right brachioradialis reflex intensity grade: 2+, Left brachioradialis reflex intensity grade: 2+, Right patellar reflex intensity grade: 2+ and Left patellar reflex intensity grade: 2+ Coordination: [id number] test normal Assessment & Plan Assessment & Plan (1) Chronic tremor: Comment: ernesto likley relate dto hyperthyroidism Code(s): R25.1 - Tremor, unspecified Category: Medical (2) Hypersomnia: Code(s): G47.10 - Hypersomnia, unspecified Category: Medical (3) Snoring: Code(s): R06.83 - Snoring Category: Medical Plan Home sleep test to r/o sleep apnea F/u with Endocrinology Continue metoprolol 25mg qd Orders: Orders RT home sleep study Today G47.19 - Other hypersomnia, R06.83 - Snoring Coding Level of Care Code New Pt Level 4 (72805) Diagnoses Chronic tremor R25.1 Hypersomnia G47.10 Snoring R06.83
--- OUTSIDE RECORDS SUMMARY | 2025-05-08 10:15 | XMS_ITS | Clinical Summary ---
Author Organization 175 [facility] Address [address] [place] [address] Phone Care Team Providers Care Button Pusher Name Role Phone Sachin Stokes MD Primary Care Provider [phone] Allergies No known active allergies Medications silver [...] patient's age to complete this topic Insurance [facility] [place] [id number] Care Teams Button Pusher Relationship Specialty Start Date End Date Sachin Stokes MD [address] [place] [address] [phone] [facility] - General 08/31/23
== END 2025-05-08 09:51 | disposition home or self-care (01) ==
LOC: HO.HSMS 09:18
PROVIDERS: PCP Internal Medicine Medical Oncology; Visit Provider Psychiatry & Neurology Neurology
DX: R25.1 Tremor, unspecified (principal); G47.10 Hypersomnia, unspecified; R06.83 Snoring
CPT/HCPCS: 99204

== ENCOUNTER 2025-05-09 10:18 | Outpatient (AMB) | payer OTHER, SELFPAY ==
--- OUTSIDE RECORDS SUMMARY | 2024-01-26 10:30 | XMS_ITS ---
Author Organization Sachin Stokes III, MD Address [address] [place] [address] [place] [address] Care Team Providers Care Launderer Hand Name Role Phone Dr. Sachin Stokes III Primary Care Provider [phone] Allergies Allergen (clinical drug ingredient) Drug/Non Drug Allergy documented on EMR Reaction Allergy Type Onset Date Status sulfacetamide Sulfacetamide Unknown Drug Allergy Active orange allergenic extract [place] (Diagnostic) Unknown Drug Allergy Active REASON FOR VISIT Acute bronchitis, Otitis, Cough, Obesity, Tobacco dependence Medications Medication SIG (Take, Route, Frequency, Duration) Notes Start Date End Date Status Amoxicillin-Pot Clavulanate 875-125 MG 1 tablet Orally every 12 hrs for 7 days 01/26/2024 02/02/2024 Active Doxycycline Hyclate 100 MG 1 capsule Ora lly Twice a day 08/24/2023 Active Fluticasone Propionate 50 MCG/ACT USE 1 SPRAY INTRANASALLY 2 TIMES PER DAY FOR 30 DAYS Nasal Active dexAMETHasone 2 MG 1 tablet Orally ever y 12 hrs 01/25/2021 Active Ondansetron 4 MG 1 tablet Orally Once a day Active Social History Tobacco Use: Social History Observation Description Date Details (start date - stop date) Current Smoker NA - NA Tobacco Use/Smoking Question Answer Notes Patient is a current smoker How often do you smoke cigarettes? every day How many cigarettes a day do you smoke? 5 or les s How soon after you wake up d o you smoke your first cigarette? after 60 minutes Are you interested in quitting? Not ready to dereck t Additional Findings: Tobacco User Light cigarett e smoker ((1-9 cigs/day) Encounters Encounter Location Date Provider Diagnosis Sachin Stokes III, MD [address] [place] [address] [place] [address] 01/26/2024 Sachin Stokes Otitis of right ear H66.91 ; Tobacco dependence F17.200 ; Obesity (BMI 30.0-34.9) E66.9 and Mixed hyperlipidemia E78.2 Assessments Encounter Date Diagnosis (ICD Code) Assessment Notes Treat ment Notes Treatment Clinical Notes 01/26/2024 Otitis of right ear (ICD-10 - H66.91) She was given Augmentin and a follow-up visit. 01/26/2024 Tobacco dependence (ICD-10 - F17.200) I reviewed her cardiovascular risk factors with her and we discussed strategies for smoking reduction in cessation. 01/26/2024 Obesity (BMI 30.0-34.9) (ICD-10 - E66.9) We discussed diet and nutrition at length. We formulated a plan to lose weight at a rate of one half of a pound per week through a diet restricted in fat calories and sodium combined with regular exercise. 01/26/2024 Mixed hyperlipidemia (ICD-10 - E78.2) Comprehensive blood work with a fasting lipid profile was ordered today. Plan Of Treatment Medication Medication Name Sig Start Date Stop Date Notes Amoxicillin-Pot Clavulanate 875-125 MG 1 tablet Orally every 12 hrs for 7 days 01/26/2024 02/02/2024 Doxycycline Hyclate 100 MG 1 capsule Orally Twice a day Fluticasone Propionate 50 MCG/ACT USE 1 SPRAY INTRANASALLY 2 TIMES PER DAY FOR 30 DAYS Nasal dexAMETHasone 2 MG 1 tablet Orally every 12 hrs 01/25/2021 Ondansetron 4 MG 1 tablet Orally Once a day Next Appt Details Follow Up: As Scheduled, Faby son: OV Progress Notes * Teetee MONTOYADOB:1970 (53 yo F)Acc No.[id number]:01/26/2024 Patient: Jory otilia Teetee Provider: Caterina Stokes MD :1970 A ge:53 Y S ex:Female Date:01/26/2024 Address:[address] [place] [address] Subjective: * Chief Complaints: * A cute bronchitisOtitisCoughObesityTobacco dependence * HPI: * : This telehealth visit took place over 15 minutes with the patient at home and me in my office. She gave consent for billing. For the last week she has had a viral syndrome with a cough productive of thick white phlegm and rhinorrhea and malaise. She called because she has developed multiple painful feeling in the right ear. He was given a course of Augmentin for otitis and bronchitis. She was given an appointment to return to the office. Telehealth L ocation of provider rendering services: { ...} [address] [facility] [address] [facility] [address] L ocation of patient: michelle meyers listed in demographics for today's visit P atient identification confirmed using: ROBERT Odell ame T elehealth method: T elephone only. Patient not visible to care provider. C onsent: P atient verbally consented to treatment, Patient verbally consented to billing insurance company, Patient informed of any privacy concerns related to method of visit T otal time spent with patient (mins) 1 5 * ROS: G eneral/Constitutional: pain R ight ear, otherwise only normal aches and pains.?Chills d enies. F atigue a dmits. F ever d enies. E NT: Decreased hearing d enies. R espiratory: Cough n on-productive. C ardiovascular: Chest pain with exertion d enies. D yspnea on exertion?denies. S hortness of breath d enies. G astrointestinal: Constipation o ccasional. D ecreased appetite d enies. D iarrhea d enies. H eartburn d enies. N ausea d enies. R ectal bleeding d enies. V omiting d enies. H ematology: bruising d enies. p etechiae d enies. S wollen glands n one have been noted. G enitourinary: Frequent urination a t night. M usculoskeletal: Muscle aches d enies. P ainful joints d enies. S ciatica d enies. W eakness d enies. S kin: Itching d enies. R raegan d enies. S kin lesion(s)?denies. N eurologic: Difficulty speaking d enies. D izziness d enies.?Headache d enies. L ow back pain d enies. P sychiatric: Depressed mood d enies. * Medical History: * Surgical History: c esarean section 11/1989right carpal tunnel release 2010left carpal tunnel relaese 2014 * Hospitalization/Major Diagno stic Procedure: D enies Past Hospitalization * Family History: F ather: alive. M other: alive 69 yrs, diagnosed with CVD, HTN. P aternal Grand Father: , diagnosed with Cancer. M aternal Grand Mother: alive, diagnosed with Cancer. M aternal aunt: alive, diagnosed with Cancer. 1 brother(s) - healthy. 2 son(s) , 1 daughter(s) - healthy. . One of her children has tetralogy of Fallot. Her mother has hypertension. She has no information about her father. A maternal grandfather of colon cancer. A grandmother and a maternal aunt have had breast cancer. * Social History: T obacco Use: T obacco Use/Smoking P atient is a c urrent smoker H ow often do you smoke cigarettes? e very day H ow many cigarettes a day do you smoke? 5 or less H ow soon after you wake up do you smoke your first cigarette? a fter 60 minutes A re you interested in quitting? N ot ready to quit A dditional Findings: Tobacco User L ight cigarette smoker ((1-9 cigs/day) S he smokes 3 cigarettes a day. 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 She has 3 children. Bo Grant and Lynne.. * Medications: T akingOndansetron 4 MG Tablet Disintegrating 1 tablet Orally Once a daydexAMETHasone 2 MG Tablet 1 tablet Orally every 12 hrsFluticasone Propionate 50 MCG/ACT Suspension USE 1 SPRAY INTRANASALLY 2 TIMES PER DAY FOR 30 DAYS Nasal Doxycycline Hyclate 100 MG Capsule 1 capsule Orally Twice a dayMedication List reviewed and reconciled with the patientTaking Ondansetron 4 MG Tablet Disintegrating 1 tablet Orally Once a dayTaking dexAMETHasone 2 MG Tablet 1 tablet Orally every 12 hrsTaking Fluticasone Propionate 50 MCG/ACT Suspension USE 1 SPRAY INTRANASALLY 2 TIMES PER DAY FOR 30 DAYS Nasal Taking Doxycycline Hyclate 100 MG Capsule 1 capsule Orally Twice a dayMedication List reviewed and reconciled with the patient * Allergies: S ulfacetamide: AllergyOrange (Diagnostic): Allergyno[Allergies Verified] Objective: Assessment: * Assessment: 1. O titis of right ear - H66.91 (Primary), She was given Augmentin and a follow-up visit. 2 . T obacco dependence - F17.200, I reviewed her cardiovascular risk factors with her and we discussed strategies for smoking reduction in cessation. 3 . O besity (BMI 30.0-34.9) - E66.9, We discussed diet and nutrition at length. We formulated a plan to lose weight at a rate of one half of a pound per week through a diet restricted in fat calories and sodium combined with regular exercise. 4 . M ixed hyperlipidemia - E78.2, Comprehensive blood work with a fasting lipid profile was ordered today. Plan: * Treatment: * Procedure Codes: 9 [id number] PHONE E/M BY PHYS 11-20 MIN * Preventive Medicine: Counseling: C are goal follow-up plan: Counseling for abnormal BMI given Y es Above Normal BMI Follow-up D ietary management education, guidance, and counseling, Dietary needs education S moking/Tobacco Use Patient counseled on the dangers of tobacco use and urged to quit. 0 01/26/2024 Patient Lifestyle Goals P atient wants to quit Treatment Goals C ut down by 1 cigarette a week, Set a quit date Barriers S tress, Social smoker Self-Management Plan M tom a plan to cut down number of cigarettes over time and set a date to work towards quitting * Follow Up: A s Scheduled (Reason: OV) * Images: * Sign off status: Completed true * Provider: Caterina Stokes MD Date: 0 01/26/2024 Generated for Sondra rm/Chelsi/Brien on: 1 11:44 AM EDT History and Physical Notes * HPI (History of Present Illness) Category Sub-Category Detail Notes Telehealth Location of [facility] rendering services:: {...} [address] [place] [id number] Location of patient:: address listed in demographics for today's visit Patient identification confirmed using:: Name, Telehealth method:: Telephone only. Darlene ent not visible to care provider. Consent:: Patient verbally c onsented to treatment, Patient verbally consented to billing insurance company, Patient informed of any privacy concerns related to method of visit Total time spent with patient (mins): 15
--- OUTSIDE RECORDS SUMMARY | 2024-02-06 11:22 | XMS_ITS ---
Author Organization Sachin Stokes III, MD Address [address] [place] [address] [place] [address] Care Team Providers Care Shoe Lacer Name Role Phone Dr. Sachin Stokes III Primary Care Provider REASON FOR VISIT still c/o left ear blocked Encounters Encounter Location Date Provider Diagnosis Sachin Stokes III, MD [address] [place] [address] [place] [address] 02/06/2024 Sachin Stokes Plan Of Treatment No Information Progress Notes * SHERLYNChalino CRAVENjoshuaDOB:1970 (53 yo F)Acc No.[id number]:02/06/2024 Patient: Teetee Cadet :1970 A ge:53 Y S ex:Female Address:[address] [place] [address], [address] * true * Date: Generated for Sondra rm/Chelsi/eTransmitting on: 11:44 AM EDT
--- OUTSIDE RECORDS SUMMARY | 2024-02-15 05:00 | XMS_ITS ---
Author Organization Sachin Stokes III, MD Address [address] [place] [address] [place] [address] Care Team Providers Care Sterile Products Processor Name Role Phone Dr. Sachin Stokes III Primary Care Provider Allergies Allergen (clinical drug ingredient) Drug/Non Drug Allergy documented on EMR Reaction Allergy Type Onset Date Status sulfacetamide Sulfacetamide Unknown Drug Allergy Active orange allergenic extract [place] (Diagnostic) Unknown Drug Allergy Active Results Component [...] Date Provider Diagnosis Sachin Stokes III, MD [address] [place] [address] [place] [address] 02/15/2024 Sachin Stokes Obesity (BMI 30.0-34 .9) [...] Notes * Teetee MONTOYADOB:1970 (54 yo F)Acc No.[id number]:02/15/2024 Progress Notes Patient: Teetee Cadet Provider: Caterina Stokes MD :1970 A ge:54 Y S ex:Female Date:02/15/2024 Address:[address] [place] [address] Subjective: * Chief Complaints: * A nnual Exam * HPI: D epression Screening: She returns to the office at the age of 54 for her annual physical examination. She had a negative mammogram in September of 2022. Mammogram has been scheduled for the near future. She is Due for her periodic LOOP MACHINE OPERATOR examination. She was referred for this purpose. [...] cigarettes a day. 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 She has 3 [...] . BREASTS: T o be done by LOOP MACHINE OPERATOR. ABDOMEN: b owel sounds normal, no ascites, no organomegaly, no mass. RECTAL EXAM: T o be done by LOOP MACHINE OPERATOR. MUSCULOSKELETAL: e xtremities unremarkable, no clubbing, cyanosis [...] MD Date: 0 02/15/2024 Generated for Sondra rm/Chelsi/Biren on: 1 11:45 AM EDT History and Physical Notes * [...] days?: No Have you travelled internationally in [facility] last 10 days?: No Have you [...] PULSES: normal BREASTS: To be done by LOOP MACHINE OPERATOR MUSCULOSKELETAL: extremities unremark able, no clubbing, cyanosis or edema LYMPH NODES: no enlarged lymph no misti,spleen normal RECTAL EXAM: To be done by LOOP MACHINE OPERATOR PSYCH: alert, oriented , co gnitive function intact , cooperative with exam , good eye contact ORAL CAVITY: normal, unremarkable
--- OUTSIDE RECORDS SUMMARY | 2024-06-18 11:15 | XMS_ITS ---
Author Organization Sachin Stokes III, MD Address [address] [place] [address] [place] [address] Care Team Providers Care Correctional Counselor/Case Manager Name Role Phone Dr. Sachin Stokes III Primary Care Provider Allergies Allergen (clinical drug ingredient) Drug/Non Drug Allergy documented on EMR Reaction Allergy Type Onset Date Status sulfacetamide Sulfacetamide Unknown Drug Allergy Active orange allergenic extract [place] (Diagnostic) Unknown Drug Allergy Active REASON FOR [...] Problem Status W/U Status Risk Notes Problem [id number] Chronic GERD (K21.9) Active confirmed She will take omeprazole twice a day for 21 days and treat breakthrough heartburn with one or 2 tablespoons of Mylanta. She will call me if any new symptoms develop Encounters Encounter Location Date Provider Diagnosis Sachin Stokes III, MD [address] [place] [address] [place] [address] 06/18/2024 Sachin Stokes Obesity (BMI 30.0-34 .9) [...] Notes * Teetee MONTOYADOB:1970 (54 yo F)Acc No.[id number]:06/18/2024 Patient: Teetee KIRAN Provider: Caterina Stokes MD :1970 A ge:54 Y S ex:Female Date:06/18/2024 Address:[address] [place], [place] [phone] Subjective: * Chief Complaints: * S evere heartburn for the last week * HPI: * : Telehealth L ocation of provider rendering services: { ...} [address] [place] [address] [address] [place] [address] L ocation of patient: michelle malikess listed [...] cigarettes a day. 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
--- OUTSIDE RECORDS SUMMARY | 2024-06-21 07:00 | XMS_ITS ---
Author Organization Sachin Stokes III, MD Address [address] [place] [address] [place] [address] Care Team Providers Care Roofing Layer Name Role Phone Dr. Sachin Stokes III Primary Care Provider [phone] Allergies Allergen (clinical drug ingredient) Drug/Non Drug Allergy documented on EMR Reaction Allergy Type Onset Date Status sulfacetamide Sulfacetamide Unknown Drug Allergy Active orange allergenic extract [place] (Diagnostic) Unknown Drug Allergy Active REASON FOR VISIT Viral syndrome, Tobacco dependence, Obesity, Hyperlipidemia, GERD Medications Medication SIG (Take, Route, Frequency, Duration) Notes Start Date End Date Status Zithromax Z-Dannie 250 MG 2 tablet on the f irst day, then 1 tablet daily for 4 days Orally 2 tablets on first day then one tablet daily 06/18/2024 Active Ondansetron 4 MG 1 tablet Orally Once a day Active dexAMETHasone 2 MG 1 tablet Orally ever y 12 hrs 01/25/2021 Active Fluticasone Propionate 50 MCG/ACT USE 1 SPRAY INTRANASALLY 2 TIMES PER DAY FOR 30 DAYS Nasal Active Doxycycline Hyclate 100 MG 1 capsule Ora lly Twice a day 08/24/2023 Active Social History Tobacco Use: Social History Observation Description Date Details (start date - stop date) Current Smoker NA - NA Tobacco Use/Smoking Question Answer Notes Patient is a current smoker Alcohol Screen Question Answer Notes Did you [...] point) Points 3 Interpretation Positive Vital Signs Height 58 in 06/21/2024 Weight 155 lbs 06/21/2024 BMI 32.39 kg/m2 06/21/2024 Encounters Encounter Location Date Provider Diagnosis Sachin Stokes III, MD [address] [place] [address] [place], [place] [address] 06/21/2024 Sachin Stokes Acute cough R05.1 ; Mixed hyperlipidemia E78.2 ; Obesity (BMI 30.0-34.9) E66.9 and Tobacco dependence F17.200 Assessments Encounter Date Diagnosis (ICD Code) Assessment Notes Treat ment Notes Treatment Clinical Notes 06/21/2024 Acute cough (ICD-10 - R05.1) This is consistent with bronchitis from a viral syndrome. The cough is nonproductive and a chest x-ray June 19, 2024 was unremarkable. She is now beginning to feel better. No change in her therapy is necessary. 06/21/2024 Mixed hyperlipidemia (ICD-10 - E78.2) Comprehensive blood work with a fasting lipid profile was ordered today. 06/21/2024 Obesity (BMI 30.0-34.9) (ICD-10 - E66.9) Her body mass index is 32 and her weight is stable. We reviewed her weight loss strategy. We made a plan to lose weight at a rate of one half of a pound per week through a diet restricted in fat calories and sodium. 06/21/2024 Tobacco dependence (ICD-10 - F17.200) I reviewed her cardiovascular risk factors with her and we discussed strategies for smoking reduction in cessation. Plan Of Treatment Medication Medication Name Sig Start Date Stop Date Notes Zithromax Z-Dannie 250 MG 2 tablet on the f irst day, then 1 tablet daily for 4 days Orally 2 tablets on first day then one tablet daily 06/18/2024 Ondansetron 4 MG 1 tablet Orally Once a day dexAMETHasone 2 MG 1 tablet Orally every 12 hrs 01/25/2021 Fluticasone Propionate 50 MCG/ACT USE 1 SPRAY INTRANASALLY 2 TIMES PER DAY FOR 30 DAYS Nasal Doxycycline Hyclate 100 MG 1 capsule Orally Twice a day Next Appt Details Follow Up: As Scheduled, Feb ust, Reason: OV, Regular check-up Progress Notes * Marilu MONTOYA:1970 (54 yo F)Acc No.[id number]:06/21/2024 Patient: Teetee KIRAN Provider: Caterina Stokes MD :1970 A ge:54 Y S ex:Female Date:06/21/2024 Address:[address] [place] [address] Subjective: * Chief Complaints: * V iral syndromeTobacco dependenceObesityHyperlipidemiaGERD * HPI: * : Telehealth L ocation of provider rendering services: { ...} [address] [facility] [address] L ocation of patient: michelle meyers listed [...] time spent with patient (mins) 1 5 The patient, a 54-year-old female, reported a severe cough a few days ago. The cough has started to improve, with the patient estimating a 50% improvement. The patient has not experienced any fever. The patient is a smoker and has been advised to quit. The patient has not reported any other symptoms.A chest x-ray June 19, 2024 was unremarkable. She is beginning to feel better. * ROS: G eneral/Constitutional: pain o nly normal aches and pains. C hills d enies.?Fatigue a dmits. F ever d enies. A llergy/Immunology: Admits C ough, i s non-productive. E NT: Decreased hearing d enies. R espiratory: Cough n on-productive. C ardiovascular: Chest pain with exertion d enies. D yspnea on exertion?denies. S hortness of breath d enies. G astrointestinal: Constipation o ccasional. D ecreased appetite d enies. D iarrhea d enies. H eartburn c ontrolled with medications. N ausea d enies. R [...] P atient is a c urrent smoker D rugs/Alcohol: D rugs H ave you [...] a day. 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 She has 3 children. Rudy, Bo and Lynne.. Smoking: The patient is a smoker and has been advised to quit. * Medications: T akingOndansetron 4 MG Tablet Disintegrating 1 tablet Orally Once a day dexAMETHasone 2 MG Tablet 1 tablet Orally every 12 hrs Fluticasone Propionate 50 MCG/ACT Suspension USE 1 SPRAY INTRANASALLY 2 TIMES PER DAY FOR 30 DAYS Nasal Taking Ondansetron 4 MG Tablet Disintegrating 1 tablet Orally Once a day Taking dexAMETHasone 2 MG Tablet 1 tablet Orally every 12 hrs Taking Fluticasone Propionate 50 MCG/ACT Suspension USE 1 SPRAY INTRANASALLY 2 TIMES PER DAY FOR 30 DAYS Nasal DiscontinuedDoxycycline Hyclate 100 MG Capsule 1 capsule Orally Twice a day Zithromax Z-Dannie 250 MG Tablet 2 tablet on the first day, then 1 tablet daily for 4 days Orally 2 tablets on first day then one tablet daily , stop date 06/23/2024Medication List reviewed and reconciled with the patientDiscontinued Doxycycline Hyclate 100 MG Capsule 1 capsule Orally Twice a day Discontinued Zithromax Z-Dannie 250 MG Tablet 2 tablet on the first day, then 1 tablet daily for 4 days Orally 2 tablets on first day then one tablet daily , stop date 06/23/2024Medication List reviewed and reconciled with the patient * Allergies: S ulfacetamide: AllergyOrange (Diagnostic): Allergyno[Allergies Verified] Objective: * Vitals: H t: 58, Wt: 155, BMI:32.39, Ht-cm: 147.32, Wt-k.31. Assessment: * Assessment: 1. M ixed hyperlipidemia - E78.2 (Primary) N otes :Comprehensive blood work with a fasting lipid profile was ordered today. 2 . A cute cough - R05.1 N otes :This is consistent with bronchitis from a viral syndrome. The cough is nonproductive and a chest x-ray June 19, 2024 was unremarkable. She is now beginning to feel better. No change in her therapy is necessary. 3 . O besity (BMI 30.0-34.9) - E66.9 N otes :Her body mass index is 32 and her weight is stable. We reviewed her weight loss strategy. We made a plan to lose weight at a rate of one half of a pound per week through a diet restricted in fat calories and sodium. 4 . T obacco dependence - F17.200 N otes :I reviewed her cardiovascular risk factors with her and we discussed strategies for smoking reduction in cessation. Plan: * Treatment: 2. O thers Continue Ondansetron Tablet Disintegrating, 4 MG, 1 tablet, Orally, Once a day; C ontinue dexAMETHasone Tablet, 2 MG, 1 tablet, Orally, every 12 hrs; C ontinue Fluticasone Propionate Suspension, 50 MCG/ACT, USE 1 SPRAY INTRANASALLY 2 TIMES PER DAY FOR 30 DAYS, Nasal; C ontinue Doxycycline Hyclate Capsule, 100 MG, 1 capsule, Orally, Twice a day. * Procedure Codes: 9 9442 PHONE E/M [...] tobacco use and urged to quit. 1 08/22/2023 Patient Lifestyle Goals P atient wants to quit Treatment Goals S et a quit date, Cut down by 1 cigarette a week Barriers S ocial smoker, Stress Self-Management Plan M tom a plan to cut down number of cigarettes over time and set a date to work towards quitting * Follow Up: A s Scheduled, February (Reason: OV, Regular check-up) * Images: * Sign off status: Completed true * Provider: Caterina Stokes MD Date: 1 08/22/2023 Generated for Sondra rm/Chelsi/eTransmitting on: 11:45 AM EDT History and Physical Notes * HPI (History of Present Illness) Category Sub-Category Detail Notes Telehealth Location of [facility] ider rendering services:: {...} [address] [facility] [address] Location of patient:: address listed in demographics [...]
--- OUTSIDE RECORDS SUMMARY | 2024-11-07 07:45 | XMS_ITS ---
Author Organization Sachin Stokes III, MD Address [address] [place] [address] [place] [address] Care Team Providers Care Chief Of Service Name Role Phone Dr. Sachin Stokes III Primary Care Provider [phone] REASON FOR VISIT Severe sore throat, URI [...] Provider Diagnosis Sachin Stokes III, MD [address] [place] [address] [place] [address] 11/07/2024 Sachin Stokes Acute upper respirat ory [...] Notes * Teetee MONTOYADOB:1970 (54 yo F)Acc No.[id number]:11/07/2024 Patient: Teetee KIRAN Provider: Caterina Stokes MD :1970 A ge:54 Y S ex:Female Date:11/07/2024 Address:[address] [place] [address] Subjective: * Chief Complaints: * S evere [...] ocation of provider rendering services: { ...} [address] [place] [address] [address] [facility] [address] L ocation of patient: michelle meyers listed [...] MD Date: 0 11/07/2024 Generated for Yelenai jag/Chelsi/eTransmitting on: 1 11:45 AM EDT History and Physical Notes * HPI (History of Present Illness) Category Sub-Category Detail Notes Telehealth Location of [facility] rendering services:: {...} [address] [place] [address] Location of patient:: address listed in demographics [...]
--- OUTSIDE RECORDS SUMMARY | 2025-02-20 08:00 | XMS_ITS ---
Author Organization Sachin Stokes III, MD Address [address] [place] [address] Care Team Providers Care Manager Flight Name Role Phone Dr. Sachin Stokes III Primary Care Provider [phone] REASON FOR VISIT Annual Exam Encounters Encounter Location Date Provider Diagnosis Sachin Stokes III, MD [address] [place] [address] [place] [address] 02/20/2025 Sachin Stokes Plan Of Treatment No Information Progress Notes * Teetee MONTOYADOB:1970 (55 yo F)Acc No.[id number]:02/20/2025 Progress Notes Patient: Teetee KIRAN Provider: Caterina Stokes MD :1970 A ge:55 Y S ex:Female Date:02/20/2025 Address:[address] [place], [place] [phone] Subjective: * Chief Complaints: * 1 . Annual Exam. * Medical History: Objective: * Vitals: Assessment: Plan: * Treatment: * Images: * The named appointment provid er may or may not be the originator of this progress note, and it is not deemed complete until electronically signed by the appointment provider. Sign off status: Pending * Provider: Caterina Stokes MD Date: 0 02/20/2025 Generated for Sondra rm/Chelsi/eTransmitting on: 1 11:44 AM EDT
--- OUTSIDE RECORDS SUMMARY | 2025-03-27 09:00 | XMS_ITS ---
Author Organization Sachin Stokes III, MD Address [address] [place] [address] Care Team Providers Care Distribution Warehouse Manager Name Role Phone Dr. Sachin Stokes III Primary Care Provider REASON FOR VISIT Annual Exam Encounters Encounter Location Date Provider Diagnosis Sachin Stokes III, MD [address] [place] [address] [place] [address] 03/27/2025 Sachin Stokes Plan Of Treatment No Information Progress Notes * Teetee MONTOYADOB:1970 (55 yo F)Acc No.[id number]:03/27/2025 Progress Notes Patient: Teetee KIRAN Provider: Caterina Stokes MD :1970 A ge:55 Y S ex:Female Date:03/27/2025 Address:[address] [place], [place] [id number] Subjective: * Chief Complaints: * 1 . [...] 03/27/2025 Generated for Sondra rm/Chelsi/eTransmitting on: 1 11:44 AM EDT
--- NOTE | 2025-05-09 08:08 | A.OFFVIS_ITS ---
Intake Visit Reasons: Former Smoker Allergies Sulfa (Sulfonamide Antibiotics) (SULFA (SULFONAMIDE ANTIBIOTICS)) Allergy (Mild, Verified 05/08/25 09:19) RASH HPI HPI Former Smoker: Details: Initial visit for this 55yo former smoker with a 20PYH. Patient started smoking at age 13 for 41 years at 1/2ppd. She quit about 5 months ago 11/2024. . Denies marijuana use. Second hand smoke exposure. . Denies exposure to chemicals or substances like asbestos. Notes Asbestos in her old house. . Denies known family history of lung cancer. Denies personal history of cancers. Denies chest CT in last year. . Denies recent travel outside the [place]. Denies recent respiratory illness or recent hospitalization for respiratory issues. Denies testing positive for COVID. Admits receiving COVID Vaccine. . Notes fatigue and dizziness. Denies fever, chills, new/worsening cough, hemoptysis, hoarseness or dysphagia. Denies significant chest pain, significant dyspnea or unintentional weight loss. Patient Lung Cancer Screening Questionnaire reviewed with patient by provider. . Shared Decision Making Completed. Patient meets criteria. Discussed in detail with patient, the risk vs benefit of LDCT screening. Patient consents to proceed with scan. Discussed smoking cessation. [facility] Medical History (Updated 05/09/25 @ 10:34 by Geovanna Bagley PA-C) Hypersomnia Excessive daytime sleepiness Snoring Graves disease Personal history of nicotine dependence Hyperthyroidism HLD (hyperlipidemia) HTN (hypertension) Hot flashes Uterine fibroid Vertigo Surgical History (Updated 05/09/25 @ 10:29 by Geovanna Bagley PA-C) History of total abdominal hysterectomy and bilateral salpingo-oophorectomy History of colonoscopy (~09/29/20) History of bilateral ligation of fallopian tubes History of bilateral carpal tunnel release Hx of section Family History Maternal Grandmother History of breast cancer Maternal Grandfather Colon cancer Social History (Updated 05/09/25 @ 10:34 by Geovanna Bagley PA-C) Alcohol intake: current Alcohol intake frequency: holidays/special occasions only Alcohol type: wine Patient Tobacco Use Status: Former Tobacco user Years Smoked: (onset 13yo, 1/2ppd x 41yrs, 20pyh - quit 11/2024) e-Cigarette/Vaping Use: Never Used Sexual orientation: Straight/Heterosexual Gender identity: Female Assessment & Plan Assessment & Plan (1) Personal history of nicotine dependence: Comment: (onset 13yo, 1/2ppd x 41yrs, 20pyh - quit 11/2024) Code(s): Z87.891 - Personal history of nicotine dependence Category: Medical Plan: - SDM visit completed today in office. - Patient meets criteria for LDCT for lung cancer screening purposes and is asymptomatic. - Smoking cessation counseling offered. Patients can always call [phone]. - Will arrange for a LDCT scan of the chest for screening purposes at [facility]. - Risks, benefits, and alternatives were discussed in detail and the patient agrees to proceed. - Risks discussed include but are not limited to: radiation exposure, anxiety during testing and while awaiting results, false negatives, false positives and possibility of additional intervention such as further imaging or surgical procedures for benign disease. - Benefits are obviously detection of lung cancer at an early stage which can lead to improved outcomes. - Discussed the importance of screening program compliance with adherence to yearly LDCT scan as scheduled - or sooner interval scans for personalized screening regimen. - Discussed follow up plan. Our office will send a letter discussing results and if needed set up phone call and office visit based on CT findings. - Patient educated on results categorization and the management decisions for suspicious findings potentially found on the screening LDCT scan. Any patient with a Lung RADS score of 3 or 4 will be reviewed by a multidisciplinary team at [facility] to form a plan of action in regards to scan findings. - If further work up is warranted for a suspicious lung finding this will be followed by the Lung Cancer Screening program in conjunction with the Thoracic Surgery Department at [facility]. - A copy of the office note and LDCT will be sent to the patient's PCP - as well as documentation on any associated further plans of care. - Incidental findings on LDCT are the PCP's responsibility. These findings are indicated with an S finding on the LDCT Assessment. A note discussing the findings will be sent to the PCP who is then responsible for further management. - All questions answered.? Coding Level of Care Code Lung Cancer Screening G0296 Diagnoses Personal history of nicotine dependence Z87.891
--- OUTSIDE RECORDS SUMMARY | 2025-05-09 11:45 | XMS_ITS | Clinical Summary ---
Author Organization 175 [facility] Address [address] [place] [address] Phone Care Team Providers Care Supervisor Small Appliance Assembly Name Role Phone Sachin Stokes MD Primary Care Provider [phone] Allergies No known active allergies Medications silver [...] patient's age to complete this topic Insurance [facility] [place] [id number] Care Teams Supervisor Small Appliance Assembly Relationship Specialty Start Date End Date Sachin Stokes MD [address] [place] [address] [phone] [facility] - General 08/31/23
--- OUTSIDE RECORDS SUMMARY | 2025-05-09 11:45 | XMS_ITS | Patient Health Record ---
Author Organization [facility] Address [address] [place] [address] Care Team Providers Care Sports Reporter Name Role Phone Kike MENDEZ, Sachin Primary Care Provider Dano Vital Jr Unavailable [phone] Allergies Allergen (clinical drug ingredient) Drug/Non Drug [...] Status Risk Notes Problem Colon cancer screening (511134852) Colon cancer screening (Z12.11) Active confirmed Problem Pre-procedure evaluation check (357164016) Encounter for other preprocedural examination (Z01.818) Active confirmed Plan Of Treatment Future Test Test Name Order Date COLONOSCOPY 07/27/2020 Insurance Providers Payer Name Payer Address Payer Phone Subscriber Number Group Number Insured Name Patient Relationship to Insured Coverage Start Date Coverage End Date R [address] [address] [place] [address] [id number] LAZ MONTOYA Self - patient is the insured Medical (General) History Medical History History ICD Code vertigo Surgical History Surgery Date(Month/Year) section 2x carpal tunnel release - bilateral
--- OUTSIDE RECORDS SUMMARY | 2025-05-09 11:45 | XMS_ITS | Patient Health Record ---
Author Organization Sachin Stokes III, MD Address [address] [place] [id number] Care Team Providers Care Manager Background Name Role Phone Dr. Sachin Stokes III Primary Care Provider Allergies Allergen (clinical drug ingredient) Drug/Non Drug Allergy documented on EMR Reaction Allergy Type Onset Date Status sulfacetamide Sulfacetamide Unknown Drug Allergy Active orange allergenic extract Crane (Diagnostic) Unknown Drug Allergy Active Results Component Value Reference Range Notes XR chest 2V Reviewed date:07/10/2024 08:52:03 AM Interpretation: Performing Lab: Notes/Report: [address] [address] XRay Report Signed Patient: Teetee Plata MR#: [id number] 13 : 1970 Acct:[id number] Age/Sex: 54 / F ADM Date: 06/19/24 Loc: HO.XRAY Attending Dr: Sachin Stokes MD Ordering Physician: Sachin Stokes MD Date of Service: 06/19/24 Procedure(s): XR chest 2V Accession Number(s): [id number] cc: Sachin Stokes MD EXAMINATION: XR CHEST CLINICAL INFORMATION: Cough. COMPARISON: None available. TECHNIQUE: 2 views of the chest were obtained. FINDINGS: The lungs are clear. The cardiomediastinal silhouette is normal in size. There is no pleural effusion or pneumothorax. No acute osseous abnormality. XR/XR chest 2V IMPRESSION: No acute cardiopulmonary findings. Electronically signed by: Sadiq Serra MD 06/20/2024 11:04 AM [facility] Dictated By: Sadiq Serra MD Signed By: <Electronically signed by Sadiq Serra MD in OV> 06/20/24 1104 DD/ 1011 TD/TT: 06/19/24 1035 Automobile Rental Clerk: [address] [address] XRay Report Signed Patient: Kyle Plata MR#: [id number] 13 : 1970 Acct:[id number] Age/Sex: 54 / F ADM Date: 06/19/24 Loc: HO.XRAY Attending Dr: Sachin Stokes MD Ordering Physician: Sachin Stokes MD Date of Service: 06/19/24 Procedure(s): XR [address] 2V Accession Number(s): [id number] cc: Sachin Stokes MD EXAMINATION: XR CHEST [...] 06/20/24 1104 DD/ 1011 TD/TT: 06/19/24 1035 Automobile Rental Clerk: US pelvic and transvaginal Reviewed date:09/08/2024 09:14:43 AM Interpretation: Performing Lab: Notes/Report: [address] [address] Ultrasound Report Signed Patient: Teetee Plata MR#: [id number] 13 : 1970 Acct:[id number] Age/Sex: 54 / F ADM Date: 08/29/24 Loc: HO.US Attending Dr: Savita LOPEZ Ordering Physician: Savita Álvarez CNM Date of Service: 08/29/24 Procedure(s): US pelvic and transvaginal Accession Number(s): [id number] cc: Sachin Stokes MD; Savita Álvarez CNM [...] by: John Teague MD 08/29/2024 02:23 PM [facility] Dictated By: John Flores MD Signed By: <Electronically signed by John Stovall MD in OV> 08/29/24 1423 DD/ 1220 TD/TT: 08/29/24 1243 Automobile Rental Clerk: [place] [address] Ultrasound Report Signed Patient: Kyle Plata MR#: [id number] 13 : 1970 Acct:[id number] Age/Sex: 54 / F ADM Date: 08/29/24 Loc: HO.US Attending Dr: Savita Álvarez CNM Ordering Physician: Savita Álvarez CNM Date of Service: 08/29/24 Procedure(s): US pel edmar and transvaginal Accession Number(s): [id number] cc: Sachin Stokes MD; Savita Álvarez CNM [...] by: John Teague MD 08/29/2024 02:23 PM [facility] Dictated By: John Dailey MD Signed By: <Electronically signed by John Stovall MD in OV> 08/29/24 1423 DD/ 1220 TD/TT: 08/29/24 1243 [employer]obile Rental Clerk: SARS-CoV2/FLU/RSV Reviewed date:05/05/2025 05:12:02 AM Interpretation: Performing Lab:[address] [address] Notes/Report: Influenza A PCR NEGATIVE Negative Influenza [...] by authorized laboratories. Testing performed on the [employer] GeneXpert utilizing real-time RT-PCR. All SARS CoV2 and positive influenza A/B results are reported to [facility]. Strep A Nucleic Acid Reviewed date:05/05/2025 05:12:02 AM Interpretation: Performing Lab:[address], [place] [address] Notes/Report: [employer] Serial# [id number] Strep A Nucleic Acid Negative Negative All test results must be correlated with clinical findings. This test has not been evaluated for monitoring treatment of infection. Additional follow-up testing using the culture method is required if the result is negative and clinical symptoms persist, or in the event of an acute rheumatic fever outbreak. US thyroid Reviewed date:05/05/2025 05:12:02 AM Interpretation: Performing Lab: Notes/Report: [address] [address] Ultrasound Report Signed Patient: Teetee Plata MR#: [id number] 13 : 1970 Acct:[id number] Age/Sex: 55 / F ADM Date: 02/26/25 Loc: .US Attending Dr: Graciela Ernst MD Ordering Physician: Graciela Ernst MD Date of Service: 02/26/25 Procedure(s): US thyroid Accession Number(s): [id number] cc: Sachin Stokes MD; Graciela Ernst MD [...] 02/26/25 1450 DD/ 1430 TD/TT: 02/26/25 1436 [employer]obile Rental Clerk: [place] [address] Ultrasound Report Signed Patient: Kyle Plata MR#: [id number] 13 : 1970 Acct:[id number] Age/Sex: 55 / F ADM Date: 02/26/25 Loc: .US Attending Dr: Graciela Ernst MD Ordering Physician: Graciela Ernst MD Date of Service: 02/26/25 Procedure(s): US thyroid Accession Number(s): [id number] cc: Sachin Stokes MD; Graciela Ernst MD [...] 02/26/25 1450 DD/ 1430 TD/TT: 02/26/25 1436 Automobile Rental Clerk: Reason For Referral No Information Medications Medication [...] Problem Status W/U Status Risk Notes Problem 519897562418825 Obesity (BMI 30.0-34.9) (E66.9) Active confirmed Her body mass index is 32 and her weight is stable. We reviewed her weight loss strategy. We made a plan to lose weight at a rate of one half of a pound per week through a diet restricted in fat calories and sodium. Problem 429706824 Mixed hyperlipidemia (E78.2) Active confirmed Comprehensive blood work with a fasting lipid profile was ordered today. Problem 73983677 Tobacco dependence (F17.200) Active confirmed I reviewed her cardiovascular risk factors with her and we discussed strategies for smoking reduction in cessation. Problem 462175958 Vertigo (R42) Active confirmed Her vertigo has resolved. Problem 20979613 Tendinitis (M77.9) Active confirmed The pain in the thumb is mild and I have recommended ibuprofen. Problem 620053751 Chronic GERD (K21.9) Active confirmed She will take omeprazole twice a day for 21 days and treat breakthrough heartburn with one or 2 tablespoons of Mylanta. She will call me if any new symptoms develop Vital Signs Height 58 in 11/07/2024 Weight 155 lbs 06/21/2024 BMI 32.39 kg/m2 06/21/2024 Encounters Encounter Location Date Provider Diagnosis Sachin Stokes III, MD [address] [place] [address] [address], [place] [address] 06/18/2024 Sachin Stokes Obesity (BMI 30.0-34 .9) E66.9 ; Tobacco dependence F17.200 ; Mixed hyperlipidemia E78.2 ; Lumbar radiculopathy M54.16 and Chronic GERD K21.9 Sachin Stokes III, MD [address] [place] [address] [address] [place] [address] 06/21/2024 Sachin Stokes Acute cough R05.1 ; Mixed hyperlipidemia E78.2 ; Obesity (BMI 30.0-34.9) E66.9 and Tobacco dependence F17.200 Sachin Stokes III, MD [address] [place] [address] [address] [place] [address] 11/07/2024 Sachin Stokes Acute upper respirat ory [...] 09/20/2021 Lipid Panel 02/15/2024 Lipid Panel 07/30/2021 Medical (General) History Medical History History ICD [...]
== END 2025-05-09 10:31 | disposition home or self-care (01) ==
LOC: HO.HPS 10:18
PROVIDERS: PCP Internal Medicine Medical Oncology; Referring Provider Internal Medicine; Visit Provider Physician Assistant Medical
DX: Z87.891 Personal history of nicotine dependence (principal)
CPT/HCPCS: G0296

== ENCOUNTER 2025-05-09 10:34 | Outpatient (REF) | payer OTHER, SELFPAY ==
--- NOTE | ~2025-05-09 | CT_ITS ---
EXAMINATION: CT LUNG SCREENING HISTORY: Z87.891 - Personal history of nicotine dependence TECHNIQUE: Low dose axial images were obtained from the sternal notch to upper abdomen without IV contrast per standard departmental protocol. Sagittal and coronal reformatted images were also obtained and reviewed. One or more of the following techniques was used for dose reduction: Automated exposure control, adjustment of the mA and/or kV according to patient size, use of iterative reconstruction technique. DLP: 78 mGy-cm COMPARISON: Previous chest x-ray June [address] mediastinal lymphadenopathy versus thymic lesion recommend a follow-up chest CT with IV contrast. FINDINGS: Lung nodules: 3 mm calcified right apical nodule axial image 17 series 6. 3 mm noncalcified left upper lobe nodule axial image 37 series 6. 3 mm noncalcified right upper lobe nodule axial image 42 series 6. 4 mm peripheral or subpleural right lower lobe nodule adjacent to the major fissure axial image 69 series 6. 3 mm calcified right lower lobe nodule axial image 83 series 6. Emphysema: mild Coronary Calcification: none Aortic Arch Calcification: mild Potentially Significant Incidentals : 2 x 2.5 x 2.5 cm lesion just deep to the manubrium axial image 37 series 5. This is new from February [address] Additional Chest Findings: There is no pleural or pericardial effusion. No other mediastinal, hilar, internal mammary or axillary lymphadenopathy is identified. No chest wall mass. Visualized upper abdomen: The visualized portions of the liver, spleen, and adrenals have an unremarkable unenhanced appearance. There may be a small nonobstructing left renal stone. Degenerative changes of the spine. CT/CT lung screening IMPRESSION: Mild emphysema. Small calcified and noncalcified pulmonary nodules, largest measuring 4 mm. No suspicious pulmonary nodules are identified. LUNG-RADS ASSESSMENT: Lung-RADS 2: Benign MANAGEMENT: Continue annual screening with LDCT in 12 months Category S: 2 x 2.5 cm lesion just deep to the manubrium new from February 2024. Question mediastinal adenopathy, thymic lesion or new fluid in the superior pericardial recess. Recommend follow-up chest CT or MRI with IV contrast. Electronically signed by: Lauren Hough MD 05/09/2025 11:16 AM EDT
== END 2025-05-09 10:35 | disposition home or self-care (01) ==
LOC: HO.CT 10:34
PROVIDERS: Visit Provider Physician Assistant Medical
DX: Z12.2 Encounter for screening for malignant neoplasm of respiratory organs (principal); Z87.891 Personal history of nicotine dependence
CPT/HCPCS: 71271

== ENCOUNTER → 2025-05-09 10:36 | Outpatient (BNV) | payer OTHER, SELFPAY | PROVIDERS: Visit Provider Radiology Diagnostic Radiology | DX: Z87.891 Personal history of nicotine dependence (principal) | CPT/HCPCS: 71271 ==